=== PATIENT | female | born 1960 | race Caucasian/White ===

== ENCOUNTER 2017-04-17 14:09 | Outpatient (POV) | payer MEDICAID, SELFPAY | END 2017-04-17 14:39 | disposition home or self-care (01) | PROVIDERS: Visit Provider Podiatrist | DX: L89.621 Pressure ulcer of left heel, stage 1 (principal); E11.622 Type 2 diabetes mellitus with other skin ulcer | CPT/HCPCS: 99212 ==

== ENCOUNTER 2017-05-03 14:20 | Outpatient (POV) | payer MEDICAID, SELFPAY | END 2017-05-03 16:20 | disposition home or self-care (01) | PROVIDERS: Visit Provider Podiatrist | DX: E11.621 Type 2 diabetes mellitus with foot ulcer (principal); L97.429 Non-pressure chronic ulcer of left heel and midfoot with unspecified severity | CPT/HCPCS: 99212; 11042; 73630 ==

== ENCOUNTER → 2017-05-04 | Outpatient (CLI) | payer MEDICAID, SELFPAY | PROVIDERS: Visit Provider Podiatrist | DX: E11.621 Type 2 diabetes mellitus with foot ulcer (principal) | CPT/HCPCS: 36415; 80053; 85025; 85651; 86140; 87070; 87077; 87186 ==

== ENCOUNTER 2017-05-17 08:01 | Outpatient (RCR) | payer BC, SELFPAY | END 2017-05-17 23:59 | LOC: PT 08:01 | PROVIDERS: PCP Internal Medicine Adolescent Medicine; Visit Provider Podiatrist | DX: E11.621 Type 2 diabetes mellitus with foot ulcer (principal) | CPT/HCPCS: 97162 ==

== ENCOUNTER 2017-06-26 11:07 | Emergency (ER) | payer BC, SELFPAY ==
[2017-06-26 11:30] VITALS: BP 146/93; PULSE 92; RESP 18; TEMP 36.2; O2SAT 99; BMI 32.1
--- NOTE | 2017-06-26 11:52 | HMH.EDUTC ---
[facility] Disposition Clinical Impression: Bilateral impacted cerumen, History of arthritis Disposition: Home, Self-Care Condition on Discharge: Good Instructions: DI for Cerumen Impaction, Ibuprofen, DI for Arthritis Additional Instructions: * All cerumen was removed. You report ears already feel better. No further treatment necessary with them * Ibuprofen every 6 hours with meal as needed for pain/inflammation. * No additional anti-inflammatories like motrin, aleve, advil with the above amount of ibuprofen. You CAN still take Tylenol every 4 hours as needed if you need something more for pain. * If you feel like you are needing ibuprofen often for your arthritis, you need to discuss this with primary care because they might want to start you on a daily medication to help cut down on your ibuprofen usage. Follow up with primary care IMMEDIATELY for new or worsening symptoms AND to discuss your arthritis. 911 for difficulty breathing or swallowing Prescriptions: Ibuprofen [Ibuprofen 600mg Tab] 600 mg PO Q6H PRN #30 tab PRN Reason: Moderate To Severe Pain Time of Disposition: 12:52 Medical Decision Making Vital Signs: 06/26/17 11:30 06/26/17 12:52 Temperature 97.2 F L 97.8 F Temperature Source Temporal Artery Scan Pulse Rate 78 Pulse Rate [Right Radial] 92 H Respiratory Rate 18 20 Blood Pressure 133/60 Blood Pressure [Right Arm] 146/93 Blood Pressure Mean [Right Arm] 110 Blood Pressure Source [Right Arm] Automatic Cuff Blood Pressure Position [Right Arm] Sitting 02 Sat by Pulse Oximetry 99 Oxygen Delivery Method Room Air - Vikram Inquiry Pt receiving controlled substance: No [facility] HPI - General Stated complaint: all over pain Time Seen by Provider: 06/26/17 11:52 Mode of Arrival: Family Vehicle Source of Information: Patient Limitations: No Limitations Description of Symptoms (Recalled from Triage Doc. by RN): pt c/o sinus drainage and pressure, ear pain, arthritis pain. HEENT Symptoms (Recalled from RN notes): Yes (sinus pressure/drainage, ear pain) Resp Symptoms (Recalled from RN notes): No Skin Symptoms (Recalled from RN notes): No MS Symptoms (Recalled from RN notes): Yes (arthritis pain) Functional Status (Recalled from RN notes): na - History of Present Illness Provider Complaint: c/o aches, chills, rhinorrhea, sinus pressure, yordan ear pain starting approx one week ago. Thinks aches are due to worsening arthritis. No specific joint. Had prescription ibuprofen at home but ran out around the time symptoms worsened. Can't afford to purchase any over the counter. Wondering if she needs IV levaquin for her sinus pressure or ibuprofen for her aches. Denies hx of renal disease, stomach ulcer, stomach bleeds. States she has never been told not to take ibuprofen and it is one of the only things that helps her aches. - Related Data Home Medications Medication Instructions Recorded Confirmed fluorometholone 0.1 % eye 1 drp OPHTHALMIC Q6H 05/21/17 drops,suspension gabapentin 300 mg capsule 300 mg PO TID 05/21/17 gentamicin 0.1 % topical cream 1 applic TOPICAL TID 05/21/17 hydrochlorothiazide 25 mg tablet 25 mg PO QDAY 05/21/17 levothyroxine 200 mcg tablet PO 05/21/17 omeprazole 20 mg capsule,delayed 20 mg PO ONCE 05/21/17 release sertraline 100 mg tablet 100 mg PO QDAY 05/21/17 sitagliptin 100 mg tablet 100 mg PO QDAY 05/21/17 acetaminophen 500 mg tablet 500 mg PO Q6H 06/15/17 ibuprofen 200 mg capsule 200 mg PO ONCE 06/15/17 rosuvastatin 10 mg tablet 10 mg PO ONCE 06/15/17 Previous Rx's Medication Instructions Recorded Ibuprofen [Ibuprofen 600mg Tab] 600 mg PO Q6H PRN #30 tab 06/26/17 Allergies Allergy/AdvReac Type Severity Reaction Status Date / Time regadenoson Allergy Severe HIVES SOB Verified 06/26/17 11:42 diphtheria, pertussis, Allergy Mild I-RASH Verified 06/26/17 11:42 tetanus vacc Iodinated Contrast Media - Allergy Mild I-HIVES Verified 06/26/17 11:42
[2017-06-26 12:52] VITALS: BP 133/60; PULSE 78; RESP 20; TEMP 36.6; O2SAT 99
== END 2017-06-26 12:53 | disposition home or self-care (01) ==
PROVIDERS: Emergency Provider Nurse Practitioner Family; PCP Internal Medicine Adolescent Medicine
DX: H61.23 Impacted cerumen, bilateral (principal); E11.9 Type 2 diabetes mellitus without complications; E78.5 Hyperlipidemia, unspecified; I10 Essential (primary) hypertension; Z88.0 Allergy status to penicillin; Z88.1 Allergy status to other antibiotic agents; Z88.2 Allergy status to sulfonamides; Z88.6 Allergy status to analgesic agent; Z88.7 Allergy status to serum and vaccine
CPT/HCPCS: 69210; 99202

== ENCOUNTER 2017-06-28 03:39 | Emergency (ER) | payer BC, SELFPAY ==
[2017-06-28 03:46] VITALS: BP 158/94; PULSE 91; RESP 18; TEMP 36.4; O2SAT 97; BMI 31.7
[2017-06-28 04:58] VITALS: BP 127/68; PULSE 91; RESP 18; TEMP 36.7; O2SAT 98
--- NOTE | 2017-06-28 04:58 | HMH.EDLOEX ---
ED Disposition Clinical Impression: DVT (deep venous thrombosis) Qualifiers: DVT location: lower extremity Affected thrombotic vein of extremity: unspecified vein of extremity Chronicity: unspecified Laterality: right Qualified Code(s): I82.401 - Acute embolism and thrombosis of unspecified deep veins of right lower extremity Disposition: Home, Self-Care Condition on Discharge: Good Instructions: DI for Deep Vein Thrombosis Additional Instructions: call pcp for follow this am - Critical Care Critical Care Time: No Attestation: On 06/28/17, the high probability of a clinically significant, sudden or life threatening deterioration of the following system(s) required my full and direct attention, intervention and personal management. The time I documented below is in addition to time spent performing reported procedures but includes the following listed in this critical care notation. Medical Decision Making - Medical Records Medical records reviewed: Yes: I reviewed the patient's medical records. Vital Signs: 06/28/17 03:46 Temperature 97.6 F Temperature Source Oral Pulse Rate [Right Radial] 91 H Respiratory Rate 18 Blood Pressure [Right Arm] 158/94 Blood Pressure Mean [Right Arm] 115 Blood Pressure Source [Right Arm] Automatic Cuff Blood Pressure Position [Right Arm] Sitting 02 Sat by Pulse Oximetry 97 Oxygen Delivery Method Room Air - Lab Data Lab results reviewed: Yes: I reviewed the patient's lab results. - Vikram Inquiry Pt receiving controlled substance: No Lower Extremity Injury HPI - General Chief Complaint: Skin/Abscess/Foreign Body Stated Complaint: knot in calf of right leg Time Seen by Provider: 06/28/17 04:59 Mode of Arrival: Ambulatory Source of Information: Patient, Spouse, Medical Record Limitations: No Limitations Description of Symptoms (Recalled from ER Triage Doc. by RN): Pt reports knot on calf that came up yesterday and is very painful - History of Present Illness HPI Narrative: pain rt lower leg noted yesterday with assoc pain Onset (ago): day(s) Severity: moderate Context: other (no trauma) - Related Data Home Medications Medication Instructions Recorded Confirmed fluorometholone 0.1 % eye 1 drp OPHTHALMIC Q6H 05/21/17 06/28/17 drops,suspension gabapentin 300 mg capsule 100 mg PO TID 05/21/17 06/28/17 hydrochlorothiazide 25 mg tablet 25 mg PO QDAY 05/21/17 06/28/17 levothyroxine 200 mcg tablet 200 mcg PO DAILY 05/21/17 06/28/17 omeprazole 20 mg capsule,delayed 20 mg PO ONCE 05/21/17 06/28/17 release sertraline 100 mg tablet 100 mg PO QDAY 05/21/17 06/28/17 sitagliptin 100 mg tablet 40 mg PO QDAY 05/21/17 06/28/17 acetaminophen 500 mg tablet 500 mg PO Q6H 06/15/17 06/28/17 ibuprofen 200 mg capsule 200 mg PO ONCE 06/15/17 06/28/17 rosuvastatin 10 mg tablet 10 mg PO ONCE 06/15/17 06/28/17 Allergies Allergy/AdvReac Type Severity Reaction Status Date / Time regadenoson Allergy Severe HIVES SOB Verified 06/28/17 03:53 diphtheria, pertussis, Allergy Mild I-RASH Verified 06/28/17 03:53 tetanus vacc Iodinated Contrast Media - Allergy Mild I-HIVES Verified 06/28/17 03:53 Oral and amoxicillin [AMOXICILLIN] Allergy Unknown Verified 06/28/17 03:53 cephalexin [CEPHALEXIN] Allergy Unknown Verified 06/28/17 03:53 clindamycin [CLINDAMYCIN] Allergy Unknown Verified 06/28/17 03:53 codeine [CODEINE] Allergy Unknown Verified 06/28/17 03:53 doxycycline [DOXYCYCLINE] Allergy Unknown I-HIVES Verified 06/28/17 03:53 erythromycin base Allergy Unknown Verified 06/28/17 03:53 [ERYTHROMYCIN BASE] meperidine [MEPERIDINE] Allergy Unknown Verified 06/28/17 03:53 metformin [METFORMIN] Allergy Unknown Verified 06/28/17 03:53 methylprednisolone Allergy Unknown Verified 06/28/17 03:53 [From MEDROL] oseltamivir [From TAMIFLU] Allergy Unknown S-DIFF. Verified 06/28/17 03:53 BREATHING Penicillins [PENICILLINS] Allergy Unknown Verified 06/28/17 03:53 p
--- NOTE | 2017-06-28 05:05 | ED_ITS ---
ED Disposition Clinical Impression: DVT (deep venous thrombosis) Qualifiers: DVT location: lower extremity Affected thrombotic vein of extremity: unspecified vein of extremity Chronicity: unspecified Laterality: right Qualified Code(s): I82.401 - Acute embolism and thrombosis of unspecified deep veins of right lower extremity Disposition: Home, Self-Care Condition on Discharge: Good Instructions: DI for Deep Vein Thrombosis Additional Instructions: call pcp for follow this am - Critical Care Critical Care Time: No Attestation: On 06/28/17, the high probability of a clinically significant, sudden or life threatening deterioration of the following system(s) required my full and direct attention, intervention and personal management. The time I documented below is in addition to time spent performing reported procedures but includes the following listed in this critical care notation. Medical Decision Making - Medical Records Medical records reviewed: Yes: I reviewed the patient's medical records. Vital Signs: 06/28/17 03:46 Temperature 97.6 F Temperature Source Oral Pulse Rate [Right Radial] 91 H Respiratory Rate 18 Blood Pressure [Right Arm] 158/94 Blood Pressure Mean [Right Arm] 115 Blood Pressure Source [Right Arm] Automatic Cuff Blood Pressure Position [Right Arm] Sitting 02 Sat by Pulse Oximetry 97 Oxygen Delivery Method Room Air - Lab Data Lab results reviewed: Yes: I reviewed the patient's lab results. - Vikram Inquiry Pt receiving controlled substance: No Lower Extremity Injury HPI - General Chief Complaint: Skin/Abscess/Foreign Body Stated Complaint: knot in calf of right leg Time Seen by Provider: 06/28/17 04:59 Mode of Arrival: Ambulatory Source of Information: Patient, Spouse, Medical Record Limitations: No Limitations Description of Symptoms (Recalled from ER Triage Doc. by RN): Pt reports knot on calf that came up yesterday and is very painful - History of Present Illness HPI Narrative: pain rt lower leg noted yesterday with assoc pain Onset (ago): day(s) Severity: moderate Context: other (no trauma) - Related Data Home Medications Medication Instructions Recorded Confirmed fluorometholone 0.1 % eye 1 drp OPHTHALMIC Q6H 05/21/17 06/28/17 drops,suspension gabapentin 300 mg capsule 100 mg PO TID 05/21/17 06/28/17 hydrochlorothiazide 25 mg tablet 25 mg PO QDAY 05/21/17 06/28/17 levothyroxine 200 mcg tablet 200 mcg PO DAILY 05/21/17 06/28/17 omeprazole 20 mg capsule,delayed 20 mg PO ONCE 05/21/17 06/28/17 release sertraline 100 mg tablet 100 mg PO QDAY 05/21/17 06/28/17 sitagliptin 100 mg tablet 40 mg PO QDAY 05/21/17 06/28/17 acetaminophen 500 mg tablet 500 mg PO Q6H 06/15/17 06/28/17 ibuprofen 200 mg capsule 200 mg PO ONCE 06/15/17 06/28/17 rosuvastatin 10 mg tablet 10 mg PO ONCE 06/15/17 06/28/17 Allergies Allergy/AdvReac Type Severity Reaction Status Date / Time regadenoson Allergy Severe HIVES SOB Verified 06/28/17 03:53 diphtheria, pertussis, Allergy Mild I-RASH Verified 06/28/17 03:53 tetanus vacc Iodinated Contrast Media - Allergy Mild I-HIVES Verified 06/28/17 03:53 Oral and amoxicillin [AMOXICILLIN] Allergy Unknown Verified 06/28/17 03:53 cephalexin [CEPHALEXIN] Allergy Unknown Verified 06/28/17 03:53
[2017-06-28 05:36] LABS: Basophils % 0.4 % (0.1-2.0); Eosinophils # 0.4 K/mm3 (0.0-0.4); Eosinophils % 3.8 % (0.1-12.0); Hematocrit 34.2 % (37.0-47.0); Lymphocytes # 1.9 K/mm3 (0.7-4.5); Lymphocytes % 19.3 K/mm3 (10-50); Mean Corpuscular HGB Conc 35.1 g/dL (31.8-35.4); Mean Corpuscular Hemoglobin 31.2 pg (27.0-31.2); Mean Corpuscular Volume 88.7 fl (81-99); Mean Platelet Volume 8.1 fl (7.4-10.4); Monocytes # 0.5 K/mm3 (0.1-1.0); Monocytes % 4.7 % (1.7-9.3); Neutrophils # 7.1 K/mm3 (1.8-7.8); Neutrophils % 71.8 % (37.0-80.0); Platelet Count 278 K/mm3 (142-424); Red Blood Count 3.85 M/mm3 (4.20-5.40); Red Cell Distribution Width 13.1 % (11.5-17.5); White Blood Count 9.8 K/mm3 (4.8-10.8)
[2017-06-28 05:40] VITALS: BP 127/68; PULSE 91; RESP 18; TEMP 36.7; O2SAT 98
[2017-06-28 05:44] LABS: Anion Gap 11.3 mEq/L (5-15); Blood Urea Nitrogen 22 mg/dL (7-18); Carbon Dioxide 30 mmol/L (21.0-32.0); Chloride 95 mmol/L (98-107); Creatinine Clearance Estimated 80 mL/min (0-300); Creatinine,Serum 0.96 mg/dL (0.55-1.02); Estimated Glomerular Filt Rate 60 ml/min (>60); GFR (African American) 73 ML/MIN (>60); Potassium 4.3 mmoL/L (3.5-5.1); Sodium 132 mmol/L (136-145)
[2017-06-28 05:47] LABS: Glucose 417 mg/dL (74-106)
[2017-06-28 05:57] LABS: D-Dimer 115 (0-400)
== END 2017-06-28 05:40 | disposition home or self-care (01) ==
PROVIDERS: Emergency Provider Emergency Medicine; PCP Internal Medicine Adolescent Medicine
DX: I82.401 Acute embolism and thrombosis of unspecified deep veins of right lower extremity (principal); Z79.899 Other long term (current) drug therapy
CPT/HCPCS: 80048; 85025; 85378; 96372; 99282

== ENCOUNTER → 2017-06-28 14:42 | Outpatient (CLI) | payer BC, SELFPAY ==
--- NOTE | 2017-06-28 14:51 | NVE_ITS ---
Venous Exam Indications: 729.5 Pain in limb. IMPRESSIONS 1. There is no evidence of significant Reflux. 2. No evidence of deep or superficial vein thrombosis involving the left lower extremity 3. No evidence of deep or superficial vein thrombosis involving the right lower extremity History: Risk factors: Hypertension. Complete lower extremity venous duplex evaluation. Doppler flow study including spectral analysis, color and brooke scale imaging. Location: Vascular laboratory. Patient status: Outpatient. Tables: Venous flow and imaging: + +-------+ + Location Overall Flow properties + +-------+ + Right common femoral Patent Normal phasicity; spontaneous; normal augmentation; compressible + +-------+ + Right saphenofemoral junction Patent Compressible + +-------+ + Right profunda femoral Patent Compressible + +-------+ + Right femoral Patent Normal phasicity; spontaneous; normal augmentation; compressible; no reflux + +-------+ + Right greater saphenous Patent Normal phasicity; spontaneous; normal augmentation; compressible + +-------+ + Right popliteal Patent Normal phasicity; spontaneous; normal augmentation; compressible + +-------+ + Right posterior tibial Patent Compressible + +-------+ + Right peroneal Patent Compressible + +-------+ + Right gastrocnemius Patent Compressible + +-------+ + Right soleal Patent Compressible + +-------+ + Left common femoral Patent Normal phasicity; spontaneous; normal augmentation; compressible + +-------+ + Left saphenofemoral junction Patent Compressible + +-------+ + Left profunda femoral Patent Compressible + +-------+ + Left femoral Patent Normal phasicity; spontaneous; normal augmentation; compressible + +-------+ + Left greater saphenous Patent Normal phasicity; spontaneous; normal augmentation; compressible + +-------+ +
== END ==
PROVIDERS: PCP Internal Medicine Adolescent Medicine; Visit Provider Internal Medicine Cardiovascular Disease
DX: I73.9 Peripheral vascular disease, unspecified (principal); Z86.718 Personal history of other venous thrombosis and embolism; Z86.73 Personal history of transient ischemic attack (TIA), and cerebral infarction without residual deficits; Z82.49 Family history of ischemic heart disease and other diseases of the circulatory system; R94.31 Abnormal electrocardiogram [ECG] [EKG]; I25.10 Atherosclerotic heart disease of native coronary artery without angina pectoris; J44.9 Chronic obstructive pulmonary disease, unspecified
CPT/HCPCS: 93970

== ENCOUNTER → 2017-07-06 12:59 | Outpatient (CLI) | payer BC, SELFPAY ==
--- NOTE | 2017-07-06 13:01 | US_ITS ---
US Arterial Ankle Brachial Ind INDICATION: Hypertension, diabetes, left heel ulcer ORDERING PHYSICIAN: Vidal Oliver MD PATIENT AGE: 57 years TECHNIQUE: Segmental pressures obtained of both right and left leg. These are compared to brachial blood pressure to yield index at each level sampled including summary TARA. The data sheets from the procedure are available in PACS FINDINGS Rest study only performed today No prior studies available for comparison. Blood pressures reported are in millimeters mercury. RIGHT LEG TARA = 1.0. Right TBI 1.0 Brachial BP: 162 Thigh BP: 185 Calf BP: 191 Ankle PT: 208 Ankle DP : 212 Digit =169 LEFT LEG TARA = 1.2 Left TBI 1.0 Brachial BPD: 174 Thigh BP: 191 Calf BP: 213 Ankle PT:202 Ankle DP: 204 Digit = 174 Pulses and waveforms: Normal IMPRESSION: The ABIs as reported above are within normal limits. Waveforms and pulses are also unremarkable.
--- NOTE | 2017-07-06 13:02 | CA_ITS ---
PROCEDURE: 2-D M-mode and color Doppler study INDICATIONS FOR THE TEST: Chest painX COPDX Heart Murmur Tobacco Smoking Palpitations Fatigue Syncope Edema HypertensionXDiabetes MellitusX Rheumatic Fever SOB [place] Obesity HyperlipidemiaX Family History HDX Additional History CAD,CVA EF 03/24/16 >55% PATIENT INFORMATION HEIGHT: 61 WEIGHT:170 GENDER: Female B/P:120/80 2-D/M-MODE INTERPRETATION: 2-D MEASUREMENTS OBSERVED VALUES IN CMS Right Ventricular Dimension (RVDd) 1.7 Interventricular Septum (Thickness)(IVsd) .6 Left Ventricular Internal Dimensions(LVIDd) 5.4 Left Ventricular Posterior Wall (Thickness)(LVPWd) .7 Aortic Root 2.8 Aortic Cusp Separation 1.7 Left Atrial Dimensions (LAD) 2.7 2D 1. Left atrium is mildly enlarged, left ventricle is normal size, there is mild concentric left ventricular hypertrophy, there is borderline left ventricular systolic function, visually estimated ejection fraction approximately 45% with no obvious regional wall motion abnormality. 2. The right atrium and right ventricle are normal size and contractility. 3. The aortic valve is minimally thickened and fibrosed. 4. The mitral and tricuspid valve leaflets are minimally thickened. 5. The pulmonic valve is poorly visualized. 6. No significant pericardial effusion noted. DOPPLER INTERROGATION: Doppler interrogation of the aortic, mitral and tricuspid valve reveals presence of mild mitral and tricuspid regurgitation, tricuspid and enteric velocity insufficient for calculation of the right ventricular systolic pressure, diastolic parameters are inconclusive. CONCLUSION: 1. Mildly enlarged left atrium, normal left ventricular size, mild concentric left ventricular hypertrophy, there is borderline left ventricular systolic function, visually estimated ejection fraction 45% with no obvious regional wall motion abnormality. Diastolic parameters are inconclusive. 2. Mild mitral and tricuspid regurgitation 3. No significant pericardial effusion noted.
== END ==
PROVIDERS: PCP Family Medicine; Visit Provider Internal Medicine Cardiovascular Disease
DX: R53.83 Other fatigue (principal); R06.83 Snoring; G47.9 Sleep disorder, unspecified; R06.00 Dyspnea, unspecified; I73.9 Peripheral vascular disease, unspecified; J44.9 Chronic obstructive pulmonary disease, unspecified; I77.1 Stricture of artery; I11.9 Hypertensive heart disease without heart failure; E78.5 Hyperlipidemia, unspecified; I25.10 Atherosclerotic heart disease of native coronary artery without angina pectoris
CPT/HCPCS: 93306; 93922

== ENCOUNTER → 2017-08-13 20:12 | Outpatient (CLI) | payer BC, SELFPAY | PROVIDERS: PCP Family Medicine; Visit Provider Internal Medicine Cardiovascular Disease | DX: R53.83 Other fatigue (principal); R06.83 Snoring; G47.9 Sleep disorder, unspecified; R06.00 Dyspnea, unspecified; I25.10 Atherosclerotic heart disease of native coronary artery without angina pectoris | CPT/HCPCS: 95810 ==

== ENCOUNTER → 2017-08-15 11:20 | Outpatient (CLI) | payer BC, SELFPAY ==
--- NOTE | 2017-08-15 11:24 | XR_ITS ---
XR abdomen min 2V Ordering Physician: PATRICIA Mustafa Patient Age: 57 years: Female HISTORY: ITS.REASON: abdominal pain TECHNIQUE: Flat and upright abdomen COMPARISON :Previous 2 view chest March 2017 FINDINGS Flat and upright views of abdomen demonstrate a generous stool throughout the right transverse and left colon. Suggestion of mild constipation. No small bowel dilatation or obstruction. Stomach unremarkable. Clips right quadrant from cholecystectomy. No organomegaly. Mild levoscoliosis of the lumbar spine with subtle gradual dextrocurvature lower T-spine. Osseous structures intact. Phleboliths pelvic basin. These images also include lung bases which demonstrate slight progression of very dense reticular /nodular pattern midlung and towards left base. Slight progressive density may be accentuated by the lower KV technique this progressively dense infiltrate may reflect some type of pulmonary toxicity microlithiasis talc pneumoconiosis. Pulmonary follow-up and consult recommended if patient has not already been evaluated. Findings at the right midlung appears similar to previous CXR study IMPRESSION: 1. Abdomen: Moderate to generous stool throughout the colon- suggesting mild constipation No bowel dilatation or obstruction. No organomegaly. No free air 2. These studies include the lung bases, which again show the very possibly partially calcified reticulonodular bilaterally. Is suggestion of slight progressive density of this reticular nodular process at left midlung and towards left base since 2016 ...however the different x-ray technique may accentuate such markings.. Pulmonary consult recommended if this is not been previously initiated
== END ==
PROVIDERS: PCP Family Medicine; Visit Provider Physician Assistant
DX: R10.84 Generalized abdominal pain (principal)
CPT/HCPCS: 74019

== ENCOUNTER → 2017-08-20 11:22 | Outpatient (REF) | payer BC, SELFPAY | LOC: LAB 11:22 | PROVIDERS: Visit Provider Nurse Practitioner Family | DX: R30.9 Painful micturition, unspecified (principal) | CPT/HCPCS: 87086; 87088; 87186 ==

== ENCOUNTER → 2017-08-30 07:56 | Outpatient (CLI) | payer BC, SELFPAY ==
--- NOTE | 2017-08-30 07:57 | CT_ITS ---
CT chest wo con COMPARISON: PA and lateral chest 01/31/2017 HISTORY: Shortness of breath cough, abnormal chest x-ray TECHNIQUE: Multiaxial scans obtained from the thoracic inlet the hemidiaphragms and were performed without IV contrast. Sagittal and coronal reformats were evaluated as well. FINDINGS: The lung foster are fairly well-expanded. There are bilateral coarse and chronic appearing pneumonic infiltrates primarily in the perihilar regions showing increased attenuation and generalized thickening of the interlobular septa. Involvement is most prominent in the upper lobes and superior segment left lower lobe and minimally involving the right middle lobe. There is no pleural fluid. There is no abnormal superior mediastinal or hilar lymphadenopathy. Cardiac size is normal. There is a small sliding hiatal hernia. Noted. Mediastinal or hilar lymphadenopathy. 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 Other types of aspiration pneumonia are considerations as well. Suggest clinical correlation for possible use of mineral oral or related substances i.e. oily nose drops.
== END ==
PROVIDERS: PCP Family Medicine; Visit Provider Physician Assistant
DX: R93.8 Abnormal findings on diagnostic imaging of other specified body structures (principal)
CPT/HCPCS: 71250

== ENCOUNTER → 2017-09-05 14:08 | Outpatient (CLI) | payer BC, SELFPAY | PROVIDERS: Visit Provider Physician Assistant | DX: R30.9 Painful micturition, unspecified (principal); R53.83 Other fatigue | CPT/HCPCS: 87086; 87210 ==

== ENCOUNTER 2017-09-06 14:14 | Outpatient (CLI) | payer BC, SELFPAY ==
[2017-09-06 13:55] VITALS: BMI 32.1
[2017-09-06 14:47] LABS: Anion Gap 10.9 mEq/L (5-15); Blood Urea Nitrogen 13 mg/dL (7-18); Carbon Dioxide 32 mmol/L (21.0-32.0); Chloride 97 mmol/L (98-107); Creatinine Clearance Estimated 74 mL/min (0-300); Creatinine,Serum 1.04 mg/dL (0.55-1.02); Estimated Glomerular Filt Rate 55 ml/min (>60); GFR (African American) 67 ML/MIN (>60); Potassium 3.9 mmoL/L (3.5-5.1); Sodium 136 mmol/L (136-145)
[2017-09-06 14:49] LABS: Glucose 427 mg/dL (74-106)
--- NOTE | 2017-09-06 15:21 | HMH.PHACONS ---
- Pharmacy Consult Date: 09/06/17 Time: 15:21 Referring provider: ISSAC HARDIN Reason for Consult:: GENTAMICIN DOSING Allergies and ADEs:: Allergies Allergy/AdvReac Type Severity Reaction Status Date / Time regadenoson Allergy Severe HIVES SOB Verified 09/05/17 13:57 diphtheria, pertussis, Allergy Mild I-RASH Verified 09/05/17 13:57 tetanus vacc Iodinated Contrast Media - Allergy Mild I-HIVES Verified 09/05/17 13:57 Oral and amoxicillin [AMOXICILLIN] Allergy Unknown Verified 09/05/17 13:57 cephalexin [CEPHALEXIN] Allergy Unknown Verified 09/05/17 13:57 clindamycin [CLINDAMYCIN] Allergy Unknown Verified 09/05/17 13:57 codeine [CODEINE] Allergy Unknown Verified 09/05/17 13:57 doxycycline [DOXYCYCLINE] Allergy Unknown I-HIVES Verified 09/05/17 13:57 erythromycin base Allergy Unknown Verified 09/05/17 13:57 [ERYTHROMYCIN BASE] meperidine [MEPERIDINE] Allergy Unknown Verified 09/05/17 13:57 metformin [METFORMIN] Allergy Unknown Verified 09/05/17 13:57 methylprednisolone Allergy Unknown Verified 09/05/17 13:57 [From MEDROL] oseltamivir [From TAMIFLU] Allergy Unknown S-DIFF. Verified 09/05/17 13:57 BREATHING Penicillins [PENICILLINS] Allergy Unknown Verified 09/05/17 13:57 pioglitazone [From ACTOS] Allergy Unknown Verified 09/05/17 13:57 polyethylene glycol 3350 Allergy Unknown Verified 09/05/17 13:57 [From MIRALAX] Sulfa (Sulfonamide Allergy Unknown Verified 09/05/17 13:57 Antibiotics) [SULFA (SULFONAMIDE ANTIBIOTICS)] tetracycline [TETRACYCLINE] Allergy Unknown Verified 09/05/17 13:57 nitrofurantoin Allergy Hives Verified 09/05/17 14:56 [From Macrobid] Home Medications:: Home Medications Medication Instructions Recorded Confirmed Type hydrochlorothiazide 25 mg tablet 25 mg PO QDAY 05/21/17 06/28/17 History levothyroxine 200 mcg tablet 200 mcg PO DAILY 05/21/17 06/28/17 History sertraline 100 mg tablet 100 mg PO QDAY 05/21/17 06/28/17 History sitagliptin 100 mg tablet 40 mg PO QDAY 05/21/17 06/28/17 History acetaminophen 500 mg tablet 500 mg PO Q6H 06/15/17 06/28/17 History Height: 1.55 m Weight: 77.111 kg Laboratory Results:: Laboratory Results - last 24 hr 09/06/17 14:00: Sodium 136, Potassium 3.9, Chloride 97 L, Carbon Dioxide 32, Anion Gap 10.9, BUN 13, Creatinine 1.04 H, Estimated Creat Clear 74, Estimated GFR 55 L, Est GFR ( Amer) 67, Glucose 427 H* Medical History: Reports:: Diabetes Mellitus Type 2, Hyperlipidemia, Hypertension, Migraine Assessment and Plan - Assessment and plan all Dx Assessment and Plan for all problems:: BASED ON PATIENT FACTORS, RECOMMEND INITIATING GENTAMICIN @ 300MG (7MG/KG DBW) IV Q24H. WILL OBTAIN PEAK AND TROUGH LEVELS TOMORROW DURING INFUSION. PHARMACY WILL CONTINUE TO MONITOR AND WILL ADJUST DOSE APPROPRIATE.
[2017-09-06 15:38] VITALS: BP 136/85; PULSE 93; RESP 18; TEMP 36.7; O2SAT 98
[2017-09-06 16:08] VITALS: BP 145/92; PULSE 99; RESP 18; O2SAT 98
[2017-09-06 16:38] VITALS: BP 138/89; PULSE 97; RESP 18; O2SAT 98
[2017-09-06 17:08] VITALS: BP 126/88; PULSE 96; RESP 18; O2SAT 99
== END 2017-09-06 17:10 | disposition home or self-care (01) ==
LOC: INF 14:14
PROVIDERS: PCP Physician Assistant; Visit Provider Physician Assistant
DX: N39.0 Urinary tract infection, site not specified (principal)
CPT/HCPCS: 80048; 96365

== ENCOUNTER → 2017-09-08 12:54 | Outpatient (CLI) | payer BC, SELFPAY ==
[2017-09-08 13:18] VITALS: BP 138/91; PULSE 93; RESP 18; TEMP 36.7; O2SAT 97; BMI 32.1
[2017-09-08 14:29] VITALS: BP 132/83; PULSE 92; RESP 18; TEMP 36.3; O2SAT 97
== END ==
PROVIDERS: PCP Physician Assistant; Visit Provider Physician Assistant
DX: N39.0 Urinary tract infection, site not specified (principal)
CPT/HCPCS: 96365

== ENCOUNTER 2017-09-09 13:05 | Outpatient (CLI) | payer BC, SELFPAY ==
[2017-09-09 14:04] VITALS: BP 128/79; PULSE 94; RESP 18; TEMP 36.6; O2SAT 97
[2017-09-09 14:09] LABS: Gentamicin,Trough 0.4 ug/mL (0.0-2.0)
--- NOTE | 2017-09-09 17:20 | PC.NURSE ---
pt refused to be stuck to have labs drawn following infusion of gentamycin. pt was a difficult iv stick, and states that needles cause her to have a panic/anxiety attack.
== END 2017-09-09 15:40 | disposition home or self-care (01) ==
LOC: INF 13:06
PROVIDERS: PCP Physician Assistant; Visit Provider Physician Assistant
DX: N39.0 Urinary tract infection, site not specified (principal)
CPT/HCPCS: 80170; 96365

== ENCOUNTER 2017-09-10 11:50 | Outpatient (CLI) | payer BC, SELFPAY ==
[2017-09-10 12:27] VITALS: BMI 32.1
--- NOTE | 2017-09-10 12:28 | XR_ITS ---
XR chest portable PICC plac Ordering Physician: PATRICIA Mustafa Patient Age: 57 years: Female HISTORY: ITS.REASON: PICC line placement TECHNIQUE: Portable upright chest COMPARISON :Again 08/30/2017 CT chest FINDINGS PICC line enters from right arm. There is a right subclavian. The thin transverse is the brachiocephalic vein with tip entering the left subclavian vein. PICC line nurse was notified and will attempt repositioning again see the dense bilateral pulmonary dense infiltrate process. Throughout the left midlung & towards left base and at the right midlung. There is been pronounced progressed of findings when compared back to 2017 , with I believe progressive developing calcification in these areas of infiltrate bilaterally compared to 2017..Question processes such as silicosis or developing microlithiasis. Any history of environmental exposure.'s. With other possibilities may follow. . lipoid pneumonia questioned on previous CT but does not ideally pattern bilaterally . IMPRESSION: PICC line needs to be repositioned. Currently It passes through the brachiocephalic vein into the left subclavian the main. Bilateral dense chronic infiltrative process again noted ..most extensive throughout the left midlung more so than the right midlung warrants pulmonary consult
--- NOTE | 2017-09-10 13:13 | XR_ITS ---
XR chest portable #2 Ordering Physician: PATRICIA Mustafa Patient Age: 57 years: Female HISTORY: ITS.REASON: picc placement TECHNIQUE: AP portable upright chest COMPARISON :Chest film from earlier today Also CT 08/30/2017 and 01/31/2017 FINDINGS PICC line was been repositioned now in satisfactory position is in place entering right arm transversing subclavian with tip projected over the caval atrial junction fairly. Heart normal size with cyn and mediastinal structures unremarkable. . We again see the dense bilateral pulmonary process. I suspect there may be some progressive calcification in these areas of infiltrate bilaterally.. Question processes such as silicosis or developing microlithiasis. lipoid pneumonia questioned on previous CT but does not ideally pattern bilaterally There is been pronounced progressed of findings when compared back to 2017 . IMPRESSION: PICC line satisfactory position . Bilateral dense chronic infiltrative process again noted ..most extensive throughout the left midlung more so than the right midlung
[2017-09-10 13:14] LABS: Anion Gap 7.8 mEq/L (5-15); Blood Urea Nitrogen 14 mg/dL (7-18); Carbon Dioxide 33 mmol/L (21.0-32.0); Chloride 97 mmol/L (98-107); Creatinine Clearance Estimated 74 mL/min (0-300); Creatinine,Serum 1.04 mg/dL (0.55-1.02); Estimated Glomerular Filt Rate 55 ml/min (>60); GFR (African American) 67 ML/MIN (>60); Glucose 383 mg/dL (74-106); Potassium 3.8 mmoL/L (3.5-5.1); Sodium 134 mmol/L (136-145)
[2017-09-10 13:38] VITALS: BP 118/84; PULSE 91; RESP 18; TEMP 36.4; O2SAT 98
[2017-09-10 14:08] VITALS: BP 122/81; PULSE 89; RESP 18; O2SAT 99
[2017-09-10 14:38] VITALS: BP 120/81; PULSE 90; RESP 18; O2SAT 97
[2017-09-10 14:40] VITALS: BP 119/84; PULSE 91; RESP 18; O2SAT 98
[2017-09-10 15:10] LABS: Gentamicin,Trough 0.5 ug/mL (0.0-2.0)
[2017-09-10 15:40] VITALS: BP 119/79; PULSE 90; RESP 18; O2SAT 98
--- NOTE | 2017-09-11 10:28 | HMH.PHACONS ---
- Pharmacy Consult Date: 09/11/17 Time: 10:28 Referring provider: ISSAC HARDIN Reason for Consult:: GENTAMICIN LEVELS Allergies and ADEs:: Allergies Allergy/AdvReac Type Severity Reaction Status Date / Time regadenoson Allergy Severe HIVES SOB Verified 09/07/17 10:52 diphtheria, pertussis, Allergy Mild I-RASH Verified 09/07/17 10:52 tetanus vacc Iodinated Contrast Media - Allergy Mild I-HIVES Verified 09/07/17 10:52 Oral and amoxicillin [AMOXICILLIN] Allergy Unknown Verified 09/07/17 10:52 cephalexin [CEPHALEXIN] Allergy Unknown Verified 09/07/17 10:52 clindamycin [CLINDAMYCIN] Allergy Unknown Verified 09/07/17 10:52 codeine [CODEINE] Allergy Unknown Verified 09/07/17 10:52 doxycycline [DOXYCYCLINE] Allergy Unknown I-HIVES Verified 09/07/17 10:52 erythromycin base Allergy Unknown Verified 09/07/17 10:52 [ERYTHROMYCIN BASE] meperidine [MEPERIDINE] Allergy Unknown Verified 09/07/17 10:52 metformin [METFORMIN] Allergy Unknown Verified 09/07/17 10:52 methylprednisolone Allergy Unknown Verified 09/07/17 10:52 [From MEDROL] oseltamivir [From TAMIFLU] Allergy Unknown S-DIFF. Verified 09/07/17 10:52 BREATHING Penicillins [PENICILLINS] Allergy Unknown Verified 09/07/17 10:52 pioglitazone [From ACTOS] Allergy Unknown Verified 09/07/17 10:52 polyethylene glycol 3350 Allergy Unknown Verified 09/07/17 10:52 [From MIRALAX] Sulfa (Sulfonamide Allergy Unknown Verified 09/07/17 10:52 Antibiotics) [SULFA (SULFONAMIDE ANTIBIOTICS)] tetracycline [TETRACYCLINE] Allergy Unknown Verified 09/07/17 10:52 nitrofurantoin Allergy Hives Verified 09/07/17 10:52 [From Macrobid] Home Medications:: Home Medications Medication Instructions Recorded Confirmed Type hydrochlorothiazide 25 mg tablet 25 mg PO QDAY 05/21/17 09/10/17 History levothyroxine 200 mcg tablet 200 mcg PO DAILY 05/21/17 09/10/17 History sertraline 100 mg tablet 100 mg PO QDAY 05/21/17 09/10/17 History sitagliptin 100 mg tablet 40 mg PO QDAY 05/21/17 09/10/17 History acetaminophen 500 mg tablet 500 mg PO Q6H 06/15/17 09/10/17 History Furosemide [Furosemide 20mg Tab] 20 mg PO QDAY 09/06/17 09/10/17 History Gabapentin [Gabapentin 300mg Cap] 300 mg PO Q8H 09/06/17 09/10/17 History glipiZIDE [Glipizide ER] 10 mg PO DAILY 09/06/17 09/10/17 History metroNIDAZOLE [Metronidazole] 1 appful VAGINAL QHS 09/06/17 09/10/17 History Height: 1.55 m Weight: 77.111 kg Laboratory Results:: Laboratory Results - last 24 hr 09/10/17 12:53: Gentamicin Trough 0.5 09/10/17 12:53: Sodium 134 L, Potassium 3.8, Chloride 97 L, Carbon Dioxide 33 H, Anion Gap 7.8, BUN 14, Creatinine 1.04 H, Estimated Creat Clear 74, Estimated GFR 55 L, Est GFR ( Amer) 67, Glucose 383 H 09/10/17 15:37: Gentamicin Peak 15.0 H* Medical History: Reports:: Diabetes Mellitus Type 2, Hyperlipidemia, Hypertension, Migraine Assessment and Plan - Assessment and plan all Dx Assessment and Plan for all problems:: 09/10/17: GENTAMICIN PEAK LEVEL-15.0 MCG/ML GENTAMICIN TROUGH LEVEL-0.5 MCG/ML BASED ON LEVELS AND PATIENT FACTORS, RECOMMEND CONTINUING GENTAMICIN 300 MG IV Q24H.
--- NOTE | 2017-09-11 10:35 | P.CONPHA_ITS ---
- Pharmacy Consult Date: 09/11/17 Time: 10:28 Referring provider: ISSCA HARDIN Reason for Consult:: GENTAMICIN LEVELS Allergies and ADEs:: Allergies Allergy/AdvReac Type Severity Reaction Status Date / Time regadenoson Allergy Severe HIVES SOB Verified 09/07/17 10:52 diphtheria, pertussis, Allergy Mild I-RASH Verified 09/07/17 10:52 tetanus vacc Iodinated Contrast Media - Allergy Mild I-HIVES Verified 09/07/17 10:52 Oral and amoxicillin [AMOXICILLIN] Allergy Unknown Verified 09/07/17 10:52 cephalexin [CEPHALEXIN] Allergy Unknown Verified 09/07/17 10:52 clindamycin [CLINDAMYCIN] Allergy Unknown Verified 09/07/17 10:52 codeine [CODEINE] Allergy Unknown Verified 09/07/17 10:52 doxycycline [DOXYCYCLINE] Allergy Unknown I-HIVES Verified 09/07/17 10:52 erythromycin base Allergy Unknown Verified 09/07/17 10:52 [ERYTHROMYCIN BASE] meperidine [MEPERIDINE] Allergy Unknown Verified 09/07/17 10:52 metformin [METFORMIN] Allergy Unknown Verified 09/07/17 10:52 methylprednisolone Allergy Unknown Verified 09/07/17 10:52 [From MEDROL] oseltamivir [From TAMIFLU] Allergy Unknown S-DIFF. Verified 09/07/17 10:52 BREATHING Penicillins [PENICILLINS] Allergy Unknown Verified 09/07/17 10:52 pioglitazone [From ACTOS] Allergy Unknown Verified 09/07/17 10:52 polyethylene glycol 3350 Allergy Unknown Verified 09/07/17 10:52 [From MIRALAX] Sulfa (Sulfonamide Allergy Unknown Verified 09/07/17 10:52 Antibiotics) [SULFA (SULFONAMIDE ANTIBIOTICS)] tetracycline [TETRACYCLINE] Allergy Unknown Verified 09/07/17 10:52 nitrofurantoin Allergy Hives Verified 09/07/17 10:52 [From Macrobid] Home Medications:: Home Medications Medication Instructions Recorded Confirmed Type hydrochlorothiazide 25 mg tablet 25 mg PO QDAY 05/21/17 09/10/17 History levothyroxine 200 mcg tablet 200 mcg PO DAILY 05/21/17 09/10/17 History sertraline 100 mg tablet 100 mg PO QDAY 05/21/17 09/10/17 History sitagliptin 100 mg tablet 40 mg PO QDAY 05/21/17 09/10/17 History acetaminophen 500 mg tablet 500 mg PO Q6H 06/15/17 09/10/17 History Furosemide [Furosemide 20mg Tab] 20 mg PO QDAY 09/06/17 09/10/17 History Gabapentin [Gabapentin 300mg Cap] 300 mg PO Q8H 09/06/17 09/10/17 History glipiZIDE [Glipizide ER] 10 mg PO DAILY 09/06/17 09/10/17 History metroNIDAZOLE [Metronidazole] 1 appful VAGINAL QHS 09/06/17 09/10/17 History Height: 1.55 m Weight: 77.111 kg Laboratory Results:: Laboratory Results - last 24 hr 09/10/17 12:53: Gentamicin Trough 0.5 09/10/17 12:53: Sodium 134 L, Potassium 3.8, Chloride 97 L, Carbon Dioxide 33 H , Anion Gap 7.8, BUN 14, Creatinine 1.04 H, Estimated Creat Clear 74, Estimated GFR 55 L, Est GFR ( Amer) 67, Glucose 383 H 09/10/17 15:37: Gentamicin Peak 15.0 H* Medical History: Reports:: Diabetes Mellitus Type 2, Hyperlipidemia, Hypertension, Migraine Assessment and Plan - Assessment and plan all Dx Assessment and Plan for all problems:: 09/10/17: GENTAMICIN PEAK LEVEL-15.0 MCG/ML GENTAMICIN TROUGH LEVEL-0.5 MCG/ ML BASED ON LEVELS AND PATIENT FACTORS, RECOMMEND CONTINUING GENTAMICIN 300 MG IV Q24H.
== END 2017-09-10 15:45 | disposition home or self-care (01) ==
LOC: INF 11:50
PROVIDERS: PCP Physician Assistant; Visit Provider Physician Assistant
DX: N39.0 Urinary tract infection, site not specified (principal)
CPT/HCPCS: 36569; 71045; 80048; 80170; 96365; C1751

== ENCOUNTER 2017-09-11 14:10 | Outpatient (CLI) | payer BC, SELFPAY ==
[2017-09-11 14:35] VITALS: BP 117/77; PULSE 98; RESP 18; TEMP 36.6; O2SAT 97
[2017-09-11 15:05] VITALS: BP 115/74; PULSE 92; RESP 18; O2SAT 97
[2017-09-11 15:35] VITALS: BP 129/78; PULSE 94; RESP 18; O2SAT 97
[2017-09-11 16:00] VITALS: BP 135/74; PULSE 91; RESP 18; TEMP 36.4; O2SAT 97
== END 2017-09-11 16:15 | disposition home or self-care (01) ==
LOC: INF 14:10
PROVIDERS: PCP Physician Assistant; Visit Provider Physician Assistant
DX: N39.0 Urinary tract infection, site not specified (principal)
CPT/HCPCS: 96365

== ENCOUNTER 2017-09-12 14:15 | Outpatient (CLI) | payer BC, SELFPAY ==
[2017-09-12 14:48] VITALS: BP 172/89; PULSE 89; RESP 18; TEMP 36.3; O2SAT 97
[2017-09-12 15:18] VITALS: BP 165/81; PULSE 87; RESP 18; O2SAT 98
[2017-09-12 15:48] VITALS: BP 154/79; PULSE 84; RESP 18; O2SAT 97
[2017-09-12 16:15] VITALS: BP 152/81; PULSE 88; RESP 18; O2SAT 97
== END 2017-09-12 16:20 | disposition home or self-care (01) ==
LOC: INF 15:02
PROVIDERS: PCP Physician Assistant; Visit Provider Physician Assistant
DX: N39.0 Urinary tract infection, site not specified (principal)
CPT/HCPCS: 96365

== ENCOUNTER → 2017-09-13 17:09 | Outpatient (CLI) | payer BC, SELFPAY ==
[2017-09-13 17:28] VITALS: BMI 31.9
--- NOTE | 2017-09-13 17:40 | PC.NURSE ---
order provided per pharmacy - previously dosed
== END ==
PROVIDERS: PCP Physician Assistant; Visit Provider Physician Assistant
DX: N39.0 Urinary tract infection, site not specified (principal)
CPT/HCPCS: 96365

== ENCOUNTER 2017-09-14 11:17 | Outpatient (CLI) | payer BC, SELFPAY ==
[2017-09-14 11:00] VITALS: BP 148/83; PULSE 68; RESP 20; TEMP 36.9; O2SAT 96
[2017-09-14 11:30] VITALS: BP 145/80; PULSE 68; RESP 20; TEMP 36.9; O2SAT 96
[2017-09-14 12:15] VITALS: BP 142/78; PULSE 68; RESP 20; TEMP 36.9; O2SAT 96
== END 2017-09-14 12:15 | disposition home or self-care (01) ==
LOC: INF 11:17
PROVIDERS: PCP Physician Assistant; Visit Provider Physician Assistant
DX: N39.0 Urinary tract infection, site not specified (principal)
CPT/HCPCS: 96365

== ENCOUNTER → 2017-09-15 13:50 | Outpatient (CLI) | payer BC, SELFPAY ==
[2017-09-15 13:50] VITALS: BP 140/90; PULSE 90; RESP 18; TEMP 37
[2017-09-15 14:19] VITALS: BP 144/91; PULSE 92; RESP 18; TEMP 37.2; BMI 32.1
== END ==
PROVIDERS: PCP Physician Assistant; Visit Provider Physician Assistant
DX: N39.0 Urinary tract infection, site not specified (principal)
CPT/HCPCS: 96365; G0463

== ENCOUNTER → 2017-09-16 10:59 | Outpatient (CLI) | payer BC, SELFPAY ==
[2017-09-16 10:59] VITALS: BP 130/77; PULSE 89; RESP 18; TEMP 36.6
[2017-09-16 11:40] VITALS: BP 129/77; PULSE 89; RESP 18; TEMP 36.6; BMI 32.1
== END ==
PROVIDERS: PCP Physician Assistant; Visit Provider Physician Assistant
DX: N39.0 Urinary tract infection, site not specified (principal)
CPT/HCPCS: 96365; G0463

== ENCOUNTER 2017-09-17 10:52 | Outpatient (CLI) | payer BC, SELFPAY ==
[2017-09-17 11:22] VITALS: BP 148/95; PULSE 92; RESP 18; TEMP 36.6; O2SAT 96
[2017-09-17 11:50] VITALS: BP 132/76; PULSE 85; RESP 18; TEMP 36.5; O2SAT 97
[2017-09-17 12:40] VITALS: BP 129/78; PULSE 82; RESP 18; TEMP 36.6; O2SAT 96
== END 2017-09-17 12:45 | disposition home or self-care (01) ==
LOC: INF 10:52
PROVIDERS: PCP Physician Assistant; Visit Provider Physician Assistant
DX: N39.0 Urinary tract infection, site not specified (principal)
CPT/HCPCS: 96365

== ENCOUNTER 2017-09-19 08:39 | Outpatient (CLI) | payer BC, SELFPAY ==
[2017-09-19 12:00] VITALS: BP 122/70; PULSE 68; RESP 20; TEMP 36.9; O2SAT 96
[2017-09-19 12:30] LABS: Basophils # 0.1 K/mm3 (0-0.2); Basophils % 0.8 % (0.1-2.0); Eosinophils # 0.2 K/mm3 (0.0-0.4); Hematocrit 35.2 % (37.0-47.0); Hemoglobin 12.2 g/dL (12.2-16.2); Lymphocytes # 1.7 K/mm3 (0.7-4.5); Lymphocytes % 26.2 K/mm3 (10-50); Mean Corpuscular HGB Conc 34.5 g/dL (31.8-35.4); Mean Corpuscular Hemoglobin 31.3 pg (27.0-31.2); Mean Corpuscular Volume 90.5 fl (81-99); Monocytes # 0.6 K/mm3 (0.1-1.0); Monocytes % 9.2 % (1.7-9.3); Neutrophils # 3.9 K/mm3 (1.8-7.8); Neutrophils % 60.8 % (37.0-80.0); Platelet Count 269 K/mm3 (142-424); Red Blood Count 3.89 M/mm3 (4.20-5.40); Red Cell Distribution Width 12.6 % (11.5-17.5); White Blood Count 6.4 K/mm3 (4.8-10.8)
[2017-09-19 12:56] LABS: Hemoglobin A1C 10.8 % (0.0-7.0)
[2017-09-19 13:21] LABS: Alanine Aminotransferase 26 U/L (12-78); Albumin Level 3.7 gm/dL (3.4-5.0); Alkaline Phosphatase 94 U/L (46-116); Anion Gap 12.5 mEq/L (5-15); Aspartate Amino Transferase 21 U/L (15-37); Bilirubin,Total 0.4 mg/dL (0.2-1.0); Blood Urea Nitrogen 13 mg/dL (7-18); Calcium 8.9 mg/dL (8.5-10.1); Carbon Dioxide 31 mmol/L (21.0-32.0); Chloride 99 mmol/L (98-107); Chol/HDL Ratio 6.6 (1-3.5); Cholesterol 279 mg/dL (140-200); Creatinine,Serum 1.03 mg/dL (0.55-1.02); Estimated Glomerular Filt Rate 56 ml/min (>60); Free T4 (Free Thyroxine) 0.22 ng/dl (0.76-1.46); GFR (African American) 67 ML/MIN (>60); Globulin 3.7 gm/dl (1.3-3.2); HDL Cholesterol 42 mg/dL (29-89); LDL Cholesterol 193 mg/dL (0-130); Potassium 4.5 mmoL/L (3.5-5.1); Sodium 138 mmol/L (136-145); Thyroid Stimulating Hormone 71.02 uIU/ml (0.358-3.740); Total Protein,Serum 7.4 gm/dL (6.4-8.2); Triglycerides 220 mg/dL (30-200); VLDL Cholesterol 44 mg/dL (0-40)
[2017-09-19 13:30] LABS: Glucose 407 mg/dL (74-106)
[2017-09-20 06:24] LABS: Vitamin D 25 Hydroxy 20.5 ng/mL (30.0-100.0)
== END 2017-09-19 12:40 | disposition home or self-care (01) ==
PROVIDERS: PCP Physician Assistant; Visit Provider Physician Assistant
DX: R10.9 Unspecified abdominal pain (principal); N39.0 Urinary tract infection, site not specified; A49.9 Bacterial infection, unspecified
CPT/HCPCS: 80053; 80061; 82652; 83036; 84439; 84443; 85025; 87086

== ENCOUNTER → 2017-09-21 16:30 | Outpatient (CLI) | payer BC, SELFPAY | PROVIDERS: Visit Provider Nurse Practitioner Family | DX: R10.9 Unspecified abdominal pain (principal); N39.0 Urinary tract infection, site not specified; A49.9 Bacterial infection, unspecified | CPT/HCPCS: 87086 ==

== ENCOUNTER 2017-09-25 10:30 | Outpatient (CLI) | payer BC, SELFPAY ==
[2017-09-25 11:10] VITALS: BP 138/86; PULSE 96; RESP 18; TEMP 37.1; O2SAT 99
== END 2017-09-25 11:10 | disposition home or self-care (01) ==
LOC: INF 10:41
PROVIDERS: PCP Physician Assistant; Visit Provider Physician Assistant
DX: N39.0 Urinary tract infection, site not specified (principal); Z45.2 Encounter for adjustment and management of vascular access device
CPT/HCPCS: G0463

== ENCOUNTER 2017-09-26 09:39 | Outpatient (CLI) | payer BC, SELFPAY ==
[2017-09-26 09:59] VITALS: BP 153/91; PULSE 95; RESP 18; TEMP 36.2; O2SAT 98
[2017-09-26 10:00] VITALS: BP 153/91; PULSE 95; RESP 18; TEMP 36.2; O2SAT 98
== END 2017-09-26 10:02 | disposition home or self-care (01) ==
LOC: INF 09:41
PROVIDERS: PCP Physician Assistant; Visit Provider Physician Assistant
DX: N39.0 Urinary tract infection, site not specified (principal)
CPT/HCPCS: G0463

== ENCOUNTER → 2017-10-25 08:36 | Outpatient (POV) | payer BC, SELFPAY | PROVIDERS: PCP Physician Assistant; Visit Provider Dentist | DX: Z00.00 Encounter for general adult medical examination without abnormal findings (principal) ==

== ENCOUNTER → 2017-10-29 15:19 | Outpatient (CLI) | payer BC, SELFPAY ==
--- NOTE | 2017-10-29 15:21 | XR_ITS ---
XR chest 2V CLINICAL INDICATION: ITS.REASON: cough ORDERING PHYSICIAN: Trinidad Mason PATIENT AGE: 57 years Comparison: 09/10/2017 FINDINGS: The remaining central bilateral consolidation with hyperdensity similar to the previous exam of 09/10/2017 no new areas of consolidation evident. Right PICC line is been removed. No effusions. There are degenerative changes in the thoracic spine. IMPRESSION: Overall no change bilateral fine granular hyperdensities in the midlung. Etiology of this is uncertain. Please correlate with patient's clinical findings. Healed varicella pneumonia, talcosis, pulmonary stannosis is or pulmonary baritosis is considered
== END ==
PROVIDERS: PCP Emergency Medicine; Visit Provider Nurse Practitioner Family
DX: J18.9 Pneumonia, unspecified organism (principal)
CPT/HCPCS: 71046

== ENCOUNTER → 2017-11-16 10:10 | Outpatient (CLI) | payer BC, SELFPAY ==
--- NOTE | 2017-11-16 10:18 | XR_ITS ---
XR calcaneus LT min 2V CLINICAL INDICATION: ITS.REASON: CHRONIC LT HEEL ULCER ORDERING PHYSICIAN: Isaac Arango DPM PATIENT AGE: 57 years Comparison: None FINDINGS: No fracture or dislocation. No evidence of osteomyelitis. There is a small heel spur. No lytic or blastic change. IMPRESSION: No acute finding. Small heel spur. No evidence of bony erosive process
== END ==
PROVIDERS: PCP Physician Assistant; Visit Provider Podiatrist Public Medicine
DX: E11.621 Type 2 diabetes mellitus with foot ulcer (principal)
CPT/HCPCS: 73650

== ENCOUNTER → 2017-12-21 11:53 | Outpatient (CLI) | payer BC, SELFPAY ==
--- NOTE | 2017-12-21 11:56 | NVE_ITS ---
Venous Exam Indications: 729.81 Swelling of limb. IMPRESSIONS 1. There is no evidence of significant Reflux. 2. No evidence of deep or superficial vein thrombosis involving the left lower extremity Left lower extremity venous duplex evaluation. Doppler flow study including spectral analysis, color and brooke scale imaging. Location: Vascular laboratory. Patient status: Outpatient. CRITICAL FINDINGS - Reported to: nichole - Read back and verified. - 12/21/17 - 1215 - None Tables: Venous flow and imaging: + +-------+ + Location Overall Flow properties + +-------+ + Left common femoral Patent Normal phasicity; spontaneous; normal augmentation; compressible + +-------+ + Left saphenofemoral junction Patent Compressible + +-------+ + Left profunda femoral Patent Compressible + +-------+ + Left femoral Patent Normal phasicity; spontaneous; normal augmentation; compressible + +-------+ + Left greater saphenous Patent Normal phasicity; spontaneous; normal augmentation; compressible + +-------+ + Left popliteal Patent Normal phasicity; spontaneous; normal augmentation; compressible + +-------+ + Left posterior tibial Patent Compressible + +-------+ + Left peroneal Patent Compressible + +-------+ + Left gastrocnemius Patent Compressible + +-------+ + Left soleal Patent Compressible + +-------+ + (Report amended ) Electronically signed by: Navjot Ha [id number]
== END ==
PROVIDERS: PCP Family Medicine; Visit Provider Internal Medicine Cardiovascular Disease
DX: I82.409 Acute embolism and thrombosis of unspecified deep veins of unspecified lower extremity (principal); R52 Pain, unspecified; I25.10 Atherosclerotic heart disease of native coronary artery without angina pectoris
CPT/HCPCS: 93971

== ENCOUNTER 2017-12-24 14:48 | Observation (INO) ==
--- NOTE | 2017-12-24 22:26 | History & Physical Report ---
*Admission Date: 12/24/17 *Chief complaint: chest pain *History of present illness: this wf who has known cardiac disease and is followed by card presented to [facility] with chest pain and new lbbb and sl elevvated troponin and was transferred to the [facility] for eval - [facility] History I have reviewed the patient's past medical history: Yes Medical History: Reports:: Anxiety, Asthma, Cancer (THYROID), Diabetes Mellitus Type 2, Gastroesophageal Reflux Disease(GERD), Hyperlipidemia, Hypertension, Migraine, Ulcer Denies:: Diabetes Mellitus Type 1, MRSA, Seizures Other Medical History: Reports: Arthritis, Thyroid Disease, Other Laterality Cases: Bilateral: Tonsillectomy Other Surgeries: Yes: Cardiac Catheterization, Cholecystectomy, Coronary Stent, Hysterectomy-Total, Thyroidectomy Amputation: No Fractures: No - *Social History Educational Level: Completed High School Smoking Status: Never smoker Tobacco Type: cigarettes # Packs/Day (cigarettes): 0 #Yrs smoked (if former smoker): 0 Alcohol Intake: never Alcohol Intake Frequency:: other Substance Use Type: denies use Occupational Status: unemployed, disabled Housing: house Household Members: spouse, children - Psychiatric History Expresses thoughts of harming self/others: None Suicide Plan Description: No Plan Pschychiatric History:: Reports:: Anxiety *Family Hx:: Diabetes, Coronary Artery Disease Review of Systems - Review of Systems Review of systems:: pertinent systems reviewed and negative unless documented below - Constitutional Denies fever(s) - Eyes Denies change in vision - ENT Denies sore throat - *Cardiovascular Reports chest pain - *Respiratory Denies cough - *Gastrointestinal Denies abdominal pain - *Genitourinary Denies blood in urine - *Musculoskeletal Denies joint pain - Integumentary/Breasts Denies rash - *Neurologic Denies seizure-like activity - Psychiatric Reports anxiety Meds Home Medications Medication Instructions Recorded Confirmed Type hydrochlorothiazide 25 mg tablet 25 mg PO BID 05/21/17 12/24/17 History levothyroxine 200 mcg tablet 200 mcg PO DAILY 05/21/17 12/24/17 History sertraline 100 mg tablet 100 mg PO QDAY 05/21/17 12/24/17 History acetaminophen 500 mg tablet 500 mg PO Q6H 06/15/17 12/24/17 History Gabapentin [Gabapentin 300mg Cap] 300 mg PO Q8H 09/06/17 12/24/17 History sitagliptin 100 mg tablet 100 mg PO QDAY tab 09/19/17 12/24/17 History aspirin 81 mg tablet,delayed 81 mg PO DAILY tab 09/26/17 12/24/17 History release empagliflozin 25 mg tablet 25 mg PO HS 10/09/17 12/24/17 History ranitidine 150 mg capsule 150 mg PO BID 10/09/17 12/24/17 History Atorvastatin Calcium [Lipitor 40mg 40 mg PO DAILY 12/15/17 12/24/17 History Tablet] Estradiol 1 g VAGINAL .twice weekly 12/15/17 12/24/17 History Hydrocortisone 1 applic TOPICAL BID 12/15/17 12/24/17 History Ticagrelor [Brilinta 90mg Tablet] 90 mg PO BID 12/15/17 12/24/17 History Bisoprolol Fumarate 10 mg PO DAILY 12/24/17 12/24/17 History Triamcinolone Acetonide 1 applic TOPICAL BID 12/24/17 12/24/17 History Allergies Allergy/AdvReac Type Severity Reaction Status Date / Time amoxicillin Allergy Mild Rash Verified 12/20/17 11:12 clindamycin Allergy Mild Hives Verified 12/20/17 11:12 codeine Allergy Mild Rash Verified 12/20/17 11:12 diphtheria,pertussis Allergy Mild Rash Verified 12/20/17 11:12 (acell),tetanu [From Pentacel DTaP-IPV Compnt (PF)] Iodinated Contrast Media - Allergy Mild Hives Verified 12/20/17 11:12 Oral and regadenoson Allergy Mild Hives Verified 12/20/17 11:12 Exam Vital signs and Labs for Last 24 Hours: Temp Pulse Resp BP Pulse Ox 98.3 F 95 H 18 130/72 98 12/24/17 19:43 12/24/17 19:43 12/24/17 19:43 12/24/17 19:43 12/24/17 19:43 Laboratory Results - last 24 hr 12/24/17 17:20: Troponin I < 0.02 12/24/17 20:13: Troponin I < 0.02 I & O for Last 24 hours: Intake & Output 12/22/17 12/23/17 12/24/17 12/25/17 11:59 11:59 11:59 11:59 Intake Total 360 / 360 Balance 360 / 360 Weight 165 lb 3 oz - Constitutional no acute distress - *Routine HEENT Exam Head: Present: normocephalic Eye: Present: EOMI, PERRL ENT: Absent: mucous membranes dry - *Routine Neck Exam Present: supple - *Routine Respiratory Exam Present: CTA bilaterally - *Routine Cardiovascular Exam Present: RRR, murmur - *Routine Abdominal Exam Present: soft - *Routine Extremities Exam Absent: calf tenderness - *Routine Skin Exam Present: intact - *Routine Neurological Exam Present: alert, oriented X3, CN II-XII intact - Routine Psychiatric Exam Present: normal affect H&P: Result - Labs Labs: Cardiac Enzymes 12/24/17 12/24/17 Range/Units 17:20 20:13 Troponin I < 0.02 < 0.02 (0.00-0.06) ng/ml Assessment and Plan (1) Chest pain Current visit: Yes Status: Acute Category: Medical Code(s): R07.9 - Chest pain, unspecified (2) IDDM (insulin dependent diabetes mellitus) Current visit: Yes Status: Acute Category: Medical Code(s): E11.9 - Type 2 diabetes mellitus without complications; Z79.4 - ad terminal makeup operator (current) use of insulin (3) Hyperlipidemia Current visit: Yes Status: Acute Category: Medical Code(s): E78.5 - Hyperlipidemia, unspecified
[2017-12-25 05:45] LABS: Basophils % 0.4 % (0.1-2.0); Eosinophils # 0.2 K/mm3 (0.0-0.4); Eosinophils % 2.9 % (0.1-12.0); Hematocrit 33.9 % (37.0-47.0); Hemoglobin 11.5 g/dL (12.2-16.2); Lymphocytes # 1.8 K/mm3 (0.7-4.5); Lymphocytes % 27.1 K/mm3 (10-50); Mean Corpuscular Hemoglobin 30.4 pg (27.0-31.2); Mean Corpuscular Volume 89.4 fl (81-99); Mean Platelet Volume 7.6 fl (7.4-10.4); Monocytes # 0.4 K/mm3 (0.1-1.0); Monocytes % 5.6 % (1.7-9.3); Neutrophils # 4.2 K/mm3 (1.8-7.8); Platelet Count 246 K/mm3 (142-424); Red Blood Count 3.79 M/mm3 (4.20-5.40); Red Cell Distribution Width 13.1 % (11.5-17.5); White Blood Count 6.6 K/mm3 (4.8-10.8)
[2017-12-25 05:57] LABS: Anion Gap 9.5 mEq/L (5-15); Calcium 8.1 mg/dL (8.5-10.1); Chol/HDL Ratio 7.1 (1-3.5); Potassium 3.5 mmoL/L (3.5-5.1)
--- NOTE | 2017-12-25 07:21 | Pharmacy Consult Notes ---
[facility] Pharmacy VTE Monitoring - Patient Demographics Admission date: 12/24/17 Report Date: 12/25/17 Time: 07:21 Allergies/Adverse Reactions: Patient Allergies amoxicillin Allergy (Mild, Verified 12/20/17 11:12) Rash clindamycin Allergy (Mild, Verified 12/20/17 11:12) Hives codeine Allergy (Mild, Verified 12/20/17 11:12) Rash diphtheria,pertussis (acell),tetanu [From Pentacel DTaP-IPV Compnt (PF)] Allergy (Mild, Verified 12/20/17 11:12) Rash Iodinated Contrast Media - Oral and Allergy (Mild, Verified 12/20/17 11:12) Hives regadenoson Allergy (Mild, Verified 12/20/17 11:12) Hives Height: 1.55 m Weight: 74.899 kg - VTE Risk Labs: VTE Related Lab Results Hgb 11.5 g/dL (12.2-16.2) L 12/25/17 05:26 Hct 33.9 % (37.0-47.0) L 12/25/17 05:26 Plt Count 246 K/mm3 (142-424) 12/25/17 05:26 BUN 13 mg/dL (7-18) 12/25/17 05:26 Creatinine 0.97 mg/dL (0.55-1.02) 12/25/17 05:26 Estimated Creat Clear 78 mL/min (0-300) 12/25/17 05:26 Was VTE Risk Assessment Performed: Yes VTE Score: 3 VTE Risk Level: Low Risk - Prophylaxis VTE Prophylaxis Ordered?: Yes Types of VTE Prophylaxis: TEDS Knee High Location of Applied Device: Bilateral Lower Extremeties - VTE Diagnosis Confirmed Treatment or plan recommended: Continue Current Treatment
--- NOTE | 2017-12-25 08:36 | Consult Report ---
History of Present Illness Consult date: 12/25/17 Requesting physician: iMk Finn Consult reason: chest pain Chief complaint: chest tightness, fatigue Additional Medical History:: 1. DM, type 2 2. HTN/HHD 3. Hyperlipidemia 4. Hypothyroidism, on replacement 5. Cardiomyopathy with EF 40-45% A. Echo, 06/2017, 1. Mildly enlarged left atrium, normal left ventricular size, mild concentric left ventricular hypertrophy, there is borderline left ventricular systolic function, visually estimated ejection fraction 45% with no obvious regional wall motion abnormality. Diastolic parameters are inconclusive. 2. Mild mitral and tricuspid regurgitation 3. No significant pericardial effusion noted 6. CAD A. cardiac cath, 09/2017, ANGIOGRAPHIC RESULTS: 1. The left main artery has an ostial eccentric 20-30% stenosis 2. The left anterior descending artery has a proximal 80% concentric stenosis immediately adjacent to the first septal technical solutions consultant and first diagonal artery. The remaining LAD has mild disease. The first diagonal artery is a medium sized vessel and has a long diffuse mid vessel to distal 90% stenosis. 3. The circumflex artery is a dominant vessel and has proximal 10-20% stenoses followed by an additional concentric 80% stenosis immediately adjacent to a subtotally occluded first obtuse marginal artery. Distally there are 30% stenoses in the dominant circumflex artery 4. The right coronary artery is a small vestigial vessel and subtotally occluded in the very proximal segment 5. The LAU ventriculogram reveals mild left ventricular dilatation with mild anterior wall hypokinesis estimated ejection fraction 40% 6. The left ventricular end-diastolic pressure 10 mmHg IMPRESSION: 1. Severe coronary artery disease as described above 2. Successful stenting of the proximal dominant circumflex artery severe disease reduced to 0% with 1 drug-eluting stent 3. Successful stenting of the proximal left anterior descending artery severe disease reduced to 0% with 1 drug-eluting stent 4. Ischemic cardiomyopathy with reduced ejection fraction regional wall motion abnormality 5. Normal left ventricular end-diastolic pressure PLAN: 1. Brilinta and aspirin 2. Standard therapy for systolic heart failure 3. Standard therapy for ischemic heart disease 4. LDL less than 55 5. Cardiac rehabilitation 6. Avoidance of tobacco products History of present illness: 57 yo WF with CAD and recent CAD LILI in 09/2017 was at [facility] when she developed chest tightness and fatigue with leg weakness. Symptoms similar to angina symptoms in September. She went to ER for evaluation. EKG reportedly showed new LBBB with normal troponin but relief with ASA. Pt wanted to be transferred here for further evaluation. Troponins overnight normal. No further chest pain/discomfort per patient. Cardiology consulted for further evaluation and recommendations. Pt has been in the office recently with complaints of chest tightness with attempts at medical therapy but without success. [facility] History Medical History: Reports:: Anxiety, Asthma, Cancer (THYROID), Diabetes Mellitus Type 2, Gastroesophageal Reflux Disease(GERD), Hyperlipidemia, Hypertension, Migraine, Ulcer Denies:: Diabetes Mellitus Type 1, MRSA, Seizures Other Medical History: Reports: Arthritis, Thyroid Disease, Other Laterality Cases: Bilateral: Tonsillectomy Other Surgeries: Yes: Cardiac Catheterization, Cholecystectomy, Coronary Stent, Hysterectomy-Total, Thyroidectomy Amputation: No Fractures: No - *Social History Educational Level: Completed High School Smoking Status: Never smoker Tobacco Type: cigarettes # Packs/Day (cigarettes): 0 #Yrs smoked (if former smoker): 0 Alcohol Intake: never Alcohol Intake Frequency:: other Substance Use Type: denies use Occupational Status: unemployed, disabled Housing: house Household Members: spouse, children - Psychiatric History Expresses thoughts of harming self/others: None Suicide Plan Description: No Plan Pschychiatric History:: Reports:: Anxiety *Family Hx:: Diabetes, Coronary Artery Disease Meds Home Medications Medication Instructions Recorded Confirmed Type hydrochlorothiazide 25 mg tablet 25 mg PO BID 05/21/17 12/24/17 History levothyroxine 200 mcg tablet 200 mcg PO DAILY 05/21/17 12/24/17 History sertraline 100 mg tablet 100 mg PO QDAY 05/21/17 12/24/17 History acetaminophen 500 mg tablet 500 mg PO Q6H 06/15/17 12/24/17 History Gabapentin [Gabapentin 300mg Cap] 300 mg PO Q8H 09/06/17 12/24/17 History sitagliptin 100 mg tablet 100 mg PO QDAY tab 09/19/17 12/24/17 History aspirin 81 mg tablet,delayed 81 mg PO DAILY tab 09/26/17 12/24/17 History release empagliflozin 25 mg tablet 25 mg PO HS 10/09/17 12/24/17 History ranitidine 150 mg capsule 150 mg PO BID 10/09/17 12/24/17 History Atorvastatin Calcium [Lipitor 40mg 40 mg PO DAILY 12/15/17 12/24/17 History Tablet] Estradiol 1 g VAGINAL .twice weekly 12/15/17 12/24/17 History Hydrocortisone 1 applic TOPICAL BID 12/15/17 12/24/17 History Ticagrelor [Brilinta 90mg Tablet] 90 mg PO BID 12/15/17 12/24/17 History Bisoprolol Fumarate 10 mg PO DAILY 12/24/17 12/24/17 History Triamcinolone Acetonide 1 applic TOPICAL BID 12/24/17 12/24/17 History Allergies Allergy/AdvReac Type Severity Reaction Status Date / Time amoxicillin Allergy Mild Rash Verified 12/20/17 11:12 clindamycin Allergy Mild Hives Verified 12/20/17 11:12 codeine Allergy Mild Rash Verified 12/20/17 11:12 diphtheria,pertussis Allergy Mild Rash Verified 12/20/17 11:12 (acell),tetanu [From Pentacel DTaP-IPV Compnt (PF)] Iodinated Contrast Media - Allergy Mild Hives Verified 12/20/17 11:12 Oral and regadenoson Allergy Mild Hives Verified 12/20/17 11:12 Review of Systems - *Cardiovascular Reports chest pain, Reports chest pain with activity, Reports shortness of breath with activity - *Respiratory Reports shortness of breath with activity - *Gastrointestinal Denies abdominal pain - *Genitourinary Denies difficulty urinating - *Musculoskeletal Denies joint pain - *Neurologic Denies abnormal speech, Denies behavioral changes Exam Vital signs and Labs for Last 24 Hours: Temp Pulse Resp BP Pulse Ox 98.6 F 89 18 147/90 96 12/25/17 08:00 12/25/17 08:00 12/25/17 08:00 12/25/17 08:00 12/25/17 08:00 Laboratory Results - last 24 hr 12/24/17 17:20: Troponin I < 0.02 12/24/17 20:05: POC Glucose 443 H* 12/24/17 20:13: Troponin I < 0.02 12/24/17 21:53: POC Glucose 367 H* 12/24/17 23:45: Troponin I < 0.02 12/25/17 05:26: WBC 6.6, RBC 3.79 L, Hgb 11.5 L, Hct 33.9 L, MCV 89.4, MCH 30.4 , MCHC 34.0, RDW 13.1, Plt Count 246, MPV 7.6, Neut % (Auto) 64.0, Lymph % (Auto ) 27.1, Bowman % (Auto) 5.6, Eos % (Auto) 2.9, Baso % (Auto) 0.4, Neut # (Auto) 4.2, Lymph # (Auto) 1.8, [place] # (Auto) 0.4, Eos # (Auto) 0.2, Baso # (Auto) 0.0 12/25/17 05:26: Sodium 136, Potassium 3.5, Chloride 101, Carbon Dioxide 29, Anion Gap 9.5, BUN 13, Creatinine 0.97, Estimated Creat Clear 78, Estimated GFR 60, Est GFR ( Amer) 72, Glucose 356 H, Calcium 8.1 L, Triglycerides 281 H , Cholesterol 242 H, LDL Cholesterol 152 H, VLDL Cholesterol 56 H, HDL Cholesterol 34, Cholesterol/HDL Ratio 7.1 H 12/25/17 06:17: POC Glucose 358 H* I & O for Last 24 hours: Intake & Output 12/22/17 12/23/17 12/24/17 12/25/17 11:59 11:59 11:59 11:59 Intake Total 1080 / 1080 Balance 1080 / 1080 Weight 165 lb 2 oz - *Routine Neck Exam Absent: JVD, carotid bruit - *Routine Respiratory Exam Present: CTA bilaterally - *Routine Cardiovascular Exam Present: RRR. Absent: murmur, gallop - *Routine Abdominal Exam Absent: tenderness - *Routine Extremities Exam Absent: edema - *Routine Neurological Exam Present: alert, oriented X3, moving all extremities Assessment and Plan (1) Angina pectoris associated with type 2 diabetes mellitus Current visit: Yes Status: Acute Category: Medical Code(s): E11.59 - Type 2 diabetes mellitus with other circulatory complications; I20.9 - Angina pectoris, unspecified (2) Cardiomyopathy Current visit: No Status: Acute Qualifiers: Cardiomyopathy type: unspecified Qualified Code(s): I42.9 - Cardiomyopathy , unspecified Category: Medical Code(s): I42.9 - Cardiomyopathy, unspecified (3) CAD (coronary artery disease) Current visit: No Status: Chronic Qualifiers: Coronary Disease-Associated Artery/Lesion type: [place] artery [place] vs. transplanted heart: [place] heart Associated angina: without angina Qualified Code(s): I25.10 - Atherosclerotic heart disease of [place] coronary artery without angina pectoris Category: Medical Code(s): I25.10 - Atherosclerotic heart disease of [place] coronary artery without angina pectoris (4) HHD (hypertensive heart disease) Current visit: No Status: Chronic Qualifiers: Heart failure presence: without heart failure Qualified Code(s): I11.9 - Hypertensive heart disease without heart failure Category: Medical Code(s): I11.9 - Hypertensive heart disease without heart failure (5) HLD (hyperlipidemia) Current visit: No Status: Chronic Qualifiers: Hyperlipidemia type: unspecified Qualified Code(s): E78.5 - Hyperlipidemia , unspecified Category: Medical Code(s): E78.5 - Hyperlipidemia, unspecified - Assessment and plan all Dx Assessment and Plan for all problems:: 1. With change in EKG (new LBBB) and angina pectoris in Diabetic patient with known recent coronary stenting, will recommend repeat C for further evaluation. 2. Further recommendations to follow. 3. Will add lisinopril 5 mg daily in setting of cardiomyopathy and diabetes.
--- NOTE | 2017-12-25 21:28 | Cardiology Report ---
PROCEDURE: 2-D M-mode and color Doppler study INDICATIONS FOR THE TEST: Chest pain COPD+ Heart Murmur Tobacco Smoking Palpitations Fatigue Syncope Edema Hypertension+Diabetes Mellitus+ Rheumatic Fever SOB+[place] Obesity Hyperlipidemia+ Family History HD Additional History THYROID CANCER, STENT, NGOC, CVA, DVT PATIENT INFORMATION HEIGHT:61 WEIGHT:165 GENDER: Female B/P:130/72 2-D/M-MODE INTERPRETATION: 2-D MEASUREMENTS OBSERVED VALUES IN CMS Right Ventricular Dimension (RVDd) 1.2 Interventricular Septum (Thickness)(IVsd) 1.2 Left Ventricular Internal Dimensions(LVIDd) 4.3 Left Ventricular Posterior Wall (Thickness)(LVPWd) 0.9 Aortic Root 2.8 Aortic Cusp Separation 1.6 Left Atrial Dimensions (LAD) 3.8 2D 1. Left atrium is mildly enlarged, left ventricle is normal size, mild concentric left ventricular hypertrophy, severely reduced left ventricular systolic function, visually estimated ejection fraction approximately 30%, there is marked hypokinesis involving mid to distal septum, anteroapical and apical wall. There is abnormal septal motion. 2. The right atrium and right ventricle are normal size and contractility. 3. The aortic valve is thickened and calcified leaflet continue to display good mobility. 4. The mitral and tricuspid valve leaflets are minimally thickened. 5. The pulmonic valve is poorly visualized. 6. No significant pericardial effusion noted. DOPPLER INTERROGATION: Doppler interrogation of the aortic, mitral and tricuspid valvular presence of mild mitral and tricuspid regurgitation, tricuspid regurgitant jet velocity insufficient for calculation of the right ventricular systolic pressure, Doppler evidence of raised left ventricular end-diastolic pressure seen. CONCLUSION: 1. Mildly enlarged left atrium, normal left ventricular size, mild concentric left ventricular hypertrophy, severely reduced left ventricular systolic function visually estimated ejection fraction 30% with segmental wall motion abnormality described above, Doppler evidence of raised left ventricular end-diastolic pressure seen. 2. Mild mitral and tricuspid regurgitation 3. No significant pericardial effusion noted.
[2017-12-26 05:58] LABS: Basophils % 0.2 % (0.1-2.0); Hematocrit 36.9 % (37.0-47.0); Hemoglobin 12.4 g/dL (12.2-16.2); Lymphocytes # 1.3 K/mm3 (0.7-4.5); Lymphocytes % 10.5 K/mm3 (10-50); Mean Corpuscular HGB Conc 33.7 g/dL (31.8-35.4); Mean Platelet Volume 7.6 fl (7.4-10.4); Monocytes # 0.7 K/mm3 (0.1-1.0); Monocytes % 5.8 % (1.7-9.3); Neutrophils % 83.5 % (37.0-80.0); Platelet Count 308 K/mm3 (142-424); Red Blood Count 4.14 M/mm3 (4.20-5.40); Red Cell Distribution Width 13.4 % (11.5-17.5); White Blood Count 11.9 K/mm3 (4.8-10.8)
[2017-12-26 06:07] LABS: Anion Gap 12.5 mEq/L (5-15); Calcium 8.4 mg/dL (8.5-10.1); Potassium 3.5 mmoL/L (3.5-5.1)
--- NOTE | 2017-12-26 13:15 | Progress Note ---
Subjective Date: 12/26/17 Time: 13:12 Principal diagnosis: Angina Interval history: A 57-year-old white female with coronary artery disease status post coronary artery stenting yesterday. Patient denies any chest pain, pressure or tightness. Breathing has improved and she has no further back pain. Steven revealed ejection fraction of approximately 25-30% with multiple wall motion abnormalities. Most recently her echocardiogram from earlier this year and cardiac catheterization from 3 months ago showed ejection fraction in the 40-45 % range. At this point patient's cardiac myopathy has worsened and will require medication changes. I discussed with patient and her the recommendation for a life vest. All questions answered and they agreed to proceed with this. Exam Vital signs and Labs for Last 24 Hours: Temp Pulse Resp BP Pulse Ox 98.5 F 90 16 102/74 99 12/26/17 04:14 12/26/17 08:00 12/26/17 08:00 12/26/17 08:00 12/26/17 08:00 Laboratory Results - last 24 hr 12/25/17 16:53: POC Glucose 455 H* 12/25/17 22:16: POC Glucose 452 H* 12/26/17 05:09: WBC 11.9 H D, RBC 4.14 L, Hgb 12.4, Hct 36.9 L, MCV 89.0, MCH 30.0, MCHC 33.7, RDW 13.4, Plt Count 308 D, MPV 7.6, Neut % (Auto) 83.5 H, Lymph % (Auto) 10.5, Mc[place] % (Auto) 5.8, Eos % (Auto) 0.0 L, Baso % (Auto) 0.2, Neut # (Auto) 10.0 H, Lymph # (Auto) 1.3, [place] # (Auto) 0.7, Eos # (Auto) 0.0, Baso # (Auto) 0.0 12/26/17 05:09: Sodium 139, Potassium 3.5, Chloride 101, Carbon Dioxide 29, Anion Gap 12.5, BUN 16, Creatinine 1.08 H, Estimated Creat Clear 69, Estimated GFR 53 L, Est GFR ( Amer) 64, Glucose 164 H D, Calcium 8.4 L 12/26/17 11:05: POC Glucose 304 H* I & O for Last 24 hours: Intake & Output 12/24/17 12/25/17 12/26/17 12/27/17 11:59 11:59 11:59 11:59 Intake Total 1080 / 1080 240 / 240 Balance 1080 / 1080 240 / 240 Weight 165 lb 2 oz 163 lb 8 oz - *Routine Neck Exam Absent: JVD - *Routine Respiratory Exam Present: CTA bilaterally - *Routine Cardiovascular Exam Present: RRR, murmur. Absent: gallop, rubs - *Routine Extremities Exam Absent: edema Progress Note: A&P (1) Angina pectoris associated with type 2 diabetes mellitus Status: Acute Current Visit: Yes (2) Cardiomyopathy Status: Acute Current Visit: No (3) IDDM (insulin dependent diabetes mellitus) Status: Acute Current Visit: Yes (4) Hyperlipidemia Status: Acute Current Visit: Yes Assessment and Plan for All Diagnoses:: In view of the patient's worsening cardiomyopathy, medication changes will be made including starting lisinopril (started yesterday) and switching bisoprolol to carvedilol. We will start digoxin, Lasix and spironolactone. LifeVest prior to discharge with anticipated use for 3 months before deciding on need for AICD. Recommend overnight stay due to medication adjustments with plans for discharge home tomorrow if patient stable.
[2017-12-27 06:52] LABS: Anion Gap 12.7 mEq/L (5-15); Calcium 8.2 mg/dL (8.5-10.1); Potassium 3.7 mmoL/L (3.5-5.1)
--- NOTE | 2017-12-27 08:03 | Progress Note ---
Internal Medicine - PN: Subj *Date: 12/27/17 *Time: 08:04 Interval history: this is note for 12/25 placed today sec to log on error - pt doing better this awaiting card consult Exam Vital signs and Labs for Last 24 Hours: Temp Pulse Resp BP Pulse Ox 98.7 F 81 16 114/67 100 12/27/17 04:00 12/27/17 04:00 12/27/17 04:00 12/27/17 04:00 12/27/17 04:00 Laboratory Results - last 24 hr 12/26/17 06:01: POC Glucose 154 H 12/26/17 11:05: POC Glucose 304 H* 12/26/17 17:07: POC Glucose 263 H 12/26/17 21:25: POC Glucose 364 H* 12/27/17 06:10: POC Glucose 317 H* 12/27/17 06:18: Sodium 137, Potassium 3.7, Chloride 100, Carbon Dioxide 28, Anion Gap 12.7, BUN 21 H D, Creatinine 1.11 H, Estimated Creat Clear 68, Estimated GFR 51 L, Est GFR ( Amer) 62, Glucose 312 H, Calcium 8.2 L I & O for Last 24 hours: Intake & Output 12/24/17 12/25/17 12/26/17 12/27/17 11:59 11:59 11:59 11:59 Intake Total 1080 / 1080 240 / 240 1640 / 1640 Output Total 500 / 500 Balance 1080 / 1080 240 / 240 1140 / 1140 Weight 165 lb 2 oz 163 lb 8 oz 166 lb 5 oz - Constitutional no acute distress, obese - *Routine HEENT Exam Head: Present: normocephalic Eye: Present: EOMI, PERRL ENT: Present: mucous membranes dry - *Routine Neck Exam Present: supple - *Routine Respiratory Exam Present: CTA bilaterally - *Routine Cardiovascular Exam Present: RRR, murmur - *Routine Abdominal Exam Present: soft - *Routine Extremities Exam Absent: calf tenderness - *Routine Skin Exam Present: intact - *Routine Neurological Exam Present: alert, oriented X3, CN II-XII intact - Routine Psychiatric Exam Present: normal affect Assessment and Plan (1) Angina pectoris associated with type 2 diabetes mellitus Current visit: Yes Status: Acute Category: Medical Code(s): E11.59 - Type 2 diabetes mellitus with other circulatory complications; I20.9 - Angina pectoris, unspecified (2) Cardiomyopathy Current visit: No Status: Acute Qualifiers: Cardiomyopathy type: unspecified Qualified Code(s): I42.9 - Cardiomyopathy , unspecified Category: Medical Code(s): I42.9 - Cardiomyopathy, unspecified (3) IDDM (insulin dependent diabetes mellitus) Current visit: Yes Status: Acute Category: Medical Code(s): E11.9 - Type 2 diabetes mellitus without complications; Z79.4 - technician terminal and repeater (current) use of insulin (4) Hyperlipidemia Current visit: Yes Status: Acute Category: Medical Code(s): E78.5 - Hyperlipidemia, unspecified (5) Overweight Current visit: Yes Status: Acute Category: Medical Code(s): E66.3 - Overweight
--- NOTE | 2017-12-27 08:10 | Progress Note ---
Internal Medicine - PN: Subj *Date: 12/27/15 *Time: 08:06 Interval history: this is the note for 12/26 which was not logged sec to error with log in - doing better and had stent but has low ejection fraction - Exam Vital signs and Labs for Last 24 Hours: Temp Pulse Resp BP Pulse Ox 98.7 F 81 16 114/67 100 12/27/17 04:00 12/27/17 04:00 12/27/17 04:00 12/27/17 04:00 12/27/17 04:00 Laboratory Results - last 24 hr 12/26/17 06:01: POC Glucose 154 H 12/26/17 11:05: POC Glucose 304 H* 12/26/17 17:07: POC Glucose 263 H 12/26/17 21:25: POC Glucose 364 H* 12/27/17 06:10: POC Glucose 317 H* 12/27/17 06:18: Sodium 137, Potassium 3.7, Chloride 100, Carbon Dioxide 28, Anion Gap 12.7, BUN 21 H D, Creatinine 1.11 H, Estimated Creat Clear 68, Estimated GFR 51 L, Est GFR ( Amer) 62, Glucose 312 H, Calcium 8.2 L I & O for Last 24 hours: Intake & Output 12/24/17 12/25/17 12/26/17 12/27/17 11:59 11:59 11:59 11:59 Intake Total 1080 / 1080 240 / 240 1640 / 1640 Output Total 500 / 500 Balance 1080 / 1080 240 / 240 1140 / 1140 Weight 165 lb 2 oz 163 lb 8 oz 166 lb 5 oz - Constitutional no acute distress - *Routine HEENT Exam Head: Present: normocephalic Eye: Present: EOMI, PERRL ENT: Present: mucous membranes dry - *Routine Neck Exam Present: supple - *Routine Respiratory Exam Present: CTA bilaterally - *Routine Cardiovascular Exam Present: RRR - *Routine Abdominal Exam Present: soft - *Routine Extremities Exam Absent: calf tenderness - *Routine Skin Exam Present: intact - *Routine Neurological Exam Present: alert, oriented X3, CN II-XII intact - Routine Psychiatric Exam Present: normal affect Assessment and Plan (1) Angina pectoris associated with type 2 diabetes mellitus Current visit: Yes Status: Acute Category: Medical Code(s): E11.59 - Type 2 diabetes mellitus with other circulatory complications; I20.9 - Angina pectoris, unspecified (2) Cardiomyopathy Current visit: No Status: Acute Qualifiers: Cardiomyopathy type: unspecified Qualified Code(s): I42.9 - Cardiomyopathy , unspecified Category: Medical Code(s): I42.9 - Cardiomyopathy, unspecified (3) IDDM (insulin dependent diabetes mellitus) Current visit: Yes Status: Acute Category: Medical Code(s): E11.9 - Type 2 diabetes mellitus without complications; Z79.4 - assisted (current) use of insulin (4) Hyperlipidemia Current visit: Yes Status: Acute Category: Medical Code(s): E78.5 - Hyperlipidemia, unspecified (5) Overweight Current visit: Yes Status: Acute Category: Medical Code(s): E66.3 - Overweight (6) Coronary artery disease Current visit: Yes Status: Acute Qualifiers: Coronary Disease-Associated Artery/Lesion type: unspecified vessel or lesion type [place] vs. transplanted heart: [place] heart Category: Medical Code(s): I25.10 - Atherosclerotic heart disease of [place] coronary artery without angina pectoris
--- NOTE | 2017-12-27 08:47 | Progress Note ---
Subjective Date: 12/27/17 Time: 08:43 Principal diagnosis: Angina Interval history: 57 yo WF at bedside in NAD. No chest or back pain. Feeling better since coronary stenting. Waiting for LifeVest fitting later this morning. Exam Vital signs and Labs for Last 24 Hours: Temp Pulse Resp BP Pulse Ox 97.2 F L 82 16 142/93 97 12/27/17 08:00 12/27/17 08:38 12/27/17 08:00 12/27/17 08:00 12/27/17 08:00 Laboratory Results - last 24 hr 12/26/17 06:01: POC Glucose 154 H 12/26/17 11:05: POC Glucose 304 H* 12/26/17 17:07: POC Glucose 263 H 12/26/17 21:25: POC Glucose 364 H* 12/27/17 06:10: POC Glucose 317 H* 12/27/17 06:18: Sodium 137, Potassium 3.7, Chloride 100, Carbon Dioxide 28, Anion Gap 12.7, BUN 21 H D, Creatinine 1.11 H, Estimated Creat Clear 68, Estimated GFR 51 L, Est GFR ( Amer) 62, Glucose 312 H, Calcium 8.2 L I & O for Last 24 hours: Intake & Output 12/24/17 12/25/17 12/26/17 12/27/17 11:59 11:59 11:59 11:59 Intake Total 1080 / 1080 240 / 240 1640 / 1640 Output Total 500 / 500 Balance 1080 / 1080 240 / 240 1140 / 1140 Weight 165 lb 2 oz 163 lb 8 oz 166 lb 5 oz - *Routine Respiratory Exam Present: CTA bilaterally - *Routine Cardiovascular Exam Present: RRR Progress Note: A&P (1) Angina pectoris associated with type 2 diabetes mellitus Status: Acute Current Visit: Yes (2) Cardiomyopathy Status: Acute Current Visit: No (3) IDDM (insulin dependent diabetes mellitus) Status: Acute Current Visit: Yes (4) Hyperlipidemia Status: Acute Current Visit: Yes (5) Overweight Status: Acute Current Visit: Yes (6) Coronary artery disease Status: Acute Current Visit: Yes Assessment and Plan for All Diagnoses:: Severe LV systolic dysfunction with EF 30% and multiple segmental wall motion abnormalities (worse than 09/2017). LifeVest for 90 days while on coreg 3.125 mg BID, lisinopril 5 mg daily, digoxin 0.125 mg daily, lasix 20 mg daily and spironolactone 25 mg daily. CAD with multiple stents over the last 3 months. Continue ASA 81 mg daily and Brilinta 90 mg BID. Follow up with Dr. FRIED in one week.
--- NOTE | 2017-12-27 12:59 | Discharge Summary ---
General - General Admission date:: 12/24/17 Discharge date: 12/27/17 HPI HPI: this wf who has known cardiac disease and is followed by card presented to [facility] with chest pain and new lbbb and sl elevvated troponin and was transferred to [facility] for eval - Hospital Course Hospital Course: cardiology consult: Severe LV systolic dysfunction with EF 30% and multiple segmental wall motion abnormalities (worse than 09/2017). LifeVest for 90 days while on coreg 3.125 mg BID, lisinopril 5 mg daily, digoxin 0.125 mg daily, lasix 20 mg daily and spironolactone 25 mg daily. CAD with multiple stents over the last 3 months. Continue ASA 81 mg daily and Brilinta 90 mg BID. Follow up with Dr. FRIED in one week. ct chest:IMPRESSION: Overall no change in the diffuse parenchymal calcification of both lungs as described above.. This may represent nonmalignant metastatic pulmonary calcification. This does not imply metastatic cancer but is a form of pulmonary calcification with there is calcium deposition and normal lung parenchyma and can be seen in a wide variety of etiologies.. Differential diagnosis would include healed varicella pneumonia, pulmonary alveolar microlithiasis, and occupational lung disease Pt to follow up with pcp in [facility]. Objective Vital signs: Temp Pulse Resp BP Pulse Ox 97.2 F L 82 16 142/93 97 12/27/17 08:00 12/27/17 08:38 12/27/17 08:00 12/27/17 08:00 12/27/17 08:00 no acute distress - *Routine HEENT Exam Head: Present: normocephalic Eye: Present: PERRL ENT: Present: mucous membranes moist - *Routine Neck Exam Present: full ROM - *Routine Respiratory Exam Present: CTA bilaterally - *Routine Cardiovascular Exam Present: RRR - *Routine Abdominal Exam Present: soft, normoactive bowel sounds - *Routine Skin Exam Present: intact - *Routine Neurological Exam Present: alert, oriented X3, CN II-XII intact - Routine Psychiatric Exam Present: normal affect, normal thought process Results Labs on day of discharge: Labs from last 24 hours 12/27/17 12/27/17 12/27/17 11:36 06:18 06:10 Sodium 137 Potassium 3.7 Chloride 100 Carbon Dioxide 28 Anion Gap 12.7 BUN 21 H D Creatinine 1.11 H Estimated Creat Clear 68 Estimated GFR 51 L Est GFR ( Amer) 62 Glucose 312 H POC Glucose 360 H* 317 H* Calcium 8.2 L 12/26/17 12/26/17 12/26/17 21:25 17:07 06:01 Sodium Potassium Chloride Carbon Dioxide Anion Gap BUN Creatinine Estimated Creat Clear Estimated GFR Est GFR ( Amer) Glucose POC Glucose 364 H* 263 H 154 H Calcium - Additional Comments rounded with niles. all orders per niles DS: Diagnosis - Discharge Diagnosis (1) Angina pectoris associated with type 2 diabetes mellitus Status: Acute (2) Cardiomyopathy Status: Acute (3) IDDM (insulin dependent diabetes mellitus) Status: Acute (4) Hyperlipidemia Status: Acute (5) Overweight Status: Acute (6) Coronary artery disease Status: Acute Discharge Plan - Patient Discharge Instructions ACTIVITY: Continue current activity DIET: continue same diet Patient Instructions: High Triglycerides, Type 1 Diabetes, Angina, Cardiac Catheterization, Surgical Site Infection - Follow up Plan Follow up with: Hi Koenig MD [Staff Physician] - Disposition: Home, Self-Fci Medications: Home Medications Medication Instructions Recorded Confirmed Type hydrochlorothiazide 25 mg tablet 25 mg PO DAILY 05/21/17 12/25/17 History levothyroxine 200 mcg tablet 200 mcg PO DAILY 05/21/17 12/24/17 History acetaminophen 500 mg tablet 500 mg PO Q6H PRN 06/15/17 12/24/17 History sitagliptin 100 mg tablet 100 mg PO DAILY tab 09/19/17 12/25/17 History aspirin 81 mg tablet,delayed 81 mg PO DAILY tab 09/26/17 12/24/17 History release empagliflozin 25 mg tablet 25 mg PO HS 10/09/17 12/24/17 History ranitidine 150 mg capsule 150 mg PO DAILY 10/09/17 12/25/17 History Atorvastatin Calcium [Lipitor 40mg 40 mg PO DAILY 12/15/17 12/24/17 History Tablet] Estradiol 1 insert VAGINAL .TWICE WEEKLY 12/15/17 12/25/17 History Hydrocortisone 1 applic TOPICAL BID 12/15/17 12/24/17 History Ticagrelor [Brilinta 90mg Tablet] 90 mg PO BID 12/15/17 12/24/17 History Bisoprolol Fumarate 10 mg PO DAILY 12/24/17 12/24/17 History Triamcinolone Acetonide 1 applic TOPICAL BID 12/24/17 12/24/17 History Furosemide [Furosemide 20mg Tab] 20 mg PO DAILY 12/25/17 12/25/17 History Prescriptions/Medication Reconciliation: New Aspirin [Aspirin 81mg chewable tab] 81 mg PO DAILY 30 Days #30 tab.chew Atorvastatin Calcium [Lipitor 40mg Tablet] 40 mg PO HS 30 Days #30 tab Carvedilol [Coreg 3.125mg Tablet] 3.125 mg PO BID 30 Days #60 tab Furosemide [Lasix 20mg tablet] 20 mg PO DAILY 30 Days #30 tab Lisinopril [Zestril 5mg Tablet] 5 mg PO DAILY 30 Days #30 tab Spironolactone [Aldactone 25mg Tab] 25 mg PO DAILY 30 Days #30 tab Ticagrelor [Brilinta 90mg Tablet] 90 mg PO BID 30 Days #60 tab Continue levothyroxine 200 mcg tablet 200 mcg PO DAILY aspirin 81 mg tablet,delayed release 81 mg PO DAILY tab empagliflozin 25 mg tablet 25 mg PO HS sitagliptin 100 mg tablet 100 mg PO DAILY tab ranitidine 150 mg capsule 150 mg PO DAILY meclizine 25 mg tablet 25 mg PO TID PRN #30 tab PRN Reason: dizziness Ticagrelor [Brilinta 90mg Tablet] 90 mg PO BID Atorvastatin Calcium [Lipitor 40mg Tablet] 40 mg PO DAILY Furosemide [Furosemide 20mg Tab] 20 mg PO DAILY Estradiol 1 insert VAGINAL .TWICE WEEKLY Triamcinolone Acetonide 1 applic TOPICAL BID Discontinued acetaminophen 500 mg tablet 500 mg PO Q6H PRN PRN Reason: PAIN/FEVER hydrochlorothiazide 25 mg tablet 25 mg PO DAILY Hydrocortisone 1 applic TOPICAL BID Bisoprolol Fumarate 10 mg PO DAILY
--- NOTE | 2017-12-27 13:10 | Cardiology Report ---
PROCEDURE: Limited study to evaluate left ventricular systolic function INDICATIONS FOR THE TEST: Chest pain COPD Heart Murmur Tobacco Smoking Palpitations Fatigue Syncope Edema Hypertension Diabetes Mellitus Rheumatic Fever SOB [place] Obesity Hyperlipidemia Family History HD Additional History EF CHECK STENTS ON 12/25/17 PATIENT INFORMATION HEIGHT: 61 WEIGHT:163 GENDER: Female B/P: 2-D/M-MODE INTERPRETATION: 2-D MEASUREMENTS OBSERVED VALUES IN CMS Right Ventricular Dimension (RVDd) 2.0 Interventricular Septum (Thickness)(IVsd) 1.8 Left Ventricular Internal Dimensions(LVIDd) 3.7 Left Ventricular Posterior Wall (Thickness)(LVPWd) 1.0 Aortic Root Aortic Cusp Separation Left Atrial Dimensions (LAD) 2D 1. Left atrium is mildly enlarged, left ventricle is normal size, mild concentric left ventricular hypertrophy, visually estimated ejection fraction of 30%, there is marked hypokinesis involving the mid to distal septum, anterior, and anteroapical wall, there is abnormal septal motion. 2. The right atrium and right ventricle are relatively normal size and function. 3. The aortic valve is minimally thickened and fibrosed. 4. The mitral and tricuspid valvular grossly normal. 5. The pulmonic valve is poorly visualized. 6. No significant pericardial effusion noted. DOPPLER INTERROGATION: Doppler interrogation of the aortic, mitral and tricuspid valvular presence of mild mitral and tricuspid regurgitation, tricuspid regurgitation jet velocity is insufficient for calculation of the right ventricular systolic pressure, diastolic parameters are inconclusive. CONCLUSION: 1. Mildly enlarged left atrium, normal left ventricular size, mild concentric left ventricular hypertrophy, visually estimated ejection fraction approximately 30% with segmental wall motion abnormality described above, diastolic parameters are inconclusive. 2. Mild mitral and tricuspid regurgitation 3. No significant pericardial effusion noted.
== END 2017-12-27 14:26 | disposition home or self-care (01) ==
LOC: 2ND
PROVIDERS: ADMIT Emergency Medicine; ATTEND Emergency Medicine

== ENCOUNTER → 2018-01-08 15:09 | Outpatient (POV) | payer BC, SELFPAY | PROVIDERS: PCP Internal Medicine Adolescent Medicine; Visit Provider Internal Medicine | DX: Z00.00 Encounter for general adult medical examination without abnormal findings (principal) ==

== ENCOUNTER 2018-01-15 14:17 | Outpatient (RCR) | payer BC, SELFPAY | END 2018-03-01 15:27 | disposition home or self-care (01) | LOC: PT 14:17 | PROVIDERS: PCP Internal Medicine Adolescent Medicine; Visit Provider Internal Medicine Cardiovascular Disease | DX: I25.10 Atherosclerotic heart disease of native coronary artery without angina pectoris (principal); R06.00 Dyspnea, unspecified; Z95.5 Presence of coronary angioplasty implant and graft ==

== ENCOUNTER → 2018-01-16 14:19 | Outpatient (CLI) | payer BC, SELFPAY | PROVIDERS: PCP Internal Medicine Adolescent Medicine; Visit Provider Internal Medicine Cardiovascular Disease | DX: I25.10 Atherosclerotic heart disease of native coronary artery without angina pectoris (principal); I10 Essential (primary) hypertension; I50.9 Heart failure, unspecified | CPT/HCPCS: 36415 ==

== ENCOUNTER → 2018-03-01 12:46 | Outpatient (CLI) | payer BC, SELFPAY ==
[2018-03-01 14:07] VITALS: PULSE 94
--- NOTE | 2018-03-01 14:14 | CA_ITS ---
PROCEDURE: 2-D M-mode and color Doppler study INDICATIONS FOR THE TEST: Chest pain+ COPD+ Heart Murmur Tobacco Smoking Palpitations Fatigue Syncope Edema Hypertension+Diabetes Mellitus+ Rheumatic Fever+ SOB [place] Obesity Hyperlipidemia Family History HD Additional History CAD,CM PATIENT INFORMATION HEIGHT: 61 WEIGHT:160 GENDER: Female B/P:146/102 2-D/M-MODE INTERPRETATION: 2-D MEASUREMENTS OBSERVED VALUES IN CMS Right Ventricular Dimension (RVDd) 0.9 Interventricular Septum (Thickness)(IVsd) 0.7 Left Ventricular Internal Dimensions(LVIDd) 4.9 Left Ventricular Posterior Wall (Thickness)(LVPWd) 1.0 Aortic Root 2.8 Aortic Cusp Separation 1.5 Left Atrial Dimensions (LAD) 2.7 2D 1. Left atrium is mildly enlarged, left ventricle is normal size, mild concentric left ventricular hypertrophy, severely reduced left ventricular systolic function, visually estimated ejection fraction 30%, left ventricle is globally hypokinetic 2. The right atrium and right ventricle are normal size and contractility. 3. The aortic valve is minimally thickened and fibrosed. 4. The mitral and tricuspid valve leaflets are minimally thickened 5. The pulmonic valve is poorly visualized. 6. No significant pericardial effusion noted. DOPPLER INTERROGATION: Doppler interrogation of the aortic, mitral and tricuspid valvular presence of mild mitral and tricuspid regurgitation, tricuspid regurgitation jet velocity is inadequate for calculation of the right ventricular systolic pressure, diastolic parameters are inconclusive. CONCLUSION: 1. Mildly enlarged left atrium, normal left ventricular size, mild concentric left ventricular hypertrophy, severely reduced left ventricular systolic function, visually estimated ejection fraction 30% left ventricle is globally hypokinetic. 2. Mild mitral and tricuspid regurgitation 3. No significant pericardial effusion noted.
== END ==
PROVIDERS: PCP Family Medicine; Visit Provider Internal Medicine
DX: R06.09 Other forms of dyspnea (principal); R07.9 Chest pain, unspecified
CPT/HCPCS: 93306; 94060; 94618; 94640; 94727; 94729

== ENCOUNTER → 2018-03-26 14:04 | Outpatient (POV) | payer BC, SELFPAY | PROVIDERS: Visit Provider Internal Medicine | DX: Z00.00 Encounter for general adult medical examination without abnormal findings (principal) ==

== ENCOUNTER 2018-07-03 11:49 | Outpatient (CLI) | payer MEDICAID, SELFPAY ==
[2018-07-03 12:45] VITALS: BP 145/87; PULSE 90; RESP 18; O2SAT 98
== END 2018-07-03 13:05 | disposition home or self-care (01) ==
LOC: INF 11:50
PROVIDERS: PCP Internal Medicine Adolescent Medicine; Visit Provider Internal Medicine Adolescent Medicine
DX: N39.0 Urinary tract infection, site not specified (principal)
CPT/HCPCS: 96372

== ENCOUNTER 2018-07-04 13:58 | Outpatient (CLI) | payer MEDICAID, SELFPAY ==
[2018-07-04 14:06] VITALS: BP 134/76; PULSE 74; RESP 18; TEMP 36.6; O2SAT 98
== END 2018-07-04 14:25 | disposition home or self-care (01) ==
LOC: INF 13:58
PROVIDERS: Visit Provider Internal Medicine Adolescent Medicine
DX: N39.0 Urinary tract infection, site not specified (principal)
CPT/HCPCS: 96372

== ENCOUNTER 2018-07-05 10:00 | Outpatient (CLI) | payer MEDICAID, SELFPAY ==
[2018-07-05 10:10] VITALS: BP 159/101; PULSE 91; RESP 18; TEMP 36.8; O2SAT 97
== END 2018-07-05 10:30 | disposition home or self-care (01) ==
LOC: INF 10:00
PROVIDERS: Visit Provider Internal Medicine Adolescent Medicine
DX: N39.0 Urinary tract infection, site not specified (principal)
CPT/HCPCS: 96372

== ENCOUNTER → 2018-07-16 08:17 | Outpatient (CLI) | payer MEDICAID, SELFPAY ==
--- NOTE | 2018-07-16 08:17 | CA_ITS ---
PROCEDURE: Contrast study to evaluate left ventricular systolic function. INDICATIONS FOR THE TEST: Chest pain COPD Heart Murmur Tobacco Smoking Palpitations Fatigue Syncope Edema HypertensionXDiabetes MellitusX Rheumatic Fever SOB [place] Obesity Hyperlipidemia Family History HD Additional History RECHECK EF WITH DEFINITY,CM,CAD EF 30% 03/01/18 LIMITED ECHO PATIENT INFORMATION HEIGHT: 61 WEIGHT:170 GENDER: Female B/P:146/86 2-D/M-MODE INTERPRETATION: 2-D MEASUREMENTS OBSERVED VALUES IN CMS Right Ventricular Dimension (RVDd) Interventricular Septum (Thickness)(IVsd) Left Ventricular Internal Dimensions(LVIDd) Left Ventricular Posterior Wall (Thickness)(LVPWd) Aortic Root Aortic Cusp Separation Left Atrial Dimensions (LAD) 2D 1. Left atrium is mildly enlarged, left ventricle is mildly dilated, there is mild concentric left ventricular hypertrophy, severely reduced left ventricular systolic function, visually estimated ejection fraction approximately 25-30%, left ventricle is globally hypokinetic. There is no left ventricular thrombus seen. 2. The right atrium and right ventricle are normal size and contractility. 3. The aortic valve is minimally thickened and fibrosed. 4. The mitral and tricuspid valve leaflets are minimally thickened. 5. The pulmonic valve is poorly present. 6. No significant pericardial effusion noted. DOPPLER INTERROGATION: There is no Doppler performed CONCLUSION: 1. Mildly enlarged left atrium, mildly dilated left ventricle, mild concentric left ventricular hypertrophy, severely reduced left ventricular systolic function, visually estimated ejection fraction approximately 25-30% left ventricle is globally hypokinetic, there is no left ventricular thrombus seen. 2. No significant pericardial effusion noted.
--- NOTE | 2018-07-16 08:17 | CI_ITS ---
Cerebrovascular Exam Indications: CVA 436. IMPRESSIONS 1. The bilateral vertebral arteries are patent with normal antegrade flow. 2. Study suggests less than 20% stenosis involving the right internal carotid artery. 3. Study suggests 20-49% stenosis involving the left internal carotid artery. History: Stroke. Risk factors: Hypertension. Diabetes mellitus. Carotid duplex study. Complete study and Doppler flow study including spectral analysis, color and brooke scale imaging. Location: Vascular laboratory. Patient status: Outpatient. Tables: Arterial flow: + +--------+--------+ Location V sys V ed + +--------+--------+ Right CCA - proximal 98.2cm/s 14.1cm/s + +--------+--------+ Right CCA - distal 67.6cm/s 14.9cm/s + +--------+--------+ Right ECA 124cm/s 11cm/s + +--------+--------+ Right ICA - proximal 86.4cm/s 19.6cm/s + +--------+--------+ Right ICA - mid 51.1cm/s 20.4cm/s + +--------+--------+ Right ICA - distal 41.6cm/s 20.4cm/s + +--------+--------+ Right vertebral 40.9cm/s 14.9cm/s + +--------+--------+ Left CCA - proximal 70.7cm/s 17.3cm/s + +--------+--------+ Left CCA - distal 72.3cm/s 22.8cm/s + +--------+--------+ Left ECA 51.7cm/s 5.9cm/s + +--------+--------+ Left ICA - proximal 76.4cm/s 28.2cm/s + +--------+--------+ Left ICA - mid 69.2cm/s 27.2cm/s + +--------+--------+ Left ICA - distal 40cm/s 16.4cm/s + +--------+--------+ Left vertebral 27.6cm/s 10.6cm/s + +--------+--------+ Velocity ratios: + + + + + + Right, V sys Right, V ed Left, V sys Left, V ed + + + + + + Max ICA/dist CCA 1.28 1.37 1.06 1.24 + + + + + + (Report amended ) Electronically signed by: Navjot Ha [id number]
== END ==
PROVIDERS: PCP Internal Medicine Adolescent Medicine; Visit Provider Internal Medicine Cardiovascular Disease
DX: I63.9 Cerebral infarction, unspecified (principal); R20.0 Anesthesia of skin; R29.810 Facial weakness
CPT/HCPCS: 93308; 93880

== ENCOUNTER 2018-09-07 17:38 | Observation (INO) ==
--- NOTE | 2018-09-07 18:11 | Emergency Department Note ---
ED Disposition Clinical Impression: CAD (coronary artery disease), Thyroid cancer, Vomiting, Uncontrolled diabetes mellitus, Duodenitis Disposition: Still a Patient Condition on Discharge: Fair Instructions: DI for Diarrhea and Traveler's Diarrhea -- Adult, DI for Diarrhea and Traveler's Diarrhea -- Child, DI for Nausea -- Adult, DI for Nausea -- Child Referrals: David Simpson MD [Primary Care Provider] - - Critical Care Critical Care Time: No Attestation: On 09/07/18, the high probability of a clinically significant, sudden or life threatening deterioration of the following system(s) required my full and direct attention, intervention and personal management. The time I documented below is in addition to time spent performing reported procedures but includes the following listed in this critical care notation. Medical Decision Making - Vikram Inquiry Pt receiving controlled substance: No Vikram was queried for this patient: No Vital Signs: 09/07/18 17:52 Temperature 98.2 F Temperature Source Oral Pulse Rate [Left Radial] 103 H Respiratory Rate 20 Blood Pressure [Left Arm] 158/100 H Blood Pressure Mean [Left Arm] 119 Blood Pressure Source [Left Arm] Automatic Cuff Blood Pressure Position [Left Arm] Sitting 02 Sat by Pulse Oximetry 99 Oxygen Delivery Method Room Air - Lab Data Lab Results 09/07/18 18:05: Stool Occult Blood Positive A 09/07/18 18:18: WBC 9.6, RBC 4.08 L, Hgb 12.4, Hct 37.2, MCV 91.3, MCH 30.4, MCHC 33.3, RDW 13.0, Plt Count 297, MPV 7.4, Neut % (Auto) 79.9, Lymph % (Auto) 13.2, Hamilton % (Auto) 4.7, Eos % (Auto) 1.9, Baso % (Auto) 0.3, Neut # (Auto) 7.7, Lymph # (Auto) 1.3, Hamilton # (Auto) 0.5, Eos # (Auto) 0.2, Baso # (Auto) 0.0 09/07/18 18:18: Sodium 132 L, Potassium 4.1, Chloride 96 L, Carbon Dioxide 30, Anion Gap 10.1, BUN 14, Creatinine 1.07 H, Estimated Creat Clear 69, Estimated GFR 53 L, Est GFR ( Amer) 64, Glucose 532 H*, Calcium 8.9, Magnesium 1.8, Total Bilirubin 0.3, AST 14 L, ALT 27, Alkaline Phosphatase 101, Total Protein 7.9, Albumin 3.5, Globulin 4.4 H, Albumin/Globulin Ratio 0.8 L, Lipase 297 09/07/18 18:18: Acetone Level None detected Result diagrams: 09/07/18 18:18 09/07/18 18:18 Orders (Tests/Meds): ED MEDICATIONS Generic Name Dose Route Start Last Admin Trade Name Freq PRN Reason Stop Dose Admin Sodium Chloride 1,000 mls @ 999 mls/hr 09/07/18 19:00 09/07/18 19:28 Sod Chlor 0.9% 1000ml Bag IV 09/07/18 20:00 999 mls/hr .Q1H1M KENDRICK Administration Discontinued Medications Generic Name Dose Route Start Last Admin Trade Name Freq PRN Reason Stop Dose Admin Famotidine 20 mg 09/07/18 18:15 09/07/18 18:34 Pepcid 20mg/2ml Vial IV 09/07/18 18:16 20 mg ONCE ONE Administration Metoclopramide HCl 5 mg 09/07/18 18:15 09/07/18 18:34 Reglan 10mg/2ml Vial IVP 09/07/18 18:16 5 mg ONCE ONE Administration ORDERS Category Date Time Status CT abdomen wo con Stat Cat Scan 09/07/18 18:13 Taken - CT Data CT Scan: Abdomen, Pelvis Time Received: 20:[address] Reviewed: Yes: I have viewed the radiologist's interpretation Preliminary Findings: Abnormal Findings Narrative: Thickening of the distal esophagus and duodenum. Medical Decision Narrative: I discussed with the patient the need for admission to start on insulin. Patient is aware of the risks and benefits and she was agreeable for admission. Also her aware of the risks and benefits. I called Dr. Sierra and we discussed her options regarding insulin drip or starting a long-term insulin. Risks and benefits were discussed, she will be starting on 5 units of lispro and switch her to Lantus 20 units at bedtime and monitored for side effects. Abdominal Pain HPI - General Chief Complaint: Nausea/Vomiting/Diarrhea Stated Complaint: Vomiting with blood Time Seen by Provider: 09/07/18 18:00 Mode of Arrival: Ambulatory Limitations: No Limitations Description of Symptoms (Recalled from ER Triage Doc. by RN): Pt reports vomitting x5 episodes today, pt reports the last time she vomitting emesis was brown in color. Pt also c/o upper abd pain x3 days. Pt reports she was seen by her PCP on of this week r/t vomitting, pt reports she felt "okay" yesterday but began vomitting again today. - History of Present Illness HPI narrative: 58 years old white female with history of Thyroid cancer, coronary artery disease s/p stenting, diabetes mellitus, status post cholecystectomy. 3 days ago she developed vomiting x8 she was seen by her primary care physician who gave her Phenergan with improvement to vomiting 3 times a day on the following day. Today she went to a chair she had a meal followed by vomiting 3 times, the first one contained food but the other 2 had coffee-ground emesis. She did have a regular bowel movement prior to arrival and she denies melanotic stool or bleeding per rectum. The patient denies having shortness of breath, chest pain, dizziness, lightheadedness, or weakness. MD complaint: abdominal pain Consistency: intermittent Location: epigastric Severity: moderate Severity scale (1-10): 4 Quality: aching, dull Radiation: none Exacerbating factors: eating Associated symptoms: nausea, vomiting - Related Data Home Medications Medication Instructions Recorded Confirmed levothyroxine 200 mcg tablet 200 mcg PO DAILY 05/21/17 07/25/18 sitagliptin 100 mg tablet 100 mg PO DAILY tab 09/19/17 07/25/18 aspirin 81 mg tablet,delayed 81 mg PO DAILY tab 09/26/17 07/25/18 release ranitidine 150 mg capsule 150 mg PO DAILY 10/09/17 07/25/18 Atorvastatin Calcium [Lipitor 40mg 40 mg PO DAILY 12/15/17 07/25/18 Tablet] Estradiol 1 insert VAGINAL DAILY 12/15/17 07/25/18 Ticagrelor [Brilinta 90mg Tablet] 90 mg PO BID 12/15/17 07/25/18 acetaminophen ER 650 mg 650 mg PO Q8H PRN 01/21/18 07/25/18 tablet,extended release fluticasone furoate 100 1 inh INHALATION DAILY 01/21/18 07/25/18 mcg-vilanterol 25 mcg/dose inhalation powder gabapentin 300 mg capsule 300 mg PO TID 01/21/18 07/25/18 sertraline 100 mg tablet 100 mg PO DAILY 01/21/18 07/25/18 Carvedilol [Carvedilol 12.5mg Tab] 12.5 mg PO BID 07/03/18 07/25/18 Digoxin 0.125 mg PO DAILY 07/03/18 07/25/18 Furosemide [Lasix 20mg tablet] 20 mg PO DAILY 07/03/18 07/25/18 Losartan Potassium 100 mg PO DAILY 07/03/18 07/25/18 hydrochlorothiazide 25 mg tablet PO 90 Days #90 tab 07/09/18 07/25/18 Previous Rx's Medication Instructions Recorded meclizine 25 mg tablet 25 mg PO TID PRN #30 tab 12/24/17 Ibuprofen [Ibuprofen 600mg Tab] 600 mg PO Q6HP PRN #20 tab 03/25/18 Allergies Allergy/AdvReac Type Severity Reaction Status Date / Time cefaclor [From Ceclor] Allergy Severe Hives Verified 07/25/18 10:54 erythromycin base Allergy Severe Hives Verified 07/25/18 10:54 meperidine [From Demerol] Allergy Severe Hives Verified 07/25/18 10:54 tetracycline Allergy Severe Hives Verified 07/25/18 10:54 pioglitazone [From Actos] Allergy Intermediate Hives Verified 07/25/18 10:54 amoxicillin Allergy Mild Rash Verified 07/25/18 10:54 clindamycin Allergy Mild Hives Verified 07/25/18 10:54 codeine Allergy Mild Rash Verified 07/25/18 10:54 diphtheria,pertussis Allergy Mild Rash Verified 07/25/18 10:54 (acell),tetanu [From Pentacel DTaP-IPV Compnt (PF)] Iodinated Contrast Media - Allergy Mild Hives Verified 07/25/18 10:54 Oral and regadenoson Allergy Mild Hives Verified 07/25/18 10:54 [facility] History - Hepatitis A Screen Drug use history?: No High risk sexual behaviors?: No History of sexually transmitted infection?: No Currently employed?: No Childcare worker?: No Do you have indoor plumbing?: Yes Do you have electricity?: Yes Attestation statement:: This patient has been screened for Hepatitis A risk factors. I have reviewed the patient's past medical history: Yes Medical History: Reports:: Anxiety, Asthma, Cancer, Chronic Obstructive Pulmonary Disease (COPD), Coronary Artery Disease, Deep Vein Thrombosis, Diabetes Mellitus Type 2, Gastroesophageal Reflux Disease(GERD), Hyperlipidemia, Hypertension, Migraine, Palpitations, Transient Ischemic Attacks (TIA), Ulcer, Urinary Tract Infection Denies:: Diabetes Mellitus Type 1, MRSA, Seizures Other Medical History: Reports: Arthritis, Thyroid Disease, Other Comment: NGOC Laterality Cases: Bilateral: Tonsillectomy Other Surgeries: Yes: Cardiac Catheterization, Cholecystectomy, Coronary Stent, Hysterectomy-Total, Thyroidectomy, Other Amputation: No Fractures: No Comment: Gallbladder - Social History Smoking Status: Never smoker Tobacco Type: cigarettes # Packs/Day (cigarettes): 0 #Yrs smoked (if former smoker): 0 Alcohol Intake: never Alcohol Intake Frequency:: other Substance Use Type: denies use Occupational Status: unemployed, disabled Housing: house Household Members: spouse, children - Psychiatric History Expresses thoughts of harming self/others: None Suicide Plan Description: No Plan Pschychiatric History:: Reports:: Anxiety Family Hx:: No significant family history ROS Obtained: Yes All systems reviewed & no additional complaints Physical Exam - General General appearance: alert, in no apparent distress - Head Head exam: atraumatic, normocephalic, normal inspection - Eye Eye exam: Present: normal appearance, PERRL, EOMI. Absent: scleral icterus, nystagmus - ENT ENT exam: Present: normal exam, normal oropharynx, mucous membranes moist, TM's normal bilaterally, normal external ear exam - Neck Neck exam: Present: normal inspection, full ROM, trachea midline. Absent: tenderness, meningismus, lymphadenopathy - Chest Chest inspection: Present: normal inspection, symmetric chest wall rise. Absent: tenderness - Respiratory Respiratory exam: Present: normal lung sounds bilaterally. Absent: respiratory distress, wheezes - Cardiovascular Cardiovascular exam: Present: regular rate, normal rhythm, normal heart sounds. Absent: JVD - Abdominal Exam Abdominal exam: Present: soft, normal bowel sounds. Absent: distention, tenderness, guarding, rebound, rigidity, Rapp's sign, tenderness at McBurney's Point - Rectal Exam Rectal exam: Present: normal rectal tone, heme (-) stool, hemorrhoids - External exam: Present: normal external exam - Extremities Exam Extremities exam: Present: normal inspection, full ROM, normal capillary refill. Absent: calf tenderness - Back Exam Back exam: Present: normal inspection. Absent: tenderness, CVA tenderness (R), CVA tenderness (L) - Neurological Exam Neurological exam: Present: alert, oriented X3, CN II-XII intact, motor sensory deficit, reflexes normal - Psychiatric Psychiatric exam: Present: normal affect, normal mood - Skin Skin exam: Present: warm, dry, intact, normal color - Lymphatic Lymphatic Findings: no adenopathy
[2018-09-07 18:36] LABS: Basophils % 0.3 % (0.1-2.0); Eosinophils # 0.2 K/mm3 (0.0-0.4); Eosinophils % 1.9 % (0.1-12.0); Hematocrit 37.2 % (37.0-47.0); Hemoglobin 12.4 g/dL (12.2-16.2); Lymphocytes # 1.3 K/mm3 (0.7-4.5); Lymphocytes % 13.2 % (10-50); Mean Corpuscular HGB Conc 33.3 g/dL (31.8-35.4); Mean Corpuscular Hemoglobin 30.4 pg (27.0-31.2); Mean Corpuscular Volume 91.3 fl (81-99); Mean Platelet Volume 7.4 fl (7.4-10.4); Monocytes # 0.5 K/mm3 (0.1-1.0); Monocytes % 4.7 % (1.7-9.3); Neutrophils # 7.7 K/mm3 (1.8-7.8); Neutrophils % 79.9 % (37.0-80.0); Platelet Count 297 K/mm3 (142-424); Red Blood Count 4.08 M/mm3 (4.20-5.40); White Blood Count 9.6 K/mm3 (4.8-10.8)
[2018-09-07 18:57] LABS: Albumin Level 3.5 gm/dL (3.4-5.0); Albumin/Globulin Ratio 0.8 (1.1-1.8); Anion Gap 10.1 mEq/L (5-15); Bilirubin,Total 0.3 mg/dL (0.2-1.0); Calcium 8.9 mg/dL (8.5-10.1); Globulin 4.4 gm/dl (1.3-3.2); Potassium 4.1 mmoL/L (3.5-5.1); Total Protein,Serum 7.9 gm/dL (6.4-8.2)
--- NOTE | 2018-09-08 00:04 | H&P/Discharge Summary ---
General - General Admission date:: 09/07/18 Discharge date: 09/08/18 *Admission Date: 09/07/18 *Chief complaint: nausea and vomiting *History of present illness: Mrs. Cook is a 58 year-old white female well-known to our practice with history of Thyroid cancer, coronary artery disease s/p stenting, uncontrolled diabetes mellitus (previously resistant to insulin therapy due to "allergy"), uncontrolled hypothyroidism, status post cholecystectomy who presented to the ER last night due to complaint of changes in her vision and GI symptoms. She reports that 3 days ago she developed vomiting x8 she was seen by her primary care physician who gave her Phenergan with improvement to vomiting 3 times a day on the following day. On day of admission she reports having 3 episodes of emesis, one with questionable coffee grounds. Denies any melenic stools, bright red blood per rectum. Guaiac in the ER was positive however. Additionally she was found to have severe hyperglycemia and pseudohyponatremia. Decision was made to admit based on patient being agreeable to initiating insulin. Given 5 units of lispro at time to arrival to the floor. Admitted to medicine for further monitoring. The patient denies having shortness of breath, chest pain, dizziness, lightheadedness, or weakness. [facility] History I have reviewed the patient's past medical history: Yes Medical History: Reports:: Anxiety, Asthma, Cancer, Chronic Obstructive Pulmonary Disease (COPD), Coronary Artery Disease, Deep Vein Thrombosis, Diabetes Mellitus Type 2, Gastroesophageal Reflux Disease(GERD), Hyperlipidemia, Hypertension, Migraine, Palpitations, Transient Ischemic Attacks (TIA), Ulcer, Urinary Tract Infection Denies:: Diabetes Mellitus Type 1, MRSA, Seizures *Have you ever received a pneumonia vaccine?: No (states allergic) *Have you received a flu vaccine this season?: No (states allergic) Other Medical History: Reports: Arthritis, Thyroid Disease, Other Laterality Cases: Bilateral: Tonsillectomy Other Surgeries: Yes: Cardiac Catheterization, Cholecystectomy, Coronary Stent, Hysterectomy-Total, Thyroidectomy, Other Amputation: No Fractures: No - *Social History Smoking Status: Never smoker Tobacco Type: cigarettes # Packs/Day (cigarettes): 0 #Yrs smoked (if former smoker): 0 Alcohol Intake: never Alcohol Intake Frequency:: other Substance Use Type: denies use *Occupational Status:: unemployed, disabled Housing: house Household Members: spouse, children *Travel in the last 8 weeks: None - Psychiatric History Expresses thoughts of harming self/others: None Suicide Plan Description: No Plan Pschychiatric History:: Reports:: Anxiety Family Hx:: No significant family history Review of Systems - Review of Systems Review of systems:: pertinent systems reviewed and negative unless documented below Exam Vital signs and Labs for Last 24 Hours: Temp Pulse Resp BP Pulse Ox 98.2 F 89 16 140/79 99 09/07/18 21:00 09/07/18 21:00 09/07/18 21:00 09/07/18 21:00 09/07/18 17:52 Laboratory Results - last 24 hr 09/07/18 18:05: Stool Occult Blood Positive A 09/07/18 18:18: WBC 9.6, RBC 4.08 L, Hgb 12.4, Hct 37.2, MCV 91.3, MCH 30.4, MCHC 33.3, RDW 13.0, Plt Count 297, MPV 7.4, Neut % (Auto) 79.9, Lymph % (Auto) 13.2, [place] % (Auto) 4.7, Eos % (Auto) 1.9, Baso % (Auto) 0.3, Neut # (Auto) 7.7, Lymph # (Auto) 1.3, [place] # (Auto) 0.5, Eos # (Auto) 0.2, Baso # (Auto) 0.0 09/07/18 18:18: Sodium 132 L, Potassium 4.1, Chloride 96 L, Carbon Dioxide 30, Anion Gap 10.1, BUN 14, Creatinine 1.07 H, Estimated Creat Clear 69, Estimated GFR 53 L, Est GFR ( Amer) 64, Glucose 532 H*, Calcium 8.9, Magnesium 1.8, Total Bilirubin 0.3, AST 14 L, ALT 27, Alkaline Phosphatase 101, Total Protein 7.9, Albumin 3.5, Globulin 4.4 H, Albumin/Globulin Ratio 0.8 L, Lipase 297 09/07/18 18:18: Acetone Level None detected 09/07/18 21:38: POC Glucose 375 H* 09/07/18 23:34: POC Glucose 329 H* I & O for Last 24 hours: Intake & Output 09/05/18 09/06/18 09/07/18 09/08/18 23:59 23:59 23:59 23:59 Weight 73.936 kg - *Routine HEENT Exam Head: Present: normocephalic, atraumatic Eye: Present: EOMI, PERRL ENT: Present: mucous membranes moist Comments: edentulous. - *Routine Neck Exam Present: supple, full ROM. Absent: JVD - *Routine Respiratory Exam Present: CTA bilaterally. Absent: prolonged expiratory phase, rales - *Routine Cardiovascular Exam Present: RRR, Normal S1 - *Routine Abdominal Exam Present: soft, normoactive bowel sounds. Absent: tenderness - *Routine Rectal Exam Patient deferred: visual exam - *Routine Exam Patient deferred: external exam - *Routine Extremities Exam Absent: cyanosis, clubbing, edema - *Routine Skin Exam Present: intact. Absent: cyanosis, erythema - *Routine Neurological Exam Present: alert, oriented X3. Absent: altered mental status - Routine Psychiatric Exam Present: normal affect, cooperative Hospital Course Hospital Course: admitted to monitor response to Insulin therapy and watch for allergic reaction. None occured Improved GLucose with improved Sx, however still elevated at DC. Plan for continued Insulin therapy and further management in outpatient setting. Remained Hemodynamically stable, no further acute episodes. Additionally assessed Thyroid function, still quite elevated, though better. INcreased LEvothyroxine to 300mcg. GI Sx resolved. Stable for DC home. follow-up in the next 2-3 days. Results Labs on day of discharge: Labs from last 24 hours 09/07/18 09/07/18 09/07/18 23:34 21:38 18:18 WBC RBC Hgb Hct MCV MCH MCHC RDW Plt Count MPV Neut % (Auto) Lymph % (Auto) [place] % (Auto) Eos % (Auto) Baso % (Auto) Neut # (Auto) Lymph # (Auto) [place] # (Auto) Eos # (Auto) Baso # (Auto) Sodium Potassium Chloride Carbon Dioxide Anion Gap BUN Creatinine Estimated Creat Clear Estimated GFR Est GFR ( Amer) Glucose POC Glucose 329 H* 375 H* Calcium Magnesium Total Bilirubin AST ALT Alkaline Phosphatase Total Protein Albumin Globulin Albumin/Globulin Ratio Lipase Stool Occult Blood Acetone Level None detected 09/07/18 09/07/18 09/07/18 18:18 18:18 18:05 WBC 9.6 RBC 4.08 L Hgb 12.4 Hct 37.2 MCV 91.3 MCH 30.4 MCHC 33.3 RDW 13.0 Plt Count 297 MPV 7.4 Neut % (Auto) 79.9 Lymph % (Auto) 13.2 [place] % (Auto) 4.7 Eos % (Auto) 1.9 Baso % (Auto) 0.3 Neut # (Auto) 7.7 Lymph # (Auto) 1.3 [place] # (Auto) 0.5 Eos # (Auto) 0.2 Baso # (Auto) 0.0 Sodium 132 L Potassium 4.1 Chloride 96 L Carbon Dioxide 30 Anion Gap 10.1 BUN 14 Creatinine 1.07 H Estimated Creat Clear 69 Estimated GFR 53 L Est GFR ( Amer) 64 Glucose 532 H* POC Glucose Calcium 8.9 Magnesium 1.8 Total Bilirubin 0.3 AST 14 L ALT 27 Alkaline Phosphatase 101 Total Protein 7.9 Albumin 3.5 Globulin 4.4 H Albumin/Globulin Ratio 0.8 L Lipase 297 Stool Occult Blood Positive A Acetone Level DS: Diagnosis - Discharge Diagnosis (1) Coronary artery disease Status: Chronic (2) Thyroid cancer Status: Resolved (3) Uncontrolled diabetes mellitus Status: Chronic Problem details: initiated insulin, no allergy during admission Improved GI Sx. no emesis since DC. Continue Lantus at DC. 25 units QHS. follow-up in outpatient setting to monitor response. Nurse to educate on pen usage and administration. instructed to monitor FSGS BID and log unitl seen in clinic. (4) Vomiting Status: Resolved (5) Hyperlipidemia Status: Chronic Problem details: continued Statin (6) COPD (chronic obstructive pulmonary disease) Status: Chronic (7) Diabetic neuropathy associated with type 2 diabetes mellitus Status: Chronic (8) Class 1 obesity due to excess calories with body mass index (BMI) of 30.0 to 30.9 in adult Status: Acute Problem details: conplicates all aspects of care. (9) Hyponatremia Status: Resolved Problem details: due to elevated sodium, normalized with correction of hyperglycemia. (10) Hypothyroidism Status: Chronic Problem details: takes 200mcg, reportedly daily. TSH still above goal though improved over the past 5 months from 72to 42. INcrease to 300mcg daily. Will recheck TSH in outpatient setting in 6-8 weeks. Discharge Medications - Medications for Discharge Home Medication List at Discharge: New Levothyroxine Sodium [Levothyroxine 300mcg (0.3mg) Tab] 300 mcg PO DAILY 30 Days #30 tab Insulin Glargine,Hum.rec.anlog [Insulin Glargine 100 Units/mL 3mL flexpen] 25 unit SQ HS 30 Days #3 insuln.pen Continued aspirin 81 mg tablet,delayed release 81 mg PO DAILY tab fluticasone furoate 100 mcg-vilanterol 25 mcg/dose inhalation powder 1 inh INHALATION DAILY sertraline 100 mg tablet 100 mg PO DAILY acetaminophen ER 650 mg tablet,extended release 650 mg PO Q8H PRN PRN Reason: PAIN gabapentin 300 mg capsule 300 mg PO TID hydrochlorothiazide 25 mg tablet 25 mg PO DAILY 90 Days #90 tab sitagliptin 100 mg tablet 100 mg PO DAILY tab ranitidine 150 mg capsule 150 mg PO DAILY meclizine 25 mg tablet 25 mg PO TID PRN #30 tab PRN Reason: dizziness Ticagrelor [Brilinta 90mg Tablet] 90 mg PO BID Atorvastatin Calcium [Lipitor 40mg Tablet] 40 mg PO DAILY Ibuprofen [Ibuprofen 600mg Tablet] 600 mg PO Q6HP PRN #20 tab PRN Reason: Mild To Moderate Pain Digoxin 0.125 mg PO DAILY Carvedilol [Carvedilol 12.5mg Tab] 12.5 mg PO BID Furosemide [Lasix 20mg tablet] 20 mg PO DAILY Estradiol 1 insert VAGINAL DAILY Losartan Potassium 100 mg PO DAILY Discontinued levothyroxine 200 mcg tablet 200 mcg PO DAILY Disposition Disposition: Home, Self-Care
[2018-09-08 07:15] LABS: Eosinophils # 0.2 K/mm3 (0.0-0.4); Mean Platelet Volume 7.5 fl (7.4-10.4)
[2018-09-08 07:32] LABS: Anion Gap 7.2 mEq/L (5-15); Potassium 4.2 mmoL/L (3.5-5.1); Thyroid Stimulating Hormone 42.79 uIU/ml (0.358-3.740)
[2018-09-08 07:37] LABS: Basophils % 0.4 % (0.1-2.0); Eosinophils % 2.5 % (0.1-12.0); Hematocrit 31.2 % (37.0-47.0); Lymphocytes # 1.5 K/mm3 (0.7-4.5); Lymphocytes % 20.4 % (10-50); Mean Corpuscular HGB Conc 34.8 g/dL (31.8-35.4); Mean Corpuscular Hemoglobin 31.3 pg (27.0-31.2); Mean Corpuscular Volume 89.7 fl (81-99); Monocytes # 0.3 K/mm3 (0.1-1.0); Monocytes % 4.7 % (1.7-9.3); Neutrophils # 5.2 K/mm3 (1.8-7.8); Neutrophils % 72.1 % (37.0-80.0); Platelet Count 279 K/mm3 (142-424); Red Blood Count 3.48 M/mm3 (4.20-5.40); Red Cell Distribution Width 13.1 % (11.5-17.5); White Blood Count 7.2 K/mm3 (4.8-10.8)
[2018-09-08 07:38] LABS: Hemoglobin 10.9 g/dL (12.2-16.2)
[2018-09-08 07:43] LABS: Calcium 8.1 mg/dL (8.5-10.1)
== END 2018-09-08 12:54 | disposition home or self-care (01) ==
LOC: ER 17:38 → 2ND 17:38
PROVIDERS: ADMIT Internal Medicine Adolescent Medicine; ATTEND Internal Medicine Adolescent Medicine
DX: Z91.09 Other allergy status, other than to drugs and biological substances; E78.5 Hyperlipidemia, unspecified; E11.65 Type 2 diabetes mellitus with hyperglycemia; Z98.890 Other specified postprocedural states; Z90.49 Acquired absence of other specified parts of digestive tract; J44.9 Chronic obstructive pulmonary disease, unspecified; K29.80 Duodenitis without bleeding; Z79.899 Other long term (current) drug therapy; I10 Essential (primary) hypertension; I25.10 Atherosclerotic heart disease of native coronary artery without angina pectoris; E11.40 Type 2 diabetes mellitus with diabetic neuropathy, unspecified; Z95.5 Presence of coronary angioplasty implant and graft; E03.9 Hypothyroidism, unspecified; Z68.34 Body mass index [BMI] 34.0-34.9, adult; Z88.7 Allergy status to serum and vaccine; C73 Malignant neoplasm of thyroid gland; R11.2 Nausea with vomiting, unspecified; R19.7 Diarrhea, unspecified; Z86.73 Personal history of transient ischemic attack (TIA), and cerebral infarction without residual deficits; H53.9 Unspecified visual disturbance; E87.1 Hypo-osmolality and hyponatremia
CPT/HCPCS: 36415; 74150; 80048; 80053; 82009; 82272; 82962; 83690; 83735; 84443; 85025; 96365; 96375; 99284; G0328; G0378

== ENCOUNTER → 2018-11-05 17:30 | Outpatient (CLI) | payer MEDICAID, SELFPAY | PROVIDERS: Visit Provider Physician Assistant | DX: E11.9 Type 2 diabetes mellitus without complications (principal); Z79.84 Long term (current) use of oral hypoglycemic drugs; R30.9 Painful micturition, unspecified | CPT/HCPCS: 87086 ==

== ENCOUNTER → 2018-11-25 07:53 | Outpatient (CLI) | payer MEDICAID, SELFPAY ==
--- NOTE | 2018-11-25 07:54 | US_ITS ---
US abdomen complete HISTORY: Right-sided abdominal pain, 30 pound weight gain ITS.REASON: Abdominal pain ORDERING PHYSICIAN: PATRICIA Spence PATIENT AGE: 58 years COMPARISON: None FINDINGS: PANCREAS:Unremarkable. No obvious mass or abnormal fluid collection. No ductal dilatation LIVER:No focal liver lesions demonstrated. Homogeneous echogenicity. No intrahepatic biliary ductal dilatation evident. Appropriate direction of blood flow within a nondilated portal vein RIGHT KIDNEY:Unremarkable. Normal size and echogenicity. No hydronephrosis LEFT KIDNEY:Unremarkable. No hydronephrosis. Normal size and echogenicity. GALLBLADDER:Postcholecystectomy change. Common bile duct is normal at 4 mm. AORTA:No evidence of aneurysmal dilatation. SPLEEN:Unremarkable. Normal size and echogenicity ASCITES:None demonstrated. IMPRESSION: Post cholecystectomy otherwise negative.
--- NOTE | 2018-11-25 12:58 | NVE_ITS ---
Venous Exam Indications: 782.3 Edema. IMPRESSIONS 1. There is no evidence of significant Reflux. 2. No evidence of deep or superficial vein thrombosis involving the left lower extremity Left lower extremity venous duplex evaluation. Doppler flow study including spectral analysis, color and brooke scale imaging. Location: Vascular laboratory. Patient status: Outpatient. CRITICAL FINDINGS - Reported to: Ivy Fernando Read back and verified. - 11/25/18 - 1345 - None Tables: Venous flow and imaging: + +-------+ + Location Overall Flow properties + +-------+ + Left common femoral Patent Normal phasicity; spontaneous; normal augmentation; compressible + +-------+ + Left saphenofemoral junction Patent Compressible + +-------+ + Left profunda femoral Patent Compressible + +-------+ + Left femoral Patent Normal phasicity; spontaneous; normal augmentation; compressible + +-------+ + Left greater saphenous Patent Normal phasicity; spontaneous; normal augmentation; compressible + +-------+ + Left popliteal Patent Normal phasicity; spontaneous; normal augmentation; compressible + +-------+ + Left posterior tibial Patent Compressible + +-------+ + Left peroneal Patent Compressible + +-------+ + Left gastrocnemius Patent Compressible + +-------+ + Left soleal Patent Compressible + +-------+ + (Report amended ) Electronically signed by: Navjot Ha [id number]
== END ==
PROVIDERS: PCP Physician Assistant; Visit Provider Physician Assistant
DX: R10.9 Unspecified abdominal pain (principal); M79.605 Pain in left leg; M79.89 Other specified soft tissue disorders
CPT/HCPCS: 76700; 93971

== ENCOUNTER → 2018-11-27 10:29 | Outpatient (CLI) | payer MEDICAID, SELFPAY ==
--- NOTE | 2018-11-27 10:30 | US_ITS ---
US extremity RT limited CLINICAL INDICATION: Palpable soft tissue nodule in the right buttock area ITS.REASON: Abdominal pain ORDERING PHYSICIAN: PATRICIA Spence PATIENT AGE: 58 years Comparison: 09/07/2018 FINDINGS: There are 2 rounded nodules in the subcutaneous tissues corresponding to the palpable abnormalities measuring 8 mm each. There is dense shadowing posterior to these nodules. These are consistent with calcified nodules. They're likely due to injection granulomas as seen on a previous CT scan of 09/07/2018. There is an additional small cystic lesion in the subcutaneous tissues lateral to this area which measures 5 mm and does not have the posterior shadowing and is more consistent with a small cyst. IMPRESSION: 1. At least to the palpable nodules in the buttock area corresponds to calcified nodules and may be due to injection granulomas. An additional small palpable nodule is related to a small subcutaneous cyst
== END ==
PROVIDERS: PCP Physician Assistant; Visit Provider Physician Assistant
DX: R22.41 Localized swelling, mass and lump, right lower limb (principal)
CPT/HCPCS: 76882

== ENCOUNTER → 2018-12-26 13:05 | Outpatient (CLI) | payer MEDICAID, SELFPAY ==
--- NOTE | 2018-12-26 13:07 | CT_ITS ---
PROCEDURE: CT SINUS WO CON CLINICAL HISTORY: CHRONIC SINUSITIS COMPARISON: No exams were available for comparison TECHNIQUE: Axial images obtained with sagittal and coronal reformats. All CT scans at the facility use one or more dose reduction, viz: automated exposure control, ma/kV adjustment per patient size (including targeted exams where dose is matched to indication, i.e. head), or iterative reconstruction technique. FINDINGS: The frontal, ethmoid, and sphenoid sinuses have an unremarkable appearance. There is mild lobular mucosal thickening along the floor the left maxillary sinus at 6 mm consistent with a small retention cyst. No sinus air-fluid level evident. There is moderate rightward nasal septal deviation. The orbits have an unremarkable appearance. No mastoid effusion or middle ear opacification. IMPRESSION: Small retention cyst floor left maxillary sinus with moderate rightward nasal septal deviation. Dictated by: Navjot Ha MD 12/27/2018 06:19 Signed by: <Electronically signed by Navjot Ha MD in [place]> 12/27/2018 06:19
== END ==
PROVIDERS: PCP Internal Medicine Adolescent Medicine; Visit Provider Family Medicine
DX: J32.9 Chronic sinusitis, unspecified (principal)
CPT/HCPCS: 70486

== ENCOUNTER → 2018-12-27 08:47 | Outpatient (CLI) | payer MEDICAID, SELFPAY ==
--- NOTE | 2018-12-27 | CA_ITS ---
APPROVED REPORT EXAM: Comprehensive 2D, Doppler, and color-flow Echocardiogram Eap Counselor: Ama Gong RVT Ht: 5 ft 1 in Wt: 170lbs BSA: 1.76 BP: 142/72 mmHg Indications: Chest Pain, CAD, Cardiomyopathy, Hypertension/HDD Echo Enhancing Agent Indication: Endocardial border delineation Agent(s) / Amount(s) Used: Definity 1 cc Left Ventricle Left atrium is mildly enlarged, left ventricle is mildly dilated, there is mild concentric left ventricular hypertrophy, there is severely reduced left ventricular systolic function, visually estimated ejection fraction 30%, there is marked abnormal septal motion. Definitely contrast was utilized to delineate the endocardial borders. There is no left ventricular thrombus seen. Doppler evidence of raise left ventricular end-diastolic pressure. Diastolic parameters are inconclusive Right Ventricle Right atrium and right ventricular normal size and contractility. Aortic Valve Aortic valve is minimally thickened and fibrosed. Mitral Valve Mitral valve leaflets are minimally thickened, mild mitral regurgitation. Tricuspid Valve Tricuspid valve leaflets are minimally thickened, there is mild tricuspid regurgitation. Tricuspid regurgitation jet velocity is inadequate for calculation of the right ventricular systolic pressure. Pulmonic Valve Pulmonic valve is poorly visualized Great Vessels Aortic root is normal size Pericardium No significant pericardial effusion noted 2D Dimensions IVSd 1.00 cm F: 0.6-1.0 LVEF (Visual) 26.70 % PWd 1.20 cm F: 0.6 - 1.0 LVDd 4.10 cm F: 3.9 - 5.3 LVDs 3.60 cm F: 2.2 - 3.5 LVOT 1.40 cm (M/F) 1.5-2.5 M-Mode Dimensions LA Diam 2.80 cm (1.9-4.0) LVDd 3.90 cm (3.5-5.7) Ao Diam 2.50 cm (2.0-3.7) LVDs 3.30 cm (3.5-5.7) AV Cusp 1.70 cm (1.5-2.6) IVSd 0.70 cm (0.6-1.1) PWd 0.80 cm (0.6-1.1) EF (Teich) 33.10% FS 15.40% EDV (Teich) 65.90 mL ESV (Teich) 44.10 mL LV Diastology E/A Ratio 3.7 MED E' 6.92 (< 7 cm/sec) E'/MED E' Ratio 19.80 (>14) LAT E' 15.80 (<10 cm/sec) E/LAT E' Ratio 8.70 (>14) Aortic Valve AoV Peak Dao. 80.10 (50-130 cm/s) AO Peak GR. 3.00 mmHg Mitral Valve MV E Max Dao. 137.00 (40-130 cm/s) MV A Velocity 37.30 (40-130 cm/s) E/A Ratio 3.70 Pulmonary Valve WV End VMAX 27.10 cm/s PA Accel Time 123.00 (>120 msec) Conclusion 1. Mildly enlarged left atrium, mildly dilated left ventricle, severely reduced left ventricular systolic function, visually estimated ejection fraction 30%, left ventricle is globally hypokinetic, there is abnormal septal motion. Doppler evidence of raise left ventricular end-diastolic pressure. 2. Mild mitral and tricuspid regurgitation. 3. No significant pericardial effusion noted. Electronically signed by : Vidal Oliver, 12/27/2018 10:49:56
== END ==
PROVIDERS: PCP Internal Medicine Adolescent Medicine
DX: I25.10 Atherosclerotic heart disease of native coronary artery without angina pectoris (principal); R07.9 Chest pain, unspecified; I11.0 Hypertensive heart disease with heart failure; I43 Cardiomyopathy in diseases classified elsewhere; I25.5 Ischemic cardiomyopathy; Z95.5 Presence of coronary angioplasty implant and graft
CPT/HCPCS: 93306

== ENCOUNTER → 2019-07-11 12:57 | Outpatient (CLI) | payer OTHER, SELFPAY ==
--- NOTE | 2019-07-11 12:59 | CA_ITS ---
APPROVED REPORT Bilateral Lower Extremity Venous Study for Granulating Machine Operator: HIWOT Indications Lower Extremity Pain: Lower Extremity Edema: Right Left CAD Lower Extremity Swelling: edema, bilateral leg pain Vein Imaging CFV (R): compressive, spontaneous, phasic, augmentation SFJ (R): compressive, spontaneous, phasic, augmentation FEM (R): compressive, spontaneous, phasic, augmentation POP (R): compressive, spontaneous, phasic, augmentation PTV (R): Compressible GSV (R): Compressible Peroneals (R):Compressible CFV (L): compressive, spontaneous, phasic, augmentation SFJ (L): compressive, spontaneous, phasic, augmentation FEM (L): compressive, spontaneous, phasic, augmentation POP (L): compressive, spontaneous, phasic, augmentation PTV (L): Compressible GSV (L): Compressible Peroneals (L):Compressible Findings No evidence of DVT or superficial thrombophlebitis in the veins scanned of the right lower extremity. No evidence of DVT or superficial thrombophlebitis in the veins scanned of the left lower extremity. Technically difficult exam . Edema from mid thigh to ankles bilaterally Conclusion No evidence of DVT or superficial thrombophlebitis in the veins scanned of the right lower extremity. No evidence of DVT or superficial thrombophlebitis in the veins scanned of the left lower extremity. Edema from mid thigh to ankles bilaterally Electronically signed by : Navjot Ha MD 07/11/2019 16:03:38
== END ==
PROVIDERS: PCP Internal Medicine Adolescent Medicine; Visit Provider Internal Medicine Cardiovascular Disease
DX: E11.65 Type 2 diabetes mellitus with hyperglycemia (principal); M79.604 Pain in right leg; M79.605 Pain in left leg; R06.02 Shortness of breath; R60.9 Edema, unspecified
CPT/HCPCS: 93970

== ENCOUNTER 2019-07-16 18:32 | Inpatient (IN) ==
--- NOTE | 2019-07-16 19:02 | Emergency Department Note ---
ED Disposition Clinical Impression: Bilateral pleural effusion, Shortness of breath, NGOC (obstructive sleep apnea) Community acquired pneumonia Qualifiers: Laterality: unspecified laterality Qualified Code(s): J18.9 - Pneumonia, unspecified organism Chest pain Qualifiers: Chest pain type: chest pain on breathing Qualified Code(s): R07.1 - Chest pain on breathing Sepsis Qualifiers: Sepsis type: sepsis due to unspecified organism Sepsis acute organ dysfunction status: without acute organ dysfunction Qualified Code(s): A41.9 - Sepsis, unspecified organism Disposition: Admitted as Observation Condition on Discharge: Fair Time of Disposition: 21:30 - Critical Care Critical Care Time: No Attestation: On 07/16/19, the high probability of a clinically significant, sudden or life threatening deterioration of the following system(s) required my full and direct attention, intervention and personal management. The time I documented below is in addition to time spent performing reported procedures but includes the following listed in this critical care notation. Medical Decision Making - Vikram Inquiry Pt receiving controlled substance: No Vital Signs: 07/16/19 18:33 07/16/19 19:03 07/16/19 20:00 Temperature 98.0 F Temperature Source Oral Pulse Rate Pulse Rate [Radial] 102 H 85 74 Respiratory Rate 18 15 16 Blood Pressure Blood Pressure [Right Arm] 150/103 H 142/95 H 133/85 Blood Pressure Mean [Right Arm] 118 110 101 Blood Pressure Source Blood Pressure Source [Right Arm] Automatic Cuff Blood Pressure Position [Right Arm] Sitting 02 Sat by Pulse Oximetry 93 L 98 96 Oxygen Delivery Method Room Air 07/16/19 20:45 07/16/19 21:26 07/16/19 22:00 Temperature 98.6 F Temperature Source Oral Pulse Rate 89 Pulse Rate [Radial] 89 84 Respiratory Rate 17 Blood Pressure 136/85 Blood Pressure [Right Arm] 140/86 132/79 Blood Pressure Mean [Right Arm] 104 96 Blood Pressure Source Automatic Cuff Blood Pressure Source [Right Arm] Blood Pressure Position [Right Arm] 02 Sat by Pulse Oximetry 98 97 Oxygen Delivery Method Room Air - Lab Data Lab results reviewed: Yes: I reviewed the patient's lab results. Lab Results 07/16/19 20:19: WBC 6.4, RBC 4.44, Hgb 13.2, Hct 40.4, MCV 90.9, MCH 29.6, MCHC 32.6, RDW 13.7, Plt Count 250, MPV 8.3, Neut % (Auto) 69.9, Lymph % (Auto) 20.2, [place] % (Auto) 5.6, Eos % (Auto) 3.5, Baso % (Auto) 0.7, Neut # (Auto) 4.4, Lymph # (Auto) 1.3, [place] # (Auto) 0.4, Eos # (Auto) 0.2, Baso # (Auto) 0.0 07/16/19 20:19: Sodium 136, Potassium 4.4, Chloride 96 L, Carbon Dioxide 32 H, Anion Gap 12.4, BUN 16, Creatinine 0.80, Estimated Creat Clear 106, Estimated GFR 74, Est GFR ( Amer) 89, Glucose 370 H, Calcium 8.9, Total Bilirubin 0.3, AST 31, ALT 21, Alkaline Phosphatase 85, Troponin I < 0.01, Total Protein 7.0, Albumin 3.7, Globulin 3.3 H, Albumin/Globulin Ratio 1.1 Result diagrams: 07/17/19 05:54 07/17/19 05:54 Orders (Tests/Meds): ED MEDICATIONS Generic Name Dose Route Start Last Admin Trade Name Freq PRN Reason Stop Dose Admin Acetaminophen 650 mg 07/16/19 22:14 Acetaminophen 325mg Tab PO 08/15/19 22:13 Q4HP PRN As Needed for Fever or Pain Aspirin 81 mg 07/17/19 09:00 07/17/19 08:51 Aspirin 81mg Enteric Coated Tablet PO 08/16/19 08:59 81 mg DAILY KENDRICK Administration Carvedilol 25 mg 07/17/19 09:00 07/17/19 08:51 Coreg 25mg Tablet PO 08/16/19 08:59 25 mg BID KENDRICK Administration Enoxaparin Sodium 40 mg 07/17/19 09:00 07/17/19 08:51 Lovenox 40mg/0.4ml Syringe SQ 08/16/19 08:59 40 mg DAILY KENDRICK Administration Famotidine 20 mg 07/17/19 09:00 07/17/19 08:50 Pepcid 20mg Tablet PO 08/16/19 08:59 20 mg BID KENDRICK Administration Fluticasone Propionate 1 spr 07/17/19 09:00 07/17/19 08:53 Flonase 50mcg Nasal [place] 16gm NS 04/04/20 08:59 1 spr DAILY KENDRICK Administration Furosemide 80 mg 07/17/19 09:24 Lasix 40mg/4ml Vial IV 07/17/19 09:25 ONCE ONE Gabapentin 300 mg 07/17/19 09:00 07/17/19 08:52 Neurontin 300mg Capsule PO 08/16/19 08:59 300 mg TID KENDRICK Administration Levofloxacin/Dextrose 750 mg in 150 mls @ 100 mls/hr 07/17/19 21:30 Levofloxacin 750mg/150ml Premix IV 07/30/19 21:29 Q24H [facility] Protocol Ibuprofen 400 mg 07/16/19 22:14 Motrin 400mg Tablet PO 08/15/19 22:13 Q6HP PRN Mild Pain Insulin Glargine 25 unit 07/17/19 21:00 Lantus Solostar 100 Units/Ml 3ml Flexpen SQ 08/16/19 20:59 HS [facility] Irbesartan 150 mg 07/17/19 09:00 07/17/19 08:51 Avapro 150mg Tablet PO 08/16/19 08:59 150 mg DAILY KENDRICK Administration Levothyroxine Sodium 300 mcg 07/17/19 08:15 07/17/19 08:49 Synthroid 150mcg (0.15mg) Tablet PO 08/16/19 08:14 300 mcg DAILYDM KENDRICK Administration Loratadine 10 mg 07/17/19 09:00 07/17/19 08:52 Claritin 10mg Tablet PO 08/16/19 08:59 10 mg DAILY KENDRICK Administration Meclizine HCl 25 mg 07/16/19 22:14 Antivert 25mg Tablet PO 08/15/19 22:13 TIDP PRN dizziness Nitroglycerin 0.4 mg 07/16/19 22:14 07/16/19 23:08 Nitrostat 0.4mg Sl Tablet SL 08/15/19 19:08 0.4 mg Q5MINP PRN Administration Chest Pain Pt's Own Med 1 inh 07/17/19 09:00 Fluticasone/ INHALATION 08/16/19 08:59 Vilanterol [Breo DAILY [facility] Ellipta] 100-25 Mcg Inhaler Ondansetron HCl 4 mg 07/16/19 22:14 07/17/19 06:19 Zofran 4mg/2ml Vial IV 08/15/19 22:13 4 mg Q8HP PRN Administration Nausea Sertraline HCl 100 mg 07/17/19 09:00 07/17/19 08:52 Zoloft 100mg Tablet PO 08/16/19 08:59 100 mg DAILY KENDRICK Administration Sitagliptin Phosphate 100 mg 07/17/19 09:00 07/17/19 08:50 Januvia 50mg Tablet PO 08/16/19 08:59 100 mg DAILY KENDRICK Administration Sodium Chloride 10 ml 07/16/19 22:14 Saline Flush 10ml Syringe IV 08/15/19 22:13 NEEDED PRN Maintain IV Site Sodium Chloride 3 ml 07/17/19 04:32 Sodium Chloride 3% 15ml [facility] 08/16/19 04:31 ONCE PRN INDUCE [employer]LECTION Spironolactone 25 mg 07/17/19 09:00 07/17/19 08:52 Aldactone 25mg Tablet PO 08/16/19 08:59 25 mg DAILY KENDRICK Administration Ticagrelor 90 mg 07/17/19 09:00 07/17/19 08:52 Brilinta 90mg Tablet PO 08/16/19 08:59 90 mg BID KENDRICK Administration Discontinued Medications Generic Name Dose Route Start Last Admin Trade Name Freq PRN Reason Stop Dose Admin Acetaminophen 650 mg 07/17/19 08:00 Acetaminophen 325mg Tab PO 08/16/19 07:59 Q8HP PRN Mild Pain Albuterol/Ipratropium 3 ml 07/17/19 00:45 07/17/19 01:00 Duoneb 3ml [facility] 07/17/19 00:46 3 ml ONCE ONE Administration Belladonna Alkaloids 60 ml 07/16/19 19:09 07/16/19 19:15 Gi Cocktail 60ml Udc PO 07/16/19 19:10 60 ml ONCE ONE Administration Furosemide 40 mg 07/17/19 09:00 Lasix 20mg Tablet PO 08/16/19 08:59 DAILY KENDRICK Furosemide 40 mg 07/17/19 09:00 07/17/19 08:51 Lasix 40mg Tablet PO 08/16/19 08:59 40 mg DAILY KENDRICK Administration Levofloxacin/Dextrose 750 mg in 150 mls @ 100 mls/hr 07/16/19 21:30 07/16/19 21:38 Levofloxacin 750mg/150ml Premix IV 07/30/19 21:29 100 mls/hr Q24H KENDRICK Administration Protocol Sodium Chloride 1,000 mls @ 50 mls/hr 07/16/19 22:14 07/16/19 23:02 Sod Chlor 0.9% 1000ml Bag IV 08/15/19 22:13 50 mls/hr .Q20H KENDRICK Administration Nitroglycerin 0.4 mg 07/16/19 19:09 Nitrostat 0.4mg Sl Tablet SL 08/15/19 19:08 Q5MINP PRN Chest Pain - Radiology Data #1 Image(s): Chest Image Reviewed: Yes I reviewed the patient's radiology results, Yes I reviewed the patient's radiology image FINDINGS: There is mild cardiomegaly without failure. There are chronic hyperdense infiltrates in the mid lower lung zones on both sides. There is increased density in the lung bases especially on the right compared to the previous exam the consistent with superimposed acute bilateral pneumonia with right-sided effusion. There is increased density along the anterior mediastinum. Consider chest CT for more thorough evaluation. There is some lucency in the right lung base is well. Underlying cavitation is a consideration. No acute bony abnormalities. IMPRESSION: Chronic bilateral hyperdense infiltrates with superimposed increased density in both lower lobes right more extensive than left with central area of decreased density in the right lung base. Bilateral pneumonia with right effusion and possible cavitation on the right is considered. Consider chest CT for further evaluation. There is increased density in the anterior clear space inferiorly which could be due to underlying consolidation Dictated by: Navjot Ha MD 07/16/2019 19:49 Electronically signed by Navjot Ha MD in [place] 07/16/2019 19:49 - ECG Data Tracing #1 EKG shows normal sinus rhythm with a heart rate of 97 bpm, normal P waves, normal SD interval, left bundle branch block pattern. Nonspecific ST-T changes - Physician Consults Physician Consulted: Dr. Finn Time: 19:00 Reason -: Admission Comment/Response: Discussed with Dr. Finn regarding the patient and plan to get the patient admitted to the floor. - Reevaluation(s) Time: 21:27 Reevaluation #1: Patient has been stable throughout the course of stay in the ER. Plan to admit the patient for chest discomfort/bilateral pneumonia. General Adult HPI - General Chief complaint: Shortness of Breath/Dyspnea Stated complaint: Ethan IYER Time Seen by Provider: 07/16/19 19:02 Mode of Arrival: Ambulatory Source of Information: Patient Limitations: No Limitations Description of Symptoms (Recalled from ER Triage Doc. by RN): shortness of breathe and nausea since sunday - History of Present Illness HPI narrative: 59-year-old female presents to the emergency department with chief complaint of having chest pain and discomfort for the last 2 to 3 days. The pain and discomfort has been getting worse tonight. She describes the pain as being pressure on the center of the chest. It is about 6-8 out of 10. Complains of feeling some nausea but denies any vomiting. There is no radiation of the pain. Onset (ago): hour(s) (18) Radiation: non-radiation Severity: moderate - Related Data Home Medications Medication Instructions Recorded Confirmed acetaminophen 650 mg 650 mg PO Q8H PRN 01/21/18 07/16/19 tablet,extended release gabapentin 300 mg capsule 300 mg PO TID 01/21/18 07/16/19 nitroglycerin 0.4 mg sublingual 0.4 mg SUBLINGUAL Q5-15M PRN 11/05/18 07/16/19 tablet Fluticasone Propionate [Flonase 1 spray INTRANASAL DAILY 12/24/18 07/16/19 Allergy Relief NS] Insulin Glargine,Hum.rec.anlog 25 unit SQ HS 12/24/18 07/16/19 [Lantus Solostar 100 Units/mL 3mL flexpen] Levothyroxine Sodium 300 mcg PO DAILY 12/24/18 07/16/19 [Levothyroxine 300mcg (0.3mg) Tab] famotidine 20 mg tablet 20 mg PO BID tab 07/11/19 07/16/19 furosemide 20 mg tablet 40 mg PO DAILY tab 07/11/19 07/16/19 loratadine 10 mg tablet 10 mg PO DAILY tab 07/11/19 07/16/19 Spironolactone [Spironolactone 25 mg PO DAILY 07/16/19 07/16/19 25mg Tablet] Losartan Potassium 100 mg PO DAILY 07/17/19 07/17/19 methocarbamoL [Methocarbamol 500mg 500 mg PO BIDP PRN 07/17/19 07/17/19 Tablet] Previous Rx's Medication Instructions Recorded meclizine 25 mg tablet 25 mg PO TID PRN #30 tab 12/24/17 Ibuprofen [Ibuprofen 600mg 600 mg PO Q6HP PRN #20 tab 03/25/18 Tablet] aspirin 81 mg tablet,delayed 81 mg PO DAILY #90 tab 11/05/18 release digoxin 125 mcg (0.125 mg) tablet 125 mcg PO DAILY #90 tab 11/05/18 fluticasone furoate 100 1 inh INHALATION DAILY #3 each 11/05/18 mcg-vilanterol 25 mcg/dose inhalation powder sertraline 100 mg tablet 100 mg PO DAILY #90 tab 11/05/18 sitagliptin 100 mg tablet 100 mg PO DAILY #90 tab 11/05/18 ticagrelor 90 mg tablet 90 mg PO BID #180 tab 11/05/18 carvedilol 25 mg tablet 25 mg PO BID #60 tab 12/02/18 Allergies Allergy/AdvReac Type Severity Reaction Status Date / Time cefaclor [From Ceclor] Allergy Severe Hives Verified 07/16/19 22:50 erythromycin base Allergy Severe Hives Verified 07/16/19 22:50 meperidine [From Demerol] Allergy Severe Hives Verified 07/16/19 22:50 tetracycline Allergy Severe Hives Verified 07/16/19 22:50 Penicillins Allergy Intermediate Difficulty Verified 07/16/19 22:50 Breathing pioglitazone [From Actos] Allergy Intermediate Hives Verified 07/16/19 22:50 pneumococcal vaccine Allergy Intermediate Difficulty Verified 07/16/19 22:50 Breathing amoxicillin Allergy Mild Rash Verified 07/16/19 22:50 clindamycin Allergy Mild Hives Verified 07/16/19 22:50 codeine Allergy Mild Rash Verified 07/16/19 22:50 diphtheria,pertussis Allergy Mild Rash Verified 07/16/19 22:50 (acell),tetanu [From Pentacel DTaP-IPV Compnt (PF)] Iodinated Contrast Media Allergy Mild Hives Verified 07/16/19 22:50 [Iodinated Contrast Media - Oral and] regadenoson Allergy Mild Hives Verified 07/16/19 22:50 onion AdvReac Intermediate Heartburn Verified 07/16/19 22:50 Influenza Virus Vaccines AdvReac Mild Hallucinati Verified 07/16/19 22:50 ng oseltamivir [From Tamiflu] AdvReac Mild Hallucinati Verified 07/16/19 22:50 ng [facility] History - Hepatitis A Screen Drug use history?: No High risk sexual behaviors?: No History of sexually transmitted infection?: No Currently employed?: No Childcare worker?: No Do you have indoor plumbing?: Yes Do you have electricity?: Yes Attestation statement:: This patient has been screened for Hepatitis A risk factors. I have reviewed the patient's past medical history: Yes Medical History: Reports:: Anxiety, Asthma, Cancer, Chronic Obstructive Pulmonary Disease (COPD), Coronary Artery Disease, Deep Vein Thrombosis, Diab etes Mellitus Type 2, Gastroesophageal Reflux Disease(GERD), Hyperlipidemia, Hypertension, Migraine, Palpitations, Transient Ischemic Attacks (TIA), Ulcer, Urinary Tract Infection Denies:: Diabetes Mellitus Type 1, MRSA, Seizures Other Medical History: Reports: Arthritis, Thyroid Disease, Other Comment: NGOC Laterality Cases: Bilateral: Tonsillectomy Other Surgeries: Yes: Cardiac Catheterization, Cholecystectomy, Colonoscopy, Coronary Stent, Hysterectomy-Total, Thyroidectomy, Other Amputation: No Fractures: No Comment: Gallbladder - Social History Educational Level: Completed High School Smoking Status: Never smoker Tobacco Type: cigarettes # Packs/Day (cigarettes): 0 #Yrs smoked (if former smoker): 0 Alcohol Intake: never Alcohol Intake Frequency:: other Substance Use Type: denies use Occupational Status: other Housing: house Household Members: spouse, children - Psychiatric History Pschychiatric History:: Reports:: Anxiety Family Hx:: No significant family history ROS Obtained: Yes All systems reviewed & no additional complaints Physical Exam - General General appearance: alert, in no apparent distress - Head Head exam: atraumatic, normocephalic, normal inspection - Eye Eye exam: Present: normal appearance, PERRL, EOMI - ENT ENT exam: Present: normal exam, normal oropharynx, mucous membranes moist, normal external ear exam - Neck Neck exam: Present: normal inspection, full ROM, trachea midline - Chest Chest inspection: Present: normal inspection, symmetric chest wall rise. Absent: tenderness - Respiratory Respiratory exam: Present: normal lung sounds bilaterally. Absent: respiratory distress - Cardiovascular Cardiovascular exam: Present: regular rate, normal rhythm. Absent: JVD - Abdominal Exam Abdominal exam: Present: soft, normal bowel sounds. Absent: distention, tenderness, guarding - Extremities Exam Extremities exam: Present: normal inspection, full ROM, normal capillary refill. Absent: calf tenderness - Back Exam Back exam: Present: normal inspection, full ROM. Absent: tenderness - Neurological Exam Neurological exam: Present: alert, oriented X3, CN II-XII intact - Psychiatric Psychiatric exam: Present: normal affect, normal mood - Skin Skin exam: Present: warm, dry, intact, normal color
[2019-07-16 20:32] LABS: Basophils % 0.7 % (0.1-2.0); Eosinophils # 0.2 K/mm3 (0.0-0.4); Eosinophils % 3.5 % (0.1-12.0); Hematocrit 40.4 % (37.0-47.0); Hemoglobin 13.2 g/dL (12.2-16.2); Lymphocytes # 1.3 K/mm3 (0.7-4.5); Lymphocytes % 20.2 % (10-50); Mean Corpuscular HGB Conc 32.6 g/dL (31.8-35.4); Mean Corpuscular Volume 90.9 fl (81-99); Mean Platelet Volume 8.3 fl (7.4-10.4); Monocytes # 0.4 K/mm3 (0.1-1.0); Monocytes % 5.6 % (1.7-9.3); Neutrophils # 4.4 K/mm3 (1.8-7.8); Neutrophils % 69.9 % (37.0-80.0); Platelet Count 250 K/mm3 (142-424); Red Blood Count 4.44 M/mm3 (4.20-5.40); Red Cell Distribution Width 13.7 % (11.5-17.5); White Blood Count 6.4 K/mm3 (4.8-10.8)
[2019-07-16 20:51] LABS: Chloride 96 mmol/L (98-107); Sodium 136 mmol/L (136-145)
[2019-07-16 20:54] LABS: Alanine Aminotransferase 21 U/L (12-78); Albumin Level 3.7 g/dl (3.5-5.0); Albumin/Globulin Ratio 1.1 (1.1-1.8); Alkaline Phosphatase 85 U/L (38-126); Anion Gap 12.4 mEq/L (5-15); Aspartate Amino Transferase 31 U/L (14-36); Bilirubin,Total 0.3 mg/dl (0.2-1.3); Blood Urea Nitrogen 16 mg/dl (7-17); Calcium 8.9 mg/dl (8.4-10.2); Carbon Dioxide 32 mmol/L (22.0-30.0); Globulin 3.3 g/dL (1.3-3.2); Glucose 370 mg/dl (74-100)
[2019-07-17 06:35] LABS: Basophils % 0.5 % (0.1-2.0); Eosinophils # 0.2 K/mm3 (0.0-0.4); Eosinophils % 2.9 % (0.1-12.0); Hematocrit 41.9 % (37.0-47.0); Hemoglobin 13.7 g/dL (12.2-16.2); Lymphocytes # 1.2 K/mm3 (0.7-4.5); Lymphocytes % 19.5 % (10-50); Mean Corpuscular HGB Conc 32.8 g/dL (31.8-35.4); Mean Corpuscular Volume 91.5 fl (81-99); Mean Platelet Volume 8.7 fl (7.4-10.4); Monocytes # 0.4 K/mm3 (0.1-1.0); Monocytes % 6.7 % (1.7-9.3); Neutrophils # 4.5 K/mm3 (1.8-7.8); Neutrophils % 70.5 % (37.0-80.0); Platelet Count 215 K/mm3 (142-424); Red Blood Count 4.59 M/mm3 (4.20-5.40); Red Cell Distribution Width 13.8 % (11.5-17.5); White Blood Count 6.3 K/mm3 (4.8-10.8)
[2019-07-17 06:52] LABS: Anion Gap 10.9 mEq/L (5-15)
[2019-07-17 06:53] LABS: Calcium 8.7 mg/dl (8.4-10.2)
--- NOTE | 2019-07-17 07:43 | Pharmacy Consult Notes ---
[facility] Pharmacy VTE Monitoring - Patient Demographics Admission date: 07/16/19 Report Date: 07/17/19 Time: 07:42 Allergies/Adverse Reactions: Patient Allergies cefaclor [From Ceclor] Allergy (Severe, Verified 07/16/19 22:50) Hives erythromycin base Allergy (Severe, Verified 07/16/19 22:50) Hives meperidine [From Demerol] Allergy (Severe, Verified 07/16/19 22:50) Hives tetracycline Allergy (Severe, Verified 07/16/19 22:50) Hives Penicillins Allergy (Intermediate, Verified 07/16/19 22:50) Difficulty Breathing pioglitazone [From Actos] Allergy (Intermediate, Verified 07/16/19 22:50) Hives pneumococcal vaccine Allergy (Intermediate, Verified 07/16/19 22:50) Difficulty Breathing amoxicillin Allergy (Mild, Verified 07/16/19 22:50) Rash clindamycin Allergy (Mild, Verified 07/16/19 22:50) Hives codeine Allergy (Mild, Verified 07/16/19 22:50) Rash diphtheria,pertussis (acell),tetanu [From Pentacel DTaP-IPV Compnt (PF)] Allergy (Mild, Verified 07/16/19 22:50) Rash Iodinated Contrast Media [Iodinated Contrast Media - Oral and] Allergy (Mild, Verified 07/16/19 22:50) Hives regadenoson Allergy (Mild, Verified 07/16/19 22:50) Hives onion Adverse Reaction (Intermediate, Verified 07/16/19 22:50) Heartburn Influenza Virus Vaccines Adverse Reaction (Mild, Verified 07/16/19 22:50) Hallucinating oseltamivir [From Tamiflu] Adverse Reaction (Mild, Verified 07/16/19 22:50) Hallucinating Height: 1.55 m Weight: 93.043 kg Patient Problems: Current Active Problems Chest pain (Acute) Community acquired pneumonia (Acute) Bilateral pleural effusion (Acute) Shortness of breath (Acute) Sepsis (Acute) NGOC (obstructive sleep apnea) (Chronic) - VTE Risk Labs: VTE Related Lab Results Hgb 13.7 g/dL (12.2-16.2) 07/17/19 05:54 Hct 41.9 % (37.0-47.0) 07/17/19 05:54 Plt Count 215 K/mm3 (142-424) 07/17/19 05:54 BUN 14 mg/dl (7-17) 07/17/19 05:54 Creatinine 0.70 mg/dl (0.52-1.04) 07/17/19 05:54 Estimated Creat Clear 130 mL/min (50-200) 07/17/19 05:54 Was VTE Risk Assessment Performed: Yes VTE Score: 6 VTE Risk Level: Moderate Risk - Prophylaxis VTE Prophylaxis Ordered?: Yes Types of VTE Prophylaxis: TEDS Knee High Location of Applied Device: Bilateral Lower Extremeties
--- NOTE | 2019-07-17 09:26 | History & Physical Report ---
*Admission Date: 07/16/19 *Chief complaint: SOA, cough *History of present illness: Ms. Cook is a 59-year-old female with multiple chronic uncontrolled comorbidities who is well-known patient to our clinic. She presented to the ER yesterday due to worsening shortness of breath and falling from swelling in her legs. She has very long history of being noncompliant with medical therapy, has seen multiple subspecialists and been discharged from several offices due to her noncompliance, and generally only presents when she has an acute issue. Presentation to the ER she reported 2 to 3-day history of increasing chest pressure, dyspnea with exertion, and swelling in her legs. Imaging in the ER concerning for right middle lobe pneumonia and chronic lower lobe atelectasis with calcification. She was admitted due to concern for pneumonia, initiated on oxygen, and monitored overnight on telemetry. Initial labs were relatively unremarkable with normal kidney function and electrolytes, hyperglycemia, and mild hyponatremia. On assessment this morning she stated she felt a little bit better with oxygen but complained of falls and weakness in her legs over the past couple days. Noted to have significant edema. Labs obtained this morning included BMP which was significantly elevated greater than 2000. Home medications include insulin, levothyroxine, diuretics, antihypertensives, and other hypoglycemic medications. Pharmacy looked into her fill history and notes that she has not filled her levothyroxine, digoxin, Brilinta, losartan in approximately 6 months, insulin last filled over 2 months ago. Carvedilol last filled in May but not since. Has filled her Lasix and most recently Spironolactone within the past month. Echo ordered this morning and cardiology consulted. [facility] History I have reviewed the patient's past medical history: Yes Medical History: Reports:: Anxiety, Asthma, Cancer (Thyroid cancer.), Chronic Obstructive Pulmonary Disease (COPD), Coronary Artery Disease, Deep Vein Thrombosis, Diabetes Mellitus Type 2, Gastroesophageal Reflux Disease(GERD), Hyperlipidemia, Hypertension, Migraine, Palpitations, Transient Ischemic Attacks (TIA), Ulcer, Urinary Tract Infection Denies:: Diabetes Mellitus Type 1, MRSA, Seizures *Have you ever received a pneumonia vaccine?: No *Have you received a flu vaccine this season?: No Other Medical History: Reports: Arthritis, Cataracts, Thyroid Disease, Other Laterality Cases: Bilateral: Tonsillectomy Other Surgeries: Yes: Cardiac Catheterization, Cholecystectomy, Colonoscopy, Coronary Stent, Hysterectomy-Total, Hysterectomy-Partial, Thyroidectomy, Other Amputation: No Fractures: No - *Social History Educational Level: Completed High School Smoking Status: Never smoker Tobacco Type: cigarettes # Packs/Day (cigarettes): 0 #Yrs smoked (if former smoker): 0 Alcohol Intake: never Alcohol Intake Frequency:: other Substance Use Type: denies use *Occupational Status:: disabled Housing: house Household Members: spouse, children *Travel in the last 8 weeks: None - Psychiatric History Pschychiatric History:: Reports:: Anxiety Family Hx:: Bleeding Disorder, Heart Attack, Hypertension, Alcoholism Review of Systems - Review of Systems Review of systems:: pertinent systems reviewed and negative unless documented below (14 point review of systems performed, pertinent positives and negatives as per HPI) Meds Home Medications Medication Instructions Recorded Confirmed Type gabapentin 300 mg capsule 300 mg PO TID 01/21/18 07/16/19 History Ibuprofen [Ibuprofen 600mg 600 mg PO Q6HP PRN #20 tab 03/25/18 07/16/19 Rx Tablet] aspirin 81 mg tablet,delayed 81 mg PO DAILY #90 tab 11/05/18 07/16/19 Rx release digoxin 125 mcg (0.125 mg) tablet 125 mcg PO DAILY #90 tab 11/05/18 07/16/19 Rx nitroglycerin 0.4 mg sublingual 0.4 mg SUBLINGUAL Q5-15M PRN 11/05/18 07/16/19 History tablet sertraline 100 mg tablet 100 mg PO DAILY #90 tab 11/05/18 07/16/19 Rx sitagliptin 100 mg tablet 100 mg PO DAILY #90 tab 11/05/18 07/16/19 Rx ticagrelor 90 mg tablet 90 mg PO BID #180 tab 11/05/18 07/16/19 Rx carvedilol 25 mg tablet 25 mg PO BID #60 tab 12/02/18 07/16/19 Rx Insulin Glargine,Hum.rec.anlog 20 unit SQ HS 12/24/18 07/17/19 History [Lantus Solostar 100 Units/mL 3mL flexpen] Levothyroxine Sodium 200 mcg PO DAILY 12/24/18 07/17/19 History [Levothyroxine 300mcg (0.3mg) Tab] famotidine 20 mg tablet 20 mg PO BID tab 07/11/19 07/16/19 History furosemide 20 mg tablet 40 mg PO DAILY tab 07/11/19 07/16/19 History loratadine 10 mg tablet 10 mg PO DAILY tab 07/11/19 07/16/19 History Spironolactone [Spironolactone 25 mg PO DAILY 07/16/19 07/16/19 History 25mg Tablet] Acetaminophen 500 mg PO Q6HP PRN 07/17/19 07/17/19 History Fluticasone/Vilanterol [Breo 1 inh IH DAILY 07/17/19 07/17/19 History Ellipta 100-25 Mcg INH] Linaclotide [Linzess] 145 mcg PO DAILY 07/17/19 07/17/19 History Losartan Potassium 100 mg PO DAILY 07/17/19 07/17/19 History Melatonin 5 mg PO HS 07/17/19 07/17/19 History Semaglutide [Ozempic] 1 mg SQ WEEKLY 07/17/19 07/17/19 History glipiZIDE [Glucotrol] 5 mg PO DAILY 07/17/19 07/17/19 History metOLazone [metOLazone 2.5mg 2.5 mg PO DAILY 07/17/19 07/17/19 History Tablet] methocarbamoL [Methocarbamol 500mg 500 mg PO BIDP PRN 07/17/19 07/17/19 History Tablet] Allergies Allergy/AdvReac Type Severity Reaction Status Date / Time cefaclor [From Ceclor] Allergy Severe Hives Verified 07/16/19 22:50 erythromycin base Allergy Severe Hives Verified 07/16/19 22:50 meperidine [From Demerol] Allergy Severe Hives Verified 07/16/19 22:50 tetracycline Allergy Severe Hives Verified 07/16/19 22:50 Penicillins Allergy Intermediate Difficulty Verified 07/16/19 22:50 Breathing pioglitazone [From Actos] Allergy Intermediate Hives Verified 07/16/19 22:50 pneumococcal vaccine Allergy Intermediate Difficulty Verified 07/16/19 22:50 Breathing amoxicillin Allergy Mild Rash Verified 07/16/19 22:50 clindamycin Allergy Mild Hives Verified 07/16/19 22:50 codeine Allergy Mild Rash Verified 07/16/19 22:50 diphtheria,pertussis Allergy Mild Rash Verified 07/16/19 22:50 (acell),tetanu [From Pentacel DTaP-IPV Compnt (PF)] Iodinated Contrast Media Allergy Mild Hives Verified 07/16/19 22:50 [Iodinated Contrast Media - Oral and] regadenoson Allergy Mild Hives Verified 07/16/19 22:50 onion AdvReac Intermediate Heartburn Verified 07/16/19 22:50 Influenza Virus Vaccines AdvReac Mild Hallucinati Verified 07/16/19 22:50 ng oseltamivir [From Tamiflu] AdvReac Mild Hallucinati Verified 07/16/19 22:50 ng Exam Vital signs and Labs for Last 24 Hours: Temp Pulse Resp BP Pulse Ox 98.4 F 90 17 145/104 H 99 07/17/19 07:51 07/17/19 08:00 07/17/19 07:51 07/17/19 07:51 07/17/19 07:51 Laboratory Results - last 24 hr 07/16/19 20:19: WBC 6.4, RBC 4.44, Hgb 13.2, Hct 40.4, MCV 90.9, MCH 29.6, MCHC 32.6, RDW 13.7, Plt Count 250, MPV 8.3, Neut % (Auto) 69.9, Lymph % (Auto) 20.2, [place] % (Auto) 5.6, Eos % (Auto) 3.5, Baso % (Auto) 0.7, Neut # (Auto) 4.4, Lymph # (Auto) 1.3, [place] # (Auto) 0.4, Eos # (Auto) 0.2, Baso # (Auto) 0.0 07/16/19 20:19: Sodium 136, Potassium 4.4, Chloride 96 L, Carbon Dioxide 32 H, Anion Gap 12.4, BUN 16, Creatinine 0.80, Estimated Creat Clear 106, Estimated GFR 74, Est GFR ( Amer) 89, Glucose 370 H, Calcium 8.9, Total Bilirubin 0.3, AST 31, ALT 21, Alkaline Phosphatase 85, Troponin I < 0.01, Total Protein 7.0, Albumin 3.7, Globulin 3.3 H, Albumin/Globulin Ratio 1.1 07/16/19 21:37: Lactate 1.4 07/16/19 22:03: Troponin I < 0.01 07/16/19 23:20: POC Glucose 367 H* 07/17/19 01:25: Troponin I < 0.01 07/17/19 05:22: POC Glucose 284 H 07/17/19 05:54: WBC 6.3, RBC 4.59, Hgb 13.7, Hct 41.9, MCV 91.5, MCH 30.0, MCHC 32.8, RDW 13.8, Plt Count 215, MPV 8.7, Neut % (Auto) 70.5, Lymph % (Auto) 19.5, [place] % (Auto) 6.7, Eos % (Auto) 2.9, Baso % (Auto) 0.5, Neut # (Auto) 4.5, Lymph # (Auto) 1.2, [place] # (Auto) 0.4, Eos # (Auto) 0.2, Baso # (Auto) 0.0 07/17/19 05:54: Sodium 133 L, Potassium 3.9, Chloride 97 L, Carbon Dioxide 29, Anion Gap 10.9, BUN 14, Creatinine 0.70, Estimated Creat Clear 130, Estimated GFR 86, Est GFR ( Amer) 104, Glucose 279 H D, Calcium 8.7 I & O for Last 24 hours: Intake & Output 07/14/19 07/15/19 07/16/19 07/17/19 23:59 23:59 23:59 23:59 Intake Total 200 / 440 534 / 534 Balance 200 / 440 534 / 534 Weight 93.043 kg - Constitutional moderate distress, obese, chronically ill appearing - *Routine HEENT Exam Head: Present: normocephalic Eye: Present: EOMI, PERRL ENT: Present: mucous membranes moist - *Routine Neck Exam Present: supple, JVD. Absent: lymphadenopathy - *Routine Respiratory Exam Present: diminished air movement Comments: Absent air movement bilateral bases, mild crackle right posterior lung field, no rhonchi or wheeze - *Routine Cardiovascular Exam Present: RRR - *Routine Abdominal Exam Present: soft, normoactive bowel sounds. Absent: tenderness - *Routine Extremities Exam Present: edema (3+ to mid thigh). Absent: cyanosis, clubbing - *Routine Skin Exam Present: pallor, warm. Absent: rash - *Routine Neurological Exam Present: alert, oriented X3 Slow to respond, this is her baseline. Assessment and Plan (1) Left bundle branch block Current visit: Yes Status: Chronic Category: Medical Code(s): I44.7 - Left bundle-branch block, unspecified (2) Hypothyroidism Current visit: Yes Status: Chronic Category: Medical Code(s): E03.9 - Hypothyroidism, unspecified (3) Acute on chronic systolic heart failure, NYHA class 3 Current visit: Yes Status: Acute Category: Medical Code(s): I50.23 - Acute on chronic systolic (congestive) heart failure (4) Bilateral pleural effusion Current visit: Yes Status: Chronic Category: Medical Code(s): J90 - Pleural effusion, not elsewhere classified (5) Community acquired pneumonia Current visit: Yes Status: Acute Qualifiers: Laterality: unspecified laterality Qualified Code(s): J18.9 - Pneumonia, unspecified organism Category: Medical Code(s): J18.9 - Pneumonia, unspecified organism (6) Edema of both lower extremities Current visit: No Status: Acute Category: Medical Code(s): R60.0 - Localized edema (7) IDDM (insulin dependent diabetes mellitus) Current visit: No Status: Chronic Category: Medical Code(s): E11.9 - Type 2 diabetes mellitus without complications; 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 Cook is a seriously ill 59-year-old female with multiple uncontrolled comorbidities, history of medical noncompliance, and admission for acute on chronic systolic heart failure with volume overload and suspected right middle lobe pneumonia. Additionally she has uncontrolled hypothyroidism. Initiated on supplemental oxygen with goal of greater 92% while awake, greater than 88% while asleep. Antibiotics initiated empirically for concern for right middle lobe pneumonia. Transition oral antibiotics when appropriate. Physical therapy consulted for debility CHF exacerbation: Space cardiology consulted, appreciate recommendations, initiate diuresis, Huerta placed today to monitor strict I's and O's. Limited response to initial Lasix dose, will go and treat with Bumex x1 and monitor for output. Goal -2 L in 24 hours. -Continue antihypertensive meds as ordered including goal-directed therapy. Diabetes Uncontrolled, IV basal and sliding scale insulin while admitted. Monitor for improvement in symptoms. Medication noncompliance: We will continue to stress the importance of patient's need to adhere to medications. Have strong concern about her ability to care for herself and manage her own health needs. Records obtained from outside pharmacy show that she has not been filling her medications consistently for her thyroid dysfunction, diabetes, heart failure. Patient at significant risk of w orsening clinical status or if she does not adhere to treatment for her chronic conditions Patient's condition is serious, prognosis poor. Therapeutic Lovenox for DVT prophylaxis Final echo report pending Diabetic diet
--- NOTE | 2019-07-17 11:44 | Consult Report ---
History of Present Illness Consult date: 07/17/19 Requesting physician: Anuel Sierra Consult reason: congestive heart failure Chief complaint: SOA Additional Medical History:: 1. DM, type 2 2. HTN/HHD 3. Hyperlipidemia 4. Hypothyroidism, on replacement A. History of thyroid cancer 5. Cardiomyopathy with EF 40-45% A. Echo, 06/2017, LVEF 45% with no regional wall motion abnormality. Borderline LVH with mild LAE. Mild MR and TR. B. Echo, 12/2018, 1. Mildly enlarged left atrium, mildly dilated left ventricle, severely reduced left ventricular systolic function, visually estimated ejection fraction 30%, left ventricle is globally hypokinetic, there is abnormal septal motion. Doppler evidence of raise left ventricular end-diastolic pressure. 2. Mild mitral and tricuspid regurgitation. 3. No significant pericardial effusion noted C. Recommendation for biventricular AICD made but patient has failed to keep appointment for implantation. 6. CAD A. cardiac cath, 09/2017, LILI to proximal LAD and LILI to proximal dominant Circ. LVEF 40% with mild anterior wall hypokinesis. LVEDP 10 mm Hg. B. cardiac cath, 12/2017, 1. The left main artery normal 2. The left anterior descending artery has ostial smooth 10-20% stenoses followed by stents in the proximal segment but are widely patent with excellent distal and proximal transitioning 3. The circumflex artery circumflex artery is a dominant vessel with a long ostial 20-30% stenosis. The first obtuse marginal artery is subtotally occluded with initial JESSICA I flow. JESSICA-3 flow was present after the stent. Distal to the first obtuse marginal artery a 70% long stenosis is present. 4. The right coronary artery is a small vestigial vessel subtotally occluded proximally 5. The LAU ventriculogram reveals normal 65% 6. The left ventricular end-diastolic pressure 10 mmHg 7. Anxiety/depression 8. History of DVT but LE venous doppler negative, 06/2019 9. History of GERD 10. Possible family history of amyloidosis A. Patient's serum MARIAH level is normal, 12/2017 11. Carotid artery disease is present, MEJIA < 20%, LICA 20-49%, 07/2018 History of present illness: 59-year-old white female with multiple medical problems as noted above presented to the emergency department for 2 to 3-day history of increasing chest pain or shortness of breath. Elevated BNP along with evidence of CHF noted on chest x- ray. Patient was given IV Lasix with some improvement but admitted for further evaluation and treatment. She relates weight gain of approximately 50 pounds in the last 6 months. She was seen in the cardiology office last week with additional diuretic started (Aldactone) with plans to see her back this week for follow-up. It has been recommended in the last 6 months that the patient have a biventricular ICD due to worsening cardiomyopathy despite aggressive medical therapy. Patient has agreed to this in the past but scheduling has been an issue and has resulted in the patient not having the procedure performed at this time. EKG today shows sinus rhythm with left bundle branch block. Preliminary echocardiogram today shows ejection fraction approximately 20%. [facility] History Medical History: Reports:: Anxiety, Asthma, Cancer (Thyroid cancer.), Chronic Obstructive Pulmonary Disease (COPD), Coronary Artery Disease, Deep Vein Thrombosis, Diabetes Mellitus Type 2, Gastroesophageal Reflux Disease(GERD), Hyperlipidemia, Hypertension, Migraine, Palpitations, Transient Ischemic Attacks (TIA), Ulcer, Urinary Tract Infection Denies:: Diabetes Mellitus Type 1, MRSA, Seizures *Have you ever received a pneumonia vaccine?: No *Have you received a flu vaccine this season?: No Other Medical History: Reports: Arthritis, Cataracts, Thyroid Disease, Other Laterality Cases: Bilateral: Tonsillectomy Other Surgeries: Yes: Cardiac Catheterization, Cholecystectomy, Colonoscopy, Coronary Stent, Hysterectomy-Total, Hysterectomy-Partial, Thyroidectomy, Other Amputation: No Fractures: No - *Social History Educational Level: Completed High School Smoking Status: Never smoker Tobacco Type: cigarettes # Packs/Day (cigarettes): 0 #Yrs smoked (if former smoker): 0 Alcohol Intake: never Alcohol Intake Frequency:: other Substance Use Type: denies use *Occupational Status:: disabled Housing: house Household Members: spouse, children *Travel in the last 8 weeks: None - Psychiatric History Pschychiatric History:: Reports:: Anxiety Family Hx:: Bleeding Disorder, Heart Attack, Hypertension, Alcoholism Meds Home Medications Medication Instructions Recorded Confirmed Type gabapentin 300 mg capsule 300 mg PO TID 01/21/18 07/16/19 History Ibuprofen [Ibuprofen 600mg 600 mg PO Q6HP PRN #20 tab 03/25/18 07/16/19 Rx Tablet] aspirin 81 mg tablet,delayed 81 mg PO DAILY #90 tab 11/05/18 07/16/19 Rx release digoxin 125 mcg (0.125 mg) tablet 125 mcg PO DAILY #90 tab 11/05/18 07/16/19 Rx nitroglycerin 0.4 mg sublingual 0.4 mg SUBLINGUAL Q5-15M PRN 11/05/18 07/16/19 History tablet sertraline 100 mg tablet 100 mg PO DAILY #90 tab 11/05/18 07/16/19 Rx sitagliptin 100 mg tablet 100 mg PO DAILY #90 tab 11/05/18 07/16/19 Rx ticagrelor 90 mg tablet 90 mg PO BID #180 tab 11/05/18 07/16/19 Rx carvedilol 25 mg tablet 25 mg PO BID #60 tab 12/02/18 07/16/19 Rx Insulin Glargine,Hum.rec.anlog 20 unit SQ HS 12/24/18 07/17/19 History [Lantus Solostar 100 Units/mL 3mL flexpen] Levothyroxine Sodium 200 mcg PO DAILY 12/24/18 07/17/19 History [Levothyroxine 300mcg (0.3mg) Tab] famotidine 20 mg tablet 20 mg PO BID tab 07/11/19 07/16/19 History furosemide 20 mg tablet 40 mg PO DAILY tab 07/11/19 07/16/19 History loratadine 10 mg tablet 10 mg PO DAILY tab 07/11/19 07/16/19 History Spironolactone [Spironolactone 25 mg PO DAILY 07/16/19 07/16/19 History 25mg Tablet] Acetaminophen 500 mg PO Q6HP PRN 07/17/19 07/17/19 History Fluticasone/Vilanterol [Breo 1 inh IH DAILY 07/17/19 07/17/19 History Ellipta 100-25 Mcg INH] Linaclotide [Linzess] 145 mcg PO DAILY 07/17/19 07/17/19 History Losartan Potassium 100 mg PO DAILY 07/17/19 07/17/19 History Melatonin 5 mg PO HS 07/17/19 07/17/19 History Semaglutide [Ozempic] 1 mg SQ WEEKLY 07/17/19 07/17/19 History glipiZIDE [Glucotrol] 5 mg PO DAILY 07/17/19 07/17/19 History metOLazone [metOLazone 2.5mg 2.5 mg PO DAILY 07/17/19 07/17/19 History Tablet] methocarbamoL [Methocarbamol 500mg 500 mg PO BIDP PRN 07/17/19 07/17/19 History Tablet] Allergies Allergy/AdvReac Type Severity Reaction Status Date / Time cefaclor [From Ceclor] Allergy Severe Hives Verified 07/16/19 22:50 erythromycin base Allergy Severe Hives Verified 07/16/19 22:50 meperidine [From Demerol] Allergy Severe Hives Verified 07/16/19 22:50 tetracycline Allergy Severe Hives Verified 07/16/19 22:50 Penicillins Allergy Intermediate Difficulty Verified 07/16/19 22:50 Breathing pioglitazone [From Actos] Allergy Intermediate Hives Verified 07/16/19 22:50 pneumococcal vaccine Allergy Intermediate Difficulty Verified 07/16/19 22:50 Breathing amoxicillin Allergy Mild Rash Verified 07/16/19 22:50 clindamycin Allergy Mild Hives Verified 07/16/19 22:50 codeine Allergy Mild Rash Verified 07/16/19 22:50 diphtheria,pertussis Allergy Mild Rash Verified 07/16/19 22:50 (acell),tetanu [From Pentacel DTaP-IPV Compnt (PF)] Iodinated Contrast Media Allergy Mild Hives Verified 07/16/19 22:50 [Iodinated Contrast Media - Oral and] regadenoson Allergy Mild Hives Verified 07/16/19 22:50 onion AdvReac Intermediate Heartburn Verified 07/16/19 22:50 Influenza Virus Vaccines AdvReac Mild Hallucinati Verified 07/16/19 22:50 ng oseltamivir [From Tamiflu] AdvReac Mild Hallucinati Verified 07/16/19 22:50 ng Review of Systems - Review of Systems Review of systems:: pertinent systems reviewed and negative unless documented below - Constitutional Reports weight gain - *Cardiovascular Reports chest pain, Reports shortness of breath, Reports shortness of breath with activity - *Respiratory Reports shortness of breath - *Gastrointestinal Denies abdominal pain, Denies nausea, Denies vomiting - *Genitourinary Denies blood in urine - *Musculoskeletal Denies joint pain, Denies back pain - *Neurologic Denies abnormal speech, Denies fainting, Denies dizziness Exam Vital signs and Labs for Last 24 Hours: Temp Pulse Resp BP Pulse Ox 98.4 F 90 17 145/104 H 99 07/17/19 07:51 07/17/19 08:00 07/17/19 07:51 07/17/19 07:51 07/17/19 07:51 Laboratory Results - last 24 hr 07/16/19 20:19: WBC 6.4, RBC 4.44, Hgb 13.2, Hct 40.4, MCV 90.9, MCH 29.6, MCHC 32.6, RDW 13.7, Plt Count 250, MPV 8.3, Neut % (Auto) 69.9, Lymph % (Auto) 20.2, [place] % (Auto) 5.6, Eos % (Auto) 3.5, Baso % (Auto) 0.7, Neut # (Auto) 4.4, Lymph # (Auto) 1.3, [place] # (Auto) 0.4, Eos # (Auto) 0.2, Baso # (Auto) 0.0 07/16/19 20:19: Sodium 136, Potassium 4.4, Chloride 96 L, Carbon Dioxide 32 H, Anion Gap 12.4, BUN 16, Creatinine 0.80, Estimated Creat Clear 106, Estimated GFR 74, Est GFR ( Amer) 89, Glucose 370 H, Calcium 8.9, Total Bilirubin 0.3, AST 31, ALT 21, Alkaline Phosphatase 85, Troponin I < 0.01, Total Protein 7.0, Albumin 3.7, Globulin 3.3 H, Albumin/Globulin Ratio 1.1 07/16/19 21:37: Lactate 1.4 07/16/19 22:03: Troponin I < 0.01 07/16/19 23:20: POC Glucose 367 H* 07/17/19 01:25: Troponin I < 0.01 07/17/19 05:22: POC Glucose 284 H 07/17/19 05:54: WBC 6.3, RBC 4.59, Hgb 13.7, Hct 41.9, MCV 91.5, MCH 30.0, MCHC 32.8, RDW 13.8, Plt Count 215, MPV 8.7, Neut % (Auto) 70.5, Lymph % (Auto) 19.5, [place] % (Auto) 6.7, Eos % (Auto) 2.9, Baso % (Auto) 0.5, Neut # (Auto) 4.5, Lymph # (Auto) 1.2, [place] # (Auto) 0.4, Eos # (Auto) 0.2, Baso # (Auto) 0.0 07/17/19 05:54: Sodium 133 L, Potassium 3.9, Chloride 97 L, Carbon Dioxide 29, Anion Gap 10.9, BUN 14, Creatinine 0.70, Estimated Creat Clear 130, Estimated GFR 86, Est GFR ( Amer) 104, Glucose 279 H D, Calcium 8.7 07/17/19 05:54: NT-Pro-B Natriuret Pep 2150 H 07/17/19 11:29: POC Glucose 287 H I & O for Last 24 hours: Intake & Output 07/14/19 07/15/19 07/16/19 07/17/19 11:59 11:59 11:59 11:59 Intake Total 734 / 734 Balance 734 / 734 Weight 205 lb 2 oz - *Routine HEENT Exam Head: Present: normocephalic Eye: Present: EOMI, PERRL ENT: Present: mucous membranes moist - *Routine Neck Exam Present: supple. Absent: JVD, carotid bruit - *Routine Respiratory Exam Present: decreased breath sounds, rales. Absent: accessory muscle use, rhonchi, wheezes - *Routine Cardiovascular Exam Present: RRR. Absent: murmur, gallop, rubs - *Routine Abdominal Exam Present: soft. Absent: tenderness, distended, guarding - *Routine Extremities Exam Present: edema. Absent: calf tenderness - *Routine Neurological Exam Present: alert, oriented X3, moving all extremities Assessment and Plan (1) Acute on chronic systolic heart failure, NYHA class 3 Current visit: Yes Status: Acute Category: Medical Code(s): I50.23 - Acute on chronic systolic (congestive) heart failure (2) IDDM (insulin dependent diabetes mellitus) Current visit: No Status: Chronic Category: Medical Code(s): E11.9 - Type 2 diabetes mellitus without complications; Z79.4 - correction (current) use of insulin (3) CAD (coronary artery disease) Current visit: No Status: Chronic Qualifiers: Coronary Disease-Associated Artery/Lesion type: [place] artery [place] vs. transplanted heart: [place] heart Associated angina: without angina Qualified Code(s): I25.10 - Atherosclerotic heart disease of [place] coronary artery without angina pectoris Category: Medical Code(s): I25.10 - Atherosclerotic heart disease of [place] coronary artery without angina pectoris (4) Cardiomyopathy Current visit: No Status: Chronic Qualifiers: Cardiomyopathy type: ischemic Qualified Code(s): I25.5 - Ischemic cardiomyopathy Category: Medical Code(s): I42.9 - Cardiomyopathy, unspecified - Assessment and plan all Dx Assessment and Plan for all problems:: 1. Acute on chronic systolic CHF, continue goal-directed medical therapy including losartan, carvedilol along with diuretic therapy (lasix IV and spironolactone PO). Digoxin and metolazone stopped. 2. Cardiomyopathy, worsening despite goal-directed medical therapy for greater than 3 months, with LBBB on EKG. Advise implantation of biventricular AICD this hospitalization to help with treatment of her congestive heart failure. 3. History of coronary artery disease with prior stenting in December 2017. On ASA and Brilinta. Currently troponins normal x3 with no evidence of acute coronary syndrome. Will stop brilinta in anticipation of AICD implantation this admission (likely next week to allow some diuresis first). 4. DM, per Dr. Sierra
[2019-07-17 13:14] LABS: Free Thyroxine Index 0.7 ug/dL (5.93-13.13)
[2019-07-18 06:08] LABS: Basophils % 0.4 % (0.1-2.0); Eosinophils # 0.3 K/mm3 (0.0-0.4); Hematocrit 39.4 % (37.0-47.0); Hemoglobin 12.4 g/dL (12.2-16.2); Lymphocytes # 0.9 K/mm3 (0.7-4.5); Lymphocytes % 13.7 % (10-50); Mean Corpuscular HGB Conc 31.6 g/dL (31.8-35.4); Mean Corpuscular Volume 93.6 fl (81-99); Monocytes # 0.4 K/mm3 (0.1-1.0); Monocytes % 5.6 % (1.7-9.3); Neutrophils % 76.3 % (37.0-80.0); Platelet Count 248 K/mm3 (142-424); Red Blood Count 4.21 M/mm3 (4.20-5.40); Red Cell Distribution Width 13.9 % (11.5-17.5); White Blood Count 6.5 K/mm3 (4.8-10.8)
[2019-07-18 06:20] LABS: Albumin Level 3.7 g/dl (3.5-5.0); Albumin/Globulin Ratio 1.2 (1.1-1.8); Anion Gap 12.2 mEq/L (5-15); Bilirubin,Total 0.5 mg/dl (0.2-1.3); Calcium 8.7 mg/dl (8.4-10.2); Globulin 3.2 g/dL (1.3-3.2); Total Protein,Serum 6.9 g/dl (6.3-8.2)
--- NOTE | 2019-07-18 07:14 | Progress Note ---
Internal Medicine - PN: Subj *Date: 07/18/19 *Time: 08:30 Interval history: Ms. Cook did well overnight. Has had improved oxygen saturation and stable hemodynamics. Blood sugar better controlled. Attempted diuresis yesterday with 2 doses of Lasix and 1 of Bumex. Had suboptimal response however did not have negative approximately 500 cc for the past 24 hours. Denies chest pain, nausea, vomiting. Sitting in bedside chair on exam this morning. Stable on 2 L nasal cannula. Extensive discussion this morning about patient's medication compliance, lack of filling medications, and uncontrolled conditions. Discussed my concern with her ability to manage her significant conditions and her lab results suggesting that she has not been taking meds as prescribed. She continue to defend taking medications as she "has several bottles of them at home". This is concerning however as she has not filled meds in over 6 months for her thyroid condition and has been very inconsistent with her insulin regimen. Did admit to not taking insulin daily and missing several days a week. A1c 13 TSH greater than 40 Exam Vital signs and Labs for Last 24 Hours: Temp Pulse Resp BP Pulse Ox 97.3 F L 76 18 128/73 99 07/18/19 04:00 07/18/19 04:00 07/18/19 04:00 07/18/19 04:00 07/18/19 04:00 Laboratory Results - last 24 hr 07/17/19 05:54: NT-Pro-B Natriuret Pep 2150 H 07/17/19 11:29: POC Glucose 287 H 07/17/19 12:12: Hemoglobin A1c 13.6 H 07/17/19 12:12: TSH 46.00 H, Free T4 Index 0.7 L, Thyroxine (T4) 2.1 L, T3 Uptake 34 07/17/19 16:52: POC Glucose 197 H 07/17/19 20:31: POC Glucose 197 H 07/18/19 05:20: WBC 6.5, RBC 4.21, Hgb 12.4, Hct 39.4, MCV 93.6, MCH 29.6, MCHC 31.6 L, RDW 13.9, Plt Count 248, MPV 8.0, Neut % (Auto) 76.3, Lymph % (Auto) 13.7, [place] % (Auto) 5.6, Eos % (Auto) 4.0, Baso % (Auto) 0.4, Neut # (Auto) 5.0, Lymph # (Auto) 0.9, [place] # (Auto) 0.4, Eos # (Auto) 0.3, Baso # (Auto) 0.0 07/18/19 05:20: Sodium 135 L, Potassium 4.2, Chloride 96 L, Carbon Dioxide 31 H, Anion Gap 12.2, BUN 16, Creatinine 0.80, Estimated Creat Clear 114, Estimated GFR 74, Est GFR ( Amer) 89, Glucose 165 H D, Calcium 8.7, Magnesium 1.8, Total Bilirubin 0.5, AST 24, ALT 18, Alkaline Phosphatase 77, Total Protein 6.9, Albumin 3.7, Globulin 3.2, Albumin/Globulin Ratio 1.2 07/18/19 05:51: POC Glucose 186 H I & O for Last 24 hours: Intake & Output 07/15/19 07/16/19 07/17/19 07/18/19 23:59 23:59 23:59 23:59 Intake Total 200 / 440 1129 / 1129 Output Total 950 / 950 600 / 600 Balance 200 / 440 179 / 179 -600 / -600 Weight 93.043 kg 93.043 kg Microbiology Reports for the Last 24 Hours: Microbiology 07/16/19 21:38 Blood Blood Culture - Preliminary Narrative: - Constitutional No acute distress on 2 L nasal cannula, obese, chronically ill appearing; in bedside chair on exam - *Routine HEENT Exam Head: Present: normocephalic Eye: Present: EOMI, PERRL ENT: Present: mucous membranes moist - *Routine Neck Exam Present: supple, JVD. Absent: lymphadenopathy - *Routine Respiratory Exam Present: diminished air movement Comments: Absent air movement bilateral bases, improvement in lung exam, absent crackles in right posterior lung field. No rhonchi or wheeze - *Routine Cardiovascular Exam Present: RRR - *Routine Abdominal Exam Present: soft, normoactive bowel sounds. Absent: tenderness - *Routine Extremities Exam Present: edema (3+ to mid thigh). No cyanosis, clubbing; PEDRO PABLO hose in place on legs - *Routine Skin Exam Present: pallor, warm. Absent: rash - *Routine Neurological Exam Present: alert, oriented X3; Slow to respond, this is her baseline. Assessment and Plan (1) Left bundle branch block Current visit: Yes Status: Chronic Category: Medical Code(s): I44.7 - Left bundle-branch block, unspecified (2) Hypothyroidism Current visit: Yes Status: Chronic Category: Medical Code(s): E03.9 - Hypothyroidism, unspecified (3) Acute on chronic systolic heart failure, NYHA class 3 Current visit: Yes Status: Acute Category: Medical Code(s): I50.23 - Acute on chronic systolic (congestive) heart failure (4) Bilateral pleural effusion Current visit: Yes Status: Chronic Category: Medical Code(s): J90 - Pleural effusion, not elsewhere classified (5) Community acquired pneumonia Current visit: Yes Status: Acute Qualifiers: Laterality: unspecified laterality Qualified Code(s): J18.9 - Pneumonia, unspecified organism Category: Medical Code(s): J18.9 - Pneumonia, unspecified organism (6) Edema of both lower extremities Current visit: No Status: Acute Category: Medical Code(s): R60.0 - Localized edema (7) IDDM (insulin dependent diabetes mellitus) Current visit: No Status: Chronic Category: Medical Code(s): E11.9 - Type 2 diabetes mellitus without complications; Z79.4 - 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 - Assessment and plan all Dx Assessment and Plan for all problems:: 59-year-old female with uncontrolled comorbidities consisting of hypothyroidism, diabetes, CHF, who presents with acute on chronic CHF exacerbation and severe hypothyroidism. Finding of pneumonia on presentation in the ER. Initiated on antibiotics and admitted for further management. She continues to remain in serious condition. Making adjustments to blood pressure medications today, will de-escalate her carvedilol in the setting of Bumex drip to pull excess fluid. Blood pressure has responded impressively, continue with goal of less than 130/80. Goal of Bumex drip is -2 L in 24 hours. -Continue with basal insulin at 25 units nightly with sliding scale for meals. -IV levothyroxine administered today. Repeat doses tomorrow and Sunday. Transition back to oral levothyroxine on Sunday. -Cardiology consulted, appreciate recommendations. Recommendations as follows: 1. Continue IV bumex and spironolactone for CHF. 2. Cardiomyopathy with concern for medication non-compliance. Continue coreg and ARB therapy. Echo results pending but would recommend waiting until CHF has improved before considering AICD implantation. Re-evaluate next week. 3. Hypothyroidism with history of thyroidectomy, on replacement therapy per patient but TSH 46. 4. IDDM with Hgb A1c of 13.6, defer to PCP 5. CAD, clinically stable, continue ASA therapy. Diabetic diet Prophylactic Lovenox and PEDRO PABLO beard Physical therapy consulted, appreciate assistance with patient Huerta catheter in place for strict I's and O's during Bumex drip, plan to reevaluate daily Full Code
--- NOTE | 2019-07-18 08:12 | Progress Note ---
Subjective Date: 07/18/19 Time: 08:09 Principal diagnosis: CHF Interval history: 59-year-old white female in chair in no acute distress. States her breathing is slightly better than yesterday. Discussion regarding medical therapy and medication compliance was undertaken. Patient adamantly states she is taking her medications but "my body rejects it after a while." She relates she is supposed to have a barium swallow in [facility] later this month for further evaluation of possible recurrence of her thyroid nodule/cancer. Exam Vital signs and Labs for Last 24 Hours: Temp Pulse Resp BP Pulse Ox 97.3 F L 76 18 128/73 99 07/18/19 04:00 07/18/19 04:00 07/18/19 04:00 07/18/19 04:00 07/18/19 04:00 Laboratory Results - last 24 hr 07/17/19 05:54: NT-Pro-B Natriuret Pep 2150 H 07/17/19 11:29: POC Glucose 287 H 07/17/19 12:12: Hemoglobin A1c 13.6 H 07/17/19 12:12: TSH 46.00 H, Free T4 Index 0.7 L, Thyroxine (T4) 2.1 L, T3 Uptake 34 07/17/19 16:52: POC Glucose 197 H 07/17/19 20:31: POC Glucose 197 H 07/18/19 05:20: WBC 6.5, RBC 4.21, Hgb 12.4, Hct 39.4, MCV 93.6, MCH 29.6, MCHC 31.6 L, RDW 13.9, Plt Count 248, MPV 8.0, Neut % (Auto) 76.3, Lymph % (Auto) 13.7, [place] % (Auto) 5.6, Eos % (Auto) 4.0, Baso % (Auto) 0.4, Neut # (Auto) 5.0, Lymph # (Auto) 0.9, [place] # (Auto) 0.4, Eos # (Auto) 0.3, Baso # (Auto) 0.0 07/18/19 05:20: Sodium 135 L, Potassium 4.2, Chloride 96 L, Carbon Dioxide 31 H, Anion Gap 12.2, BUN 16, Creatinine 0.80, Estimated Creat Clear 114, Estimated GFR 74, Est GFR ( Amer) 89, Glucose 165 H D, Calcium 8.7, Magnesium 1.8, Total Bilirubin 0.5, AST 24, ALT 18, Alkaline Phosphatase 77, Total Protein 6.9, Albumin 3.7, Globulin 3.2, Albumin/Globulin Ratio 1.2 07/18/19 05:51: POC Glucose 186 H I & O for Last 24 hours: Intake & Output 07/15/19 07/16/19 07/17/19 07/18/19 11:59 11:59 11:59 11:59 Intake Total 734 / 734 595 / 595 Output Total 1550 / 1550 Balance 734 / 734 -955 / -955 Weight 205 lb 2 oz 205 lb 1.995 oz Microbiology Reports for the Last 24 Hours: Microbiology 07/16/19 21:38 Blood Blood Culture - Preliminary - *Routine HEENT Exam Head: Present: normocephalic Eye: Present: EOMI, PERRL ENT: Present: mucous membranes moist - *Routine Respiratory Exam Present: decreased breath sounds, rales. Absent: accessory muscle use, rhonchi, wheezes - *Routine Cardiovascular Exam Present: RRR. Absent: murmur, gallop, rubs - *Routine Extremities Exam Present: edema. Absent: calf tenderness - *Routine Neurological Exam Present: alert, oriented X3, moving all extremities Progress Note: A&P (1) Left bundle branch block Status: Chronic Current Visit: Yes (2) Hypothyroidism Status: Chronic Current Visit: Yes (3) Acute on chronic systolic heart failure, NYHA class 3 Status: Acute Current Visit: Yes (4) Bilateral pleural effusion Status: Chronic Current Visit: Yes (5) Community acquired pneumonia Status: Acute Current Visit: Yes (6) Edema of both lower extremities Status: Acute Current Visit: No (7) IDDM (insulin dependent diabetes mellitus) Status: Chronic Current Visit: No (8) Hyperlipidemia Problem details: continued Statin Status: Chronic Current Visit: No (9) Class 2 obesity Status: Chronic Current Visit: Yes Assessment and Plan for All Diagnoses:: 1. Continue IV bumex and spironolactone for CHF. 2. Cardiomyopathy with concern for medication non-compliance. Continue coreg and ARB therapy. Echo results pending but would recommend waiting until CHF has improved before considering AICD implantation. Re-evaluate next week. 3. Hypothyroidism with history of thyroidectomy, on replacement therapy per patient but TSH 46. 4. IDDM with Hgb A1c of 13.6, defer to PCP 5. CAD, clinically stable, continue ASA therapy.
--- NOTE | 2019-07-18 08:44 | Electrocardiograph Report ---
APPROVED REPORT Exam: Resting ECG HR:89 bpm ECG Measurements Heart Rate 89 AXES MD 182 P 57 QRSd 134 QRS 45 QT 422 T211 QTc 513 <Conclusion> Normal sinus rhythm Left bundle branch block Abnormal ECG Electronically signed by : David Simpson, 07/18/2019 08:43:43
--- NOTE | 2019-07-18 08:45 | Electrocardiograph Report ---
APPROVED REPORT Exam: Resting ECG HR:97 bpm ECG Measurements Heart Rate [address] 146 P 42 QRSd 126 QRS 18 QT 390 T193 QTc 495 <Conclusion> Normal sinus rhythm Left bundle branch block Abnormal ECG Electronically signed by : David Simpson, 07/18/2019 08:44:27
[2019-07-18 14:50] LABS: Anion Gap 10.9 mEq/L (5-15)
[2019-07-18 14:51] LABS: Calcium 8.8 mg/dl (8.4-10.2)
[2019-07-18 22:47] LABS: Anion Gap 11.9 mEq/L (5-15)
[2019-07-18 22:48] LABS: Calcium 8.9 mg/dl (8.4-10.2)
[2019-07-19 07:09] LABS: Calcium 9.2 mg/dl (8.4-10.2)
[2019-07-19 07:18] LABS: Basophils % 0.4 % (0.1-2.0); Eosinophils # 0.2 K/mm3 (0.0-0.4); Hemoglobin 12.4 g/dL (12.2-16.2); Lymphocytes # 0.9 K/mm3 (0.7-4.5); Lymphocytes % 15.9 % (10-50); Mean Corpuscular HGB Conc 33.5 g/dL (31.8-35.4); Mean Corpuscular Volume 89.1 fl (81-99); Mean Platelet Volume 9.4 fl (7.4-10.4); Monocytes # 0.5 K/mm3 (0.1-1.0); Monocytes % 9.3 % (1.7-9.3); Neutrophils % 70.4 % (37.0-80.0); Platelet Count 237 K/mm3 (142-424); Red Blood Count 4.15 M/mm3 (4.20-5.40); Red Cell Distribution Width 13.8 % (11.5-17.5); White Blood Count 5.7 K/mm3 (4.8-10.8)
[2019-07-19 07:40] LABS: Thyroid Stimulating Hormone 42.1 uIU/mL (0.465-4.68)
--- NOTE | 2019-07-19 09:38 | Progress Note ---
Internal Medicine - PN: Subj *Date: 07/19/19 *Time: 10:02 Interval history: Patient had an uncomplicated night. Continues to have Huerta in place with Bumex drip running however had poor monitoring of output and we are unclear as to her exact fluid status today. Suspect she has been negative given change in weight. Discussed strict I's and O's with nursing today. Will increase Bumex drip as well as review of labs shows creatinine and BUN stable. Denies worsening shortness of breath, fever, nausea, vomiting, chest pain. Blood pressure well controlled. Blood sugar improved. Exam Vital signs and Labs for Last 24 Hours: Temp Pulse Resp BP Pulse Ox 98.3 F 77 18 118/73 95 07/19/19 08:28 07/19/19 08:28 07/19/19 08:28 07/19/19 08:28 07/19/19 08:28 Laboratory Results - last 24 hr 07/18/19 10:12: Sodium 133 L, Potassium 4.9, Chloride 97 L, Carbon Dioxide 29, Anion Gap 11.9, BUN 18 H, Creatinine 0.80, Estimated Creat Clear 114, Estimated GFR 74, Est GFR ( Amer) 89, Glucose 168 H, Calcium 8.9 07/18/19 10:59: POC Glucose 202 H 07/18/19 14:26: Sodium 134 L, Potassium 3.9 D, Chloride 95 L, Carbon Dioxide 32 H, Anion Gap 10.9, BUN 16, Creatinine 0.80, Estimated Creat Clear 114, Estimated GFR 74, Est GFR ( Amer) 89, Glucose 141 H, Calcium 8.8 07/18/19 16:10: POC Glucose 144 H 07/18/19 20:19: POC Glucose 177 H 07/19/19 05:40: POC Glucose 101 07/19/19 05:45: Sodium 134 L, Potassium 5.0 D, Chloride 95 L, Carbon Dioxide 30, Anion Gap 14.0, BUN 19 H, Creatinine 0.90, Estimated Creat Clear 101, Estimated GFR 65, Est GFR ( Amer) 78, Glucose 98 D, Calcium 9.2, Magnesium 1.9, TSH 42.10 H 07/19/19 05:45: WBC 5.7, RBC 4.15 L, Hgb 12.4, Hct 37.0, MCV 89.1, MCH 29.9, MCHC 33.5, RDW 13.8, Plt Count 237, MPV 9.4, Neut % (Auto) 70.4, Lymph % (Auto) 15.9, [place] % (Auto) 9.3, Eos % (Auto) 4.0, Baso % (Auto) 0.4, Neut # (Auto) 4.0, Lymph # (Auto) 0.9, [place] # (Auto) 0.5, Eos # (Auto) 0.2, Baso # (Auto) 0.0 I & O for Last 24 hours: Intake & Output 07/16/19 07/17/19 07/18/19 07/19/19 23:59 23:59 23:59 23:59 Intake Total 200 / 440 1279 / 1279 1222 / 1222 770 / 770 Output Total 950 / 950 600 / 1200 600 / 600 Balance 200 / 440 329 / 329 622 / 22 170 / 170 Weight 93.043 kg 93 kg 92.397 kg Microbiology Reports for the Last 24 Hours: Microbiology 07/16/19 21:38 Blood Blood Culture - Preliminary Staphylococcus epidermidis 07/16/19 21:38 Blood Blood Culture - Preliminary NO GROWTH AFTER 48 HOURS 07/18/19 05:52 Sputum - Expectorated Sputum Gram Stain - Final Narrative: - Constitutional No acute distress on 2 L nasal cannula, obese, chronically ill appearing; in bedside chair on exam - *Routine HEENT Exam Head: Present: normocephalic Eye: Present: EOMI, PERRL ENT: Present: mucous membranes moist - *Routine Neck Exam Present: supple, JVD. Absent: lymphadenopathy - *Routine Respiratory Exam Present: diminished air movement Comments: Absent air movement bilateral bases, improvement in lung exam, absent crackles in right posterior lung field. No rhonchi or wheeze - *Routine Cardiovascular Exam Present: RRR - *Routine Abdominal Exam Present: soft, normoactive bowel sounds. Absent: tenderness - *Routine Extremities Exam Present: edema (3+ to mid thigh). No cyanosis, clubbing; PEDRO PABLO hose in place on legs - *Routine Skin Exam Present: pallor, warm. Absent: rash - *Routine Neurological Exam Present: alert, oriented X3; Slow to respond, this is her baseline. Assessment and Plan (1) Left bundle branch block Current visit: Yes Status: Chronic Category: Medical Code(s): I44.7 - Left bundle-branch block, unspecified (2) Hypothyroidism Current visit: Yes Status: Chronic Category: Medical Code(s): E03.9 - Hypothyroidism, unspecified (3) Acute on chronic systolic heart failure, NYHA class 3 Current visit: Yes Status: Acute Category: Medical Code(s): I50.23 - Acute on chronic systolic (congestive) heart failure (4) Bilateral pleural effusion Current visit: Yes Status: Chronic Category: Medical Code(s): J90 - Pleu ral effusion, not elsewhere classified (5) Community acquired pneumonia Current visit: Yes Status: Acute Qualifiers: Laterality: unspecified laterality Qualified Code(s): J18.9 - Pneumonia, unspecified organism Category: Medical Code(s): J18.9 - Pneumonia, unspecified organism (6) Edema of both lower extremities Current visit: No Status: Acute Category: Medical Code(s): R60.0 - Localized edema (7) IDDM (insulin dependent diabetes mellitus) Current visit: No Status: Chronic Category: Medical Code(s): E11.9 - Type 2 diabetes mellitus without complications; Z79.4 - [facility] (current) use of insulin (8) Hyperlipidemia Problem details: continued Statin Current visit: No Status: Chronic Category: Medical Code(s): E78.5 - Hyperlipidemia, unspecified (9) Class 2 obesity Current visit: Yes Status: Chronic Category: Medical Code(s): E66.9 - Obesity, unspecified - Assessment and plan all Dx Assessment and Plan for all problems:: Ms. Cook continues to have volume overload. Will increase Bumex drip today. Decreased basal insulin for tonight due to blood sugar being in the mid 90s on morning labs. We will continue to monitor electrolytes. Plan for -2 L goal today for fluid output. Continue IV levothyroxine through the weekend and resume p.o. on Sunday. Continue antibiotics for pneumonia. Patient stable today compared to yesterday. Condition continues to remain serious with prognosis poor. As well therapy seeing patient, appreciate their assistance Prophylactic Lovenox Diabetic diet PEDRO PABLO hose Oxygen as needed for goal greater than 92 awake, greater than 88% asleep Full code Of note, patient's blood culture was positive for staph epidermidis. At this time I suspect this is a contaminant given that it is a single bottle and the type of pathogen. Not clinically declining as well and she is not on antibiotics specific for that type of bacteria. We will continue to monitor, okay to take out of contact precaution
[2019-07-20 05:47] LABS: Basophils % 0.3 % (0.1-2.0); Eosinophils # 0.2 K/mm3 (0.0-0.4); Eosinophils % 3.8 % (0.1-12.0); Hematocrit 34.7 % (37.0-47.0); Hemoglobin 11.5 g/dL (12.2-16.2); Lymphocytes # 1.2 K/mm3 (0.7-4.5); Lymphocytes % 22.1 % (10-50); Mean Platelet Volume 7.6 fl (7.4-10.4); Monocytes # 0.6 K/mm3 (0.1-1.0); Monocytes % 11.3 % (1.7-9.3); Neutrophils # 3.4 K/mm3 (1.8-7.8); Neutrophils % 62.4 % (37.0-80.0); Platelet Count 260 K/mm3 (142-424); Red Blood Count 3.85 M/mm3 (4.20-5.40); Red Cell Distribution Width 13.9 % (11.5-17.5); White Blood Count 5.4 K/mm3 (4.8-10.8)
[2019-07-20 05:54] LABS: Anion Gap 6.2 mEq/L (5-15); Calcium 9.1 mg/dl (8.4-10.2)
--- NOTE | 2019-07-20 07:38 | Progress Note ---
Internal Medicine - PN: Subj *Date: 07/20/19 *Time: 07:37 Interval history: Overall patient seems to be feeling better. She has no complaints of dyspnea. She was up in the chair yesterday. She has diuresed over 1800 mL's with Bumex drip. Exam Vital signs and Labs for Last 24 Hours: Temp Pulse Resp BP Pulse Ox 97.6 F 76 20 137/73 100 07/20/19 04:00 07/20/19 04:00 07/20/19 04:00 07/20/19 04:00 07/20/19 04:00 Laboratory Results - last 24 hr 07/19/19 05:45: Sodium 134 L, Potassium 5.0 D, Chloride 95 L, Carbon Dioxide 30, Anion Gap 14.0, BUN 19 H, Creatinine 0.90, Estimated Creat Clear 101, Estimated GFR 65, Est GFR ( Amer) 78, Glucose 98 D, Calcium 9.2, Magnesium 1.9, TSH 42.10 H 07/19/19 05:45: WBC 5.7, RBC 4.15 L, Hgb 12.4, Hct 37.0, MCV 89.1, MCH 29.9, MCHC 33.5, RDW 13.8, Plt Count 237, MPV 9.4, Neut % (Auto) 70.4, Lymph % (Auto) 15.9, [place] % (Auto) 9.3, Eos % (Auto) 4.0, Baso % (Auto) 0.4, Neut # (Auto) 4.0, Lymph # (Auto) 0.9, [place] # (Auto) 0.5, Eos # (Auto) 0.2, Baso # (Auto) 0.0 07/19/19 11:52: POC Glucose 128 H 07/19/19 16:26: POC Glucose 138 H 07/19/19 21:11: POC Glucose 153 H 07/20/19 05:30: WBC 5.4, RBC 3.85 L, Hgb 11.5 L, Hct 34.7 L, MCV 90.0, MCH 29.7, MCHC 33.0, RDW 13.9, Plt Count 260, MPV 7.6, Neut % (Auto) 62.4, Lymph % (Auto) 22.1, [place] % (Auto) 11.3 H, Eos % (Auto) 3.8, Baso % (Auto) 0.3, Neut # (Auto) 3.4, Lymph # (Auto) 1.2, [place] # (Auto) 0.6, Eos # (Auto) 0.2, Baso # (Auto) 0.0 07/20/19 05:30: Sodium 133 L, Potassium 4.2, Chloride 96 L, Carbon Dioxide 35 H, Anion Gap 6.2, BUN 20 H, Creatinine 0.90, Estimated Creat Clear 103, Estimated GFR 65, Est GFR ( Amer) 78, Glucose 62 L D, Calcium 9.1, Magnesium 1.9 07/20/19 06:17: POC Glucose 66 L I & O for Last 24 hours: Intake & Output 07/17/19 07/18/19 07/19/19 07/20/19 11:59 11:59 11:59 12:59 Intake Total 734 / 734 1225 / 1225 1662 / 1662 855 / 855 Output Total 1550 / 1550 600 / 600 3050 / 3050 Balance 734 / 734 -325 / -325 1062 / 1062 -2195 / -2195 Weight 205 lb 2 oz 205 lb 1.995 oz 203 lb 11.2 oz 207 lb 11 oz Microbiology Reports for the Last 24 Hours: Microbiology 07/18/19 05:52 Sputum - Expectorated Sputum Gram Stain - Final 07/18/19 05:52 Sputum - Expectorated Sputum Sputum Culture - Final Normal Respiratory Elaina 07/16/19 21:38 Blood Blood Culture - Preliminary Staphylococcus epidermidis Narrative: Patient is alert. Oriented. No JVD. Oropharynx clear. ENT exam otherwise clear. Lungs have fairly good air entry. Heart rate regular. Abdomen soft. Edema is improving per yesterday's exam. Able to move arms and legs well. Assessment and Plan (1) Left bundle branch block Current visit: Yes Status: Chronic Category: Medical Code(s): I44.7 - Left bundle-branch block, unspecified (2) Hypothyroidism Current visit: Yes Status: Chronic Category: Medical Code(s): E03.9 - Hypothyroidism, unspecified (3) Acute on chronic systolic heart failure, NYHA class 3 Current visit: Yes Status: Acute Category: Medical Code(s): I50.23 - Acute on chronic systolic (congestive) heart failure (4) Bilateral pleural effusion Current visit: Yes Status: Chronic Category: Medical Code(s): J90 - Pleural effusion, not elsewhere classified (5) Community acquired pneumonia Current visit: Yes Status: Acute Qualifiers: Laterality: unspecified laterality Qualified Code(s): J18.9 - Pneumonia, unspecified organism Category: Medical Code(s): J18.9 - Pneumonia, unspecified organism (6) Edema of both lower extremities Current visit: No Status: Acute Category: Medical Code(s): R60.0 - Localized edema (7) IDDM (insulin dependent diabetes mellitus) Current visit: No Status: Chronic Category: Medical Code(s): E11.9 - Type 2 diabetes mellitus without complications; Z79.4 - group home (current) use of insulin (8) Hyperlipidemia Problem details: continued Statin Current visit: No Status: Chronic Category: Medical Code(s): E78.5 - Hyperlipidemia, unspecified (9) Class 2 obesity Current visit: Yes Status: Chronic Category: Medical Code(s): E66.9 - Obesity, unspecified - Assessment and plan all Dx Assessment and Plan for all problems:: Complex medical conditions complicated by her significant medicine noncompliance. Continue current therapy although I will stop Bumex infusion and changed to 1 mg every 12 to allow her some better mobility today. DC Huerta catheter. Up in the chair. Check labs tomorrow, reevaluate with cardiology re: next plans.
--- NOTE | 2019-07-20 09:32 | Progress Note ---
Internal Medicine - PN: Subj *Date: 07/20/19 *Time: 09:31 Exam Vital signs and Labs for Last 24 Hours: Temp Pulse Resp BP Pulse Ox 97.5 F L 80 18 114/68 100 07/20/19 07:56 07/20/19 08:08 07/20/19 08:08 07/20/19 07:56 07/20/19 08:08 Laboratory Results - last 24 hr 07/19/19 11:52: POC Glucose 128 H 07/19/19 16:26: POC Glucose 138 H 07/19/19 21:11: POC Glucose 153 H 07/20/19 05:30: WBC 5.4, RBC 3.85 L, Hgb 11.5 L, Hct 34.7 L, MCV 90.0, MCH 29.7, MCHC 33.0, RDW 13.9, Plt Count 260, MPV 7.6, Neut % (Auto) 62.4, Lymph % (Auto) 22.1, [place] % (Auto) 11.3 H, Eos % (Auto) 3.8, Baso % (Auto) 0.3, Neut # (Auto) 3.4, Lymph # (Auto) 1.2, [place] # (Auto) 0.6, Eos # (Auto) 0.2, Baso # (Auto) 0.0 07/20/19 05:30: Sodium 133 L, Potassium 4.2, Chloride 96 L, Carbon Dioxide 35 H, Anion Gap 6.2, BUN 20 H, Creatinine 0.90, Estimated Creat Clear 103, Estimated GFR 65, Est GFR ( Amer) 78, Glucose 62 L D, Calcium 9.1, Magnesium 1.9 07/20/19 06:17: POC Glucose 66 L I & O for Last 24 hours: Intake & Output 07/17/19 07/18/19 07/19/19 07/21/19 23:59 23:59 23:59 00:59 Intake Total 1279 / 1279 1372 / 1372 1505 / 1505 600 / 600 Output Total 950 / 950 600 / 1200 2800 / 2800 850 / 850 Balance 329 / 329 772 / 172 -1295 / -1295 -250 / -250 Weight 93 kg 92.397 kg 94.205 kg Microbiology Reports for the Last 24 Hours: Microbiology 07/18/19 05:52 Sputum - Expectorated Sputum Gram Stain - Final 07/18/19 05:52 Sputum - Expectorated Sputum Sputum Culture - Final Normal Respiratory Elaina 07/16/19 21:38 Blood Blood Culture - Preliminary Staphylococcus epidermidis Assessment and Plan (1) Left bundle branch block Current visit: Yes Status: Chronic Category: Medical Code(s): I44.7 - Left bundle-branch block, unspecified (2) Hypothyroidism Current visit: Yes Status: Chronic Category: Medical Code(s): E03.9 - Hypothyroidism, unspecified (3) Acute on chronic systolic heart failure, NYHA class 3 Current visit: Yes Status: Acute Category: Medical Code(s): I50.23 - Acute on chronic systolic (congestive) heart failure (4) Bilateral pleural effusion Current visit: Yes Status: Chronic Category: Medical Code(s): J90 - Pleural effusion, not elsewhere classified (5) Community acquired pneumonia Current visit: Yes Status: Acute Qualifiers: Laterality: unspecified laterality Qualified Code(s): J18.9 - Pneumonia, unspecified organism Category: Medical Code(s): J18.9 - Pneumonia, unspecified organism (6) Edema of both lower extremities Current visit: No Status: Acute Category: Medical Code(s): R60.0 - Localized edema (7) IDDM (insulin dependent diabetes mellitus) Current visit: No Status: Chronic Category: Medical Code(s): E11.9 - Type 2 diabetes mellitus without complications; Z79.4 - correction (current) use of insulin (8) Hyperlipidemia Problem details: continued Statin Current visit: No Status: Chronic Category: Medical Code(s): E78.5 - Hyperlipidemia, unspecified (9) Class 2 obesity Current visit: Yes Status: Chronic Category: Medical Code(s): E66.9 - Obesity, unspecified The patient's infection will respond to the chosen ABx?: Yes Is the patient receiving the right drug, dose, and route?: Yes Could a more targeted ABx be ordered?: No
[2019-07-21 05:36] LABS: Basophils % 0.3 % (0.1-2.0); Eosinophils # 0.1 K/mm3 (0.0-0.4); Hematocrit 36.1 % (37.0-47.0); Hemoglobin 11.4 g/dL (12.2-16.2); Lymphocytes # 0.9 K/mm3 (0.7-4.5); Lymphocytes % 13.5 % (10-50); Mean Corpuscular HGB Conc 31.6 g/dL (31.8-35.4); Mean Corpuscular Volume 92.8 fl (81-99); Mean Platelet Volume 7.9 fl (7.4-10.4); Monocytes # 0.6 K/mm3 (0.1-1.0); Monocytes % 8.8 % (1.7-9.3); Neutrophils # 4.7 K/mm3 (1.8-7.8); Neutrophils % 75.4 % (37.0-80.0); Platelet Count 216 K/mm3 (142-424); Red Blood Count 3.89 M/mm3 (4.20-5.40); Red Cell Distribution Width 14.1 % (11.5-17.5); White Blood Count 6.3 K/mm3 (4.8-10.8)
[2019-07-21 05:46] LABS: Anion Gap 8.2 mEq/L (5-15); Calcium 8.8 mg/dl (8.4-10.2)
--- NOTE | 2019-07-21 07:48 | Progress Note ---
Subjective Date: 07/21/19 Time: 07:43 Principal diagnosis: CHF Interval history: 59 yo WF in bed eating breakfast in NAD. States she is breathing better with less edema. Now on bumex 1 mg BID. Telemetry NSR without arrhythmias. Exam Vital signs and Labs for Last 24 Hours: Temp Pulse Resp BP Pulse Ox 98.3 F 90 18 105/65 L 93 L 07/21/19 04:00 07/21/19 04:00 07/21/19 04:00 07/21/19 04:00 07/21/19 04:00 Laboratory Results - last 24 hr 07/20/19 11:27: POC Glucose 143 H 07/20/19 16:52: POC Glucose 173 H 07/20/19 19:58: POC Glucose 164 H 07/21/19 05:20: WBC 6.3, RBC 3.89 L, Hgb 11.4 L, Hct 36.1 L, MCV 92.8, MCH 29.3, MCHC 31.6 L, RDW 14.1, Plt Count 216, MPV 7.9, Neut % (Auto) 75.4, Lymph % (Auto) 13.5, [place] % (Auto) 8.8, Eos % (Auto) 2.0, Baso % (Auto) 0.3, Neut # (Auto) 4.7, Lymph # (Auto) 0.9, [place] # (Auto) 0.6, Eos # (Auto) 0.1, Baso # (Auto) 0.0 07/21/19 05:20: Sodium 131 L, Potassium 4.2, Chloride 94 L, Carbon Dioxide 33 H, Anion Gap 8.2, BUN 23 H, Creatinine 1.10 H D, Estimated Creat Clear 81, Estimated GFR 51 L, Est GFR ( Amer) 62 D, Glucose 149 H D, Calcium 8.8 07/21/19 06:01: POC Glucose 184 H I & O for Last 24 hours: Intake & Output 07/18/19 07/19/19 07/20/19 07/21/19 10:59 10:59 11:59 11:59 Intake Total 847 / 847 Output Total 550 / 550 Balance 297 / 297 Weight 201 lb 1 oz Microbiology Reports for the Last 24 Hours: Microbiology 07/18/19 05:52 Sputum - Expectorated Sputum Gram Stain - Final 07/18/19 05:52 Sputum - Expectorated Sputum Sputum Culture - Final Normal Respiratory Elaina - *Routine HEENT Exam Head: Present: normocephalic Eye: Present: EOMI, PERRL ENT: Present: mucous membranes moist - *Routine Respiratory Exam Present: decreased breath sounds. Absent: accessory muscle use, rales, rhonchi, wheezes Comments: mild basilar rales but improved compared to last week - *Routine Cardiovascular Exam Present: RRR. Absent: murmur, gallop, rubs - *Routine Abdominal Exam Present: soft. Absent: tenderness, distended, guarding - *Routine Extremities Exam Present: edema. Absent: calf tenderness - *Routine Neurological Exam Present: alert, oriented X3, moving all extremities Progress Note: A&P (1) Acute on chronic systolic heart failure, NYHA class 3 Status: Acute Current Visit: Yes (2) Left bundle branch block Status: Chronic Current Visit: Yes (3) Hypothyroidism Status: Chronic Current Visit: Yes (4) Bilateral pleural effusion Status: Chronic Current Visit: Yes (5) Community acquired pneumonia Status: Acute Current Visit: Yes (6) Edema of both lower extremities Status: Acute Current Visit: No (7) IDDM (insulin dependent diabetes mellitus) Status: Chronic Current Visit: No (8) Hyperlipidemia Problem details: continued Statin Status: Chronic Current Visit: No (9) Class 2 obesity Status: Chronic Current Visit: Yes Assessment and Plan for All Diagnoses:: 1. Acute on chronic systolic CHF due to medication non-compliance in setting of cardiomyopathy. Edema and CHF clinically improved. Continue Coreg and ARB along with bumex and spironolactone. 2. CAD, clinically stable. Continue ASA and statin. 3. Ischemic CM with LBBB, will not plan to place Bi-V AICD during this hospitalization due to poorly controlled DM, CAP and high risk of infection. Will re-assess in the outpatient setting. 4. DM, per PCP. 5. CAP, on antibiotics per PCP
--- NOTE | 2019-07-21 08:12 | Discharge Summary ---
General - General Admission date:: 07/16/19 Discharge date: 07/21/19 HPI HPI: Ms. Cook is a 59-year-old female with multiple chronic uncontrolled comorbidities who is well-known patient to our clinic. She presented to the ER yesterday due to worsening shortness of breath and falling from swelling in her legs. She has very long history of being noncompliant with medical therapy, has seen multiple subspecialists and been discharged from several offices due to her noncompliance, and generally only presents when she has an acute issue. Presentation to the ER she reported 2 to 3-day history of increasing chest pressure, dyspnea with exertion, and swelling in her legs. Imaging in the ER concerning for right middle lobe pneumonia and chronic lower lobe atelectasis with calcification. She was admitted due to concern for pneumonia, initiated on oxygen, and monitored overnight on telemetry. Initial labs were relatively unremarkable with normal kidney function and electrolytes, hyperglycemia, and mild hyponatremia. On assessment this morning she stated she felt a little bit better with oxygen but complained of falls and weakness in her legs over the past couple days. Noted to have significant edema. Labs obtained this morning included BMP which was significantly elevated greater than 2000. Home medications include insulin, levothyroxine, diuretics, antihypertensives, and other hypoglycemic medications. Pharmacy looked into her fill history and notes that she has not filled her levothyroxine, digoxin, Brilinta, losartan in approximately 6 months, insulin last filled over 2 months ago. Carvedilol last filled in May but not since. Has filled her Lasix and most recently Spironolactone within the past month. Echo ordered this morning and cardiology consulted. Hospital Course Hospital Course: Patient was admitted to hospital. Please see admission H&P notes. Ruled out for myocardial infarction. Found to have significantly poor control of hypothyroidism and diabetes secondary to medication noncompliance on pharmacy review of her medications. Patient was diuresed with Bumex drip followed by intravenous Bumex, and she is diuresed about 6 pounds and feels much better. Glucose was controlled simply by restarting her home dose of insulin and adhering to a 2000-calorie diet. This morning patient feels good, eating well, no problems with chest pain or dyspnea, has been up in a chair and has done well. Plan we did discharge home. We are changing medications to Bumex p.o. and sending medications to local pharmacy that will provide blister packs to hopefully aid in compliance. We will also get home health therapy for home health PT/OT/medication compliance issues. Please note that I examined patient [id number] today, please note that she is unable to leave her home without a great deal of difficulty with dyspnea and chronic pain issues. Objective Vital signs: Temp Pulse Resp BP Pulse Ox 98.3 F 90 18 105/65 L 93 L 07/21/19 04:00 07/21/19 04:00 07/21/19 04:00 07/21/19 04:00 07/21/19 04:00 Narrative: Patient is in the hospital bed upright, eating well. Lung air movement is good. Heart rate regular. Abdomen soft nontender. Neurologic exam intact, oropharynx clear, no JVD. ENT exam clear. Results Labs on day of discharge: Labs from last 24 hours 07/21/19 07/21/19 07/21/19 06:01 05:20 05:20 WBC 6.3 RBC 3.89 L Hgb 11.4 L Hct 36.1 L MCV 92.8 MCH 29.3 MCHC 31.6 L RDW 14.1 Plt Count 216 MPV 7.9 Neut % (Auto) 75.4 Lymph % (Auto) 13.5 [place] % (Auto) 8.8 Eos % (Auto) 2.0 Baso % (Auto) 0.3 Neut # (Auto) 4.7 Lymph # (Auto) 0.9 [place] # (Auto) 0.6 Eos # (Auto) 0.1 Baso # (Auto) 0.0 Sodium 131 L Potassium 4.2 Chloride 94 L Carbon Dioxide 33 H Anion Gap 8.2 BUN 23 H Creatinine 1.10 H D Estimated Creat Clear 81 Estimated GFR 51 L Est GFR ( Amer) 62 D Glucose 149 H D POC Glucose 184 H Calcium 8.8 07/20/19 07/20/19 07/20/19 19:58 16:52 11:27 WBC RBC Hgb Hct MCV MCH MCHC RDW Plt Count MPV Neut % (Auto) Lymph % (Auto) [place] % (Auto) Eos % (Auto) Baso % (Auto) Neut # (Auto) Lymph # (Auto) [place] # (Auto) Eos # (Auto) Baso # (Auto) Sodium Potassium Chloride Carbon Dioxide Anion Gap BUN Creatinine Estimated Creat Clear Estimated GFR Est GFR ( Amer) Glucose POC Glucose 164 H 173 H 143 H Calcium Preliminary micro results at discharge 07/16/19 21:38 Blood Culture - Preliminary Blood Staphylococcus epidermidis 07/16/19 21:38 Blood Culture - Preliminary Blood NO GROWTH AFTER 48 HOURS DS: Diagnosis - Discharge Diagnosis (1) Acute on chronic systolic heart failure, NYHA class 3 Status: Resolved (2) Left bundle branch block Status: Chronic (3) Hypothyroidism Status: Chronic (4) Bilateral pleural effusion Status: Chronic (5) Community acquired pneumonia Status: Acute (6) Edema of both lower extremities Status: Acute (7) IDDM (insulin dependent diabetes mellitus) Status: Chronic (8) Hyperlipidemia Status: Chronic Problem details: continued Statin (9) Class 2 obesity Status: Chronic Discharge Plan - Patient Discharge Instructions ACTIVITY: Continue current activity DIET: continue same diet Patient Instructions: DI for Pneumonia -- Adult, DI for Chest Pain, DI for Sepsis -- Adult, DI for Pleural Effusion - Follow up Plan Follow up with: Anuel Sierra MD [Staff Physician] - 07/24/19 Disposition: Home, Self-Jail Medications: Home Medications Medication Instructions Recorded Confirmed Type gabapentin 300 mg capsule 300 mg PO TID 01/21/18 07/16/19 History Ibuprofen [Ibuprofen 600mg 600 mg PO Q6HP PRN #20 tab 03/25/18 07/16/19 Rx Tablet] aspirin 81 mg tablet,delayed 81 mg PO DAILY #90 tab 11/05/18 07/16/19 Rx release digoxin 125 mcg (0.125 mg) tablet 125 mcg PO DAILY #90 tab 11/05/18 07/16/19 Rx nitroglycerin 0.4 mg sublingual 0.4 mg SUBLINGUAL Q5-15M PRN 11/05/18 07/16/19 History tablet sertraline 100 mg tablet 100 mg PO DAILY #90 tab 11/05/18 07/16/19 Rx sitagliptin 100 mg tablet 100 mg PO DAILY #90 tab 11/05/18 07/16/19 Rx ticagrelor 90 mg tablet 90 mg PO BID #180 tab 11/05/18 07/16/19 Rx carvedilol 25 mg tablet 25 mg PO BID #60 tab 12/02/18 07/16/19 Rx Insulin Glargine,Hum.rec.anlog 20 unit SQ HS 12/24/18 07/17/19 History [Lantus Solostar 100 Units/mL 3mL flexpen] Levothyroxine Sodium 200 mcg PO DAILY 12/24/18 07/17/19 History [Levothyroxine 300mcg (0.3mg) Tab] famotidine 20 mg tablet 20 mg PO BID tab 07/11/19 07/16/19 History furosemide 20 mg tablet 40 mg PO DAILY tab 07/11/19 07/16/19 History loratadine 10 mg tablet 10 mg PO DAILY tab 07/11/19 07/16/19 History Spironolactone [Spironolactone 25 mg PO DAILY 07/16/19 07/16/19 History 25mg Tablet] Acetaminophen 500 mg PO Q6HP PRN 07/17/19 07/17/19 History Fluticasone/Vilanterol [Breo 1 inh IH DAILY 07/17/19 07/17/19 History Ellipta 100-25 Mcg INH] Linaclotide [Linzess] 145 mcg PO DAILY 07/17/19 07/17/19 History Losartan Potassium 100 mg PO DAILY 07/17/19 07/17/19 History Melatonin 5 mg PO HS 07/17/19 07/17/19 History Semaglutide [Ozempic] 1 mg SQ WEEKLY 07/17/19 07/17/19 History glipiZIDE [Glucotrol] 5 mg PO DAILY 07/17/19 07/17/19 History metOLazone [metOLazone 2.5mg 2.5 mg PO DAILY 07/17/19 07/17/19 History Tablet] methocarbamoL [Methocarbamol 500mg 500 mg PO BIDP PRN 07/17/19 07/17/19 History Tablet] Bumetanide [Bumex 1mg tablet] 0 mg PO DAILY #30 tab 07/21/19 Rx Prescriptions/Medication Reconciliation: New Bumetanide [Bumex 1mg tablet] 0 mg PO DAILY #30 tab Continued gabapentin 300 mg capsule 300 mg PO TID aspirin 81 mg tablet,delayed release 81 mg PO DAILY #90 tab digoxin 125 mcg (0.125 mg) tablet 125 mcg PO DAILY #90 tab sertraline 100 mg tablet 100 mg PO DAILY #90 tab sitagliptin 100 mg tablet 100 mg PO DAILY #90 tab ticagrelor 90 mg tablet 90 mg PO BID #180 tab carvedilol 25 mg tablet 25 mg PO BID #60 tab famotidine 20 mg tablet 20 mg PO BID tab nitroglycerin 0.4 mg sublingual tablet 0.4 mg SUBLINGUAL Q5-15M PRN PRN Reason: Chest Pain loratadine 10 mg tablet 10 mg PO DAILY tab Ibuprofen [Ibuprofen 600mg Tablet] 600 mg PO Q6HP PRN #20 tab PRN Reason: Mild To Moderate Pain Levothyroxine Sodium [Levothyroxine 300mcg (0.3mg) Tab] 200 mcg PO DAILY Losartan Potassium 100 mg PO DAILY Insulin Glargine,Hum.rec.anlog [Lantus Solostar 100 Units/mL 3mL flexpen] 20 unit SQ HS Spironolactone [Spironolactone 25mg Tablet] 25 mg PO DAILY methocarbamoL [Methocarbamol 500mg Tablet] 500 mg PO BIDP PRN PRN Reason: MUSCLE SPASMS Acetaminophen 500 mg PO Q6HP PRN PRN Reason: PAIN/FEVER/HEADACHE Semaglutide [Ozempic] 1 mg SQ WEEKLY Linaclotide [Linzess] 145 mcg PO DAILY metOLazone [metOLazone 2.5mg Tablet] 2.5 mg PO DAILY Melatonin 5 mg PO HS glipiZIDE [Glucotrol] 5 mg PO DAILY Fluticasone/Vilanterol [Breo Ellipta 100-25 Mcg INH] 1 inh IH DAILY Discontinued furosemide 20 mg tablet 40 mg PO DAILY tab - Problem Reconciliation Problems Reviewed?: Yes
== END 2019-07-21 10:31 | disposition home health service (06) | DRG 291 ==
LOC: ER 18:32 → 2ND 18:32 → OBSVTOIN 21:13 → 2ND 21:14
PROVIDERS: ADMIT Emergency Medicine; ATTEND Internal Medicine Adolescent Medicine
CPT/HCPCS: 36415; 71020; 71046; 71250; 72050; 73030; 80048; 80053; 82962; 83036; 83605; 83735; 83880; 84436; 84443; 84479; 84484; 85025; 87040; 87070; 87077; 87186; 87205; 93005; 93306; 94640; 94761; 96365; 96372; 97116; 97161; 97530; 99203; 99284; 99285; J1956; J2405

== ENCOUNTER 2019-07-23 01:44 | Inpatient (IN) ==
[2019-07-23 02:21] LABS: Basophils % 0.3 % (0.1-2.0); Eosinophils # 0.1 K/mm3 (0.0-0.4); Eosinophils % 0.9 % (0.1-12.0); Hematocrit 42.8 % (37.0-47.0); Hemoglobin 13.6 g/dL (12.2-16.2); Lymphocytes # 0.8 K/mm3 (0.7-4.5); Lymphocytes % 8.3 % (10-50); Mean Corpuscular HGB Conc 31.9 g/dL (31.8-35.4); Mean Corpuscular Volume 93.3 fl (81-99); Monocytes # 0.9 K/mm3 (0.1-1.0); Monocytes % 8.8 % (1.7-9.3); Neutrophils # 8.1 K/mm3 (1.8-7.8); Neutrophils % 81.7 % (37.0-80.0); Platelet Count 284 K/mm3 (142-424); Red Blood Count 4.58 M/mm3 (4.20-5.40); Red Cell Distribution Width 13.9 % (11.5-17.5); White Blood Count 9.9 K/mm3 (4.8-10.8)
[2019-07-23 02:25] LABS: Anion Gap 13.2 mEq/L (5-15); Bilirubin,Total 0.8 mg/dl (0.2-1.3)
[2019-07-23 02:26] LABS: Albumin Level 3.7 g/dl (3.5-5.0); Albumin/Globulin Ratio 1.1 (1.1-1.8); Globulin 3.4 g/dL (1.3-3.2); Total Protein,Serum 7.1 g/dl (6.3-8.2)
[2019-07-23 03:23] LABS: Appearance,Urine CLEAR (Clear); Bilirubin,Urine Negative (Negative); Blood, Urine 1+ (Negative); Color,Urine YELLOW (Yellow); Glucose,Urine (UA) 3+ (Negative); Ketones,Urine TRACE (Negative); Leukocyte Esterase,Urine Negative (Negative); Microscopic, Urine URINE MICROSCOPIC (MICROSCOPIC); Protein,Urine 2+ (Negative); Specific Gravity, Urine 1.025 (1.005-1.030); Urobilinogen,Urine 0.2 EU/dl (0.2)
[2019-07-23 03:33] LABS: Bacteria,Urine Trace /lpf; Mucus,Urine 1+ /lpf; WBC,Urine Occasional #/hpf (0-3)
--- NOTE | 2019-07-23 04:07 | Emergency Department Note ---
ED Disposition Clinical Impression: Elevated troponin, Left bundle branch block Class 1 obesity due to excess calories with body mass index (BMI) of 30.0 to 30.9 in adult Qualifiers: Serious obesity comorbidity presence: with serious comorbidity Qualified Code(s): E66.09 - Other obesity due to excess calories; Z68.30 - Body mass index (BMI) 30.0-30.9, adult CHF, acute on chronic Qualifiers: Heart failure type: systolic Qualified Code(s): I50.23 - Acute on chronic systolic (congestive) heart failure Hypothyroidism Qualifiers: Hypothyroidism type: acquired Qualified Code(s): E03.9 - Hypothyroidism, unspecified Disposition: Admitted as Observation Condition on Discharge: Fair - Critical Care Critical Care Time: No Attestation: On 07/23/19, the high probability of a clinically significant, sudden or life threatening deterioration of the following system(s) required my full and direct attention, intervention and personal management. The time I documented below is in addition to time spent performing reported procedures but includes the following listed in this critical care notation. Medical Decision Making - Medical Records Medical records reviewed: Yes: I reviewed the patient's medical records. - Vikram Inquiry Pt receiving controlled substance: No Vital Signs: 07/23/19 01:57 Temperature 97.9 F Temperature Source Oral Pulse Rate [Right Brachial] 90 Respiratory Rate 16 Blood Pressure [Right Arm] 156/98 H Blood Pressure Mean [Right Arm] 117 Blood Pressure Source [Right Arm] Automatic Cuff Blood Pressure Position [Right Arm] Sitting 02 Sat by Pulse Oximetry 96 Oxygen Delivery Method Room Air - Lab Data Lab results reviewed: Yes: I reviewed the patient's lab results. Lab Results 07/23/19 02:10: WBC 9.9 D, RBC 4.58, Hgb 13.6, Hct 42.8, MCV 93.3, MCH 29.8, MCHC 31.9, RDW 13.9, Plt Count 284 D, MPV 8.0, Neut % (Auto) 81.7 H, Lymph % (Auto) 8.3 L, [place] % (Auto) 8.8, Eos % (Auto) 0.9, Baso % (Auto) 0.3, Neut # (Auto) 8.1 H, Lymph # (Auto) 0.8, [place] # (Auto) 0.9, Eos # (Auto) 0.1, Baso # (Auto) 0.0 07/23/19 02:10: Sodium 135 L, Potassium 4.2, Chloride 95 L, Carbon Dioxide 31 H, Anion Gap 13.2, BUN 24 H, Creatinine 1.00, Estimated Creat Clear 84, Estimated GFR 57 L, Est GFR ( Amer) 69, Glucose 302 H, Calcium 9.0, Total Bilirubin 0.8, AST 52 H, ALT 35, Alkaline Phosphatase 144 H, Troponin I 0.22 H, Total Prot ein 7.1, Albumin 3.7, Globulin 3.4 H, Albumin/Globulin Ratio 1.1, Amylase 88, Lipase 478 H 07/23/19 02:10: NT-Pro-B Natriuret Pep 6660 H 07/23/19 02:10: Digoxin < 0.40 07/23/19 02:15: Influenza Type A Ag Negative, Influenza Type B Ag Negative 07/23/19 03:14: Urine Color Yellow, Urine Appearance Clear, Urine pH 7.0, Ur Specific [place] 1.025, Urine Protein 2+, Urine Glucose (UA) 3+, Urine Ketones T race, Urine Blood 1+, Urine Nitrate Negative, Urine Bilirubin Negative, Urine Urobilinogen 0.2, Ur Leukocyte Esterase Negative, Urine RBC 5-10, Urine WBC Occasional, Ur Squamous Epith Cells 3-5, Urine Bacteria Trace, Urine Mucus 1+ Result diagrams: 07/23/19 02:10 07/23/19 02:10 Orders (Tests/Meds): ED MEDICATIONS Discontinued Medications Generic Name Dose Route Start Last Admin Trade Name Freq PRN Reason Stop Dose Admin Furosemide 40 mg 07/23/19 04:43 Lasix 40mg/4ml Vial IV 07/23/19 04:44 ONCE ONE ORDERS Category Date Time Status CT abdomen pelvis wo con Stat Cat Scan 07/23/19 02:10 Ordered XR chest portable Stat Exams 07/23/19 02:22 Ordered Troponin I Q3H Lab 07/23/19 05:15 Ordered Troponin I Q3H Lab 07/23/19 08:15 Ordered - Radiology Data #1 Image(s): Chest Image Reviewed: Yes I reviewed the patient's radiology image Preliminary Findings: Abnormal (chronic changes ) - CT Data CT Scan: Abdomen, Pelvis Time Received: 04:[address] Reviewed: Yes: I have viewed the radiologist's interpretation Preliminary Findings: Abnormal (see report ) - ECG Data Tracing #1 Normal Sinus Rhythm: Yes Ischemic changes: non-specific ST-T wave changes Conduction abnormalities present: LBBB ECG compared to prior tracings: there are no significant changes - Physician Consults Physician Consulted: shaneka Reason -: Admission Nausea/Vomiting/Diarrhea HPI - General Chief complaint: Nausea/Vomiting/Diarrhea Stated complaint: vomiting Time Seen by Provider: 07/23/19 02:05 Mode of Arrival: Wheelchair Source of Information: Patient, Relative, Medical Record Limitations: No Limitations Description of Symptoms (Recalled from ER Triage Doc. by RN): Patient reports she was just discharged [facility] the [facility] on sun[facility] after being hospitalized for a week with "MRSA in her bowels, pneumonia and her heart acting up". Patient reports tonight around midnight she started vomiting and couldnt stop. - History of Present Illness HPI Narrative: pt with recent admit and was d/c sunday - did ok till - no chest pain - had vomiting this am with nonspecific abd pain - no fever - prev labs and xrays and card eval reviewed - MD complaint: vomiting Onset (ago): hour(s) Associated Abdominal Pain: Yes Location of pain: epigastric Severity: moderate Consistency: intermittent Associated symptoms: denies other symptoms - Related Data Home Medications Medication Instructions Recorded Confirmed gabapentin 300 mg capsule 300 mg PO TID 01/21/18 07/23/19 nitroglycerin 0.4 mg sublingual 0.4 mg SUBLINGUAL Q5-15M PRN 11/05/18 07/23/19 tablet Insulin Glargine,Hum.rec.anlog 20 unit SQ HS 12/24/18 07/23/19 [Lantus Solostar 100 Units/mL 3mL flexpen] Levothyroxine Sodium 200 mcg PO DAILY 12/24/18 07/23/19 [Levothyroxine 300mcg (0.3mg) Tab] famotidine 20 mg tablet 20 mg PO BID tab 07/11/19 07/23/19 loratadine 10 mg tablet 10 mg PO DAILY tab 07/11/19 07/23/19 Spironolactone [Spironolactone 25 mg PO DAILY 07/16/19 07/23/19 25mg Tablet] Acetaminophen 500 mg PO Q6HP PRN 07/17/19 07/23/19 Fluticasone/Vilanterol [Breo 1 inh IH DAILY 07/17/19 07/23/19 Ellipta 100-25 Mcg INH] Linaclotide [Linzess] 145 mcg PO DAILY 07/17/19 07/23/19 Losartan Potassium 100 mg PO DAILY 07/17/19 07/23/19 Melatonin 5 mg PO HS 07/17/19 07/23/19 Semaglutide [Ozempic] 1 mg SQ WEEKLY 07/17/19 07/23/19 metOLazone [metOLazone 2.5mg 2.5 mg PO DAILY 07/17/19 07/23/19 Tablet] methocarbamoL [Methocarbamol 500mg 500 mg PO BIDP PRN 07/17/19 07/23/19 Tablet] Bumetanide [Bumex 1mg tablet] 1 mg PO DAILY 07/23/19 07/23/19 Previous Rx's Medication Instructions Recorded Ibuprofen [Ibuprofen 600mg 600 mg PO Q6HP PRN #20 tab 03/25/18 Tablet] aspirin 81 mg tablet,delayed 81 mg PO DAILY #90 tab 11/05/18 release digoxin 125 mcg (0.125 mg) tablet 125 mcg PO DAILY #90 tab 11/05/18 sertraline 100 mg tablet 100 mg PO DAILY #90 tab 11/05/18 sitagliptin 100 mg tablet 100 mg PO DAILY #90 tab 11/05/18 ticagrelor 90 mg tablet 90 mg PO BID #180 tab 11/05/18 carvedilol 25 mg tablet 25 mg PO BID #60 tab 12/02/18 Allergies Allergy/AdvReac Type Severity Reaction Status Date / Time cefaclor [From Ceclor] Allergy Severe Hives Verified 07/16/19 22:50 erythromycin base Allergy Severe Hives Verified 07/16/19 22:50 meperidine [From Demerol] Allergy Severe Hives Verified 07/16/19 22:50 tetracycline Allergy Severe Hives Verified 07/16/19 22:50 Penicillins Allergy Intermediate Difficulty Verified 07/16/19 22:50 Breathing pioglitazone [From Actos] Allergy Intermediate Hives Verified 07/16/19 22:50 pneumococcal vaccine Allergy Intermediate Difficulty Verified 07/16/19 22:50 Breathing amoxicillin Allergy Mild Rash Verified 07/16/19 22:50 clindamycin Allergy Mild Hives Verified 07/16/19 22:50 codeine Allergy Mild Rash Verified 07/16/19 22:50 diphtheria,pertussis Allergy Mild Rash Verified 07/16/19 22:50 (acell),tetanu [From Pentacel DTaP-IPV Compnt (PF)] Iodinated Contrast Media Allergy Mild Hives Verified 07/16/19 22:50 [Iodinated Contrast Media - Oral and] regadenoson Allergy Mild Hives Verified 07/16/19 22:50 onion AdvReac Intermediate Heartburn Verified 07/16/19 22:50 Influenza Virus Vaccines AdvReac Mild Hallucinati Verified 07/16/19 22:50 ng oseltamivir [From Tamiflu] AdvReac Mild Hallucinati Verified 07/16/19 22:50 ng [facility] History - Hepatitis A Screen Drug use history?: No High risk sexual behaviors?: No History of sexually transmitted infection?: No Currently employed?: No Childcare worker?: No Do you have indoor plumbing?: Yes Do you have electricity?: Yes Attestation statement:: This patient has been screened for Hepatitis A risk factors. I have reviewed the patient's past medical history: Yes Medical History: Reports:: Anxiety, Asthma, Cancer (Thyroid cancer.), Chronic Obstructive Pulmonary Disease (COPD), Coronary Artery Disease, Deep Vein Thrombosis, Diabetes Mellitus Type 2, Gastroesophageal Reflux Disease(GERD), Hyperlipidemia, Hypertension, Migraine, Palpitations, Transient Ischemic Attacks (TIA), Ulcer, Urinary Tract Infection Denies:: Diabetes Mellitus Type 1, MRSA, Seizures Other Medical History: Reports: Arthritis, Cataracts, Thyroid Disease, Other Comment: NGOC Laterality Cases: Bilateral: Tonsillectomy Other Surgeries: Yes: Cardiac Catheterization, Cholecystectomy, Colonoscopy, Coronary Stent, Hysterectomy-Total, Hysterectomy-Partial, Thyroidectomy, Other Amputation: No Fractures: No Comment: Gallbladder - Social History Smoking Status: Never smoker Tobacco Type: cigarettes # Packs/Day (cigarettes): 0 #Yrs smoked (if former smoker): 0 Alcohol Intake: never Alcohol Intake Frequency:: other Substance Use Type: denies use Occupational Status: disabled Housing: house Household Members: spouse, children - Psychiatric History Pschychiatric History:: Reports:: Anxiety Family Hx:: Bleeding Disorder, Heart Attack, Hypertension, Alcoholism ROS Obtained: Yes All systems reviewed & no additional complaints - Constitutional Constitutional: Denies fever(s) - Eyes Eyes: Denies change in vision - ENT Ears, Nose, Mouth, and Throat: Denies sore throat - Cardiovascular Cardiovascular: Denies chest pain, Reports dyspnea - Respiratory Respiratory: No cough - Gastrointestinal Gastrointestingal: Reports: as per HPI, abdominal pain, nausea, vomiting. Denies: diarrhea - Genitourinary Female Genitourinary: Denies hematuria - Musculoskeletal Musculoskeletal: Denies joint pain - Integumentary/Breasts Skin/Breast: Denies rash - Neurologic Neurologic: Denies focal weakness, Denies seizure-like activity Physical Exam - General General appearance: alert, in distress - Head Head exam: normocephalic - Eye Eye exam: Present: PERRL, EOMI. Absent: scleral icterus - ENT ENT exam: Present: mucous membranes dry - Neck Neck exam: Present: trachea midline - Respiratory Respiratory exam: Present: other (dec bs bilat ). Absent: respiratory distress - Cardiovascular Cardiovascular exam: Present: regular rate, systolic murmur, +S4 - Abdominal Exam Abdominal exam: Present: soft, tenderness. Absent: guarding, rebound Abdominal tenderness: Present: epigastrium, mild - Extremities Exam Extremities exam: Present: pedal edema. Absent: calf tenderness - Neurological Exam Neurological exam: Present: alert, CN II-XII intact - Psychiatric Psychiatric exam: Absent: agitated - Skin Skin exam: Absent: rash
--- NOTE | 2019-07-23 08:39 | History & Physical Report ---
*Admission Date: 07/23/19 *Chief complaint: Shortness of air/cough/nausea *History of present illness: 59-year-old white female with multiple medical problems, significant long-term medical compliance issues and multiple comorbid conditions as detailed in her problem list who was discharged from [facility] 2 days ago after being admitted for diuresis and restarting thyroid and diabetic medications. She went home and initially did well for the first 24 hours but yesterday began to have nausea and vomiting. Reports lack of p.o. intake and reports increasing shortness of air. Reports ongoing compliance with her medications. Came back to the emergency department late yesterday evening. Found to have elevated troponin levels over baseline, elevated BNP levels in the 6000 range, and was admitted to hospital. Chest x-ray showed increased pulmonary vasculature but no change and actually some improvement in the infiltrate previously noted. No She is admitted for cardiology consultation and diuresis. [facility] History I have reviewed the patient's past medical history: Yes Medical History: Reports:: Anxiety, Asthma, Cancer (Thyroid cancer.), Congestive Heart Failure, Chronic Obstructive Pulmonary Disease (COPD), Coronary Artery Disease, Deep Vein Thrombosis, Diabetes Mellitus Type 2, Gastroesophageal Reflux Disease(GERD), Hyperlipidemia, Hypertension, Migraine, Myocardial Infarction, Palpitations, Transient Ischemic Attacks (TIA), Ulcer, Urinary Tract Infection Denies:: Diabetes Mellitus Type 1, MRSA, Seizures *Have you ever received a pneumonia vaccine?: No *Have you received a flu vaccine this season?: No Other Medical History: Reports: Arthritis, Cataracts, Hypothyroidism, Thyroid Disease, Other Comment:: Long history of medical non-compliance Laterality Cases: Bilateral: Tonsillectomy Other Surgeries: Yes: Cardiac Catheterization, Cholecystectomy, Colonoscopy, Coronary Stent, Hysterectomy-Total, Hysterectomy-Partial, Thyroidectomy, Other Amputation: No Fractures: No - *Social History Educational Level: Completed High School Smoking Status: Never smoker Tobacco Type: cigarettes # Packs/Day (cigarettes): 0 #Yrs smoked (if former smoker): 0 Alcohol Intake: never Alcohol Intake Frequency:: other Substance Use Type: denies use *Occupational Status:: unemployed Housing: house Household Members: spouse, children *Travel in the last 8 weeks: None - Psychiatric History Pschychiatric History:: Reports:: Anxiety Family Hx:: Bleeding Disorder, Heart Attack, Hypertension, Alcoholism Review of Systems - Review of Systems Review of systems:: pertinent systems reviewed and negative unless documented below Other than shortness of air and nausea patient denies extremity pain, neurologic changes and otherwise a 10 point review of systems is negative. - *Neurologic Denies localized weakness, Denies seizure-like activity Meds Home Medications Medication Instructions Recorded Confirmed Type gabapentin 300 mg capsule 300 mg PO TID 01/21/18 07/23/19 History Ibuprofen [Ibuprofen 600mg 600 mg PO Q6HP PRN #20 tab 03/25/18 07/23/19 Rx Tablet] aspirin 81 mg tablet,delayed 81 mg PO DAILY #90 tab 11/05/18 07/23/19 Rx release digoxin 125 mcg (0.125 mg) tablet 125 mcg PO DAILY #90 tab 11/05/18 07/23/19 Rx nitroglycerin 0.4 mg sublingual 0.4 mg SUBLINGUAL Q5-15M PRN 11/05/18 07/23/19 History tablet sertraline 100 mg tablet 100 mg PO DAILY #90 tab 11/05/18 07/23/19 Rx sitagliptin 100 mg tablet 100 mg PO DAILY #90 tab 11/05/18 07/23/19 Rx ticagrelor 90 mg tablet 90 mg PO BID #180 tab 11/05/18 07/23/19 Rx carvedilol 25 mg tablet 25 mg PO BID #60 tab 12/02/18 07/23/19 Rx Insulin Glargine,Hum.rec.anlog 20 unit SQ HS 12/24/18 07/23/19 History [Lantus Solostar 100 Units/mL 3mL flexpen] Levothyroxine Sodium 200 mcg PO DAILY 12/24/18 07/23/19 History [Levothyroxine 300mcg (0.3mg) Tab] famotidine 20 mg tablet 20 mg PO BID tab 07/11/19 07/23/19 History loratadine 10 mg tablet 10 mg PO DAILY tab 07/11/19 07/23/19 History Spironolactone [Spironolactone 25 mg PO DAILY 07/16/19 07/23/19 History 25mg Tablet] Acetaminophen 500 mg PO Q6HP PRN 07/17/19 07/23/19 History Fluticasone/Vilanterol [Breo 1 inh IH DAILY 07/17/19 07/23/19 History Ellipta 100-25 Mcg INH] Linaclotide [Linzess] 145 mcg PO DAILY 07/17/19 07/23/19 History Losartan Potassium 100 mg PO DAILY 07/17/19 07/23/19 History Melatonin 5 mg PO HS 07/17/19 07/23/19 History Semaglutide [Ozempic] 1 mg SQ WEEKLY 07/17/19 07/23/19 History metOLazone [metOLazone 2.5mg 2.5 mg PO DAILY 07/17/19 07/23/19 History Tablet] methocarbamoL [Methocarbamol 500mg 500 mg PO BIDP PRN 07/17/19 07/23/19 History Tablet] Bumetanide [Bumex 1mg tablet] 1 mg PO DAILY 07/23/19 07/23/19 History Allergies Allergy/AdvReac Type Severity Reaction Status Date / Time cefaclor [From Ceclor] Allergy Severe Hives Verified 07/16/19 22:50 erythromycin base Allergy Severe Hives Verified 07/16/19 22:50 meperidine [From Demerol] Allergy Severe Hives Verified 07/16/19 22:50 tetracycline Allergy Severe Hives Verified 07/16/19 22:50 Penicillins Allergy Intermediate Difficulty Verified 07/16/19 22:50 Breathing pioglitazone [From Actos] Allergy Intermediate Hives Verified 07/16/19 22:50 pneumococcal vaccine Allergy Intermediate Difficulty Verified 07/16/19 22:50 Breathing amoxicillin Allergy Mild Rash Verified 07/16/19 22:50 clindamycin Allergy Mild Hives Verified 07/16/19 22:50 codeine Allergy Mild Rash Verified 07/16/19 22:50 diphtheria,pertussis Allergy Mild Rash Verified 07/16/19 22:50 (acell),tetanu [From Pentacel DTaP-IPV Compnt (PF)] Iodinated Contrast Media Allergy Mild Hives Verified 07/16/19 22:50 [Iodinated Contrast Media - Oral and] regadenoson Allergy Mild Hives Verified 07/16/19 22:50 onion AdvReac Intermediate Heartburn Verified 07/16/19 22:50 Influenza Virus Vaccines AdvReac Mild Hallucinati Verified 07/16/19 22:50 ng oseltamivir [From Tamiflu] AdvReac Mild Hallucinati Verified 07/16/19 22:50 ng Exam Vital signs and Labs for Last 24 Hours: Temp Pulse Resp BP Pulse Ox 99.1 F 97 H 18 126/91 H 96 07/23/19 08:00 07/23/19 08:00 07/23/19 08:00 07/23/19 08:00 07/23/19 08:00 Laboratory Results - last 24 hr 07/23/19 02:10: WBC 9.9 D, RBC 4.58, Hgb 13.6, Hct 42.8, MCV 93.3, MCH 29.8, MCHC 31.9, RDW 13.9, Plt Count 284 D, MPV 8.0, Neut % (Auto) 81.7 H, Lymph % (Auto) 8.3 L, [place] % (Auto) 8.8, Eos % (Auto) 0.9, Baso % (Auto) 0.3, Neut # (Auto) 8.1 H, Lymph # (Auto) 0.8, [place] # (Auto) 0.9, Eos # (Auto) 0.1, Baso # (Auto) 0.0 07/23/19 02:10: Sodium 135 L, Potassium 4.2, Chloride 95 L, Carbon Dioxide 31 H, Anion Gap 13.2, BUN 24 H, Creatinine 1.00, Estimated Creat Clear 84, Estimated GFR 57 L, Est GFR ( Amer) 69, Glucose 302 H, Calcium 9.0, Total Bilirubin 0.8, AST 52 H, ALT 35, Alkaline Phosphatase 144 H, Troponin I 0.22 H, Total Protein 7.1, Albumin 3.7, Globulin 3.4 H, Albumin/Globulin Ratio 1.1, Amylase 88, Lipase 478 H 07/23/19 02:10: NT-Pro-B Natriuret Pep 6660 H 07/23/19 02:10: Digoxin < 0.40 07/23/19 02:15: Influenza Type A Ag Negative, Influenza Type B Ag Negative 07/23/19 03:14: Urine Color Yellow, Urine Appearance Clear, Urine pH 7.0, Ur Specific [place] 1.025, Urine Protein 2+, Urine Glucose (UA) 3+, Urine Ketones Trace, Urine Blood 1+, Urine Nitrate Negative, Urine Bilirubin Negative, Urine Urobilinogen 0.2, Ur Leukocyte Esterase Negative, Urine RBC 5-10, Urine WBC Occasional, Ur Squamous Epith Cells 3-5, Urine Bacteria Trace, Urine Mucus 1+ 07/23/19 05:08: Troponin I 0.20 H 07/23/19 06:02: POC Glucose 299 H I & O for Last 24 hours: Intake & Output 07/20/19 07/21/19 07/22/19 07/23/19 11:59 11:59 11:59 11:59 Intake Total 0 / 0 Output Total 1475 / 1475 Balance -1475 / -1475 Weight 205 lb 6 oz Narrative: Patient is alert. Pleasant. Talkative. Cranial nerves intact. Not visibly dyspneic. Lungs have rhonchi and crackles in both lower lung foster. Good air movement however. Heart rate regular with previously noted flow murmur. Abdomen soft nontender. 1+ ankle edema to mid gonzalez. No pitting. Good distal perfusion. No rash noted. Abdomen soft and nontender. No JVD but her short neck stature makes this a difficult exam. Oropharynx otherwise clear. No scleral icterus. Assessment and Plan (1) CHF, acute on chronic Current visit: Yes Status: Acute Qualifiers: Heart failure type: systolic Qualified Code(s): I50.23 - Acute on chronic systolic (congestive) heart failure Category: Medical Code(s): I50.9 - Heart failure, unspecified Patient improved after IV Lasix. 1 more dose today. Follow labs tomorrow.'s cardiology consult as planned (2) Class 1 obesity due to excess calories with body mass index (BMI) of 30.0 to 30.9 in adult Problem details: conplicates all aspects of care. Current visit: Yes Status: Acute Qualifiers: Serious obesity comorbidity presence: with serious comorbidity Qualified Code(s): E66.09 - Other obesity due to excess calories; Z68.30 - Body mass index (BMI) 30.0-30.9, adult Category: Medical Code(s): E66.09 - Other obesity due to excess calories; Z68.30 - Body mass index (BMI) 30.0-30.9, adult (3) Elevated troponin Current visit: Yes Status: Acute Category: Medical Code(s): R79.89 - Other specified abnormal findings of blood chemistry Probably due to effect of CHF. Cardiology consultation. (4) Hypothyroidism Current visit: Yes Status: Chronic Qualifiers: Hypothyroidism type: acquired Qualified Code(s): E03.9 - Hypothyroidism, unspecified Category: Medical Code(s): E03.9 - Hypothyroidism, unspecified
--- NOTE | 2019-07-23 08:50 | Pharmacy Consult Notes ---
[facility] Pharmacy VTE Monitoring - Patient Demographics Admission date: 07/23/19 Report Date: 07/23/19 Time: 08:50 Allergies/Adverse Reactions: Patient Allergies cefaclor [From Ceclor] Allergy (Severe, Verified 07/16/19 22:50) Hives erythromycin base Allergy (Severe, Verified 07/16/19 22:50) Hives meperidine [From Demerol] Allergy (Severe, Verified 07/16/19 22:50) Hives tetracycline Allergy (Severe, Verified 07/16/19 22:50) Hives Penicillins Allergy (Intermediate, Verified 07/16/19 22:50) Difficulty Breathing pioglitazone [From Actos] Allergy (Intermediate, Verified 07/16/19 22:50) Hives pneumococcal vaccine Allergy (Intermediate, Verified 07/16/19 22:50) Difficulty Breathing amoxicillin Allergy (Mild, Verified 07/16/19 22:50) Rash clindamycin Allergy (Mild, Verified 07/16/19 22:50) Hives codeine Allergy (Mild, Verified 07/16/19 22:50) Rash diphtheria,pertussis (acell),tetanu [From Pentacel DTaP-IPV Compnt (PF)] Allergy (Mild, Verified 07/16/19 22:50) Rash Iodinated Contrast Media [Iodinated Contrast Media - Oral and] Allergy (Mild, Verified 07/16/19 22:50) Hives regadenoson Allergy (Mild, Verified 07/16/19 22:50) Hives onion Adverse Reaction (Intermediate, Verified 07/16/19 22:50) Heartburn Influenza Virus Vaccines Adverse Reaction (Mild, Verified 07/16/19 22:50) Hallucinating oseltamivir [From Tamiflu] Adverse Reaction (Mild, Verified 07/16/19 22:50) Hallucinating Height: 1.55 m Weight: 93.157 kg Patient Problems: Current Active Problems Class 1 obesity due to excess calories with body mass index (BMI) of 30.0 to 30.9 in adult (Acute) Left bundle branch block (Chronic) Hypothyroidism (Chronic) Elevated troponin (Acute) CHF, acute on chronic (Acute) - VTE Risk Labs: VTE Related Lab Results Hgb 13.6 g/dL (12.2-16.2) 07/23/19 02:10 Hct 42.8 % (37.0-47.0) 07/23/19 02:10 Plt Count 284 K/mm3 (142-424) D 07/23/19 02:10 BUN 24 mg/dl (7-17) H 07/23/19 02:10 Creatinine 1.00 mg/dl (0.52-1.04) 07/23/19 02:10 Estimated Creat Clear 84 mL/min (50-200) 07/23/19 02:10 Was VTE Risk Assessment Performed: Yes VTE Score: 9 VTE Risk Level: Moderate Risk Clinical Trial Participant: No - Prophylaxis VTE Prophylaxis Ordered?: Yes Types of VTE Prophylaxis: TEDS Knee High
--- NOTE | 2019-07-23 09:26 | Consult Report ---
History of Present Illness Consult date: 07/23/19 Requesting physician: David Simpson Consult reason: congestive heart failure Chief complaint: nausea and vomiting Additional Medical History:: 1. DM, type 2 2. HTN 3. Hyperlipidemia 4. Hypothyroidism, on replacement A. History of thyroid cancer 5. Cardiomyopathy with EF 40-45% A. Echo, 06/2017, LVEF 45% with no regional wall motion abnormality. Borderline LVH with mild LAE. Mild MR and TR. B. Echo, 12/2018, 1. Mildly enlarged left atrium, mildly dilated left ventricle, severely reduced left ventricular systolic function, visually estimated ejection fraction 30%, left ventricle is globally hypokinetic, there is abnormal septal motion. Doppler evidence of raise left ventricular end-diastolic pressure. 2. Mild mitral and tricuspid regurgitation. 3. No significant pericardial effusion noted C. Recommendation for biventricular AICD made but patient has failed to keep appointment for implantation. D. Echo, 07/17/2019, EF 25-35% with global hypokinesis. 6. CAD A. cardiac cath, 09/2017, LILI to proximal LAD and LILI to proximal dominant Circ. LVEF 40% with mild anterior wall hypokinesis. LVEDP 10 mm Hg. B. cardiac cath, 12/2017, 1. The left main artery normal 2. The left anterior descending artery has ostial smooth 10-20% stenoses followed by stents in the proximal segment but are widely patent with excellent distal and proximal transitioning 3. The circumflex artery circumflex artery is a dominant vessel with a long ostial 20-30% stenosis. The first obtuse marginal artery is subtotally occluded with initial JESSICA I flow. JESSICA-3 flow was present after the stent. Distal to the first obtuse marginal artery a 70% long stenosis is present. 4. The right coronary artery is a small vestigial vessel subtotally occluded proximally 5. The LAU ventriculogram reveals normal 65% 6. The left ventricular end-diastolic pressure 10 mmHg 7. Anxiety/depression 8. History of DVT but LE venous doppler negative, 06/2019 9. History of GERD 10. Possible family history of amyloidosis A. Patient's serum MARIAH level is normal, 12/2017 11. Carotid artery disease is present, MEJIA < 20%, LICA 20-49%, 07/2018. History of present illness: This is a 59-year-old white female who was readmitted to the hospital after being discharged on Sunday for nausea and vomiting. The patient was admitted to the hospital last week for congestive heart failure. She was diuresed and discharged on Sunday. She states that she went home and did well the first 24 hours that she was home but yesterday she began having significant nausea and vomiting. She also reports having abdominal pain with the nausea and vomiting. She states that she had not really had much p.o. intake since being discharged from the hospital and she had increasingly worse shortness of breath followed by the persistent nausea and vomiting. The patient denies any chest pain or pressure. She does report that she has been compliant with her medication since being home from the hospital. The patient has multiple comorbid conditions and a longstanding history of medical noncompliance. The patient was readmitted to the hospital and her BNP has elevated over 6000 which is up from the 2000 range that she was in prior to discharge. She also has an elevated troponin at 0.22 and last admission her troponin was negative. The patient states that she has just not felt well. She is extremely tired and fatigued. She has no energy to do anything. She states that she is still short of breath mostly with exertion. This does improve with rest. It is associated with significant bilateral lower extremity edema as well as abdominal edema. She states that this has continued to worsen since being home. She states that she is unable to lie flat and her symptoms do tend to worsen at night. She denies any fevers, chills. She states that she has had some diarrhea but not much. [facility] History I have reviewed the patient's past medical history: Yes Medical History: Reports:: Anxiety, Asthma, Cancer (Thyroid cancer.), Congestive Heart Failure, Chronic Obstructive Pulmonary Disease (COPD), Coronary Artery Disease, Deep Vein Thrombosis, Diabetes Mellitus Type 2, Gastroesophageal Reflux Disease(GERD), Hyperlipidemia, Hypertension, Migraine, Myocardial Infarction, Palpitations, Transient Ischemic Attacks (TIA), Ulcer, Urinary Tract Infection Denies:: Diabetes Mellitus Type 1, MRSA, Seizures *Have you ever received a pneumonia vaccine?: No *Have you received a flu vaccine this season?: No Other Medical History: Reports: Arthritis, Cataracts, Hypothyroidism, Thyroid Disease, Other Laterality Cases: Bilateral: Tonsillectomy Other Surgeries: Yes: Cardiac Catheterization, Cholecystectomy, Colonoscopy, Coronary Stent, Hysterectomy-Total, Hysterectomy-Partial, Thyroidectomy, Other Amputation: No Fractures: No - *Social History Educational Level: Completed High School Smoking Status: Never smoker Tobacco Type: cigarettes # Packs/Day (cigarettes): 0 #Yrs smoked (if former smoker): 0 Alcohol Intake: never Alcohol Intake Frequency:: other Substance Use Type: denies use *Occupational Status:: unemployed Housing: house Household Members: spouse, children *Travel in the last 8 weeks: None - Psychiatric History Pschychiatric History:: Reports:: Anxiety Family Hx:: Bleeding Disorder, Heart Attack, Hypertension, Alcoholism Meds Home Medications Medication Instructions Recorded Confirmed Type gabapentin 300 mg capsule 300 mg PO TID 01/21/18 07/23/19 History Ibuprofen [Ibuprofen 600mg 600 mg PO Q6HP PRN #20 tab 03/25/18 07/23/19 Rx Tablet] aspirin 81 mg tablet,delayed 81 mg PO DAILY #90 tab 11/05/18 07/23/19 Rx release digoxin 125 mcg (0.125 mg) tablet 125 mcg PO DAILY #90 tab 11/05/18 07/23/19 Rx nitroglycerin 0.4 mg sublingual 0.4 mg SUBLINGUAL Q5-15M PRN 11/05/18 07/23/19 History tablet sertraline 100 mg tablet 100 mg PO DAILY #90 tab 11/05/18 07/23/19 Rx sitagliptin 100 mg tablet 100 mg PO DAILY #90 tab 11/05/18 07/23/19 Rx ticagrelor 90 mg tablet 90 mg PO BID #180 tab 11/05/18 07/23/19 Rx carvedilol 25 mg tablet 25 mg PO BID #60 tab 12/02/18 07/23/19 Rx Insulin Glargine,Hum.rec.anlog 20 unit SQ HS 12/24/18 07/23/19 History [Lantus Solostar 100 Units/mL 3mL flexpen] famotidine 20 mg tablet 20 mg PO BID tab 07/11/19 07/23/19 History loratadine 10 mg tablet 10 mg PO DAILY tab 07/11/19 07/23/19 History Spironolactone [Spironolactone 25 mg PO DAILY 07/16/19 07/23/19 History 25mg Tablet] Acetaminophen 500 mg PO Q6HP PRN 07/17/19 07/23/19 History Fluticasone/Vilanterol [Breo 1 inh IH DAILY 07/17/19 07/23/19 History Ellipta 100-25 Mcg INH] Linaclotide [Linzess] 145 mcg PO DAILY 07/17/19 07/23/19 History Losartan Potassium 100 mg PO DAILY 07/17/19 07/23/19 History Melatonin 5 mg PO HS 07/17/19 07/23/19 History Semaglutide [Ozempic] 1 mg SQ WEEKLY 07/17/19 07/23/19 History metOLazone [metOLazone 2.5mg 2.5 mg PO DAILY 07/17/19 07/23/19 History Tablet] methocarbamoL [Methocarbamol 500mg 500 mg PO BIDP PRN 07/17/19 07/23/19 History Tablet] Bumetanide [Bumex 1mg tablet] 1 mg PO DAILY 07/23/19 07/23/19 History Levothyroxine Sodium 200 mcg PO DAILY 07/23/19 07/23/19 History [Levothyroxine 200mcg (0.2mg) Tab] glipiZIDE [Glucotrol] 5 mg PO DAILY 07/23/19 07/23/19 History Allergies Allergy/AdvReac Type Severity Reaction Status Date / Time cefaclor [From Ceclor] Allergy Severe Hives Verified 07/16/19 22:50 erythromycin base Allergy Severe Hives Verified 07/16/19 22:50 meperidine [From Demerol] Allergy Severe Hives Verified 07/16/19 22:50 tetracycline Allergy Severe Hives Verified 07/16/19 22:50 Penicillins Allergy Intermediate Difficulty Verified 07/16/19 22:50 Breathing pioglitazone [From Actos] Allergy Intermediate Hives Verified 07/16/19 22:50 pneumococcal vaccine Allergy Intermediate Difficulty Verified 07/16/19 22:50 Breathing amoxicillin Allergy Mild Rash Verified 07/16/19 22:50 clindamycin Allergy Mild Hives Verified 07/16/19 22:50 codeine Allergy Mild Rash Verified 07/16/19 22:50 diphtheria,pertussis Allergy Mild Rash Verified 07/16/19 22:50 (acell),tetanu [From Pentacel DTaP-IPV Compnt (PF)] Iodinated Contrast Media Allergy Mild Hives Verified 07/16/19 22:50 [Iodinated Contrast Media - Oral and] regadenoson Allergy Mild Hives Verified 07/16/19 22:50 onion AdvReac Intermediate Heartburn Verified 07/16/19 22:50 Influenza Virus Vaccines AdvReac Mild Hallucinati Verified 07/16/19 22:50 ng oseltamivir [From Tamiflu] AdvReac Mild Hallucinati Verified 07/16/19 22:50 ng Review of Systems - Review of Systems Review of systems:: pertinent systems reviewed and negative unless documented below - Constitutional Reports fatigue, Reports lack of energy - *Cardiovascular Reports shortness of breath, Reports shortness of breath with activity, Reports generalized swelling, Reports leg swelling, Reports shortness of breath when lying down, Reports foot swelling - *Respiratory Reports cough, Reports shortness of breath, Reports shortness of breath with activity - *Gastrointestinal Reports abdominal pain, Reports loose stools, Reports nausea, Reports vomiting - *Neurologic Denies localized weakness, Denies seizure-like activity Exam Vital signs and Labs for Last 24 Hours: Temp Pulse Resp BP Pulse Ox 99.1 F 97 H 18 126/91 H 96 07/23/19 08:00 07/23/19 08:00 07/23/19 08:00 07/23/19 08:00 07/23/19 08:00 Laboratory Results - last 24 hr 07/23/19 02:10: WBC 9.9 D, RBC 4.58, Hgb 13.6, Hct 42.8, MCV 93.3, MCH 29.8, MCHC 31.9, RDW 13.9, Plt Count 284 D, MPV 8.0, Neut % (Auto) 81.7 H, Lymph % (Auto) 8.3 L, [place] % (Auto) 8.8, Eos % (Auto) 0.9, Baso % (Auto) 0.3, Neut # (Auto) 8.1 H, Lymph # (Auto) 0.8, [place] # (Auto) 0.9, Eos # (Auto) 0.1, Baso # (Auto) 0.0 07/23/19 02:10: Sodium 135 L, Potassium 4.2, Chloride 95 L, Carbon Dioxide 31 H, Anion Gap 13.2, BUN 24 H, Creatinine 1.00, Estimated Creat Clear 84, Estimated GFR 57 L, Est GFR ( Amer) 69, Glucose 302 H, Calcium 9.0, Total Bilirubin 0.8, AST 52 H, ALT 35, Alkaline Phosphatase 144 H, Troponin I 0.22 H, Total Protein 7.1, Albumin 3.7, Globulin 3.4 H, Albumin/Globulin Ratio 1.1, Amylase 88, Lipase 478 H 07/23/19 02:10: NT-Pro-B Natriuret Pep 6660 H 07/23/19 02:10: Digoxin < 0.40 07/23/19 02:15: Influenza Type A Ag Negative, Influenza Type B Ag Negative 07/23/19 03:14: Urine Color Yellow, Urine Appearance Clear, Urine pH 7.0, Ur Specific [place] 1.025, Urine Protein 2+, Urine Glucose (UA) 3+, Urine Ketones Trace, Urine Blood 1+, Urine Nitrate Negative, Urine Bilirubin Negative, Urine Urobilinogen 0.2, Ur Leukocyte Esterase Negative, Urine RBC 5-10, Urine WBC Occasional, Ur Squamous Epith Cells 3-5, Urine Bacteria Trace, Urine Mucus 1+ 07/23/19 05:08: Troponin I 0.20 H 07/23/19 06:02: POC Glucose 299 H 07/23/19 08:20: Troponin I 0.19 H I & O for Last 24 hours: Intake & Output 07/20/19 07/21/19 07/22/19 07/23/19 23:59 23:59 23:59 23:59 Intake Total 0 / 0 Output Total 1475 / 1475 Balance -1475 / -1475 Weight 205 lb 6 oz Narrative: CXR shows: Extensive chronic changes. Superimposed infiltrate in the right lower lobe with effusion noted may be slightly improved. No change left lower lobe pneumonia CT abdomen shows: 1. Bilateral pleural effusions with diffuse anasarca and mild amount of ascites. 2. Mild stranding of the peritoneal fat which may be related to the anasarca slightly greater in the right upper quadrant. Underlying inflammatory changes such is appendicitis not excluded. Please correlate clinically. 3. Small amount air in the urinary bladder which could be iatrogenic or due to infection. 4. Diffuse bilateral pulmonary calcification with atelectatic change - Constitutional no acute distress, obese - *Routine HEENT Exam Head: Present: normocephalic, atraumatic Eye: Present: EOMI, PERRL ENT: Present: mucous membranes moist - *Routine Neck Exam Present: supple, full ROM, JVD, normal carotid upstroke. Absent: carotid bruit, lymphadenopathy - *Routine Respiratory Exam Present: decreased breath sounds, rales - *Routine Cardiovascular Exam Present: RRR, Normal S1, Normal S2. Absent: murmur - *Routine Abdominal Exam Present: soft, normoactive bowel sounds, distended. Absent: tenderness, rebound - *Routine Extremities Exam Present: edema (2-3+ BLE edema), full ROM, pulses intact. Absent: cyanosis, clubbing - *Routine Skin Exam Present: warm. Absent: erythema, rash - *Routine Neurological Exam Present: alert, oriented X3, CN II-XII intact. Absent: sensory deficit, motor deficit - Routine Psychiatric Exam Present: normal affect, normal thought process Assessment and Plan (1) Non-STEMI (non-ST elevated myocardial infarction) Current visit: Yes Status: Acute Category: Medical Code(s): I21.4 - Non-ST elevation (NSTEMI) myocardial infarction (2) Acute on chronic systolic CHF (congestive heart failure) Current visit: Yes Status: Acute Category: Medical Code(s): I50.23 - Acute on chronic systolic (congestive) heart failure (3) Elevated troponin Current visit: Yes Status: Acute Category: Medical Code(s): R79.89 - Other specified abnormal findings of blood chemistry (4) Hypothyroidism Current visit: Yes Status: Chronic Qualifiers: Hypothyroidism type: acquired Qualified Code(s): E03.9 - Hypothyroidism, unspecified Category: Medical Code(s): E03.9 - Hypothyroidism, unspecified (5) Coronary artery disease Current visit: No Status: Chronic Category: Medical Code(s): I25.10 - Atherosclerotic heart disease of [place] coronary artery without angina pectoris (6) Diabetes mellitus Current visit: No Status: Chronic Qualifiers: Diabetes mellitus type: type 2 Diabetes mellitus fpc insulin use: without computer terminal operator use Diabetes mellitus complication status: with hyperglycemia Qualified Code(s): E11.65 - Type 2 diabetes mellitus with hyperglycemia Category: Medical Code(s): E11.9 - Type 2 diabetes mellitus without complications (7) HHD (hypertensive heart disease) Current visit: No Status: Chronic Qualifiers: Heart failure presence: without heart failure Qualified Code(s): I11.9 - Hypertensive heart disease without heart failure Category: Medical Code(s): I11.9 - Hypertensive heart disease without heart failure (8) HLD (hyperlipidemia) Current visit: No Status: Chronic Qualifiers: Hyperlipidemia type: unspecified Qualified Code(s): E78.5 - Hyperlipidemia, unspecified Category: Medical Code(s): E78.5 - Hyperlipidemia, unspecified (9) History of CVA (cerebrovascular accident) Current visit: No Status: Chronic Category: Medical Code(s): Z86.73 - Personal history of transient ischemic attack (TIA), and cerebral infarction without residual deficits (10) Ischemic cardiomyopathy Current visit: No Status: Chronic Category: Medical Code(s): I25.5 - Ischemic cardiomyopathy (11) NGOC (obstructive sleep apnea) Current visit: No Status: Chronic Category: Medical Code(s): G47.33 - Obstructive sleep apnea (adult) (pediatric) (12) PAD (peripheral artery disease) Current visit: No Status: Chronic Category: Medical Code(s): I73.9 - Peripheral vascular disease, unspecified (13) Pneumonia Problem details: Gentamicin IV for UTI. Pulmonology consult pending. Current visit: No Status: Chronic Qualifiers: Pneumonia type: due to unspecified organism Laterality: unspecified laterality Lung location: unspecified part of lung Qualified Code(s): J18.9 - Pneumonia, unspecified organism Category: Medical Code(s): J18.9 - Pneumonia, unspecified organism (14) Vomiting Current visit: No Status: Resolved Category: Medical Code(s): R11.10 - Vomiting, unspecified (15) Class 1 obesity due to excess calories with body mass index (BMI) of 30.0 to 30.9 in adult Problem details: conplicates all aspects of care. Current visit: Yes Status: Acute Qualifiers: Serious obesity comorbidity presence: with serious comorbidity Qualified Code(s): E66.09 - Other obesity due to excess calories; Z68.30 - Body mass index (BMI) 30.0-30.9, adult Category: Medical Code(s): E66.09 - Other obesity due to excess calories; Z68.30 - Body mass index (BMI) 30.0-30.9, adult - Assessment and plan all Dx Assessment and Plan for all problems:: Plan: 1. The patient was readmitted to the hospital due to nausea and vomiting. The patient was found to have an elevated troponin and an acute exacerbation of her systolic congestive heart failure. Her BNP is now over 6000. The patient does need aggressive diuresis for her heart failure and cardiomyopathy. We will stop her oral Bumex and metolazone. We will put her on Bumex 2 mg IV twice daily for diuresis. We will continue her Spironolactone. 2. We will get a BMP in the morning to evaluate her renal function and her potassium. 3. The patient does have an elevated troponin consistent with a non-ST elevation myocardial infarction. Last week on admission her troponin was normal. This may be a type II [place] from her decompensated systolic congestive heart failure. However, the patient does have known ischemic cardiomyopathy and coronary artery disease with multiple stenting and she has not had a left heart cath since 2018. There is concern that she could have had worsening of her coronary artery disease which is causing these acute exacerbations of her systolic congestive heart failure. Once the patient has been diuresed we will plan to proceed with left cardiac catheterization to evaluate her coronary artery disease either or Sunday depending on how much diuresis the patient has overnight. 4. The patient has been educated on the risks and benefits of proceeding with left cardiac catheterization. The patient verbalized understanding is agreeable in proceeding with the procedure once she has been diuresed. 5. Coronary artery disease is present and will plan for left cardiac catheterization later this weeks when she is diuresed. 6. Her blood pressure is acceptable at this time. Should improve with continued diuresis. 7. Her LDL goal is less than 55. We will get a lipid panel. 8. The patient does have nausea and vomiting which could be her anginal symptoms. Her lipase is also elevated. This is being managed per her primary care provider. 9. The patient still has evidence of pneumonia. Will defer this to her primary care provider as well. 10. The patient needs aggressive control of her diabetes as to not worsen her coronary artery disease. 11. The patient does have known cardiomyopathy. Her ejection fraction is 25 to 35%. The patient will need a biventricular defibrillator placed on an outpatient basis. However given the fact that she has a non-STEMI at this time she will likely need to have left cardiac catheterization first before proceeding with the device. 12. Further recommendations will be made pending the patient's response to treatment. Thank you for the opportunity to help participate in the care of this patient.
--- NOTE | 2019-07-24 07:35 | Electrocardiograph Report ---
APPROVED REPORT Exam: Resting ECG HR:98 bpm ECG Measurements Heart Rate 98 AXES TX 162 P 20 QRSd 136 QRS 8 QT 412 T-27 QTc 525 <Conclusion> Sinus rhythm with fusion complexes Left bundle branch block Abnormal ECG Electronically signed by : David Simpson, 07/24/2019 07:35:09
[2019-07-24 07:59] LABS: Basophils % 0.2 % (0.1-2.0); Eosinophils # 0.1 K/mm3 (0.0-0.4); Hematocrit 38.1 % (37.0-47.0); Hemoglobin 12.4 g/dL (12.2-16.2); Lymphocytes # 0.8 K/mm3 (0.7-4.5); Lymphocytes % 8.6 % (10-50); Mean Corpuscular HGB Conc 32.6 g/dL (31.8-35.4); Mean Corpuscular Volume 92.4 fl (81-99); Mean Platelet Volume 8.3 fl (7.4-10.4); Monocytes # 0.9 K/mm3 (0.1-1.0); Monocytes % 9.7 % (1.7-9.3); Neutrophils # 7.7 K/mm3 (1.8-7.8); Neutrophils % 80.5 % (37.0-80.0); Platelet Count 246 K/mm3 (142-424); Red Blood Count 4.12 M/mm3 (4.20-5.40); Red Cell Distribution Width 13.9 % (11.5-17.5); White Blood Count 9.5 K/mm3 (4.8-10.8)
[2019-07-24 08:05] LABS: Anion Gap 8.6 mEq/L (5-15); Bilirubin,Total 0.8 mg/dl (0.2-1.3)
[2019-07-24 08:06] LABS: Albumin Level 3.2 g/dl (3.5-5.0); Calcium 8.7 mg/dl (8.4-10.2); Chol/HDL Ratio 4.1 (1-3.5); Globulin 3.1 g/dL (1.3-3.2); Total Protein,Serum 6.3 g/dl (6.3-8.2)
--- NOTE | 2019-07-24 08:57 | Progress Note ---
Subjective Date: 07/24/19 Time: 08:50 Principal diagnosis: CHF, pericarditis vs NSTEMI Interval history: 59 yo WF in bed in no acute distress. Still with some SOA upon lieing supine. Some chest discomfort noted. She now admits medication non -compliance. Exam Vital signs and Labs for Last 24 Hours: Temp Pulse Resp BP Pulse Ox 98.2 F 84 18 109/71 L 97 07/24/19 08:00 07/24/19 08:12 07/24/19 08:00 07/24/19 08:00 07/24/19 08:00 Laboratory Results - last 24 hr 07/23/19 08:20: Troponin I 0.19 H 07/23/19 11:29: POC Glucose 265 H 07/23/19 16:43: POC Glucose 242 H 07/23/19 19:42: POC Glucose 241 H 07/24/19 06:07: POC Glucose 176 H 07/24/19 07:48: WBC 9.5, RBC 4.12 L, Hgb 12.4, Hct 38.1, MCV 92.4, MCH 30.1, MCHC 32.6, RDW 13.9, Plt Count 246, MPV 8.3, Neut % (Auto) 80.5 H, Lymph % (Auto) 8.6 L, [place] % (Auto) 9.7 H, Eos % (Auto) 1.0, Baso % (Auto) 0.2, Neut # (Auto) 7.7, Lymph # (Auto) 0.8, [place] # (Auto) 0.9, Eos # (Auto) 0.1, Baso # (Auto) 0.0 07/24/19 07:48: Sodium 134 L, Potassium 3.6, Chloride 93 L, Carbon Dioxide 36 H, Anion Gap 8.6, BUN 24 H, Creatinine 1.00, Estimated Creat Clear 87, Estimated GFR 57 L, Est GFR ( Amer) 69, Glucose 172 H, Calcium 8.7, Total Bilirubin 0.8, AST 25 D, ALT 27, Alkaline Phosphatase 110, Total Protein 6.3, Albumin 3.2 L D, Globulin 3.1, Albumin/Globulin Ratio 1.0 L, Triglycerides 88, Cholesterol 107 L, LDL Cholesterol Direct 53.36 L, VLDL Cholesterol 18, HDL Cholesterol 26 L , Cholesterol/HDL Ratio 4.1 H I & O for Last 24 hours: Intake & Output 07/21/19 07/22/19 07/23/19 07/24/19 11:59 11:59 11:59 11:59 Intake Total 0 / 0 600 / 600 Output Total 1475 / 1475 3100 / 3100 Balance -1475 / -1475 -2500 / -2500 Weight 205 lb 6 oz 196 lb 9 oz Microbiology Reports for the Last 24 Hours: Microbiology 07/23/19 03:14 Urine,Catheterized Urine Culture - Preliminary NO GROWTH AFTER 24 HOURS - *Routine HEENT Exam Head: Present: normocephalic Eye: Present: EOMI, PERRL ENT: Present: mucous membranes moist - *Routine Respiratory Exam Present: CTA bilaterally, diminished air movement. Absent: accessory muscle use, rales, rhonchi, wheezes - *Routine Cardiovascular Exam Present: RRR, rubs. Absent: murmur, gallop - *Routine Extremities Exam Present: edema. Absent: calf tenderness - *Routine Neurological Exam Present: alert, oriented X3, moving all extremities Progress Note: A&P (1) Non-STEMI (non-ST elevated myocardial infarction) Status: Acute Current Visit: Yes (2) Acute on chronic systolic CHF (congestive heart failure) Status: Acute Current Visit: Yes (3) Elevated troponin Status: Acute Current Visit: Yes (4) Hypothyroidism Status: Chronic Current Visit: Yes (5) Coronary artery disease Status: Chronic Current Visit: No (6) Diabetes mellitus Status: Chronic Current Visit: No (7) HHD (hypertensive heart disease) Status: Chronic Current Visit: No (8) HLD (hyperlipidemia) Status: Chronic Current Visit: No (9) History of CVA (cerebrovascular accident) Status: Chronic Current Visit: No (10) Ischemic cardiomyopathy Status: Chronic Current Visit: No (11) NGOC (obstructive sleep apnea) Status: Chronic Current Visit: No (12) PAD (peripheral artery disease) Status: Chronic Current Visit: No (13) Pneumonia Problem details: Gentamicin IV for UTI. Pulmonology consult pending. Status: Chronic Current Visit: No (14) Class 1 obesity due to excess calories with body mass index (BMI) of 30.0 to 30.9 in adult Problem details: conplicates all aspects of care. Status: Acute Current Visit: Yes (15) Pericardial friction rub present Status: Acute Current Visit: Yes Assessment and Plan for All Diagnoses:: 1. CHF, Good diuresis overnight. Continue IV diuretics. 2. Pericardial friction rub on exam. Will obtain limited echo to assess. No evidence of pulsus paradoxus noted. This is likely the source of her elevated troponins but will still need to consider cardiac cath. 3. Cardiomyopathy, Bi-V AICD recommended in the last 6 months but pt has not followed through with implantation. In light of her confirmation of medication non-compliance, will need to be on goal directed medical therapy for at least 45 days before considering implantation. 4. DM, meds per PCP.
--- NOTE | 2019-07-24 09:03 | Progress Note ---
Internal Medicine - PN: Subj *Date: 07/24/19 *Time: 08:40 Interval history: Overnight Ms. Cook did well with aggressive diuresis in the past 24 hours. Complains of some mild chest discomfort however denies nausea, vomiting, diarrhea. Tolerating p.o. intake. Denies shortness of breath. Candid conversation this morning about medication compliance. Patient stated she had been taking her Bumex as initiated at last visit since getting home, however when confronted with the fact that she had never filled it from the pharmacy, as she had not returned phone calls from the pharmacy for them to package the meds and deliver them, she admitted to not taking her medications as prescribed. Had further discussion about her compliance in general with other medications and she stated that she tells us sometimes what she thinks we want to hear as opposed to the truth. I informed her that I would rather her tell me she is not taking her meds and be honest so we know what to do to better help her then for her to say she is taking things and potentially put us in a situation where we may cause harm due to her noncompliance. Afebrile, blood pressure controlled, blood sugar still slightly elevated Exam Vital signs and Labs for Last 24 Hours: Temp Pulse Resp BP Pulse Ox 98.2 F 84 18 109/71 L 97 07/24/19 08:00 07/24/19 08:12 07/24/19 08:00 07/24/19 08:00 07/24/19 08:00 Laboratory Results - last 24 hr 07/23/19 11:29: POC Glucose 265 H 07/23/19 16:43: POC Glucose 242 H 07/23/19 19:42: POC Glucose 241 H 07/24/19 06:07: POC Glucose 176 H 07/24/19 07:48: WBC 9.5, RBC 4.12 L, Hgb 12.4, Hct 38.1, MCV 92.4, MCH 30.1, MCHC 32.6, RDW 13.9, Plt Count 246, MPV 8.3, Neut % (Auto) 80.5 H, Lymph % (Auto) 8.6 L, [place] % (Auto) 9.7 H, Eos % (Auto) 1.0, Baso % (Auto) 0.2, Neut # (Auto) 7.7, Lymph # (Auto) 0.8, [place] # (Auto) 0.9, Eos # (Auto) 0.1, Baso # (Auto) 0.0 07/24/19 07:48: Sodium 134 L, Potassium 3.6, Chloride 93 L, Carbon Dioxide 36 H, Anion Gap 8.6, BUN 24 H, Creatinine 1.00, Estimated Creat Clear 87, Estimated GFR 57 L, Est GFR ( Amer) 69, Glucose 172 H, Calcium 8.7, Total Bilirubin 0.8, AST 25 D, ALT 27, Alkaline Phosphatase 110, Total Protein 6.3, Albumin 3.2 L D, Globulin 3.1, Albumin/Globulin Ratio 1.0 L, Triglycerides 88, Cholesterol 107 L, LDL Cholesterol Direct 53.36 L, VLDL Cholesterol 18, HDL Cholesterol 26 L , Cholesterol/HDL Ratio 4.1 H I & O for Last 24 hours: Intake & Output 07/21/19 07/22/19 07/23/19 07/24/19 23:59 23:59 23:59 23:59 Intake Total 240 / 240 360 / 360 Output Total 3675 / 3675 900 / 900 Balance -3435 / -3435 -540 / -540 Weight 93 kg 89.159 kg Microbiology Reports for the Last 24 Hours: Microbiology 07/23/19 03:14 Urine,Catheterized Urine Culture - Preliminary NO GROWTH AFTER 24 HOURS Narrative: Patient is alert, Pleasant, Talkative, at her baseline mentation Not visibly dyspneic, tolerating nasal cannula oxygen Lungs have minimal rhonchi and crackles in both lower lung foster. Good air movement however. Heart rate regular with previously noted flow murmur vs friction rub. Abdomen soft, minimal tenderness in the left upper quadrant. 2+ ankle edema to mid gonzalez, pitting. Good distal perfusion. No rash noted. No JVD but her short neck stature makes this a difficult exam. Oropharynx otherwise clear. No scleral icterus. Assessment and Plan (1) Non-STEMI (non-ST elevated myocardial infarction) Current visit: Yes Status: Acute Category: Medical Code(s): I21.4 - Non-ST elevation (NSTEMI) myocardial infarction (2) Acute on chronic systolic CHF (congestive heart failure) Current visit: Yes Status: Acute Category: Medical Code(s): I50.23 - Acute on chronic systolic (congestive) heart failure (3) Elevated troponin Current visit: Yes Status: Acute Category: Medical Code(s): R79.89 - Other specified abnormal findings of blood chemistry (4) Hypothyroidism Current visit: Yes Status: Chronic Qualifiers: Hypothyroidism type: acquired Qualified Code(s): E03.9 - Hypothyroidism, unspecified Category: Medical Code(s): E03.9 - Hypothyroidism, unspecified (5) Coronary artery disease Current visit: No Status: Chronic Category: Medical Code(s): I25.10 - Atherosclerotic heart disease of [place] coronary artery without angina pectoris (6) Diabetes mellitus Current visit: No Status: Chronic Qualifiers: Diabetes mellitus type: type 2 Diabetes mellitus group home insulin use: without group home use Diabetes mellitus complication status: with hyperglycemia Qualified Code(s): E11.65 - Type 2 diabetes mellitus with hyperglycemia Category: Medical Code(s): E11.9 - Type 2 diabetes mellitus without complications (7) HHD (hypertensive heart disease) Current visit: No Status: Chronic Qualifiers: Heart failure presence: without heart failure Qualified Code(s): I11.9 - Hypertensive heart disease without heart failure Category: Medical Code(s): I11.9 - Hypertensive heart disease without heart failure (8) HLD (hyperlipidemia) Current visit: No Status: Chronic Qualifiers: Hyperlipidemia type: unspecified Qualified Code(s): E78.5 - Hyperlipidemia, unspecified Category: Medical Code(s): E78.5 - Hyperlipidemia, unspecified (9) History of CVA (cerebrovascular accident) Current visit: No Status: Chronic Category: Medical Code(s): Z86.73 - Personal history of transient ischemic attack (TIA), and cerebral infarction without residual deficits (10) Ischemic cardiomyopathy Current visit: No Status: Chronic Category: Medical Code(s): I25.5 - Ischemic cardiomyopathy (11) NGOC (obstructive sleep apnea) Current visit: No Status: Chronic Category: Medical Code(s): G47.33 - Obstructive sleep apnea (adult) (pediatric) (12) PAD (peripheral artery disease) Current visit: No Status: Chronic Category: Medical Code(s): I73.9 - Peripheral vascular disease, unspecified (13) Pneumonia Problem details: Gentamicin IV for UTI. Pulmonology consult pending. Current visit: No Status: Chronic Qualifiers: Pneumonia type: due to unspecified organism Laterality: unspecified laterality Lung location: unspecified part of lung Qualified Code(s): J18.9 - Pneumonia, unspecified organism Category: Medical Code(s): J18.9 - Pneumonia, unspecified organism (14) Vomiting Current visit: No Status: Resolved Category: Medical Code(s): R11.10 - Vomiting, unspecified (15) Class 2 obesity Current visit: No Status: Chronic Category: Medical Code(s): E66.9 - Obesity, unspecified - Assessment and plan all Dx Assessment and Plan for all problems:: 59-year-old female who was readmitted due to medication noncompliance. Conversation this morning elicited that she has not been taking diuretics as initiated at last visit. Responding well to IV diuresis. Continue at this time with goal of -1 to 2 L a day -Cardiology consulted, appreciate their recommendations. Given concern for findings of friction rub today, will obtain an echocardiogram to assess for effusion. Cardiology would recommend going through with a left heart cath to further quantify heart function and cardiomyopathy as patient would greatly benefit from Bi-V AICD recommended in the last 6 months but pt has not followed through with implantation. -Given her admitted medication noncompliance, have strong reservation for her ability to adhere to goal-directed therapy and antiplatelet medication after implantation Continue basal and sliding scale insulin for diabetes Continue oxygen as needed for goal saturation greater than 92% while awake, greater than 88% while asleep Worry about patient's compliance after discharge. May benefit from home health to assist with medication compliance. Case management consulted to assist with this. full code Cardiac diet PT/OT consult
[2019-07-25 07:27] LABS: Albumin Level 3.2 g/dl (3.5-5.0); Anion Gap 11.2 mEq/L (5-15); Bilirubin,Total 0.8 mg/dl (0.2-1.3); Calcium 8.8 mg/dl (8.4-10.2); Globulin 3.3 g/dL (1.3-3.2); Total Protein,Serum 6.5 g/dl (6.3-8.2)
[2019-07-25 07:30] LABS: Basophils % 0.2 % (0.1-2.0); Eosinophils # 0.2 K/mm3 (0.0-0.4); Eosinophils % 1.9 % (0.1-12.0); Hematocrit 35.9 % (37.0-47.0); Hemoglobin 11.9 g/dL (12.2-16.2); Lymphocytes # 0.7 K/mm3 (0.7-4.5); Lymphocytes % 8.4 % (10-50); Mean Corpuscular HGB Conc 33.2 g/dL (31.8-35.4); Mean Corpuscular Volume 90.5 fl (81-99); Mean Platelet Volume 7.8 fl (7.4-10.4); Monocytes # 0.5 K/mm3 (0.1-1.0); Monocytes % 6.3 % (1.7-9.3); Neutrophils # 6.6 K/mm3 (1.8-7.8); Neutrophils % 83.1 % (37.0-80.0); Platelet Count 244 K/mm3 (142-424); Red Blood Count 3.97 M/mm3 (4.20-5.40)
[2019-07-25 08:20] VITALS: BP 108/74
--- NOTE | 2019-07-25 08:49 | Progress Note ---
Subjective Date: 07/25/19 Time: 08:46 Principal diagnosis: CHF, pericarditis vs NSTEMI Interval history: 59-year-old white female sitting in chair eating breakfast in no acute distress. States her breathing has improved. Her legs have continued to decrease in size and edema during her stay. Weight documented down from 205 to 187 this morning with negative fluid balance of greater than 6 L of urine output noted Exam Vital signs and Labs for Last 24 Hours: Temp Pulse Resp BP Pulse Ox 98.2 F 76 18 108/74 L 95 07/25/19 08:00 07/25/19 08:39 07/25/19 08:00 07/25/19 08:00 07/25/19 08:00 Laboratory Results - last 24 hr 07/24/19 11:52: POC Glucose 161 H 07/24/19 17:09: POC Glucose 159 H 07/24/19 20:23: POC Glucose 224 H 07/25/19 05:58: POC Glucose 194 H 07/25/19 06:55: WBC 8.0, RBC 3.97 L, Hgb 11.9 L, Hct 35.9 L, MCV 90.5, MCH 30.0, MCHC 33.2, RDW 14.0, Plt Count 244, MPV 7.8, Neut % (Auto) 83.1 H, Lymph % (Auto) 8.4 L, [place] % (Auto) 6.3, Eos % (Auto) 1.9, Baso % (Auto) 0.2, Neut # (Auto) 6.6, Lymph # (Auto) 0.7, [place] # (Auto) 0.5, Eos # (Auto) 0.2, Baso # (Auto) 0.0 07/25/19 06:55: Sodium 135 L, Potassium 3.2 L, Chloride 91 L, Carbon Dioxide 36 H, Anion Gap 11.2, BUN 21 H, Creatinine 0.90, Estimated Creat Clear 92, Estimated GFR 65, Est GFR ( Amer) 78, Glucose 205 H, Calcium 8.8, Magnesium 1.5 L, Total Bilirubin 0.8, AST 21, ALT 22, Alkaline Phosphatase 107, Total Protein 6.5, Albumin 3.2 L, Globulin 3.3 H, Albumin/Globulin Ratio 1.0 L, Lipase 333 H I & O for Last 24 hours: Intake & Output 07/22/19 07/23/19 07/24/19 07/25/19 11:59 11:59 11:59 11:59 Intake Total 0 / 0 600 / 600 1080 / 1080 Output Total 1475 / 1475 3100 / 3100 3200 / 3200 Balance -1475 / -1475 -2500 / -2500 -2120 / -2120 Weight 205 lb 6 oz 196 lb 9 oz 187 lb 2 oz Microbiology Reports for the Last 24 Hours: Microbiology 07/23/19 03:14 Urine,Catheterized Urine Culture - Final NO GROWTH AFTER 48 HOURS - *Routine HEENT Exam Head: Present: normocephalic Eye: Present: EOMI, PERRL ENT: Present: mucous membranes moist - *Routine Respiratory Exam Present: CTA bilaterally. Absent: accessory muscle use, rales, rhonchi, wheezes - *Routine Cardiovascular Exam Present: RRR. Absent: murmur, gallop, rubs - *Routine Abdominal Exam Present: soft. Absent: tenderness, distended, guarding - *Routine Extremities Exam Present: edema. Absent: calf tenderness - *Routine Neurological Exam Present: alert, oriented X3, moving all extremities Progress Note: A&P (1) Non-STEMI (non-ST elevated myocardial infarction) Status: Acute Current Visit: Yes (2) Acute on chronic systolic CHF (congestive heart failure) Status: Acute Current Visit: Yes (3) Elevated troponin Status: Acute Current Visit: Yes (4) Hypothyroidism Status: Chronic Current Visit: Yes (5) Coronary artery disease Status: Chronic Current Visit: No (6) Diabetes mellitus Status: Chronic Current Visit: No (7) HHD (hypertensive heart disease) Status: Chronic Current Visit: No (8) HLD (hyperlipidemia) Status: Chronic Current Visit: No (9) History of CVA (cerebrovascular accident) Status: Chronic Current Visit: No (10) Ischemic cardiomyopathy Status: Chronic Current Visit: No (11) NGOC (obstructive sleep apnea) Status: Chronic Current Visit: No (12) PAD (peripheral artery disease) Status: Chronic Current Visit: No (13) Pneumonia Problem details: Gentamicin IV for UTI. Pulmonology consult pending. Status: Inactive Current Visit: No (14) Vomiting Status: Resolved Current Visit: No (15) Class 2 obesity Status: Chronic Current Visit: No Assessment and Plan for All Diagnoses:: 1. Patient has continued to improve on medical therapy during this hospitalization. Strongly encouraged patient to remain compliant with her medications. At this time would not recommend proceeding with ICD implantation. I explained to her that she needs to be compliant with her medications for at least 45 days before we consider implanting the device. She also needs to have continued control of her diabetes to lower the risk for infection post implantation. Patient is scheduled to be discharged home later today. We would like follow-up with her within 1 to 2 weeks.
--- NOTE | 2019-07-25 10:57 | Discharge Summary ---
General - General Admission date:: 07/23/19 Discharge date: 07/25/19 HPI HPI: 59-year-old white female with multiple medical problems, significant long-term medical compliance issues and multiple comorbid conditions as detailed in her problem list who was discharged from [facility] 2 days ago after being admitted for diuresis and restarting thyroid and diabetic medications. She went home and initially did well for the first 24 hours but yesterday began to have nausea and vomiting. Reports lack of p.o. intake and reports increasing shortness of air. Reports ongoing compliance with her medications. Came back to the emergency department late yesterday evening. Found to have elevated troponin levels over baseline, elevated BNP levels in the 6000 range, and was admitted to hospital. Chest x-ray showed increased pulmonary vasculature but no change and actually some improvement in the infiltrate previously noted. No She is admitted for cardiology consultation and diuresis. Hospital Course Hospital Course: Ms. Cook was reinitiated on her medications as prescribed at last visit. Diuresis was again performed with IV loop diuretics. Showed good response to diuresis with some mild improvement in her edema, and improvement clinically. Had extensive discussion about patient in regard to medical compliance and ways that we can assist with this. Recommended filling her medications through clinic pharmacy so her medications can be prepackaged for easy adherence. Additionally physical therapy was consulted and recommended custodial placement however patient not amenable to this. Discussed having home health come in for medication management and physical therapy. She was amenable to that option. Patient had no events of chest pain, nausea, vomiting, syncope, diarrhea during admission and had no complaints of these today on day of discharge. Showed good clinical response to resumption of medications as prescribed. Plan for close follow-up in the outpatient setting. Discussed the importance of adhering to her medications. Cardiology assisted with her care, changes per med rec at discharge. Medically stable for discharge home Of note, discussed placement of pacemaker during admission. Patient needs to exhibit at least 1-1/2 to 2 months of medication compliance prior to consideration for placement of this device. Stressed the importance of compliance and how placement of a device early and noncompliance to medication regimen thereafter could be life-threatening. She nodded in understanding. Objective Vital signs: Temp Pulse Resp BP Pulse Ox 98.2 F 76 18 108/74 L 95 07/25/19 08:00 07/25/19 08:39 07/25/19 08:00 07/25/19 08:00 07/25/19 08:00 Narrative: Patient is alert, Pleasant, Talkative, at her baseline mentation; in bedside chair on interview Not visibly dyspneic, tolerating nasal cannula oxygen Lungs have minimal rhonchi and crackles in both lower lung foster. Good air movement however. Heart rate regular with previously noted flow murmur Abdomen soft, minimal tenderness in the left upper quadrant. 1+ ankle edema to mid gonzalez, pitting. Good distal perfusion. No rash noted. No JVD but her short neck stature makes this a difficult exam. Oropharynx otherwise clear. No scleral icterus. Results Labs on day of discharge: Labs from last 24 hours 07/25/19 07/25/19 07/25/19 06:55 06:55 05:58 WBC 8.0 RBC 3.97 L Hgb 11.9 L Hct 35.9 L MCV 90.5 MCH 30.0 MCHC 33.2 RDW 14.0 Plt Count 244 MPV 7.8 Neut % (Auto) 83.1 H Lymph % (Auto) 8.4 L [place] % (Auto) 6.3 Eos % (Auto) 1.9 Baso % (Auto) 0.2 Neut # (Auto) 6.6 Lymph # (Auto) 0.7 [place] # (Auto) 0.5 Eos # (Auto) 0.2 Baso # (Auto) 0.0 Sodium 135 L Potassium 3.2 L Chloride 91 L Carbon Dioxide 36 H Anion Gap 11.2 BUN 21 H Creatinine 0.90 Estimated Creat Clear 92 Estimated GFR 65 Est GFR ( Amer) 78 Glucose 205 H POC Glucose 194 H Calcium 8.8 Magnesium 1.5 L Total Bilirubin 0.8 AST 21 ALT 22 Alkaline Phosphatase 107 Total Protein 6.5 Albumin 3.2 L Globulin 3.3 H Albumin/Globulin Ratio 1.0 L Lipase 333 H 07/24/19 07/24/19 07/24/19 20:23 17:09 11:52 WBC RBC Hgb Hct MCV MCH MCHC RDW Plt Count MPV Neut % (Auto) Lymph % (Auto) [place] % (Auto) Eos % (Auto) Baso % (Auto) Neut # (Auto) Lymph # (Auto) [place] # (Auto) Eos # (Auto) Baso # (Auto) Sodium Potassium Chloride Carbon Dioxide Anion Gap BUN Creatinine Estimated Creat Clear Estimated GFR Est GFR ( Amer) Glucose POC Glucose 224 H 159 H 161 H Calcium Magnesium Total Bilirubin AST ALT Alkaline Phosphatase Total Protein Albumin Globulin Albumin/Globulin Ratio Lipase DS: Diagnosis - Discharge Diagnosis (1) Non-STEMI (non-ST elevated myocardial infarction) Status: Resolved (2) Acute on chronic systolic CHF (congestive heart failure) Status: Acute (3) Elevated troponin Status: Acute (4) Hypothyroidism Status: Chronic (5) Coronary artery disease Status: Chronic (6) Diabetes mellitus Status: Chronic (7) HHD (hypertensive heart disease) Status: Chronic (8) HLD (hyperlipidemia) Status: Chronic (9) History of CVA (cerebrovascular accident) Status: Chronic (10) Ischemic cardiomyopathy Status: Chronic (11) NGOC (obstructive sleep apnea) Status: Chronic (12) PAD (peripheral artery disease) Status: Chronic (13) Pneumonia Status: Inactive Problem details: Gentamicin IV for UTI. Pulmonology consult pending. (14) Vomiting Status: Resolved (15) Class 2 obesity Status: Chronic Discharge Plan - Patient Discharge Instructions ACTIVITY: Ambulate as tolerated DIET: diabetic diet Patient Instructions: Hypothyroidism, DI for Shortness of Breath, DI for Hypothyroidism - Follow up Plan Follow up with: Anuel Sierra MD [Staff Physician] - Hi Koenig MD [Staff Physician] - Disposition: Home Health Service Home Medications: Home Medications Medication Instructions Recorded Confirmed Type RX: Insulin Glargine,Hum.rec.anlog 20 unit SQ HS 12/24/18 07/23/19 History [Lantus Solostar 100 Units/mL 3mL flexpen] loratadine 10 mg tablet 10 mg PO DAILY tab 07/11/19 07/23/19 History RX: Fluticasone/Vilanterol [Breo 1 inh IH DAILY 07/17/19 07/23/19 History Ellipta 100-25 Mcg INH] RX: Linaclotide [Linzess] 145 mcg PO DAILY 07/17/19 07/23/19 History RX: Aspirin [Low Dose Aspirin EC] 81 mg PO DAILY #90 tab 07/25/19 Rx RX: Bumetanide [Bumex 1mg tablet] 1 mg PO DAILY 30 Days #30 tab 07/25/19 Rx RX: Digoxin 125 mcg PO DAILY #90 tab 07/25/19 Rx RX: Famotidine [Acid Government Clerk] 20 mg PO BID 30 Days #60 tab 07/25/19 Rx RX: Gabapentin [Gabapentin 300mg 300 mg PO TID 30 Days #90 cap 07/25/19 Rx Cap] RX: Levothyroxine Sodium 200 mcg PO DAILYDM 30 Days #60 tab 07/25/19 Rx [Synthroid 100mcg (0.1mg) tablet] RX: Losartan Potassium 50 mg PO DAILY 30 Days #15 tab 07/25/19 Rx RX: Potassium Chloride [Klor-con 40 meq PO DAILY 30 Days #60 tab 07/25/19 Rx 20 mEq tablet] RX: Sertraline HCl [Zoloft] 100 mg PO DAILY #90 tab 07/25/19 Rx RX: Sitagliptin Phosphate [Januvia 100 mg PO DAILY #90 tab 07/25/19 Rx 100mg tablet] RX: Spironolactone [Spironolactone 25 mg PO DAILY 30 Days #30 tab 07/25/19 Rx 25mg Tablet] RX: Ticagrelor [Brilinta 90mg 90 mg PO BID #180 tab 07/25/19 Rx Tablet] RX: carvediloL [Carvedilol 25mg 25 mg PO BID #60 tab 07/25/19 Rx Tab] RX: glipiZIDE [Glucotrol] 5 mg PO DAILY 30 Days #30 tab 07/25/19 Rx Prescriptions/Medication Reconciliation: New RX: Potassium Chloride [Klor-con 20 mEq tablet] 40 meq PO DAILY 30 Days #60 tab RX: Levothyroxine Sodium [Synthroid 100mcg (0.1mg) tablet] 200 mcg PO DAILYDM 30 Days #60 tab Continued loratadine 10 mg tablet 10 mg PO DAILY tab RX: Gabapentin [Gabapentin 300mg Cap] 300 mg PO TID 30 Days #90 cap RX: Famotidine [Acid Government Clerk] 20 mg PO BID 30 Days #60 tab RX: Ticagrelor [Brilinta 90mg Tablet] 90 mg PO BID #180 tab RX: Bumetanide [Bumex 1mg tablet] 1 mg PO DAILY 30 Days #30 tab RX: carvediloL [Carvedilol 25mg Tab] 25 mg PO BID #60 tab RX: Digoxin 125 mcg PO DAILY #90 tab RX: Sertraline HCl [Zoloft] 100 mg PO DAILY #90 tab RX: Insulin Glargine,Hum.rec.anlog [Lantus Solostar 100 Units/mL 3mL flexpen] 20 unit SQ HS RX: Linaclotide [Linzess] 145 mcg PO DAILY RX: Fluticasone/Vilanterol [Breo Ellipta 100-25 Mcg INH] 1 inh IH DAILY RX: glipiZIDE [Glucotrol] 5 mg PO DAILY 30 Days #30 tab RX: Sitagliptin Phosphate [Januvia 100mg tablet] 100 mg PO DAILY #90 tab RX: Aspirin [Low Dose Aspirin EC] 81 mg PO DAILY #90 tab RX: Spironolactone [Spironolactone 25mg Tablet] 25 mg PO DAILY 30 Days #30 tab Changed RX: Losartan Potassium 50 mg PO DAILY 30 Days #15 tab Discontinued nitroglycerin 0.4 mg sublingual tablet 0.4 mg SUBLINGUAL Q5-15M PRN PRN Reason: Chest Pain RX: Ibuprofen [Ibuprofen 600mg Tablet] 600 mg PO Q6HP PRN #20 tab PRN Reason: Mild To Moderate Pain RX: methocarbamoL [Methocarbamol 500mg Tablet] 500 mg PO BIDP PRN PRN Reason: MUSCLE SPASMS RX: Acetaminophen 500 mg PO Q6HP PRN PRN Reason: PAIN/FEVER/HEADACHE RX: Semaglutide [Ozempic] 1 mg SQ WEEKLY RX: metOLazone [metOLazone 2.5mg Tablet] 2.5 mg PO DAILY RX: Melatonin 5 mg PO HS Levothyroxine Sodium [Levothyroxine 200mcg (0.2mg) Tab] 200 mcg PO DAILY - Problem Reconciliation Problems Reviewed?: Yes
== END 2019-07-25 12:04 | disposition home health service (06) | DRG 280 ==
LOC: ER 01:44 → 2ND 01:44 → OBSVTOIN 05:55
PROVIDERS: ADMIT Internal Medicine Adolescent Medicine; ATTEND Internal Medicine Adolescent Medicine
CPT/HCPCS: 36415; 71010; 71045; 74176; 80053; 80061; 80162; 81001; 82150; 82962; 83690; 83735; 83880; 84484; 85025; 87086; 87275; 87276; 93005; 93308; 96374; 96375; 97116; 97162; 97166; 97535; 99285; J2405

== ENCOUNTER 2019-08-25 19:30 | Emergency (ER) | payer OTHER, SELFPAY ==
[2019-08-25 19:42] VITALS: BP 135/88; PULSE 95; RESP 20; TEMP 36.7; O2SAT 96; BMI 26.5
--- NOTE | 2019-08-25 19:50 | HMH.EDUTC ---
[facility] [place] Disposition Clinical Impression: Nausea & vomiting Qualifiers: Vomiting type: unspecified Vomiting Intractability: unspecified Qualified Code(s): R11.2 - Nausea with vomiting, unspecified Disposition: Home, Self-Care Condition on Discharge: Good Instructions: DI for Nausea -- Adult, Nausea and Vomiting-Adult Additional Instructions: Small frequent meals may help to prevent nausea after eating ? Drink extra fluids with and between meals. If you have difficulty drinking, try very small amounts of water or suck on ice chips. ? Avoid fruit juices, as these do not replace minerals and can actually increase diarrhea. ? Children and adults can use sports drinks to replenish electrolytes. Younger children and infants should use products formulated for children, like oral rehydration solutions. ? Eat food in small amounts and let your stomach recover. ? Get lots of rest. You may feel tired or weak. ? No greasy or fried foods for the next 24-48 hours BRAT diet Bananas Rice Apples and [place] ? Make sure to drink plenty of liquids ? Return if needed ? Straight to ER if any life threatening symptoms Follow up with family doctor as scheduled later this week Go home and rest make sure to eat small frequent meals and foods easy to digest like crackers etc ? Follow up with family doctor in the next 48-72 hours if no improvement or any worsening of symptoms Referrals: David Simpson MD [Primary Care Provider] - As needed Time of Disposition: 20:14 Medical Decision Making - Vikram Inquiry Pt receiving controlled substance: No Vikram was queried for this patient: No Vital Signs: 08/25/19 19:42 Temperature 98.0 F Temperature Source Oral Pulse Rate [Left Brachial] 95 H Respiratory Rate 20 Blood Pressure [Left Arm] 135/88 Blood Pressure Mean [Left Arm] 103 Blood Pressure Source [Left Arm] Automatic Cuff Blood Pressure Position [Left Arm] Sitting 02 Sat by Pulse Oximetry 96 Oxygen Delivery Method Room Air Orders (Tests/Meds): ED MEDICATIONS Discontinued Medications Generic Name Dose Route Start Last Admin Trade Name Freq PRN Reason Stop Dose Admin Ondansetron HCl 4 mg 08/25/19 19:56 08/25/19 20:08 Zofran 4mg/2ml Vial IM 08/25/19 19:57 4 mg ONCE ONE Administration - Reevaluation(s) Time: 20:20 Reevaluation #1: No vomiting since arrival to [facility] and patient states that nausea much better after zofran injection, recommended lab draw and running some labs and patient declined States that she just got out of the hospital and just wanted a shot to help with her nausea and vomiting and she feels better now States that she has a doctor appointment in a couple of days and she would see her PCP then. Still denies shortness of breath states that nausea now gone and feeling better [facility] [place] HPI - General Stated complaint: vomiting,cough,SOB Time Seen by Provider: 08/25/19 19:50 Mode of Arrival: Ambulatory Source of Information: Patient Limitations: No Limitations Description of Symptoms (Recalled from Triage Doc. by RN): PATIENT C/O NAUSEA AND VOMITING THAT STARTED TODAY; STATES SHE WAS RELEASED FROM [facility] ON 08/12 WHERE SHE WAS TREATED FOR CHF AND TESTED FOR COVID HEENT Symptoms (Recalled from RN notes): No Resp Symptoms (Recalled from RN notes): No Skin Symptoms (Recalled from RN notes): No MS Symptoms (Recalled from RN notes): No Functional Status (Recalled from RN notes): WNL - History of Present Illness Provider Complaint: Patient state that she woke up this morning with upset stomach and has had a couple eppisodes of vomiting today States that she took a zofran this morning and it helped some with vomiting and then this evening she vomited again so her wanted her to come in not thinking the medication helped States that she [place] and had some CHF and they tested her for COVID19 but her test was negative. States that she is feeling much better from that and not having any coughing
[2019-08-25 20:27] VITALS: BP 135/88; PULSE 95; RESP 20; TEMP 36.7; O2SAT 96
== END 2019-08-25 20:35 | disposition home or self-care (01) ==
PROVIDERS: Emergency Provider Nurse Practitioner; PCP Internal Medicine Adolescent Medicine
DX: R11.2 Nausea with vomiting, unspecified (principal); R05 Cough; R06.02 Shortness of breath; Z86.79 Personal history of other diseases of the circulatory system; Z79.4 Long term (current) use of insulin; Z79.899 Other long term (current) drug therapy; J44.9 Chronic obstructive pulmonary disease, unspecified; E11.9 Type 2 diabetes mellitus without complications; E78.5 Hyperlipidemia, unspecified; I10 Essential (primary) hypertension; I25.10 Atherosclerotic heart disease of native coronary artery without angina pectoris; I73.9 Peripheral vascular disease, unspecified; Z88.1 Allergy status to other antibiotic agents; Z88.5 Allergy status to narcotic agent; Z88.7 Allergy status to serum and vaccine; Z88.8 Allergy status to other drugs, medicaments and biological substances
CPT/HCPCS: 96372; 99201; J2405

== ENCOUNTER 2019-09-06 12:15 | Emergency (ER) | payer OTHER, SELFPAY ==
[2019-09-06 12:26] VITALS: BP 153/106; PULSE 107; RESP 22; TEMP 36.7; O2SAT 97; BMI 28.6
--- NOTE | 2019-09-06 12:31 | XR_ITS ---
PROCEDURE: XR CHEST PORTABLE CLINICAL HISTORY: sob COMPARISON: XR CHEST 2V from 05/30/2019 CT CHEST WO CON from 07/16/2019 XR CHEST 2V from 07/16/2019 XR CHEST PORTABLE from 07/23/2019 FINDINGS: Bilateral hyperdense infiltrates once again noted. Right-sided pleural thickening consistent with effusion. There is some superimposed increased density in the right lower lobe which could be related to progression of underlying infiltrate or new area of infiltrate. Normal heart size. There is right-sided calcific tendinitis of the shoulder. IMPRESSION: Bilateral hyperdense pneumonia with right effusion with possible new area of infiltrate in the right lower lobe Dictated by: Navjot Ha MD 09/06/2019 14:26 Electronically signed by Navjot Ha MD in [place] 09/06/2019 14:26
--- NOTE | 2019-09-06 12:37 | HMH.EDGENADL ---
ED Disposition Clinical Impression: Congestive heart failure Qualifiers: Heart failure type: unspecified Heart failure chronicity: unspecified Qualified Code(s): I50.9 - Heart failure, unspecified Nausea and vomiting Qualifiers: Vomiting type: unspecified Vomiting Intractability: unspecified Qualified Code(s): R11.2 - Nausea with vomiting, unspecified Disposition: Home, Self-Care Condition on Discharge: Good Instructions: DI for Nausea -- Adult, DI for Heart Failure Additional Instructions: Stop taking Bumex and start taking torsemide as prescribed. First dose tomorrow. Zofran as needed for nausea and vomiting. See Dr. Koenig in his office at 8:30 AM on Sunday09/08/2019. Follow-up with your primary care provider next week, call Sunday to make an appointment. Prescriptions: Torsemide 100 mg PO DAILY #30 tab Transmission Status: Pending to [facility] Ondansetron [Zofran 4mg ODT] 4 mg PO TIDP PRN #10 tab.rapdis PRN Reason: Nausea And Vomiting Transmission Status: Pending to [facility] Referrals: David Simpson MD [Primary Care Provider] - - Critical Care Critical Care Time: No Attestation: On 09/06/19, the high probability of a clinically significant, sudden or life threatening deterioration of the following system(s) required my full and direct attention, intervention and personal management. The time I documented below is in addition to time spent performing reported procedures but includes the following listed in this critical care notation. Medical Decision Making - Medical Records Medical records reviewed: Yes: I reviewed the patient's medical records. - Vikram Inquiry Pt receiving controlled substance: No Vital Signs: 09/06/19 12:26 09/06/19 13:23 09/06/19 14:30 Temperature 98.1 F Temperature Source Oral Pulse Rate [Left Radial] 107 H 94 H 101 H Respiratory Rate 22 Blood Pressure [Right Arm] 153/106 H 145/90 H 164/107 H Blood Pressure Mean [Right Arm] 121 108 126 Blood Pressure Source [Right Arm] Automatic Cuff Blood Pressure Position [Right Arm] Sitting Sitting 02 Sat by Pulse Oximetry 97 100 Oxygen Delivery Method Room Air - Lab Data Lab results reviewed: Yes: I reviewed the patient's lab results. Lab Results 09/06/19 12:41: WBC 8.2, RBC 4.80, Hgb 13.4, Hct 42.0, MCV 87.5, MCH 27.9, MCHC 31.9, RDW 14.0, Plt Count 511 H, MPV 7.7, Neut % (Auto) 73.2, Lymph % (Auto) 15.3, [place] % (Auto) 8.2, Eos % (Auto) 1.4, Baso % (Auto) 1.9, Neut # (Auto) 6.0, Lymph # (Auto) 1.3, [place] # (Auto) 0.7, Eos # (Auto) 0.1, Baso # (Auto) 0.2 09/06/19 12:41: Sodium 135 L, Potassium 3.4 L, Chloride 94 L, Carbon Dioxide 35 H, Anion Gap 9.4, BUN 9, Creatinine 0.70, Estimated Creat Clear 106, Estimated GFR 86, Est GFR ( Amer) 104, Glucose 197 H, Calcium 9.0, Total Bilirubin 0.6, AST 18, ALT 13, Alkaline Phosphatase 131 H, Troponin I 0.03, Total Protein 7.9, Albumin 3.6, Globulin 4.3 H, Albumin/Globulin Ratio 0.8 L, TSH 26.50 H 09/06/19 12:41: Influenza Type A Ag Negative, Influenza Type B Ag Negative 09/06/19 12:41: Digoxin < 0.40 09/06/19 12:41: Group A Strep Rapid Negative 09/06/19 12:41: NT-Pro-B Natriuret Pep 40989 H Result diagrams: 09/06/19 12:41 09/06/19 12:41 Orders (Tests/Meds): ED MEDICATIONS Discontinued Medications Generic Name Dose Route Start Last Admin Trade Name Freq PRN Reason Stop Dose Admin Bumetanide 2 mg 09/06/19 14:14 Bumex 1mg/4ml Vial IV 09/06/19 14:15 ONCE ONE Chlorothiazide Sodium 1,000 mg 50 mls @ 100 mls/hr 09/06/19 14:13 09/06/19 14:32 / Sodium Chloride IV 09/06/19 14:14 100 mls/hr ONCE ONE Administration Ondansetron HCl 4 mg 09/06/19 12:57 09/06/19 13:03 Zofran 4mg/2ml Vial IV 09/06/19 12:58 4 mg ONCE ONE Administration ORDERS Category Date Time Status Troponin I Q3H Lab 09/06/19 15:45 Ordered Troponin I Q3H Lab 09/06/19 18:45 Ordered Strep Screen Confirmation Stat Micro 0
[2019-09-06 12:53] LABS: Chloride 94 mmol/L (98-107); Potassium 3.4 mmoL/L (3.5-5.1); Sodium 135 mmol/L (136-145)
[2019-09-06 12:54] LABS: Basophils # 0.2 K/mm3 (0-0.2); Basophils % 1.9 % (0.1-2.0); Eosinophils # 0.1 K/mm3 (0.0-0.4); Eosinophils % 1.4 % (0.1-12.0); Hemoglobin 13.4 g/dL (12.2-16.2); Lymphocytes # 1.3 K/mm3 (0.7-4.5); Lymphocytes % 15.3 % (10-50); Mean Corpuscular HGB Conc 31.9 g/dL (31.8-35.4); Mean Corpuscular Hemoglobin 27.9 pg (27.0-31.2); Mean Corpuscular Volume 87.5 fl (81-99); Mean Platelet Volume 7.7 fl (7.4-10.4); Monocytes # 0.7 K/mm3 (0.1-1.0); Monocytes % 8.2 % (1.7-9.3); Neutrophils % 73.2 % (37.0-80.0); Platelet Count 511 K/mm3 (142-424); White Blood Count 8.2 K/mm3 (4.8-10.8)
[2019-09-06 12:56] LABS: Alanine Aminotransferase 13 U/L (12-78); Albumin Level 3.6 g/dl (3.5-5.0); Albumin/Globulin Ratio 0.8 (1.1-1.8); Alkaline Phosphatase 131 U/L (38-126); Anion Gap 9.4 mEq/L (5-15); Aspartate Amino Transferase 18 U/L (14-36); Bilirubin,Total 0.6 mg/dl (0.2-1.3); Blood Urea Nitrogen 9 mg/dl (7-17); Carbon Dioxide 35 mmol/L (22.0-30.0); Creatinine Clearance Estimated 106 mL/min (50-200); Estimated Glomerular Filt Rate 86 ml/min (>60); GFR (African American) 104 ML/MIN (>60); Globulin 4.3 g/dL (1.3-3.2); Glucose 197 mg/dl (74-100); Total Protein,Serum 7.9 g/dl (6.3-8.2)
--- NOTE | 2019-09-06 12:58 | ECG_ITS ---
APPROVED REPORT Exam: Resting ECG HR:101 bpm ECG Measurements Heart Rate 101 AXES DE 156 P 40 QRSd 130 QRS 46 QT 402 T 199 QTc 521 <Conclusion> Sinus tachycardia LBBB Abnormal ECG Electronically signed by : Yogi Wilkins, 09/07/2019 17:15:38
[2019-09-06 13:00] LABS: Strep Scrn Group A (Rapid) Negative (Negative)
[2019-09-06 13:09] LABS: Troponin I 0.03 ng/ml (0.00-0.034)
[2019-09-06 13:23] VITALS: BP 145/90; PULSE 94; O2SAT 100
[2019-09-06 13:27] LABS: NT Pro Brain Natriuretic Pep. 13100 pg/mL (0-125)
[2019-09-06 13:55] LABS: Digoxin < 0.40 ng/ml (0.2-2.00)
--- NOTE | 2019-09-06 14:04 | PC.NURSE ---
Dr. Koenig paged
--- NOTE | 2019-09-06 14:07 | PC.NURSE ---
Dr Diallo speaking with Dr Koenig at this time.
[2019-09-06 14:30] VITALS: BP 164/107; PULSE 101
[2019-09-06 15:39] VITALS: BP 163/105; PULSE 100; RESP 18; TEMP 36.6; O2SAT 94
== END 2019-09-06 15:40 | disposition home or self-care (01) ==
PROVIDERS: Emergency Provider Emergency Medicine; PCP Internal Medicine Adolescent Medicine
DX: I50.22 Chronic systolic (congestive) heart failure (principal); K59.00 Constipation, unspecified; Z79.899 Other long term (current) drug therapy; Z88.0 Allergy status to penicillin; Z88.5 Allergy status to narcotic agent; Z88.7 Allergy status to serum and vaccine
CPT/HCPCS: 71045; 80053; 80162; 83880; 84443; 84484; 85025; 87275; 87276; 87430; 93005; 96365; 96375; 99284; J1205; J2405

== ENCOUNTER 2019-09-25 18:04 | Emergency (ER) | payer OTHER, SELFPAY ==
[2019-09-25 18:29] VITALS: BP 112/82; PULSE 84; RESP 18; TEMP 36.6; O2SAT 94; BMI 32.1
--- NOTE | 2019-09-25 18:37 | HMH.EDUTC ---
[facility] [place] Clinical Impression: Sinusitis Qualifiers: Sinusitis location: unspecified location Chronicity: acute Recurrence: non-recurrent Qualified Code(s): J01.90 - Acute sinusitis, unspecified Low back pain Qualifiers: Chronicity: chronic Back pain laterality: bilateral Sciatica presence: without sciatica Qualified Code(s): M54.5 - Low back pain Pneumonia Qualifiers: Pneumonia type: due to unspecified organism Laterality: unspecified laterality Lung location: unspecified part of lung Qualified Code(s): J18.9 - Pneumonia, unspecified organism Disposition: Home, Self-Care Condition on Discharge: Good Instructions: Pneumonia-Adult Additional Instructions: Follow up with your residential life director as scheduled on September 29. Take the medications as directed. Follow up with your regular doctor. GO TO THE ER FOR ANY WORSENING SYMPTOMS OR CONCERNS Prescriptions: Albuterol Sulfate [Albuterol 0.083% 2.5mg/3mL neb] 1 unit IH Q6HP PRN #90 neb PRN Reason: Shortness Of Breath Transmission Status: Pending to [facility] Glycerin [Glycerin 3gm adult suppository] 0 each RC DAILYP PRN #12 supp.rect PRN Reason: Constipation Transmission Status: Pending to [facility] levoFLOXacin [Levaquin 500mg tab] 500 mg PO DAILY #7 tab Transmission Status: Pending to [facility] Referrals: David Simpson MD [Primary Care Provider] - Medical Decision Making - Medical Records Medical records reviewed: No: I reviewed the patient's medical records. - Vikram Inquiry Pt receiving controlled substance: No Vital Signs: 09/25/19 18:29 09/25/19 19:34 Temperature 97.9 F 97.9 F Temperature Source Oral Pulse Rate 84 Pulse Rate [Right Radial] 84 Respiratory Rate 18 18 Blood Pressure 112/82 Blood Pressure [Right Arm] 112/82 Blood Pressure Mean [Right Arm] 92 Blood Pressure Source [Right Arm] Automatic Cuff Blood Pressure Position [Right Arm] Sitting 02 Sat by Pulse Oximetry 94 L Oxygen Delivery Method Room Air Orders (Tests/Meds): ORDERS Category Date Time Status XR chest 2V Stat Exams 09/25/19 18:47 Taken XR lumbar spine 2-3V Stat Exams 09/25/19 18:47 Taken - Radiology Data #1 Image(s): Chest Image Reviewed: Yes I reviewed the patient's radiology image Preliminary Findings: Abnormal Medical Decision Narrative: I tried to transfer her to the er but she refused to go. [facility] [place] - General Stated complaint: back pain,sinus Time Seen by Provider: 09/25/19 18:37 Mode of Arrival: Wheelchair Source of Information: Patient Limitations: No Limitations Description of Symptoms (Recalled from Triage Doc. by RN): PT C/O LOWER BACK PAIN FOLLOWING A FALL THAT HAPPENED 2 WEEKS AGO. PT ALSO C/O SINUS CONGESTION THAT BEGAN TODAY, ALONG WITH SWELLING IN BILATERAL LEGS. HEENT Symptoms (Recalled from RN notes): Yes (SINUS CONGESTION) Resp Symptoms (Recalled from RN notes): No Skin Symptoms (Recalled from RN notes): Yes (SWELLING IN LEGS) MS Symptoms (Recalled from RN notes): Yes (BACK PAIN) Functional Status (Recalled from RN notes): N/A - History of Present Illness Provider Complaint: She c/o sinus drainage that has worsened over the past few days. She states now the drainage is making her cough worse. She fell 2 weeks ago (tried to sit on the cough and missed the cough and came down on her low back in the floor). Since then she has been having low back pain. She denies any leg numbness or worsening weakness. She also c/o constipation and request a prescription for glycerine suppositories. - Related Data Home Medications Medication Instructions Recorded Confirmed Insulin Glargine,Hum.rec.anlog 20 unit SQ HS 12/24/18 09/09/19 [Lantus Solostar 100 Units/mL 3mL flexpen] loratadine 10 mg tablet 10 mg PO DAILY tab 07/11/19 09/09/19 Fluticasone/Vilanterol [Breo 1 inh IH DAILY 07/17/19 09/09/19 Ellipta 100-25 Mcg INH] Linaclotide [Linzess] 145 mcg PO DAILY 07/17/19 0
--- NOTE | 2019-09-25 18:47 | XR_ITS ---
PROCEDURE: XR LUMBAR SPINE 2-3V CLINICAL INDICATION: low back pain, no trauma COMPARISON: No exams were available for comparison FINDINGS: There is normal curvature and alignment. All lumbar vertebrae appear intact and disc spaces are well maintained throughout. The pedicles are intact. The SI joints appear normal. There is a large amount stool in the visualized portion of the upper ascending colon. IMPRESSION: No acute findings. Dictated by: Dr. Candido Nina MD 09/25/2019 19:[address] Candido Nina MD in [place] 09/25/2019 19:47
--- NOTE | 2019-09-25 18:47 | XR_ITS ---
PROCEDURE: XR CHEST 2V CLINICAL HISTORY: cough COMPARISON: CT CHEST WO CON from 07/16/2019 XR CHEST 2V from 07/16/2019 XR CHEST PORTABLE from 07/23/2019 XR CHEST PORTABLE from 09/06/2019 FINDINGS: This is a poor inspiratory effort. Coarse bilateral perihilar and lower lobe pneumonic infiltrates are again seen the there has been some increased aeration and partial clearing at the left perihilar region and left base. Bilateral pleural effusions are again noted basically stable or possibly showing some slight interval improvement. There is relative sparing of the lung apices bilaterally. There is no pneumothorax. IMPRESSION: Prominent coarse bilateral pneumonic infiltrates with bilateral reactive pleural effusions finding showing slight interval improvement from the most recent study 09/06/2019 Dictated by: Dr. Candido Nina MD 09/25/2019 19:[address] Candido Nina MD in [place] 09/25/2019 19:45
--- NOTE | 2019-09-25 18:49 | PC.NURSE ---
NOTIFIED RAD OF XRAY
--- NOTE | 2019-09-25 18:54 | PC.NURSE ---
PT TO RAD
--- NOTE | 2019-09-25 19:22 | PC.NURSE ---
[facility]ST ESC[facility] OFFERED FOR PT TO BE TRANSFERRED TO ED FOR FURTHER EVALUATION AFTER VIEWING HER CXR, BUT PT REFUSED AND STATED THAT SHE WOULD PREFER TO GO HOME AND BE TREATED OUTPATIENT ON ATB.
[2019-09-25 19:34] VITALS: BP 112/82; PULSE 84; RESP 18; TEMP 36.6; O2SAT 94
== END 2019-09-25 19:48 | disposition home or self-care (01) ==
PROVIDERS: Emergency Provider Nurse Practitioner Family; PCP Internal Medicine Adolescent Medicine
DX: J18.9 Pneumonia, unspecified organism (principal); J01.90 Acute sinusitis, unspecified; I25.10 Atherosclerotic heart disease of native coronary artery without angina pectoris; E11.9 Type 2 diabetes mellitus without complications; Z79.4 Long term (current) use of insulin; K21.9 Gastro-esophageal reflux disease without esophagitis; J44.9 Chronic obstructive pulmonary disease, unspecified; I10 Essential (primary) hypertension; E78.5 Hyperlipidemia, unspecified; Z88.0 Allergy status to penicillin; Z88.5 Allergy status to narcotic agent
CPT/HCPCS: 71046; 72100; 96372; 99202

== ENCOUNTER 2019-09-27 18:56 | Inpatient (IN) | payer OTHER, SELFPAY ==
[2019-09-27 19:11] VITALS: BP 154/99; PULSE 111; RESP 24; TEMP 37; O2SAT 94; BMI 31.1
--- NOTE | 2019-09-27 19:22 | ECG_ITS ---
APPROVED REPORT Exam: Resting ECG HR:109 bpm ECG Measurements Heart Rate 109 AXES OK 160 P 55 QRSd 120 QRS 79 QT 372 T 234 QTc 500 <Conclusion> Sinus tachycardia Low voltage QRS Anteroseptal infarct, old finding ST & T wave abnormality, consider inferior ischemia Abnormal ECG Electronically signed by : David Simpson, 09/29/2019 06:48:07
--- NOTE | 2019-09-27 19:22 | XR_ITS ---
PROCEDURE: XR CHEST PORTABLE Patient Age:59Y CLINICAL HISTORY: soa Weakness elevated BNP diabetic CHF history COMPARISON: CT CHEST WO CON from 07/16/2019 XR CHEST PORTABLE from 07/23/2019 XR CHEST PORTABLE from 09/06/2019 XR CHEST 2V from 09/25/2019 FINDINGS: AP portable upright chest The patient has a background of bilateral chronic calcific parenchymal disease/infiltrates. These are most dense and pronounced, again seen at left mid lung and left base. Similar less dense chronic infiltrate at right mid lung right base Bilateral pleural effusions again noted left greater than right. Pleural fluid on left tracks along the lateral left chest but it appears similar to 09/25/2019 but has increased when compared back to August and July 2019 chest studies Poor inspiration of crowds markings. Diaphragm is only down right 3rd-4th rib. There is some prominence of upper lobe vascularity suggesting of CHF vascular congestion however similar appearance of the noted previously. But the heart size is difficult to determine due to the extensive lung disease at the left lung but heart appears mildly enlarged but left cardiac apex obscured. IMPRESSION: Poor inspiration crowds markings bilaterally. . Chronic dense calcific airspace disease/infiltrates, again dominant bilaterally . However there is suggestion of minimal additional infiltrate towards lung bases particularly on right lung base, which further obscure the diaphragm . Suggestion additional cephalization may reflect CHF . Bilateral pleural effusions-also again noted (. Definite progression left pleural effusion when compared back to ) Dictated by: Matthieu Zhang MD 09/28/2019 09:59 Electronically signed by Matthieu Zhang MD in [place] 09/28/2019 09:59
--- NOTE | 2019-09-27 19:39 | HMH.EDSOB ---
ED Disposition Condition on Discharge: Good - Critical Care Critical Care Time: No <Keith Dang - Last Filed: 09/27/19 19:53> <Mik Finn - Last Filed: 09/27/19 23:33> Clinical Impression: Severe sepsis with acute organ dysfunction Congestive heart failure Qualifiers: Heart failure type: unspecified Heart failure chronicity: acute on chronic Qualified Code(s): I50.9 - Heart failure, unspecified UTI (urinary tract infection) Qualifiers: Urinary tract infection type: site unspecified Hematuria presence: without hematuria Qualified Code(s): N39.0 - Urinary tract infection, site not specified Disposition: Admitted As Inpatient Referrals: David Simpson MD [Primary Care Provider] - Attestation: On 09/27/19, the high probability of a clinically significant, sudden or life threatening deterioration of the following system(s) required my full and direct attention, intervention and personal management. The time I documented below is in addition to time spent performing reported procedures but includes the following listed in this critical care notation. Medical Decision Making - Medical Records Medical records reviewed: Yes: I reviewed the patient's medical records. - Vikram Inquiry Pt receiving controlled substance: No - Lab Data Result diagrams: 09/27/19 19:25 09/27/19 19:25 <Keith Dang - Last Filed: 09/27/19 19:53> - Lab Data Result diagrams: 09/27/19 19:25 09/27/19 19:25 <Mik Finn - Last Filed: 09/27/19 23:33> Vital Signs: 09/27/19 19:11 09/27/19 21:13 09/27/19 21:45 Temperature 98.6 F 98.9 F Temperature Source Oral Oral Pulse Rate [Right] 111 H 108 H 111 H Respiratory Rate 24 22 22 Blood Pressure [Right Arm] 154/99 H 136/89 136/92 H Blood Pressure Mean [Right Arm] 117 104 106 Blood Pressure Source [Right Arm] Automatic Cuff Automatic Cuff Blood Pressure Position [Right Arm] Sitting Sitting 02 Sat by Pulse Oximetry 94 L 98 99 Oxygen Delivery Method Room Air Room Air Nasal Cannula Oxygen Flow Rate (LPM) 2 09/27/19 23:28 Temperature Temperature Source Pulse Rate [Right] 108 H Respiratory Rate 22 Blood Pressure [Right Arm] 129/92 H Blood Pressure Mean [Right Arm] 104 Blood Pressure Source [Right Arm] Blood Pressure Position [Right Arm] 02 Sat by Pulse Oximetry 97 Oxygen Delivery Method Nasal Cannula Oxygen Flow Rate (LPM) 2 - Lab Data Lab Results 09/27/19 19:25: WBC 9.8, RBC 4.36, Hgb 11.8 L, Hct 37.1, MCV 85.1, MCH 27.0, MCHC 31.7 L, RDW 14.5, Plt Count 530 H, MPV 7.4, Neut % (Auto) 83.8 H, Lymph % (Auto) 7.5 L, [place] % (Auto) 6.5, Eos % (Auto) 1.6, Baso % (Auto) 0.6, Neut # (Auto) 8.2 H, Lymph # (Auto) 0.7, [place] # (Auto) 0.6, Eos # (Auto) 0.2, Baso # (Auto) 0.1 09/27/19 19:25: Sodium 134 L, Potassium 3.8, Chloride 94 L, Carbon Dioxide 35 H, Anion Gap 8.8, BUN 22 H, Creatinine 0.80, Estimated Creat Clear 92, Estimated GFR 74, Est GFR ( Amer) 89, Glucose 278 H, Calcium 8.9, Total Bilirubin 0.2, AST 22, ALT 14, Alkaline Phosphatase 136 H, Troponin I 0.01, Total Protein 8.4 H, Albumin 3.8, Globulin 4.6 H, Albumin/Globulin Ratio 0.8 L 09/27/19 19:25: NT-Pro-B Natriuret Pep 7830 H 09/27/19 19:25: Lactate 2.6 H 09/27/19 19:45: Specimen Source R/r, O2 % R/a, ABG pH 7.46 H, ABG pCO2 41.2, ABG pO2 68.2 L, ABG HCO3 28.8 H, ABG Total CO2 30.0 H, ABG O2 Saturation 94, ABG Base Excess 5.0 H, Navjot Test Y 09/27/19 19:50: Urine Color Yellow, Urine Appearance Cloudy, Urine pH 6.0, Ur Specific [place] >= 1.030, Urine Protein 2+, Urine Glucose (UA) Negative, Urine Ketones Negative, Urine Blood Trace-i, Urine Nitrate Negative, Urine Bilirubin Negative, Urine Urobilinogen 1.0, Ur Leukocyte Esterase 1+ A, Urine RBC Occasional, Urine WBC Tntc 09/27/19 21:25: Chlamy pneumoniae PCR Not detected, Adenovirus (PCR) Not detected, B. pertussis DNA (PCR) Not detected, Coronavirus OC43 (PCR) Not detected, Coronavirus HKU1 (PCR) Not detected, Coronavirus 229E (PCR) Not detected, COV
[2019-09-27 19:46] LABS: Basophils # 0.1 K/mm3 (0-0.2); Basophils % 0.6 % (0.1-2.0); Eosinophils # 0.2 K/mm3 (0.0-0.4); Eosinophils % 1.6 % (0.1-12.0); Hematocrit 37.1 % (37.0-47.0); Hemoglobin 11.8 g/dL (12.2-16.2); Lymphocytes # 0.7 K/mm3 (0.7-4.5); Lymphocytes % 7.5 % (10-50); Mean Corpuscular HGB Conc 31.7 g/dL (31.8-35.4); Mean Corpuscular Volume 85.1 fl (81-99); Mean Platelet Volume 7.4 fl (7.4-10.4); Monocytes # 0.6 K/mm3 (0.1-1.0); Monocytes % 6.5 % (1.7-9.3); Neutrophils # 8.2 K/mm3 (1.8-7.8); Neutrophils % 83.8 % (37.0-80.0); Platelet Count 530 K/mm3 (142-424); Red Blood Count 4.36 M/mm3 (4.20-5.40); Red Cell Distribution Width 14.5 % (11.5-17.5); White Blood Count 9.8 K/mm3 (4.8-10.8)
[2019-09-27 19:46] LABS: ABG HCO3 28.8 mmhg (22.0-26.0); ABG Oxygen Saturation 94 % (90-100); ABG PCO2 41.2 mmhg (35.0-45.0); ABG PH 7.46 mmol/L (7.35-7.45); ABG PO2 68.2 mmhg (80-100)
[2019-09-27 19:47] LABS: Allen's Test Y; Oxygen R/A %; Source R/R
[2019-09-27 19:47] LABS: Alanine Aminotransferase 14 U/L (12-78); Albumin Level 3.8 g/dl (3.5-5.0); Albumin/Globulin Ratio 0.8 (1.1-1.8); Alkaline Phosphatase 136 U/L (38-126); Anion Gap 8.8 mEq/L (5-15); Aspartate Amino Transferase 22 U/L (14-36); Bilirubin,Total 0.2 mg/dl (0.2-1.3); Blood Urea Nitrogen 22 mg/dl (7-17); Calcium 8.9 mg/dl (8.4-10.2); Carbon Dioxide 35 mmol/L (22.0-30.0); Chloride 94 mmol/L (98-107); Creatinine Clearance Estimated 92 mL/min (50-200); Estimated Glomerular Filt Rate 74 ml/min (>60); GFR (African American) 89 ML/MIN (>60); Globulin 4.6 g/dL (1.3-3.2); Glucose 278 mg/dl (74-100); Potassium 3.8 mmoL/L (3.5-5.1); Sodium 134 mmol/L (136-145); Total Protein,Serum 8.4 g/dl (6.3-8.2)
[2019-09-27 20:00] LABS: Microscopic, Urine URINE MICROSCOPIC (MICROSCOPIC)
[2019-09-27 20:01] LABS: Appearance,Urine CLOUDY (Clear); Bilirubin,Urine Negative (Negative); Blood, Urine TRACE-I (Negative); Color,Urine YELLOW (Yellow); Glucose,Urine (UA) Negative (Negative); Ketones,Urine Negative (Negative); Leukocyte Esterase,Urine 1+ (Negative); Nitrate,Urine Negative (Negative); Protein,Urine 2+ (Negative); Specific Gravity, Urine >= 1.030 (1.005-1.030)
[2019-09-27 20:04] LABS: RBC,Urine Occasional #/hpf (0-3); WBC,Urine TNTC #/hpf (0-3)
[2019-09-27 20:04] LABS: Troponin I 0.01 ng/ml (0.00-0.034)
[2019-09-27 20:38] LABS: NT Pro Brain Natriuretic Pep. 7830 pg/mL (0-125)
[2019-09-27 20:40] LABS: Lactic Acid 2.6 mmol/L (0.7-2.1)
--- NOTE | 2019-09-27 21:01 | PC.NURSE ---
I spoke with Hien from Pharmacy and Yamileth was ok to give with pt's allergies
[2019-09-27 21:13] VITALS: BP 136/89; PULSE 108; RESP 22; TEMP 37.2; O2SAT 98
[2019-09-27 21:36] LABS: Adenovirus,PCR Not Detected (NotDetected); Bordetella Pertussis Not Detected (NotDetected); Chlamydophila Pneumoniae, PCR Not Detected (NotDetected); Coronavirus 19, PCR Not Detected (NotDetected); Coronavirus 229E Not Detected (NotDetected); Coronavirus NL63 Not Detected (NotDetected); Coronavirus OC43 Not Detected (NotDetected); Coronovirus HKU1,PCR Not Detected (NotDetected); Human Metapneumovirus Not Detected (NotDetected); Influenza A, PCR Not Detected (NotDetected); Influenza AH1, 2009 Not Detected (NotDetected); Influenza AH1, PCR Not Detected (NotDetected); Influenza AH3,PCR Not Detected (NotDetected); Influenza B, PCR Not Detected (NotDetected); Mycoplasma Pneumoniae, PCR Not Detected (NotDected); Parainfluenza 1, PCR Not Detected (NotDetected); Parainfluenza 2, PCR Not Detected (NotDetected); Parainfluenza 3, PCR Not Detected (NotDetected); Parainfluenza 4, PCR Not Detected (NotDetected); Respiratory Syncytial Virus Not Detected (NotDetected); Rhinovirus/Enterovirus Not Detected (NotDetected)
[2019-09-27 21:45] VITALS: BP 136/92; PULSE 111; RESP 22; O2SAT 99
[2019-09-27 23:13] LABS: Reflex Lactic Add Lactic Reflex
[2019-09-27 23:28] VITALS: BP 129/92; PULSE 108; RESP 22; O2SAT 97
--- NOTE | 2019-09-27 23:28 | PC.NURSE ---
Dr Finn speaking with Dr Cevallso for admission
[2019-09-27 23:38] LABS: Troponin I 0.02 ng/ml (0.00-0.034)
[2019-09-27 23:41] LABS: Lactic Acid Follow Up (RFLX 1) 2.2 mmol/L (0.7-2.1)
[2019-09-28 00:03] VITALS: BP 132/94; PULSE 110; RESP 24; TEMP 37.2; O2SAT 97
[2019-09-28 00:13] VITALS: BP 131/93; PULSE 107; RESP 19; TEMP 36.4; O2SAT 94; BMI 32.3
--- NOTE | 2019-09-28 00:13 | PC.NURSE ---
pt arrived to floor via wheelchair from ED
--- NOTE | 2019-09-28 00:50 | PC.NURSE ---
Spoke with Ali in ER about pt meeting criteria for sepsis. Stated that pt met criteria earlier in ER.
[2019-09-28 01:13] LABS: Reflex Lactic (2 hrs) Add Lactic Reflex
[2019-09-28 01:50] LABS: Lactic Acid Follow up (RFLX 2) 2.1 mmol/L (0.7-2.1)
--- NOTE | 2019-09-28 03:11 | PC.NURSE ---
Pt makes needs known, became nauseated at 0200, Zofran given with no further nausea noted. Pt sat in chair for a good while following admission, attempted to get into bed, but decided she was better off getting back in the chair. Left lower extremity with 3+ edema and weeping, right lower extremity with 2+ edema and no weeping noted. Bowel movement during admission process, mucus with bits of red noted in stool, rebolledo cath patent and draining to bedside by gravity, urine noted as clear/yellow. Ellyn Gutiérrez soaker hides noted pt had 1350 out while in ED. Call light w/i reach, pt presently awake in chair, monitoring continues.
[2019-09-28 03:49] VITALS: BP 132/88; PULSE 103; RESP 18; TEMP 37.2; O2SAT 98
[2019-09-28 04:54] VITALS: BMI 32.3
[2019-09-28 05:42] LABS: POC Glucose,Bedside 202 (70-110)
[2019-09-28 07:12] LABS: Basophils # 0.1 K/mm3 (0-0.2); Basophils % 1.3 % (0.1-2.0); Eosinophils # 0.2 K/mm3 (0.0-0.4); Eosinophils % 2.1 % (0.1-12.0); Lymphocytes % 10.2 % (10-50); Mean Corpuscular Hemoglobin 26.2 pg (27.0-31.2); Mean Corpuscular Volume 84.5 fl (81-99); Mean Platelet Volume 7.6 fl (7.4-10.4); Monocytes # 0.9 K/mm3 (0.1-1.0); Monocytes % 8.7 % (1.7-9.3); Neutrophils # 7.7 K/mm3 (1.8-7.8); Neutrophils % 77.7 % (37.0-80.0); Platelet Count 587 K/mm3 (142-424); Red Cell Distribution Width 14.4 % (11.5-17.5); White Blood Count 9.9 K/mm3 (4.8-10.8)
[2019-09-28 07:13] LABS: Hemoglobin 10.2 g/dL (12.2-16.2)
[2019-09-28 07:16] LABS: Anion Gap 8.8 mEq/L (5-15); Blood Urea Nitrogen 19 mg/dl (7-17); Calcium 8.6 mg/dl (8.4-10.2); Carbon Dioxide 34 mmol/L (22.0-30.0); Chloride 95 mmol/L (98-107); Creatinine Clearance Estimated 109 mL/min (50-200); Estimated Glomerular Filt Rate 86 ml/min (>60); GFR (African American) 104 ML/MIN (>60); Potassium 3.8 mmoL/L (3.5-5.1); Sodium 134 mmol/L (136-145)
[2019-09-28 07:22] LABS: Glucose 198 mg/dl (74-100)
[2019-09-28 08:00] VITALS: BP 121/74; PULSE 100; RESP 18; TEMP 36.8; O2SAT 98
--- NOTE | 2019-09-28 08:21 | XR_ITS ---
PROCEDURE: XR CHEST 2V Patient Age:59Y CLINICAL HISTORY: f/u portable from ER. Eval pulmonary edema COMPARISON: XR CHEST 2V from 12/24/2018 CT CHEST WO CON from 07/16/2019 XR CHEST PORTABLE from 09/06/2019 XR CHEST 2V from 09/25/2019 XR CHEST PORTABLE from 09/27/2019 FINDINGS: PA and lateral upright chest chest film similar to the yesterday with perhaps incremental improvement on right more so than left. Again we see poor inspiratory effort with only very slightly better expansion today. Bilateral very dense coarse central and perihilar and lower lobe infiltrates persist. Prior CT from July 2019 shows these apparently longstanding areas of partially calcific infiltrate/lung disease with bilateral pleural effusions. Right chest: However there does appear to be subtle improved expansion with subtle clearing towards right base. Chronic infiltrate persist right midlung and right base.. Blunting right CP angle reflects right pleural effusion. At most prominent patchy infiltrate is seen at left mid lung left base. This along with a small pleural effusion continues to obscure the left hemidiaphragm for the most part. The medial aspect left hemidiaphragm is perhaps slightly more evident.. The left pleural effusion tracks along the lateral aspect the left lower chest as well as obscures left CP angle. A similar to yesterday's study.. I suspect pleural fluid accumulating medially accounts for the additional density today obscuring the descending aorta medial left lung base. The lateral chest film was compared to September 2019.. No prominent change. Question perhaps slight additional infiltrate towards lower lobes today. Again very similar appearance with the dominant chronic lung disease/partially calcific infiltrates bilaterally observed. The pleural effusions of seem similarfairly stable to perhaps slightly decrease since recent 09/25/2019exam exam, but would note the pleural effusions have significantly progressed since 2018 and July 2019 chest studies. Chest wall and T-spine appear stable IMPRESSION: . Slight improved expansion with subtle overall improvement vs yesterday portable CXR . Suggestion slight clearing lung bases today vs yesterday. Improvement/slight clearing right lung base most convincing. Lungs better expanded with less cephalization evident-may reflect improved CHF . Bilateral pleural effusions persist. Perhaps scant decreased pleural effusion compared to other recent September 2019 CXR studies,. , The bilateral chronic calcific parenchymal pulmonary disease/infiltrate densities persist and dominate. These chronic features most prominent at the left mid & lower lung; with similar but less extensive chronic infiltrate right chest. Dictated by: Matthieu Zhang MD 09/28/2019 10:04 Electronically signed by Matthieu Zhang MD in [place] 09/28/2019 10:04
--- NOTE | 2019-09-28 08:24 | HMH.HP ---
*Admission Date: 09/28/19 *Chief complaint: Fever, shortness of air *History of present illness: 59-year-old white female with long history of diabetes, hypothyroidism, congestive heart failure with severe stage IV systolic heart failure with ejection fraction 20%, and significant medication noncompliance resented to the emergency department with fever, cough and fatigue and dyspnea. She was found to have pulmonary edema on chest x-ray with BNP levels greater than 7000, but was also found to have a fever and met Sirs criteria and had evidence of urinary tract infection. She had been placed on Levaquin by the [facility] a couple of days ago, but was admitted to hospital with Invanz therapy for her UTI/Sirs as well as IV Lasix for her CHF exacerbation. She maintains that she is been taking her medicine at home, but her recent history is that of severe medication noncompliance over multiple years. [facility] History I have reviewed the patient's past medical history: Yes Medical History: Reports:: Anxiety, Asthma, Cancer (thyroid), Congestive Heart Failure, Chronic Obstructive Pulmonary Disease (COPD), Coronary Artery Disease, Deep Vein Thrombosis, Diabetes Mellitus Type 2, Gastroesophageal Reflux Disease(GERD), Hyperlipidemia, Hypertension, Migraine, Myocardial Infarction, Palpitations, Transient Ischemic Attacks (TIA), Ulcer, Urinary Tract Infection Denies:: Diabetes Mellitus Type 1, Home Oxygen, MRSA, Seizures *Have you ever received a pneumonia vaccine?: No *Have you received a flu vaccine this season?: No Other Medical History: Reports: Arthritis, Cataracts, Hypothyroidism, Thyroid Disease, Other Laterality Cases: Bilateral: Tonsillectomy Other Surgeries: Yes: Cardiac Catheterization, Cholecystectomy, Colonoscopy, Coronary Stent, Hysterectomy-Total, Hysterectomy-Partial, Thyroidectomy, Other Amputation: No Fractures: No - *Social History Smoking Status: Never smoker Tobacco Type: cigarettes # Packs/Day (cigarettes): 0 #Yrs smoked (if former smoker): 0 Alcohol Intake: never Alcohol Intake Frequency:: other Substance Use Type: denies use *Occupational Status:: disabled Housing: other Household Members: other *Travel in the last 8 weeks: None - Psychiatric History Pschychiatric History:: Reports:: Anxiety Family Hx:: Anemia, Asthma, Cancer, Coronary Artery Disease, Diabetes, Heart Attack, Hyperlipidemia, Hypertension, Kidney Disease, Stroke, Thyroid Disorder, Alcoholism Review of Systems - Review of Systems Review of systems:: pertinent systems reviewed and negative unless documented below Meds Home Medications Medication Instructions Recorded Confirmed Type Aspirin [Low Dose Aspirin EC] 81 mg PO DAILY #90 tab 07/25/19 09/28/19 Rx Famotidine [Acid Brick Carrier] 20 mg PO BID 30 Days #60 tab 07/25/19 09/28/19 Rx Gabapentin [Gabapentin 300mg Cap] 300 mg PO TID 30 Days #90 cap 07/25/19 09/28/19 Rx Sertraline HCl [Zoloft] 100 mg PO DAILY #90 tab 07/25/19 09/28/19 Rx Sitagliptin Phosphate [Januvia 100 mg PO DAILY #90 tab 07/25/19 09/28/19 Rx 100mg tablet] levothyroxine 100 mcg tablet 150 mcg PO DAILYDM tab 09/09/19 09/28/19 History potassium chloride 20 mEq 10 meq PO DAILY tab 09/09/19 09/28/19 History tablet,extended release(part/cryst) Albuterol Sulfate [Albuterol 1 unit IH Q6HP PRN #90 neb 09/25/19 09/28/19 Rx 0.083% 2.5mg/3mL neb] Glycerin [Glycerin 3gm adult 0 each RC DAILYP PRN #12 supp.rect 09/25/19 09/28/19 Rx suppository] levoFLOXacin [Levaquin 500mg 500 mg PO DAILY 09/27/19 09/28/19 History tab] Allergies Allergy/AdvReac Type Severity Reaction Status Date / Time cefaclor [From Ceclor] Allergy Severe Hives Verified 09/09/19 11:37 erythromycin base Allergy Severe Hives Verified 09/09/19 11:37 meperidine [From Demerol] Allergy Severe Hives Verified 09/09/19 11:37 tetracycline Allergy Severe Hives Verified 09/09/19 11:37 Penicillins Allergy Intermediate Difficulty Verified 09/09/19 11:37 Breathing pioglitazo
--- NOTE | 2019-09-28 10:33 | HMH.PHAVTE ---
[facility] Pharmacy VTE Monitoring - Patient Demographics Admission date: 09/28/19 Report Date: 09/28/19 Time: 10:34 Allergies/Adverse Reactions: Patient Allergies cefaclor [From Ceclor] Allergy (Severe, Verified 09/09/19 11:37) Hives erythromycin base Allergy (Severe, Verified 09/09/19 11:37) Hives meperidine [From Demerol] Allergy (Severe, Verified 09/09/19 11:37) Hives tetracycline Allergy (Severe, Verified 09/09/19 11:37) Hives Penicillins Allergy (Intermediate, Verified 09/09/19 11:37) Difficulty Breathing pioglitazone [From Actos] Allergy (Intermediate, Verified 09/09/19 11:37) Hives pneumococcal vaccine Allergy (Intermediate, Verified 09/09/19 11:37) Difficulty Breathing amoxicillin Allergy (Mild, Verified 09/09/19 11:37) Rash clindamycin Allergy (Mild, Verified 09/09/19 11:37) Hives codeine Allergy (Mild, Verified 09/09/19 11:37) Rash diphtheria,pertussis (acell),tetanu [From Pentacel DTaP-IPV Compnt (PF)] Allergy (Mild, Verified 09/09/19 11:37) Rash Iodinated Contrast Media [Iodinated Contrast Media - Oral and] Allergy (Mild, Verified 09/09/19 11:37) Hives regadenoson Allergy (Mild, Verified 09/09/19 11:37) Hives onion Adverse Reaction (Intermediate, Verified 09/09/19 11:37) Heartburn Influenza Virus Vaccines Adverse Reaction (Mild, Verified 09/09/19 11:37) Hallucinating oseltamivir [From Tamiflu] Adverse Reaction (Mild, Verified 09/09/19 11:37) Hallucinating Height: 1.55 m Weight: 77.593 kg Patient Problems: Current Active Problems (Last Updated 07/24/19 @ 15:38 by Anuel Sierra MD) Congestive heart failure (Acute) Severe sepsis with acute organ dysfunction (Acute) Insulin-requiring or dependent type II diabetes mellitus (Acute) Obesity (BMI 30.0-34.9) (Acute) Noncompliance with medication regimen (Acute) UTI (urinary tract infection) (Acute) - VTE Risk Labs: VTE Related Lab Results Hgb 10.2 g/dL (12.2-16.2) L D 09/28/19 06:40 Hct 33.0 % (37.0-47.0) L 09/28/19 06:40 Plt Count 587 K/mm3 (142-424) H 09/28/19 06:40 BUN 19 mg/dl (7-17) H 09/28/19 06:40 Creatinine 0.70 mg/dl (0.52-1.04) 09/28/19 06:40 Estimated Creat Clear 109 mL/min (50-200) 09/28/19 06:40 VTE Risk Level: Moderate Risk - Prophylaxis VTE Prophylaxis Ordered?: Yes Types of VTE Prophylaxis: TEDS Knee High Location of Applied Device: Bilateral Lower Extremeties
[2019-09-28 11:00] LABS: POC Glucose,Bedside 172 (70-110)
[2019-09-28 11:47] VITALS: BMI 31.6
[2019-09-28 15:47] VITALS: BP 117/77; PULSE 92; RESP 17; TEMP 36.6; O2SAT 99
[2019-09-28 16:18] LABS: POC Glucose,Bedside 149 (70-110)
--- NOTE | 2019-09-28 17:42 | PC.NURSE ---
PT IS ALERT AND ORIENTED X4. EXHIBITS CHILD LIKE BEHAVIORS. PT REQUESTED FC REMAIN IN AFTER ADMINISTRATION OF LASIX. COOPER CATHETER REMOVED AT 1445 WITHOUT PROBLEMS. PT HAS URINATED WITHOUT ISSUE AND PURWICK IS IN PLACE. PT DENIES PAIN. VSS. SAFETY MEASURES IN PLACE, WILL CONTINUE TO MONITOR
[2019-09-28 19:57] VITALS: BP 111/72; PULSE 90; RESP 18; TEMP 36.3; O2SAT 95
[2019-09-28 20:21] LABS: POC Glucose,Bedside 143 (70-110)
--- NOTE | 2019-09-29 02:52 | PC.NURSE ---
Pt sleeping in chair with [place] open, rhythmic respirations, no objective s/s of pain or discomfort, monitoring continues.
[2019-09-29 03:27] VITALS: BP 106/81; PULSE 89; RESP 17; TEMP 36.7; O2SAT 98
--- NOTE | 2019-09-29 03:37 | PC.NURSE ---
Pt had a much better night tonight versus last night during my care. She c/o nausea = Zofran, along with milk and crackers. Pt sleeping after 2300, legs up, pt in chair. Vital signs stable, bilateral lower lung foster remain diminished, with expiratory wheeze detected in left, posterior upper lobe, occasional audible wheeze heard at bedside. Pt does not want to move much, even with encouragement , she did not wish to get back in bed, remained in chair all shift. Remained safe, call light w/i reach, monitoring continues.
[2019-09-29 05:14] VITALS: BMI 32.1
[2019-09-29 05:22] LABS: POC Glucose,Bedside 127 (70-110)
[2019-09-29 06:06] LABS: Basophils % 0.5 % (0.1-2.0); Eosinophils # 0.1 K/mm3 (0.0-0.4); Mean Corpuscular Volume 85.2 fl (81-99); Monocytes # 0.6 K/mm3 (0.1-1.0); Red Cell Distribution Width 14.3 % (11.5-17.5)
[2019-09-29 06:13] LABS: Chloride 96 mmol/L (98-107); Potassium 4.4 mmoL/L (3.5-5.1); Sodium 134 mmol/L (136-145)
[2019-09-29 06:16] LABS: Alanine Aminotransferase 13 U/L (12-78); Albumin Level 3.5 g/dl (3.5-5.0); Albumin/Globulin Ratio 0.8 (1.1-1.8); Alkaline Phosphatase 163 U/L (38-126); Anion Gap 8.4 mEq/L (5-15); Aspartate Amino Transferase 23 U/L (14-36); Bilirubin,Total 0.5 mg/dl (0.2-1.3); Blood Urea Nitrogen 19 mg/dl (7-17); Calcium 8.4 mg/dl (8.4-10.2); Carbon Dioxide 34 mmol/L (22.0-30.0); Creatinine Clearance Estimated 94 mL/min (50-200); Eosinophils % 1.8 % (0.1-12.0); Estimated Glomerular Filt Rate 74 ml/min (>60); GFR (African American) 89 ML/MIN (>60); Globulin 4.3 g/dL (1.3-3.2); Glucose 139 mg/dl (74-100); Hematocrit 36.4 % (37.0-47.0); Lymphocytes % 13.5 % (10-50); Mean Corpuscular HGB Conc 31.4 g/dL (31.8-35.4); Mean Corpuscular Hemoglobin 26.7 pg (27.0-31.2); Mean Platelet Volume 7.2 fl (7.4-10.4); Neutrophils # 5.4 K/mm3 (1.8-7.8); Platelet Count 550 K/mm3 (142-424); Red Blood Count 4.27 M/mm3 (4.20-5.40); Total Protein,Serum 7.8 g/dl (6.3-8.2); White Blood Count 7.1 K/mm3 (4.8-10.8)
[2019-09-29 06:45] LABS: Hemoglobin 11.4 g/dL (12.2-16.2)
--- NOTE | 2019-09-29 07:57 | HMH.DCSUM ---
General - General Admission date:: 09/28/19 Discharge date: 09/29/19 HPI HPI: 59-year-old white female with long history of diabetes, hypothyroidism, congestive heart failure with severe stage IV systolic heart failure with ejection fraction 20%, and significant medication noncompliance resented to the emergency department with fever, cough and fatigue and dyspnea. She was found to have pulmonary edema on chest x-ray with BNP levels greater than 7000, but was also found to have a fever and met Sirs criteria and had evidence of urinary tract infection. She had been placed on Levaquin by the [facility] a couple of days ago, but was admitted to hospital with Invanz therapy for her UTI/Sirs as well as IV Lasix for her CHF exacerbation. She maintains that she is been taking her medicine at home, but her recent history is that of severe medication noncompliance over multiple years. Hospital Course Hospital Course: Patient was admitted to the hospital, found to have significant pulmonary edema with markedly elevated BNP levels. She maintains that she has been taking her Lasix but I have my doubts given her history of noncompliance. Regardless, she responded very nicely to intravenous Lasix therapy and diuresed briskly. She felt much better over the next couple of days. Had evidence of urinary tract infection, treated with levofloxacin and this morning she feels back to her baseline. She reports that she has follow-up with her sex offender treatment professional sometime this week in [facility]. I will make her a follow-up in my office on Sunday. I will ask her to bring all of her medications to the office. She will be discharged on her regular Lasix dose as well as levofloxacin daily for the next week. Objective Vital signs: Temp Pulse Resp BP Pulse Ox 98.0 F 89 17 106/81 L 98 09/29/19 03:27 09/29/19 03:27 09/29/19 03:27 09/29/19 03:27 09/29/19 03:27 Narrative: Patient is sitting up in bed. Has no complaints. Feels good. Oropharynx clear, alert, oriented x3. No focal neurologic changes. Lungs have much better air entry. Heart rate regular with previously noted gallop. Abdomen soft, no rash, no edema. Results Labs on day of discharge: Labs from last 24 hours 09/29/19 09/29/19 09/29/19 05:52 05:52 05:14 WBC 7.1 D RBC 4.27 Hgb 11.4 L D Hct 36.4 L MCV 85.2 MCH 26.7 L MCHC 31.4 L RDW 14.3 Plt Count 550 H MPV 7.2 L Neut % (Auto) 76.0 Lymph % (Auto) 13.5 [place] % (Auto) 8.0 Eos % (Auto) 1.8 Baso % (Auto) 0.5 Neut # (Auto) 5.4 Lymph # (Auto) 1.0 [place] # (Auto) 0.6 Eos # (Auto) 0.1 Baso # (Auto) 0.0 Sodium 134 L Potassium 4.4 Chloride 96 L Carbon Dioxide 34 H Anion Gap 8.4 BUN 19 H Creatinine 0.80 Estimated Creat Clear 94 Estimated GFR 74 Est GFR ( Amer) 89 Glucose 139 H D POC Glucose 127 H Calcium 8.4 Total Bilirubin 0.5 AST 23 ALT 13 Alkaline Phosphatase 163 H Total Protein 7.8 Albumin 3.5 Globulin 4.3 H Albumin/Globulin Ratio 0.8 L Urine Color Urine Appearance Urine pH Ur Specific [place] Urine Protein Urine Glucose (UA) Urine Ketones Urine Blood Urine Nitrate Urine Bilirubin Urine Urobilinogen Ur Leukocyte Esterase Urine RBC Urine WBC 09/28/19 09/28/19 09/28/19 19:59 16:04 10:49 WBC RBC Hgb Hct MCV MCH MCHC RDW Plt Count MPV Neut % (Auto) Lymph % (Auto) [place] % (Auto) Eos % (Auto) Baso % (Auto) Neut # (Auto) Lymph # (Auto) [place] # (Auto) Eos # (Auto) Baso # (Auto) Sodium Potassium Chloride Carbon Dioxide Anion Gap BUN Creatinine Estimated Creat Clear Estimated GFR Est GFR ( Amer) Glucose POC Glucose 143 H 149 H 172 H Calcium Total Bilirubin AST ALT Alkaline Phosp
[2019-09-29 08:00] VITALS: BP 139/82; PULSE 89; RESP 18; TEMP 36.6; O2SAT 96
--- NOTE | 2019-09-29 09:50 | HMH.PHAINT ---
DISCHARGE COUNSELING COMPLETED.
== END 2019-09-29 09:53 | disposition home or self-care (01) | DRG 689 ==
LOC: ER 23:33 → 2ND 09-28 00:23
PROVIDERS: Emergency Medicine; Admitting Provider Internal Medicine Adolescent Medicine; Emergency Provider Family Medicine; PCP Internal Medicine Adolescent Medicine; Visit Provider Internal Medicine Adolescent Medicine
DX: N39.0 Urinary tract infection, site not specified (principal); R65.20 Severe sepsis without septic shock; I50.23 Acute on chronic systolic (congestive) heart failure; I11.0 Hypertensive heart disease with heart failure; E11.9 Type 2 diabetes mellitus without complications; Z91.14 Patient's other noncompliance with medication regimen; Z79.4 Long term (current) use of insulin; Z95.5 Presence of coronary angioplasty implant and graft; Z88.8 Allergy status to other drugs, medicaments and biological substances; J44.9 Chronic obstructive pulmonary disease, unspecified; E89.0 Postprocedural hypothyroidism; Z85.850 Personal history of malignant neoplasm of thyroid
CPT/HCPCS: 36415; 71045; 71046; 72100; 80048; 80053; 81001; 82803; 82962; 83605; 83880; 84484; 85025; 87040; 87086; 87088; 87186; 87581; 87633; 87798; 93005; 96365; 96372; 96375; 99202; 99285; J1335; J2405

== ENCOUNTER 2019-10-17 20:15 | Observation (INO) | payer OTHER, SELFPAY ==
[2019-10-17] VITALS (7 sets, daily range): BP systolic 130–145; BP diastolic 77–100; PULSE 90–100; RESP 18–24; TEMP 36.5–36.7; O2SAT 92–100; BMI 27.6; BMI 37.3
--- NOTE | 2019-10-17 20:25 | XR_ITS ---
PROCEDURE: XR CHEST PORTABLE CLINICAL HISTORY: SOA Chronic pneumonia COMPARISON: CT CHEST WO CON from 07/16/2019 XR CHEST 2V from 09/25/2019 XR CHEST PORTABLE from 09/27/2019 XR CHEST 2V from 09/28/2019 FINDINGS: The cardiomediastinal silhouette and pulmonary vascularity are within normal limits. Persistent hyperdense consolidation involving both lower lobes with bilateral pleural effusions. The right effusion may be slightly larger compared to the previous exam. No acute bony abnormalities. IMPRESSION: Persistent chronic bilateral hyper dense pneumonia with bilateral effusions slightly larger on the right Dictated by: Navjot Ha MD 10/17/2019 22:35 Electronically signed by Navjot Ha MD in [place] 10/17/2019 22:35
[2019-10-17 20:27] LABS: ABG HCO3 30.5 mmhg (22.0-26.0); ABG Oxygen Saturation 94 % (90-100); ABG PCO2 41.6 mmhg (35.0-45.0); ABG PH 7.48 mmol/L (7.35-7.45); ABG TCO2 31.8 mmhg (23-27)
[2019-10-17 20:28] LABS: Allen's Test Acceptable; Oxygen ROOM AIR %; Source Right Radial
[2019-10-17 20:37] LABS: Basophils % 0.4 % (0.1-2.0); Eosinophils # 0.2 K/mm3 (0.0-0.4); Eosinophils % 4.1 % (0.1-12.0); Mean Corpuscular HGB Conc 31.5 g/dL (31.8-35.4); Mean Corpuscular Volume 85.6 fl (81-99); Mean Platelet Volume 7.9 fl (7.4-10.4); Monocytes # 0.4 K/mm3 (0.1-1.0); Monocytes % 7.5 % (1.7-9.3); Neutrophils # 3.7 K/mm3 (1.8-7.8); Neutrophils % 68.9 % (37.0-80.0); Platelet Count 300 K/mm3 (142-424); Red Blood Count 4.44 M/mm3 (4.20-5.40); Red Cell Distribution Width 14.7 % (11.5-17.5); White Blood Count 5.4 K/mm3 (4.8-10.8)
[2019-10-17 20:44] LABS: Chloride 93 mmol/L (98-107); Sodium 139 mmol/L (136-145)
[2019-10-17 20:46] LABS: Blood Urea Nitrogen 20 mg/dl (7-17); Creatinine Clearance Estimated 93 mL/min (50-200); Estimated Glomerular Filt Rate 86 ml/min (>60); GFR (African American) 104 ML/MIN (>60); Potassium 2.8 mmoL/L (3.5-5.1)
[2019-10-17 20:47] LABS: Alanine Aminotransferase 17 U/L (12-78); Albumin Level 3.4 g/dl (3.5-5.0); Albumin/Globulin Ratio 0.9 (1.1-1.8); Alkaline Phosphatase 175 U/L (38-126); Aspartate Amino Transferase 25 U/L (14-36); Bilirubin,Total 0.6 mg/dl (0.2-1.3); Total Protein,Serum 7.4 g/dl (6.3-8.2)
--- NOTE | 2019-10-17 20:47 | PC.NURSE ---
Critical K+ called from lab, Dr Finn notified
[2019-10-17 20:48] LABS: Calcium 8.5 mg/dl (8.4-10.2); Glucose 206 mg/dl (74-100)
[2019-10-17 20:50] LABS: Lactic Acid 2.3 mmol/L (0.7-2.1)
[2019-10-17 20:53] LABS: C-Reactive Protein 33.3 mg/L (0-4)
[2019-10-17 20:54] LABS: Anion Gap 11.8 mEq/L (5-15); Carbon Dioxide 37 mmol/L (22.0-30.0)
[2019-10-17 21:00] LABS: Erythrocyte Sedimentation Rate 40 mm/hr (0-30)
[2019-10-17 21:00] LABS: Adenovirus F 40/41, stool Not Detected (NotDetected); Astrovirus Not Detected (NotDetected); Campylobacter Not Detected (NotDetected); Clostridium Difficile A/B, PCR Not Detected (NotDetected); Cryptosporidium Not Detected (NotDetected); Cyclospora Cayetanesis Not Detected (NotDetected); Entamoeba histolytica Not Detected (NotDetected); Enteroaggregative E coli Not Detected (NotDetected); Enteropathogenic E coli Not Detected (NotDetected); Enterotoxigenic E coli Not Detected (NotDetected); Giardia lamblia Not Detected (NotDetected); Norovirus Not Detected (NotDetected); Plesimonas Shigalloides, PCR Not Detected (NotDetected); Rotavirus A Not Detected (NotDetected); Salmonella, PCR Not Detected (NotDetected); Sapovirus Not Detected (NotDetected); Shiga-like toxin E coli Not Detected (NotDetected); Shigella Enterovasive E coli Not Detected (NotDetected); Vibrio Cholerae Not Detected (NotDetected); Vibrio, PCR Not Detected (NotDetected); Yersinia Entercolitica, PCR Not Detected (NotDetected)
[2019-10-17 21:01] LABS: Troponin I 0.02 ng/ml (0.00-0.034)
--- NOTE | 2019-10-17 21:02 | HMH.EDSOB ---
ED Disposition Clinical Impression: SIRS (systemic inflammatory response syndrome), IDDM (insulin dependent diabetes mellitus) CHF (congestive heart failure) Qualifiers: Heart failure type: systolic Heart failure chronicity: acute on chronic Qualified Code(s): I50.23 - Acute on chronic systolic (congestive) heart failure Disposition: Admitted as Observation Condition on Discharge: Fair Referrals: David Simpson MD [Primary Care Provider] - - Critical Care Critical Care Time: No Attestation: On 10/17/19, the high probability of a clinically significant, sudden or life threatening deterioration of the following system(s) required my full and direct attention, intervention and personal management. The time I documented below is in addition to time spent performing reported procedures but includes the following listed in this critical care notation. Medical Decision Making - Medical Records Medical records reviewed: Yes: I reviewed the patient's medical records. - Vikram Inquiry Pt receiving controlled substance: No Vital Signs: 10/17/19 20:17 Temperature 97.7 F Temperature Source Oral Pulse Rate [Right] 98 H Respiratory Rate 24 Blood Pressure [Right Arm] 135/100 H Blood Pressure Mean [Right Arm] 111 Blood Pressure Source [Right Arm] Automatic Cuff Blood Pressure Position [Right Arm] Sitting 02 Sat by Pulse Oximetry 98 Oxygen Delivery Method Room Air - Lab Data Lab results reviewed: Yes: I reviewed the patient's lab results. Lab Results 10/17/19 20:25: Specimen Source Right radial, O2 % Room air, ABG pH 7.48 H, ABG pCO2 41.6, ABG pO2 71.0 L, ABG HCO3 30.5 H, ABG Total CO2 31.8 H, ABG O2 Saturation 94, ABG Base Excess 7.0 H, Navjot Test Acceptable 10/17/19 20:30: WBC 5.4, RBC 4.44, Hgb 12.0 L, Hct 38.0, MCV 85.6, MCH 27.0, MCHC 31.5 L, RDW 14.7, Plt Count 300, MPV 7.9, Neut % (Auto) 68.9, Lymph % (Auto) 19.0, [place] % (Auto) 7.5, Eos % (Auto) 4.1, Baso % (Auto) 0.4, Neut # (Auto) 3.7, Lymph # (Auto) 1.0, [place] # (Auto) 0.4, Eos # (Auto) 0.2, Baso # (Auto) 0.0, ESR 40 H 10/17/19 20:30: Sodium 139, Potassium 2.8 L*, Chloride 93 L, Carbon Dioxide 37 H, Anion Gap 11.8, BUN 20 H, Creatinine 0.70, Estimated Creat Clear 93, Estimated GFR 86, Est GFR ( Amer) 104, Glucose 206 H, Calcium 8.5, Total Bilirubin 0.6, AST 25, ALT 17, Alkaline Phosphatase 175 H, Troponin I 0.02, C-Reactive Protein 33.3 H, Total Protein 7.4, Albumin 3.4 L, Globulin 4.0 H, Albumin/Globulin Ratio 0.9 L 10/17/19 20:30: Lactate 2.3 H 10/17/19 20:30: SARS-CoV-2 IgG Ab (Rapid) Negative, SARS-CoV-2 IgM Ab (Rapid) Negative 10/17/19 20:30: NT-Pro-B Natriuret Pep 8510 H 10/17/19 20:50: Stl Aeromonas (PCR) Not detected, Stl C. cayetanensis PCR Not detected, Stool Rotavirus (PCR) Not detected, Stl Adenov F 40/41 PCR Not detected, Stool Astrovirus (PCR) Not detected, Stool Campylobacter PCR Not detected, Stl C.difficile Tox PCR Not detected, Stool Cryptosporidium PCR Not detected, Stl E.coli Shiga Tox PCR Not detected, Stool E coli O157 PCR Not detected, Stl Enterotoxigenic E PCR Not detected, Stool EPEC (PCR) Not detected, Stool EAEC (PCR) Not detected, Stl E. histolytica PCR Not detected, Stool Giardia Lamblia PCR Not detected, Stool Salmonella PCR Not detected, Stool Sapovirus (PCR) Not detected, Stl P. shigelloides PCR Not detected, Stl Shigella/EIEC PCR Not detected, St Y.enterocolitica PCR Not detected, Stool Vibrio (PCR) Not detected, Stl Vibrio cholerae PCR Not detected, Stl Norovirus GI/GII PCR Not detected 10/17/19 21:05: Urine Color Yellow, Urine Appearance Clear, Urine pH 7.0, Ur Specific [place] 1.025, Urine Protein 2+, Urine Glucose (UA) Negative, Urine Ketones Negative, Urine Blood Negative, Urine Nitrate Negative, Urine Bilirubin Negative, Urine Urobilinogen 0.2, Ur Leukocyte Esterase Negative, Urine WBC 3-5, Amorphous Sediment Trace Result diagrams: 10/17/19 20:30 10/17/19 20:30 Orders (Tests/Meds): ED MEDICATIONS Discontinued Medications
[2019-10-17 21:05] LABS: NT Pro Brain Natriuretic Pep. 8510 pg/mL (0-125)
[2019-10-17 21:08] LABS: Microscopic, Urine URINE MICROSCOPIC (MICROSCOPIC)
[2019-10-17 21:09] LABS: Appearance,Urine CLEAR (Clear); Bilirubin,Urine Negative (Negative); Blood, Urine Negative (Negative); Color,Urine YELLOW (Yellow); Glucose,Urine (UA) Negative (Negative); Ketones,Urine Negative (Negative); Leukocyte Esterase,Urine Negative (Negative); Nitrate,Urine Negative (Negative); Protein,Urine 2+ (Negative); Specific Gravity, Urine 1.025 (1.005-1.030); Urobilinogen,Urine 0.2 EU/dl (0.2)
[2019-10-17 21:10] LABS: Coronavirus 19 IgG Antibody Negative (Negative); Coronavirus 19 IgM Antibody Negative (Negative)
[2019-10-17 21:13] LABS: Amorphous Sediment,Urine Trace /lpf
--- NOTE | 2019-10-17 22:46 | PC.NURSE ---
Dr Finn speaking with Dr Garduno for admission
[2019-10-17 23:31] LABS: Reflex Lactic Add Lactic Reflex
--- NOTE | 2019-10-17 23:38 | PC.NURSE ---
PT ARRIVED TO THE FLOOR VIA STRETCHER FROM ED @[id number]
[2019-10-17 23:49] LABS: Lactic Acid Follow Up (RFLX 1) 1.9 mmol/L (0.7-2.1)
[2019-10-18 00:18] LABS: Troponin I 0.02 ng/ml (0.00-0.034)
[2019-10-18 03:00] LABS: Troponin I 0.02 ng/ml (0.00-0.034)
[2019-10-18 04:00] VITALS: BP 139/86; PULSE 80; PULSE 92; RESP 20; TEMP 36.5; O2SAT 95
[2019-10-18 04:04] VITALS: O2SAT 91
[2019-10-18 04:58] VITALS: BMI 37.2
[2019-10-18 06:03] LABS: POC Glucose,Bedside 153 (70-110)
[2019-10-18 07:37] VITALS: BP 122/84; PULSE 92; RESP 18; TEMP 37.1; O2SAT 98
--- NOTE | 2019-10-18 08:30 | HMH.HPDC ---
General - General Admission date:: 10/17/19 Discharge date: 10/18/19 *Admission Date: 10/18/19 *Chief complaint: Dyspnea/CHF exacerbation *History of present illness: 59-year-old white female with long history of CHF with severe medicine noncompliance, and chronic exacerbations of CHF. She presented to the emergency department late yesterday evening with shortness of air, fluid overload, and responded to Lasix intravenously but it was felt that she could benefit from a couple of hours of observation in the hospital. [facility] History I have reviewed the patient's past medical history: Yes Medical History: Reports:: Anxiety, Asthma, Cancer (Thyroid CA.), Congestive Heart Failure, Chronic Obstructive Pulmonary Disease (COPD), Congenital Heart Disease, Coronary Artery Disease, Deep Vein Thrombosis, Diabetes Mellitus Type 2, Gastroesophageal Reflux Disease(GERD), Home Oxygen, Hyperlipidemia, Hypertension, Migraine, Myocardial Infarction, Palpitations, Transient Ischemic Attacks (TIA), Ulcer, Urinary Tract Infection Denies:: Diabetes Mellitus Type 1, MRSA, Seizures *Have you ever received a pneumonia vaccine?: No (Allergy.) *Have you received a flu vaccine this season?: No (Allergy.) Other Medical History: Reports: Arthritis, Cataracts, Hypothyroidism, Thyroid Disease, Other Laterality Cases: Bilateral: Tonsillectomy Other Surgeries: Yes: Cardiac Catheterization, Cholecystectomy, Colonoscopy, Coronary Stent, Hysterectomy-Total, Hysterectomy-Partial, Thyroidectomy, Other Amputation: No Fractures: No - *Social History Educational Level: Completed High School Smoking Status: Never smoker Tobacco Type: cigarettes # Packs/Day (cigarettes): 0 #Yrs smoked (if former smoker): 0 Alcohol Intake: never Alcohol Intake Frequency:: other Substance Use Type: denies use *Occupational Status:: disabled Housing: house Household Members: spouse, children *Travel in the last 8 weeks: None - Psychiatric History Pschychiatric History:: Reports:: Anxiety Family Hx:: Bleeding Disorder, Diabetes, Heart Attack, Hyperlipidemia, Hypertension, Stroke Review of Systems - Review of Systems Review of systems:: pertinent systems reviewed and negative unless documented below - *Neurologic Denies seizure-like activity Exam Vital signs and Labs for Last 24 Hours: Temp Pulse Resp BP Pulse Ox 98.7 F 92 H 18 122/84 98 10/18/19 07:37 10/18/19 07:37 10/18/19 07:37 10/18/19 07:37 10/18/19 07:37 Laboratory Results - last 24 hr 10/17/19 20:25: Specimen Source Right radial, O2 % Room air, ABG pH 7.48 H, ABG pCO2 41.6, ABG pO2 71.0 L, ABG HCO3 30.5 H, ABG Total CO2 31.8 H, ABG O2 Saturation 94, ABG Base Excess 7.0 H, Navjot Test Acceptable 10/17/19 20:30: WBC 5.4, RBC 4.44, Hgb 12.0 L, Hct 38.0, MCV 85.6, MCH 27.0, MCHC 31.5 L, RDW 14.7, Plt Count 300, MPV 7.9, Neut % (Auto) 68.9, Lymph % (Auto) 19.0, [place] % (Auto) 7.5, Eos % (Auto) 4.1, Baso % (Auto) 0.4, Neut # (Auto) 3.7, Lymph # (Auto) 1.0, [place] # (Auto) 0.4, Eos # (Auto) 0.2, Baso # (Auto) 0.0, ESR 40 H 10/17/19 20:30: Sodium 139, Potassium 2.8 L*, Chloride 93 L, Carbon Dioxide 37 H, Anion Gap 11.8, BUN 20 H, Creatinine 0.70, Estimated Creat Clear 93, Estimated GFR 86, Est GFR ( Amer) 104, Glucose 206 H, Calcium 8.5, Total Bilirubin 0.6, AST 25, ALT 17, Alkaline Phosphatase 175 H, Troponin I 0.02, C-Reactive Protein 33.3 H, Total Protein 7.4, Albumin 3.4 L, Globulin 4.0 H, Albumin/Globulin Ratio 0.9 L 10/17/19 20:30: Lactate 2.3 H 10/17/19 20:30: SARS-CoV-2 IgG Ab (Rapid) Negative, SARS-CoV-2 IgM Ab (Rapid) Negative 10/17/19 20:30: NT-Pro-B Natriuret Pep 8510 H 10/17/19 20:50: Stl Aeromonas (PCR) Not detected, Stl C. cayetanensis PCR Not detected, Stool Rotavirus (PCR) Not detected, Stl Adenov F 40/41 PCR Not detected, Stool Astrovirus (PCR) Not detected, Stool Campylobacter PCR Not detected, Stl C.difficile Tox PCR Not detected, Stool Cryptosporidium PCR Not detected, Stl E.coli Shiga Tox PCR Not detected, S
--- NOTE | 2019-10-18 09:31 | P.CONPHA_ITS ---
[facility] Pharmacy VTE Monitoring - Patient Demographics Admission date: 10/17/19 Report Date: 10/18/19 Time: 09:31 Allergies/Adverse Reactions: Patient Allergies cefaclor [From Ceclor] Allergy (Severe, Verified 10/17/19 23:43) Hives erythromycin base Allergy (Severe, Verified 10/17/19 23:43) Hives meperidine [From Demerol] Allergy (Severe, Verified 10/17/19 23:43) Hives tetracycline Allergy (Severe, Verified 10/17/19 23:43) Hives Penicillins Allergy (Intermediate, Verified 10/17/19 23:43) Difficulty Breathing pioglitazone [From Actos] Allergy (Intermediate, Verified 10/17/19 23:43) Hives pneumococcal vaccine Allergy (Intermediate, Verified 10/17/19 23:43) Difficulty Breathing amoxicillin Allergy (Mild, Verified 10/17/19 23:43) Rash clindamycin Allergy (Mild, Verified 10/17/19 23:43) Hives codeine Allergy (Mild, Verified 10/17/19 23:43) Rash diphtheria,pertussis (acell),tetanu [From Pentacel DTaP-IPV Compnt (PF)] Allergy (Mild, Verified 10/17/19 23:43) Rash Iodinated Contrast Media [Iodinated Contrast Media - Oral and] Allergy (Mild, Verified 10/17/19 23:43) Hives regadenoson Allergy (Mild, Verified 10/17/19 23:43) Hives onion Adverse Reaction (Intermediate, Verified 10/17/19 23:43) Heartburn Influenza Virus Vaccines Adverse Reaction (Mild, Verified 10/17/19 23:43) Hallucinating oseltamivir [From Tamiflu] Adverse Reaction (Mild, Verified 10/17/19 23:43) Hallucinating Sulfa (Sulfonamide Antibiotics) Adverse Reaction (Verified 10/17/19 23:44) Height: 1.55 m Weight: 89.443 kg Patient Problems: Current Active Problems (Last Updated 07/24/19 @ 15:38 by Anuel Sierra MD) Congestive heart failure (Acute) SIRS (systemic inflammatory response syndrome) (Acute) IDDM (insulin dependent diabetes mellitus) (Chronic) - VTE Risk Labs: VTE Related Lab Results Hgb 12.0 g/dL (12.2-16.2) L 10/17/19 20:30 Hct 38.0 % (37.0-47.0) 10/17/19 20:30 Plt Count 300 K/mm3 (142-424) 10/17/19 20:30 BUN 20 mg/dl (7-17) H 10/17/19 20:30 Creatinine 0.70 mg/dl (0.52-1.04) 10/17/19 20:30 Estimated Creat Clear 93 mL/min (50-200) 10/17/19 20:30 Was VTE Risk Assessment Performed: Yes VTE Score: 8 VTE Risk Level: Moderate Risk - Prophylaxis VTE Prophylaxis Ordered?: Yes Types of VTE Prophylaxis: TEDS Knee High Location of Applied Device: Bilateral Lower Extremeties
--- NOTE | 2019-10-18 21:17 | ECG_ITS ---
APPROVED REPORT Exam: Resting ECG HR:97 bpm ECG Measurements Heart Rate 97 AXES WV 182 P 60 QRSd 132 QRS 52 QT 406 T 185 QTc 515 <Conclusion> Normal sinus rhythm LBBB Abnormal ECG Electronically signed by : Yogi Wilkins, 10/20/2019 09:00:29
== END 2019-10-18 09:55 | disposition home or self-care (01) ==
LOC: ER 23:07 → 2ND 10-18 00:15
PROVIDERS: Admitting Provider Family Medicine; Emergency Provider Emergency Medicine; PCP Internal Medicine Adolescent Medicine; Visit Provider Internal Medicine Adolescent Medicine
DX: I11.0 Hypertensive heart disease with heart failure (principal); I50.9 Heart failure, unspecified; J44.9 Chronic obstructive pulmonary disease, unspecified; E11.9 Type 2 diabetes mellitus without complications; Z99.81 Dependence on supplemental oxygen; I25.2 Old myocardial infarction; Z91.14 Patient's other noncompliance with medication regimen; Z79.84 Long term (current) use of oral hypoglycemic drugs; Z95.5 Presence of coronary angioplasty implant and graft; E89.0 Postprocedural hypothyroidism; Z85.850 Personal history of malignant neoplasm of thyroid; Z88.0 Allergy status to penicillin; Z88.1 Allergy status to other antibiotic agents; Z88.2 Allergy status to sulfonamides; Z88.7 Allergy status to serum and vaccine; Z88.8 Allergy status to other drugs, medicaments and biological substances; Z91.041 Radiographic dye allergy status
CPT/HCPCS: 36415; 71045; 80053; 81001; 82803; 82962; 83605; 83880; 84484; 85025; 85651; 86140; 86328; 87040; 87507; 93005; 96374; 96375; 99285; G0378; J2405

== ENCOUNTER 2019-10-25 01:36 | Inpatient (IN) | payer OTHER, SELFPAY ==
[2019-10-25] VITALS (11 sets, daily range): BP systolic 99–144; BP diastolic 69–105; PULSE 70–100; RESP 14–20; TEMP 35.1–37.2; O2SAT 93–100; BMI 55.5; BMI 38.4
--- NOTE | 2019-10-25 01:30 | ECG_ITS ---
APPROVED REPORT Exam: Resting ECG HR:97 bpm ECG Measurements Heart Rate 97 AXES QRSd 90 QRS 38 QT 414 T 204 QTc 525 <Conclusion> Accelerated Junctional rhythm Low voltage QRS Late R-wave progression Prolonged QT Abnormal ECG Electronically signed by : David Simpson, 10/29/2019 17:12:45
--- NOTE | 2019-10-25 02:25 | XR_ITS ---
PROCEDURE: XR CHEST PORTABLE CLINICAL HISTORY: SOB COMPARISON: CT CHEST WO CON from 07/16/2019 XR CHEST PORTABLE from 09/27/2019 XR CHEST 2V from 09/28/2019 XR CHEST PORTABLE from 10/17/2019 FINDINGS: There is poor inspiration. There is diffuse hyperdense infiltrates as previously described with bilateral pleural effusions right larger than left. The right effusion may be slightly larger. IMPRESSION: Bilateral chronic pneumonia hyperdense in nature with bilateral effusions slightly larger on the right Dictated by: Navjot Ha MD 10/25/2019 06:20 Electronically signed by Navjot Ha MD in [place] 10/25/2019 06:20
--- NOTE | 2019-10-25 02:36 | PC.NURSE ---
pt placed on 2L NC for comfort at this time.
--- NOTE | 2019-10-25 02:36 | HMH.EDGENADL ---
ED Disposition Clinical Impression: Congestive heart failure Qualifiers: Heart failure type: unspecified Heart failure chronicity: acute on chronic Qualified Code(s): I50.9 - Heart failure, unspecified Skin ulcer of abdominal wall Qualifiers: Non-pressure ulcer stage: limited to breakdown of skin Qualified Code(s): L98.491 - Non-pressure chronic ulcer of skin of other sites limited to breakdown of skin Skin ulcer of thigh Qualifiers: Laterality: left Non-pressure ulcer stage: limited to breakdown of skin Qualified Code(s): L97.121 - Non-pressure chronic ulcer of left thigh limited to breakdown of skin Disposition: Admitted as Observation Condition on Discharge: Fair - Critical Care Critical Care Time: No Attestation: On 10/25/19, the high probability of a clinically significant, sudden or life threatening deterioration of the following system(s) required my full and direct attention, intervention and personal management. The time I documented below is in addition to time spent performing reported procedures but includes the following listed in this critical care notation. Medical Decision Making - Medical Records Medical records reviewed: Yes: I reviewed the patient's medical records. - Vikram Inquiry Pt receiving controlled substance: No Vital Signs: 10/25/19 01:38 10/25/19 03:41 10/25/19 04:00 Temperature 98.9 F Temperature Source Oral Pulse Rate Pulse Rate [Left Radial] 98 H 94 H Respiratory Rate 16 18 Blood Pressure Blood Pressure [Right Arm] 136/91 H 143/104 H Blood Pressure Mean [Right Arm] 106 117 Blood Pressure Source [Right Arm] Automatic Cuff Blood Pressure Position [Right Arm] Sitting 02 Sat by Pulse Oximetry 97 100 Oxygen Delivery Method Room Air Room Air Nasal Cannula Oxygen Flow Rate (LPM) 2 10/25/19 04:16 10/25/19 04:30 Temperature 98.9 F Temperature Source Oral Pulse Rate 95 H Pulse Rate [Left Radial] 94 H Respiratory Rate 18 18 Blood Pressure 144/105 H Blood Pressure [Right Arm] 139/93 H Blood Pressure Mean [Right Arm] 108 Blood Pressure Source [Right Arm] Blood Pressure Position [Right Arm] 02 Sat by Pulse Oximetry 100 Oxygen Delivery Method Nasal Cannula Nasal Cannula Oxygen Flow Rate (LPM) 2 2 - Lab Data Lab results reviewed: Yes: I reviewed the patient's lab results. Lab Results 10/25/19 02:15: WBC 6.0, RBC 4.49, Hgb 12.0 L, Hct 37.6, MCV 83.7, MCH 26.7 L, MCHC 31.9, RDW 14.6, Plt Count 352, MPV 7.7, Neut % (Auto) 64.6, Lymph % (Auto) 21.6, [place] % (Auto) 8.7, Eos % (Auto) 4.2, Baso % (Auto) 0.9, Neut # (Auto) 3.9, Lymph # (Auto) 1.3, [place] # (Auto) 0.5, Eos # (Auto) 0.3, Baso # (Auto) 0.1 10/25/19 02:15: Sodium 135 L, Potassium 3.5, Chloride 89 L, Carbon Dioxide 38 H, Anion Gap 11.5, BUN 22 H, Creatinine 0.90, Estimated Creat Clear 52, Estimated GFR 65, Est GFR ( Amer) 78, Glucose 186 H, Calcium 9.6, Troponin I 0.02 10/25/19 02:15: Lactate 1.4 10/25/19 02:15: NT-Pro-B Natriuret Pep 9450 H 10/25/19 02:15: TSH 65.00 H 10/25/19 03:50: Urine Color Yellow, Urine Appearance Clear, Urine pH 8.0, Ur Specific [place] 1.020, Urine Protein Negative, Urine Glucose (UA) Negative, Urine Ketones Negative, Urine Blood Negative, Urine Nitrate Negative, Urine Bilirubin Negative, Urine Urobilinogen 0.2, Ur Leukocyte Esterase Negative, Amorphous Sediment Trace Result diagrams: 10/25/19 02:15 10/25/19 02:15 Orders (Tests/Meds): ED MEDICATIONS Generic Name Dose Route Start Last Admin Trade Name Freq PRN Reason Stop Dose Admin Acetaminophen 650 mg 10/25/19 04:03 Acetaminophen 325mg Tab PO 11/24/19 04:02 Q4HP PRN As Needed for Fever or Pain Albuterol Sulfate 2.5 mg 10/25/19 04:52 Albuterol 0.083% 2.5mg/3ml Neb IH 11/24/19 04:51 Q6HP PRN Shortness Of Breath Aspirin 81 mg 10/25/19 09:00 Aspirin 81mg Enteric Coated Tablet PO 11/24/19 08:59 DAILY KENDRICK Carvedilol 6.25 mg 10/25/19 09:00 Coreg 6.25mg Tab
[2019-10-25 02:40] LABS: Basophils # 0.1 K/mm3 (0-0.2); Basophils % 0.9 % (0.1-2.0); Eosinophils # 0.3 K/mm3 (0.0-0.4); Eosinophils % 4.2 % (0.1-12.0); Hematocrit 37.6 % (37.0-47.0); Lymphocytes # 1.3 K/mm3 (0.7-4.5); Lymphocytes % 21.6 % (10-50); Mean Corpuscular HGB Conc 31.9 g/dL (31.8-35.4); Mean Corpuscular Hemoglobin 26.7 pg (27.0-31.2); Mean Corpuscular Volume 83.7 fl (81-99); Mean Platelet Volume 7.7 fl (7.4-10.4); Monocytes # 0.5 K/mm3 (0.1-1.0); Monocytes % 8.7 % (1.7-9.3); Neutrophils # 3.9 K/mm3 (1.8-7.8); Neutrophils % 64.6 % (37.0-80.0); Platelet Count 352 K/mm3 (142-424); Red Blood Count 4.49 M/mm3 (4.20-5.40); Red Cell Distribution Width 14.6 % (11.5-17.5)
[2019-10-25 02:48] LABS: Lactic Acid 1.4 mmol/L (0.7-2.1)
[2019-10-25 02:49] LABS: Blood Urea Nitrogen 22 mg/dl (7-17); Calcium 9.6 mg/dl (8.4-10.2); Chloride 89 mmol/L (98-107); Creatinine Clearance Estimated 52 mL/min (50-200); Estimated Glomerular Filt Rate 65 ml/min (>60); GFR (African American) 78 ML/MIN (>60); Glucose 186 mg/dl (74-100); Potassium 3.5 mmoL/L (3.5-5.1); Sodium 135 mmol/L (136-145)
[2019-10-25 02:55] LABS: Anion Gap 11.5 mEq/L (5-15); Carbon Dioxide 38 mmol/L (22.0-30.0)
[2019-10-25 03:01] LABS: Troponin I 0.02 ng/ml (0.00-0.034)
[2019-10-25 03:13] LABS: NT Pro Brain Natriuretic Pep. 9450 pg/mL (0-125)
[2019-10-25 04:04] LABS: Microscopic, Urine URINE MICROSCOPIC (MICROSCOPIC)
[2019-10-25 04:05] LABS: Appearance,Urine CLEAR (Clear); Bilirubin,Urine Negative (Negative); Blood, Urine Negative (Negative); Color,Urine YELLOW (Yellow); Glucose,Urine (UA) Negative (Negative); Ketones,Urine Negative (Negative); Leukocyte Esterase,Urine Negative (Negative); Nitrate,Urine Negative (Negative); Protein,Urine Negative (Negative); Urobilinogen,Urine 0.2 EU/dl (0.2)
[2019-10-25 04:09] LABS: Amorphous Sediment,Urine Trace /lpf
--- NOTE | 2019-10-25 04:37 | PC.NURSE ---
patient up to floor via stretcher.
--- NOTE | 2019-10-25 05:53 | PC.NURSE ---
Pt admitted to floor for acute chf exacerbation. Pt is SOB with any exertion. 2L oxygen via nc continues for comfort. Multiple wounds and lesions are noted with pictures in physical chart. Pt remains with HOB just short of 90 degrees for comfort.
[2019-10-25 06:11] LABS: POC Glucose,Bedside 176 (70-110)
--- NOTE | 2019-10-25 07:21 | HMH.HP ---
*Admission Date: 10/25/19 *Chief complaint: Shortness of air/swelling *History of present illness: 59-year-old white female with long history of diabetes, hypothyroidism, systolic and diastolic CHF and severe medical noncompliance who presented to the emergency department with a chief complaint of edema, dyspnea and was found to be in a florid CHF exacerbation. Of note, she had seen her new primary care group earlier this week, , had medicines adjusted, and had been noted to have some had ulcers on her abdomen consistent with stasis ulcers from skin breakdown, and was discharged home. She came back to the emergency department early this morning with these complaints. Found to have volume overload, pleural effusions and chest x-ray findings of significant pulmonary edema and BNP level greater than 9000. Patient is a long history of medicine noncompliance. Multiple pharmacy delivery services have told us that she does not take her medications and they have found months and months of medications in her home unopened. Patient is on fairly high doses of Synthroid and her TSH remains supratherapeutic. She continues to have multiple CHF exacerbations. She maintains that she does take her medication, but every other objective evidence would suggest otherwise including eyewitness reports from home health agencies and pharmacy delivery services. And also has a history of doctor shopping with multiple cardiology groups including here at [facility] and [facility] with multiple switching specialty providers. [facility] History I have reviewed the patient's past medical history: Yes Medical History: Reports:: Anxiety, Asthma, Cancer, Cardiomyopathy, Congestive Heart Failure, Chronic Obstructive Pulmonary Disease (COPD), Congenital Heart Disease, Coronary Artery Disease, Deep Vein Thrombosis, Diabetes Mellitus Type 2, Gastroesophageal Reflux Disease(GERD), Home Oxygen, Hyperlipidemia, Hypertension, Migraine, Myocardial Infarction, Palpitations, Transient Ischemic Attacks (TIA), Ulcer, Urinary Tract Infection Denies:: Diabetes Mellitus Type 1, MRSA, Seizures *Have you ever received a pneumonia vaccine?: No *Have you received a flu vaccine this season?: No Other Medical History: Reports: Arthritis, Cataracts, Hypothyroidism, Thyroid Disease (cancer), Other Laterality Cases: Bilateral: Tonsillectomy Other Surgeries: Yes: Cardiac Catheterization, Cholecystectomy, Colonoscopy, Coronary Stent, Hysterectomy-Total, Hysterectomy-Partial, Thyroidectomy, Other Amputation: No Fractures: No - *Social History Smoking Status: Never smoker Tobacco Type: cigarettes # Packs/Day (cigarettes): 0 #Yrs smoked (if former smoker): 0 Alcohol Intake: never Alcohol Intake Frequency:: other Substance Use Type: denies use *Occupational Status:: disabled Housing: house Household Members: spouse, children *Travel in the last 8 weeks: None - Psychiatric History Pschychiatric History:: Reports:: Anxiety Family Hx:: Bleeding Disorder, Diabetes, Heart Attack, Hyperlipidemia, Hypertension, Stroke Review of Systems - Review of Systems Review of systems:: pertinent systems reviewed and negative unless documented below Meds Home Medications Medication Instructions Recorded Confirmed Type Aspirin [Low Dose Aspirin EC] 81 mg PO DAILY #90 tab 07/25/19 10/25/19 Rx Gabapentin [Gabapentin 300mg Cap] 300 mg PO TID 30 Days #90 cap 07/25/19 10/25/19 Rx Sitagliptin Phosphate [Januvia 100 mg PO DAILY #90 tab 07/25/19 10/25/19 Rx 100mg tablet] levothyroxine 100 mcg tablet 200 mcg PO DAILY tab 09/09/19 10/25/19 History potassium chloride 20 mEq 10 meq PO DAILY tab 09/09/19 10/25/19 History tablet,extended release(part/cryst) Glycerin [Glycerin 3gm adult 0 each RC DAILYP PRN #12 supp.rect 09/25/19 10/25/19 Rx suppository] Furosemide [Furosemide 40MG tAB] 40 mg PO BID 09/28/19 10/25/19 History Nitroglycerin [Nitrostat 0.4mg SL 0.4 mg SL Q5MINP PRN 09/28/19 10/25/19
[2019-10-25 11:18] LABS: POC Glucose,Bedside 117 (70-110)
--- NOTE | 2019-10-25 11:21 | P.CONPHA_ITS ---
[facility] Pharmacy VTE Monitoring - Patient Demographics Admission date: 10/25/19 Report Date: 10/25/19 Time: 11:21 Allergies/Adverse Reactions: Patient Allergies cefaclor [From Ceclor] Allergy (Severe, Verified 10/22/19 09:44) Hives erythromycin base Allergy (Severe, Verified 10/22/19 09:44) Hives meperidine [From Demerol] Allergy (Severe, Verified 10/22/19 09:44) Hives tetracycline Allergy (Severe, Verified 10/22/19 09:44) Hives Penicillins Allergy (Intermediate, Verified 10/22/19 09:44) Difficulty Breathing pioglitazone [From Actos] Allergy (Intermediate, Verified 10/22/19 09:44) Hives pneumococcal vaccine Allergy (Intermediate, Verified 10/22/19 09:44) Difficulty Breathing amoxicillin Allergy (Mild, Verified 10/22/19 09:44) Rash clindamycin Allergy (Mild, Verified 10/22/19 09:44) Hives codeine Allergy (Mild, Verified 10/22/19 09:44) Rash diphtheria,pertussis (acell),tetanu [From Pentacel DTaP-IPV Compnt (PF)] Allergy (Mild, Verified 10/22/19 09:44) Rash Iodinated Contrast Media [Iodinated Contrast Media - Oral and] Allergy (Mild, Verified 10/22/19 09:44) Hives regadenoson Allergy (Mild, Verified 10/22/19 09:44) Hives onion Adverse Reaction (Intermediate, Verified 10/22/19 09:44) Heartburn Influenza Virus Vaccines Adverse Reaction (Mild, Verified 10/22/19 09:44) Hallucinating oseltamivir [From Tamiflu] Adverse Reaction (Mild, Verified 10/22/19 09:44) Hallucinating Sulfa (Sulfonamide Antibiotics) Adverse Reaction (Verified 10/22/19 09:44) Height: 1.55 m Weight: 92.221 kg Patient Problems: Current Active Problems (Last Updated 07/24/19 @ 15:38 by Anuel Sierra MD) Congestive heart failure (Acute) Skin ulcer of abdominal wall (Acute) Skin ulcer of thigh (Acute) - VTE Risk Labs: VTE Related Lab Results Hgb 12.0 g/dL (12.2-16.2) L 10/25/19 02:15 Hct 37.6 % (37.0-47.0) 10/25/19 02:15 Plt Count 352 K/mm3 (142-424) 10/25/19 02:15 BUN 22 mg/dl (7-17) H 10/25/19 02:15 Creatinine 0.90 mg/dl (0.52-1.04) 10/25/19 02:15 Estimated Creat Clear 52 mL/min (50-200) 10/25/19 02:15 VTE Score: 10 VTE Risk Level: Moderate Risk - Prophylaxis Types of VTE Prophylaxis: TEDS Knee High (PEDRO PABLO SERRATO ORDERED BY )
[2019-10-25 16:55] LABS: POC Glucose,Bedside 144 (70-110)
[2019-10-25 20:58] LABS: POC Glucose,Bedside 130 (70-110)
[2019-10-26] VITALS (15 sets, daily range): BP systolic 88–100; BP diastolic 49–65; PULSE 60–82; RESP 15–22; TEMP 35–36.8; O2SAT 92–99; BMI 35.1
--- NOTE | 2019-10-26 01:40 | PC.NURSE ---
PT appears fatigued and after getting settled in the chair, pt slept, awakening easily to voice and touch. 022LNC in place, rhythmic respirations noted. Pt reported being SOA earlier but once settled there were no further complaints. Cream applied to ulceration of abdomen and left upper thigh. Pt reported spots are painful. Huerta cath patent and draiing by gravity to chair, urine is clear with no sediment noted. Discussed CHF and the repercussions, explained having all that extra fluid on her body makes everything work harder, especially the heart, pt replied, ' I know. Even went on to discuss eventually can occur if not taken care of, pt had no reply. Requested diet Hina Mist, glass of water, and a cup of hot tea. Explained how the extra fluid and intake can inhibit fluid loss and increase fluid as well, Pt had no reply. Bilateral lower extremities are weeping. Pt is up to the chair since 2100 and requested to sleep in the chair. Head and back elevated with pillows, feet up with a chux underneath. Pt's first rectal temp 95, applied warm blankets per protocol, rechecked at midnight was still 95, applied warm blankets again. Call light w/i reach, bst clean and w/i reach, pt agrees to ring for assistance, monitoring continues.
[2019-10-26 05:32] LABS: POC Glucose,Bedside 110 (70-110)
[2019-10-26 07:02] LABS: Chloride 92 mmol/L (98-107); Potassium 3.3 mmoL/L (3.5-5.1); Sodium 134 mmol/L (136-145)
--- NOTE | 2019-10-26 07:02 | PC.NURSE ---
Temperature gradually came up throughout the night. 0100 - 95.6 0130 - 98.2 0200 - 97.1 0300 - 97.9 Sat up in the chair all night, got back in bed this am to be weighed and decided to remain in bed. No other changes from previous note, pt remained safe this shift, monitoring continues.
[2019-10-26 07:05] LABS: Anion Gap 6.3 mEq/L (5-15); Blood Urea Nitrogen 23 mg/dl (7-17); Carbon Dioxide 39 mmol/L (22.0-30.0); Creatinine Clearance Estimated 83 mL/min (50-200); Estimated Glomerular Filt Rate 57 ml/min (>60); GFR (African American) 69 ML/MIN (>60)
[2019-10-26 07:06] LABS: Glucose 106 mg/dl (74-100)
[2019-10-26 07:32] LABS: Calcium 8.2 mg/dl (8.4-10.2)
--- NOTE | 2019-10-26 08:17 | HMH.ACPN2 ---
Internal Medicine - PN: Subj *Date: 10/26/19 *Time: 08:17 Interval history: Overall patient feels better, nurses weight records that she is lost 17 pounds but this seems to be inaccurate, she is -7 L on her fluid output with Lasix. Exam Vital signs and Labs for Last 24 Hours: Temp Pulse Resp BP Pulse Ox 97.1 F L 82 18 88/63 L 96 10/26/19 04:05 10/26/19 04:00 10/26/19 04:00 10/26/19 04:00 10/26/19 04:00 Laboratory Results - last 24 hr 10/25/19 11:10: POC Glucose 117 H 10/25/19 16:28: POC Glucose 144 H 10/25/19 20:26: POC Glucose 130 H 10/26/19 05:18: POC Glucose 110 10/26/19 06:20: Sodium 134 L, Potassium 3.3 L, Chloride 92 L, Carbon Dioxide 39 H, Anion Gap 6.3, BUN 23 H, Creatinine 1.00, Estimated Creat Clear 83, Estimated GFR 57 L, Est GFR ( Amer) 69, Glucose 106 H, Calcium 8.2 L D I & O for Last 24 hours: Intake & Output 10/23/19 10/24/19 10/25/19 10/26/19 11:59 11:59 11:59 11:59 Intake Total 240 / 240 Output Total 1400 / 1400 3750 / 3750 Balance -1400 / -1400 -3510 / -3510 Weight 203 lb 5 oz 186 lb 1 oz Microbiology Reports for the Last 24 Hours: Microbiology 10/25/19 02:43 Abdomen Gram Stain - Final 10/25/19 02:43 Abdomen Wound Culture - Preliminary Gram Positive Cocci Narrative: Patient is alert, oriented, no dyspnea. Eating breakfast vigorously. Lungs have better air movement. Still with bibasilar crackles. Heart rate regular. Abdomen soft, wounds have ointment on them, about the same as yesterday. Less ankle edema. Neurologically intact. ENT exam clear. Assessment and Plan (1) Congestive heart failure Current visit: Yes Status: Acute Qualifiers: Heart failure type: unspecified Heart failure chronicity: acute on chronic Qualified Code(s): I50.9 - Heart failure, unspecified Category: Medical Code(s): I50.9 - Heart failure, unspecified (2) Skin ulcer of abdominal wall Current visit: Yes Status: Acute Qualifiers: Non-pressure ulcer stage: limited to breakdown of skin Qualified Code(s): L98.491 - Non-pressure chronic ulcer of skin of other sites limited to breakdown of skin Category: Medical Code(s): L98.499 - Non-pressure chronic ulcer of skin of other sites with unspecified severity (3) Acute on chronic systolic CHF (congestive heart failure) Current visit: No Status: Acute Category: Medical Code(s): I50.23 - Acute on chronic systolic (congestive) heart failure (4) NYHA class 3 heart failure with reduced ejection fraction Current visit: No Status: Acute Category: Medical Code(s): I50.20 - Unspecified systolic (congestive) heart failure (5) Diabetes mellitus Current visit: No Status: Chronic Qualifiers: Diabetes mellitus type: type 2 Diabetes mellitus prison insulin use: without long distance operator use Diabetes mellitus complication status: with hyperglycemia Qualified Code(s): E11.65 - Type 2 diabetes mellitus with hyperglycemia Category: Medical Code(s): E11.9 - Type 2 diabetes mellitus without complications (6) Noncompliance with medication regimen Current visit: No Status: Chronic Category: Medical Code(s): Z91.14 - Patient's other noncompliance with medication regimen - Assessment and plan all Dx Assessment and Plan for all problems:: Good response to IV Lasix. Continue this. Monitor potassium tomorrow, slight increased dose. Possible discharge tomorrow.
[2019-10-26 11:09] LABS: POC Glucose,Bedside 223 (70-110)
[2019-10-26 17:09] LABS: POC Glucose,Bedside 77 (70-110)
[2019-10-26 20:35] LABS: POC Glucose,Bedside 84 (70-110)
--- NOTE | 2019-10-26 21:36 | PC.NURSE ---
pt refused bath at this time, linens and gown changed
--- NOTE | 2019-10-27 00:16 | PC.NURSE ---
Pt appears especially fatigued this shift, sleeping following initial med pass and assessment. Appears without distress, rhythmic respirations, actually resting lying on her right side, 30 degrees. Huerta cath patent and draining by gravity with clear, yellow urine noted. FSBS at 1999, pt reported she would eat some of her sugar-free cookies for snack. Assessment basically unchanged from last night's assessment with the exception of generalized edema is slightly less and legs are beginning to wrinkle. Monitoring continues.
[2019-10-27 04:00] VITALS: BP 94/54; PULSE 71; RESP 17; TEMP 36.6; O2SAT 98
[2019-10-27 05:47] LABS: POC Glucose,Bedside 88 (70-110)
--- NOTE | 2019-10-27 06:00 | PC.NURSE ---
Report received from Luis Rivera RN
[2019-10-27 07:05] LABS: Chloride 90 mmol/L (98-107); Sodium 133 mmol/L (136-145)
[2019-10-27 07:08] LABS: Blood Urea Nitrogen 32 mg/dl (7-17); Creatinine Clearance Estimated 64 mL/min (50-200); Estimated Glomerular Filt Rate 42 ml/min (>60); GFR (African American) 51 ML/MIN (>60)
[2019-10-27 07:09] LABS: Calcium 8.2 mg/dl (8.4-10.2); Carbon Dioxide 39 mmol/L (22.0-30.0); Glucose 88 mg/dl (74-100)
[2019-10-27 07:32] VITALS: BP 102/53; PULSE 76; RESP 20; TEMP 37; O2SAT 96
--- NOTE | 2019-10-27 08:58 | HMH.PHACONS ---
- Pharmacy Consult Date: 10/27/19 Time: 08:58 Referring provider: DR. WATTS Reason for Consult:: VANCOMYCIN DOSING Allergies and ADEs:: Allergies Allergy/AdvReac Type Severity Reaction Status Date / Time cefaclor [From Ceclor] Allergy Severe Hives Verified 10/22/19 09:44 erythromycin base Allergy Severe Hives Verified 10/22/19 09:44 meperidine [From Demerol] Allergy Severe Hives Verified 10/22/19 09:44 tetracycline Allergy Severe Hives Verified 10/22/19 09:44 Penicillins Allergy Intermediate Difficulty Verified 10/22/19 09:44 Breathing pioglitazone [From Actos] Allergy Intermediate Hives Verified 10/22/19 09:44 pneumococcal vaccine Allergy Intermediate Difficulty Verified 10/22/19 09:44 Breathing amoxicillin Allergy Mild Rash Verified 10/22/19 09:44 clindamycin Allergy Mild Hives Verified 10/22/19 09:44 codeine Allergy Mild Rash Verified 10/22/19 09:44 diphtheria,pertussis Allergy Mild Rash Verified 10/22/19 09:44 (acell),tetanu [From Pentacel DTaP-IPV Compnt (PF)] Iodinated Contrast Media Allergy Mild Hives Verified 10/22/19 09:44 [Iodinated Contrast Media - Oral and] regadenoson Allergy Mild Hives Verified 10/22/19 09:44 onion AdvReac Intermediate Heartburn Verified 10/22/19 09:44 Influenza Virus Vaccines AdvReac Mild Hallucinati Verified 10/22/19 09:44 ng oseltamivir [From Tamiflu] AdvReac Mild Hallucinati Verified 10/22/19 09:44 ng Sulfa (Sulfonamide AdvReac Verified 10/22/19 09:44 Antibiotics) Home Medications:: Home Medications Medication Instructions Recorded Confirmed Type Aspirin [Low Dose Aspirin EC] 81 mg PO DAILY #90 tab 07/25/19 10/25/19 Rx Gabapentin [Gabapentin 300mg Cap] 300 mg PO TID 30 Days #90 cap 07/25/19 10/25/19 Rx Sitagliptin Phosphate [Januvia 100 mg PO DAILY #90 tab 07/25/19 10/25/19 Rx 100mg tablet] levothyroxine 100 mcg tablet 200 mcg PO DAILY tab 09/09/19 10/25/19 History potassium chloride 20 mEq 10 meq PO DAILY tab 09/09/19 10/25/19 History tablet,extended release(part/cryst) Glycerin [Glycerin 3gm adult 0 each RC DAILYP PRN #12 supp.rect 09/25/19 10/25/19 Rx suppository] Furosemide [Furosemide 40MG tAB] 40 mg PO BID 09/28/19 10/25/19 History Nitroglycerin [Nitrostat 0.4mg SL 0.4 mg SL Q5MINP PRN 09/28/19 10/25/19 History Tablet] glipiZIDE [Glucotrol] 10 mg PO BID 09/28/19 10/25/19 History lisinopriL [Lisinopril 10mg Tab] 10 mg PO DAILY 09/28/19 10/25/19 History carvedilol 6.25 mg tablet 6.25 mg PO BID 10/22/19 10/25/19 History ondansetron HCl 4 mg tablet 4 mg PO Q6H PRN tab 10/22/19 10/25/19 History sertraline 100 mg tablet 100 mg PO DAILY #90 tab 10/22/19 10/25/19 Rx Albuterol Sulfate [Albuterol 2.5 mg IH Q6HP PRN 10/25/19 10/25/19 History 0.083% 2.5mg/3mL neb] metOLazone [Metolazone 5mg Tab] 5 mg PO DAILY 10/25/19 10/25/19 History Height: 1.55 m Weight: 84.397 kg Laboratory Results:: Laboratory Results - last 24 hr 10/26/19 11:01: POC Glucose 223 H 10/26/19 16:25: POC Glucose 77 10/26/19 19:44: POC Glucose 84 10/27/19 04:59: POC Glucose 88 10/27/19 06:48: Sodium 133 L, Potassium 4.0 D, Chloride 90 L, Carbon Dioxide 39 H, Anion Gap 8.0, BUN 32 H D, Creatinine 1.30 H D, Estimated Creat Clear 64, Estimated GFR 42 L, Est GFR ( Amer) 51 L D, Glucose 88, Calcium 8.2 L Medical History: Reports:: Anxiety, Asthma, Cancer, Cardiomyopathy, Congestive Heart Failure, Chronic Obstructive Pulmonary Disease (COPD), Congenital Heart Disease, Coronary Artery Disease, Deep Vein Thrombosis, Diabetes Mellitus Type 2, Gastroesophageal Reflux Disease(GERD), Home Oxygen, Hyperlipidemia, Hypertension, Migraine, Myocardial Infarction, Palpitations, Transient Ischemic Attacks (TIA), Ulcer, Urinary Tract Infection Denies:: Diabetes Mellitus Type 1, MRSA, Seizures Assessment and Plan (1) Congestive heart failure Current visit: Yes Status: Acute Qualifiers: Heart failure type: unspecified Heart failure chronicity: ac
--- NOTE | 2019-10-27 09:22 | HMH.ACPN2 ---
Internal Medicine - PN: Subj *Date: 10/27/19 *Time: 08:00 Interval history: Patient states she feels better today just tired. Exam Vital signs and Labs for Last 24 Hours: Temp Pulse Resp BP Pulse Ox 98.6 F 76 20 102/53 L 96 10/27/19 07:32 10/27/19 07:32 10/27/19 07:32 10/27/19 07:32 10/27/19 07:32 Laboratory Results - last 24 hr 10/26/19 11:01: POC Glucose 223 H 10/26/19 16:25: POC Glucose 77 10/26/19 19:44: POC Glucose 84 10/27/19 04:59: POC Glucose 88 10/27/19 06:48: Sodium 133 L, Potassium 4.0 D, Chloride 90 L, Carbon Dioxide 39 H, Anion Gap 8.0, BUN 32 H D, Creatinine 1.30 H D, Estimated Creat Clear 64, Estimated GFR 42 L, Est GFR ( Amer) 51 L D, Glucose 88, Calcium 8.2 L I & O for Last 24 hours: Intake & Output 10/24/19 10/25/19 10/26/19 10/27/19 11:59 11:59 11:59 11:59 Intake Total 240 / 240 360 / 360 Output Total 1400 / 1400 3750 / 3750 950 / 950 Balance -1400 / -1400 -3510 / -3510 -590 / -590 Weight 203 lb 5 oz 186 lb 1 oz Microbiology Reports for the Last 24 Hours: Microbiology 10/25/19 02:43 Abdomen Gram Stain - Final 10/25/19 02:43 Abdomen Wound Culture - Preliminary Staphylococcus aureus 10/25/19 02:15 Blood Blood Culture - Preliminary NO GROWTH AFTER 48 HOURS 10/25/19 02:15 Blood Blood Culture - Preliminary NO GROWTH AFTER 48 HOURS - Constitutional no acute distress, obese, chronically ill appearing - *Routine HEENT Exam Head: Present: normocephalic Eye: Present: PERRL ENT: Present: mucous membranes moist - *Routine Neck Exam Present: supple. Absent: lymphadenopathy - *Routine Respiratory Exam Present: CTA bilaterally - *Routine Cardiovascular Exam Present: RRR - *Routine Abdominal Exam Present: soft, normoactive bowel sounds, obese, wound. Absent: tenderness - *Routine Exam Comments: rebolledo draining clear yellow urine - *Routine Extremities Exam Present: edema. Absent: cyanosis, clubbing - *Routine Skin Exam Present: warm, wounds. Absent: rash Comments: scattered blisters to abd with redness blister to left upper thigh with redness - *Routine Neurological Exam Present: alert, oriented X3 - Routine Psychiatric Exam Present: normal affect Assessment and Plan (1) Congestive heart failure Current visit: Yes Status: Acute Qualifiers: Heart failure type: unspecified Heart failure chronicity: acute on chronic Qualified Code(s): I50.9 - Heart failure, unspecified Category: Medical Code(s): I50.9 - Heart failure, unspecified (2) Skin ulcer of abdominal wall Current visit: Yes Status: Acute Qualifiers: Non-pressure ulcer stage: limited to breakdown of skin Qualified Code(s): L98.491 - Non-pressure chronic ulcer of skin of other sites limited to breakdown of skin Category: Medical Code(s): L98.499 - Non-pressure chronic ulcer of skin of other sites with unspecified severity (3) Acute on chronic systolic CHF (congestive heart failure) Current visit: No Status: Acute Category: Medical Code(s): I50.23 - Acute on chronic systolic (congestive) heart failure (4) NYHA class 3 heart failure with reduced ejection fraction Current visit: No Status: Acute Category: Medical Code(s): I50.20 - Unspecified systolic (congestive) heart failure (5) Diabetes mellitus Current visit: No Status: Chronic Qualifiers: Diabetes mellitus type: type 2 Diabetes mellitus long term care pharmacist insulin use: without [place] [facility] use Diabetes mellitus complication status: with hyperglycemia Qualified Code(s): E11.65 - Type 2 diabetes mellitus with hyperglycemia Category: Medical Code(s): E11.9 - Type 2 diabetes mellitus without complications (6) Noncompliance with medication regimen Current visit: No Status: Chronic Category: Medical Code(s): Z91.14 - Patient's other noncompliance with medic
[2019-10-27 09:41] LABS: NT Pro Brain Natriuretic Pep. 4570 pg/mL (0-125)
--- NOTE | 2019-10-27 10:26 | HMH.OTEV ---
OT Inpatient Evaluation Rehab OT IP Evaluation Start: 10/27/19 08:51 Freq: ONCE Status: Complete Protocol: Document 10/27/19 10:14 [facility] (Rec: 10/27/19 10:26 [facility] [id number]) Rehab OT IP Assessment Subjective History Pt oriented x 4 on arrival. Pt agreeable to engage in therapy evaluation. Pt admitted via ED on 10/25/19 for skin ulcers and CHF exacerbation. Pt has a past medical history of Anxiety, Asthma, CHF, COPD, CAD, DM type 2, GERD, HTN, Hyperlipidemia, OR, and TIA. Pt reports she lives at home with her and son. Pt explains she requires assistance from her family to complete all ADLs except for feeding herself. Pt is dependent upon family to complete all IADL's. Pt does use a cane to walk with and is on home oxygen. Subjective I am just weak. Objective Patient Orientation Person,Place,Birthday,Year Upper Extremity Gross ROM WFL Transfer Training Sit/Stand Transfer Assist Level Minimal x 2 (25% assist) Chair Transfer Ability Minimal x 2 (25% assist) Chair Transfer Technique Sit to/from Ambulatory Chair Transfer Assistive Devices Rolling Walker Performing Toilet Hygiene Ability Unable/Dependant Overall Commode/Toilet Transfer Ability Assistance x1 Commode/Toilet Transfer Technique Sit to/from Ambulatory Rehab OT IP prob,goals,plan Problems Date of Evaluation: 10/27/19 OT IP Problems Bed Mobility,Transfers,Gait, Balance,Self care,Safety Rehab Potential Rehab Potential Good Equipment Needs Assistive Devices Rolling / Wheeled Walker Plan OT intervention Plan Bed Mobility,Transfers,Gait, Balance,Self care,Safety, Therapeutic Exercise OT Plan Frequency Daily Duration LOS Discharge Goals Bed Mobility Ability Standby Assistance Sit to Stand Chair Transfer Ability Contact Guard/Hand Hold Chair Transfer Ability Contact Guard/Hand Hold Chair Transfer Technique Sit to/from Ambulatory Chair Transfer Assistive Devices Rolling Walker Lower Body Dressing Ability Assistance X1 Upper Body Dressing Ability Standby Assistance
[2019-10-27 11:23] LABS: POC Glucose,Bedside 94 (70-110)
--- NOTE | 2019-10-27 11:27 | HMH.PTEV ---
Physical Therapy Evaluation Rehab PT IP Evaluation Start: 10/27/19 08:51 Freq: .once Status: Active Protocol: Document 10/27/19 11:22 [facility] (Rec: 10/27/19 11:27 [facility] [id number]) Subjective/History History History 59 yowf adm to [facility] with CHF exac. She lives at home with at baseline and reports no steps to enter the home. She reports she ambulates with a cane at home. She also has abdominal wounds related to fluid overload that have tested positive for MRSA. Subjective Subjective She c/o pain in her legs and general weakness. Rehab PT IP Eval Objective Appearance Patient Behavior Appropriate Patient Orientation Person,Place,Time Difficulty following instructions none Speech Pattern Clear Ambulation Patient Able to Ambulate Yes Ambulation Observation IP General Gait Pattern Observation Wide Based Gait,Shuffling Step ,Trunk Posterior to XOCHILT Ambulation Distance (feet) 5 Ambulation Assistive Device None Ambulation Ability Minimal x 1 (25% assist) Balance Ability to Arise Able, uses arms to help Sitting Balance Steady, safe Standing Balance Unsteady Dynamic Sitting Balance Ability Good Dynamic Standing Balance Ability Poor Transfers Bed Transfer Ability Minimal x 1 (25% assist) Chair Transfer Ability Minimal x 1 (25% assist) Sit to Stand Bed Transfer Ability Minimal x 1 (25% assist) Sit to Stand Chair Transfer Ability Minimal x 1 (25% assist) ROM All Extremities PT ROM Status WFL MMT All Extremities PT MMT WFL Rehab PT IP prob,goals,plan Problems Date of Evaluation: 10/27/19 PT IP Problems Bed Mobility,Transfers,Gait Rehab Potential Rehab Potential Fair Plan PT Intervention Plan Bed Mobility,Transfers,Gait, Therapeutic Exercise PT Plan Frequency BID Duration LOS Discharge Goals Bed Transfer Ability Contact Guard/Hand Hold Sit to Stand Chair Transfer Ability Contact Guard/Hand Hold Ambulation Assistive Device Rolling Walker Ambulation Distance (feet) 15 Discharge Plan PT Discharge Plan Pt is most appropriate for rehab placement at this time. If she refuses rehab placement and return home, she wou
--- NOTE | 2019-10-27 11:30 | HMH.PTWOUND ---
Rehab Inpt Wound Evaluation Rehab IP Wound Evaluation Start: 10/27/19 09:17 Freq: ONCE Status: Active Protocol: Document 10/27/19 11:27 [facility] (Rec: 10/27/19 11:30 [facility] [id number]) Rehab PT Wound Assessment Subjective Subjective 59 yowf adm to [facility] with CHF exac and abdominal wounds due to fluid overload, MRSA +. Wound Anterior Abdomen Wound Type Stasis Ulcer Wound Length (cm) 5.0 Wound Width (cm) 5.0 Wound Bed Appearance [place],Yellow Wound Margins Description Well Defined Surrounding Tissue Appearance [place] Wound Drainage Description Serous Plan/Recommendation Comment NSG currently dressing wounds with mupirocin and secondary dressing which is appropriate. NSG to continue dressing changes as previous. No current debridement needed. Eval Complexity Eval Charge Codes 91338 - Moderate Complexity PHYSICIAN CERTIFICATION: I certify the specified therapy services for Vania Cook are required, authorized, and reviewed every 30 days.
--- NOTE | 2019-10-27 14:15 | HMH.CNCARD ---
History of Present Illness Consult date: 10/27/19 Requesting physician: Mik Finn Consult reason: congestive heart failure Chief complaint: SOA, edema Additional Medical History:: 1. DM, type 2 2. HTN 3. Hyperlipidemia 4. Hypothyroidism, on replacement A. History of thyroid cancer 5. Cardiomyopathy with EF 40-45% A. Echo, 06/2017, LVEF 45% with no regional wall motion abnormality. Borderline LVH with mild LAE. Mild MR and TR. B. Echo, 12/2018, 1. Mildly enlarged left atrium, mildly dilated left ventricle, severely reduced left ventricular systolic function, visually estimated ejection fraction 30%, left ventricle is globally hypokinetic, there is abnormal septal motion. Doppler evidence of raise left ventricular end-diastolic pressure. 2. Mild mitral and tricuspid regurgitation. 3. No significant pericardial effusion noted C. Recommendation for biventricular AICD made but patient has failed to keep appointment for implantation. D. Echo, 07/17/2019, EF 25-35% with global hypokinesis. 6. CAD A. cardiac cath, 09/2017, LILI to proximal LAD and LILI to proximal dominant Circ. LVEF 40% with mild anterior wall hypokinesis. LVEDP 10 mm Hg. B. cardiac cath, 12/2017, 1. The left main artery normal 2. The left anterior descending artery has ostial smooth 10-20% stenoses followed by stents in the proximal segment but are widely patent with excellent distal and proximal transitioning 3. The circumflex artery circumflex artery is a dominant vessel with a long ostial 20-30% stenosis. The first obtuse marginal artery is subtotally occluded with initial JESSICA I flow. JESSICA-3 flow was present after the stent. Distal to the first obtuse marginal artery a 70% long stenosis is present. 4. The right coronary artery is a small vestigial vessel subtotally occluded proximally 5. The LAU ventriculogram reveals normal 65% 6. The left ventricular end-diastolic pressure 10 mmHg 7. Anxiety/depression 8. History of DVT but LE venous doppler negative, 06/2019 9. History of GERD 10. Possible family history of amyloidosis A. Patient's serum MARIAH level is normal, 12/2017 11. Carotid artery disease is present, MEJIA < 20%, LICA 20-49%, 07/2018. 12. Recurrent admissions for congestive heart failure due to medication noncompliance History of present illness: 59-year-old white female with long history of diabetes, hypothyroidism, systolic and diastolic CHF and severe medical noncompliance who presented to the emergency department with a chief complaint of edema, dyspnea and was found to be in a florid CHF exacerbation. Of note, she had seen her new primary care group earlier this week, , had medicines adjusted, and had been noted to have some had ulcers on her abdomen consistent with stasis ulcers from skin breakdown, and was discharged home. She came back to the emergency department early this morning with these complaints. Found to have volume overload, pleural effusions and chest x-ray findings of significant pulmonary edema and BNP level greater than 9000. Patient is a long history of medicine noncompliance. Multiple pharmacy delivery services have told us that she does not take her medications and they have found months and months of medications in her home unopened. Patient is on fairly high doses of Synthroid and her TSH remains supratherapeutic. She continues to have multiple CHF exacerbations. She maintains that she does take her medication, but every other objective evidence would suggest otherwise including eyewitness reports from home health agencies and pharmacy delivery services. And also has a history of doctor shopping with multiple cardiology groups including here at [facility], [place] and [facility] with multiple switching specialty providers. The above per Dr. Simpson on admission Patient has diuresed during this admission and states her breathing is improved and her leg edema has impr
--- NOTE | 2019-10-27 14:36 | SW/DCPLANNER ---
Addendum entered by [facility] 10/28/19 17:24: Helena with Hospice has evaluated this patient and stated that she is a candidate for their services. Patient has stated that she is unsure regarding: home health or Hospice services at this time (I have explained the difference to both patient and her ) and would like to wait and hear back from: [facility], [facility], [facility] once referral is reviewing. I have informed Helena with Hospice that CM will follow back up with her in the AM. Addendum entered by [facility] 10/28/19 14:27: I have spoke with patients as well. understands that several facilities have denied patient admission. I have also explained to that: [facility], [facility], [facility] and [facility] is reviewing referral. has requested that patient information also be faxed to Hospice to discuss their services. stated if no facilities can accept this patient he is interested in patient discharging home with Hospice services. Patient information has been faxed to [facility] at this time. I will continue to follow up with facilities, Hospice, MD and patient/family. Addendum entered by [facility] 10/28/19 14:00: At this time facilities that can NOT accept this patient: [facility], [facility] [place], [facility], [facility], [facility], [facility], [facility], [facility], [facility] and [facility], [place]. I have left a message with: [facility] ([phone]), [facility] (Arlyn [phone]), [facility] [place]. Patient information has been faxed to: [facility] (Ludin), [facility], [facility] and [facility] ([place] phone [phone] fax [phone]). I will continue to follow up with these facilities, patient and MD. Addendum entered by [facility] 10/28/19 13:18: Patient information has also been faxed to [facility] to review. I have left a voicemail with Arlyn ([phone]) at [facility]. I have also spoke with [facility] and they have NO beds available at this time. Addendum entered by [facility] [place] 10/28/19 13:05: [facility] has denied this patient due to bed availability. [facility] is currently reviewing this patients information. Addendum entered by [facility] 10/28/19 10:55: Vincent from [facility] will be here today to evaluate this patient. Addendum entered by [facility] 10/28/19 10:02: Patient is now agreeable to placement at this time. Patient stated that she does not have a preference as to which facility. Patient has only requested that her transport her at time of discharge. At this time patient information has been faxed to: [facility] and [facility]. I have left a voicemail with Claudia at [facility] regarding bed availability. At this time these facilities do NOT have beds available: [facility], [facility], [facility], [place] and [facility]. I will continue to follow up with [facility], [facility] and [facility]. Original Note: I have spoke with this patient regarding discharge plans. Patient stated that she resides at home with her family and prefers to discharge back home once medically stable for discharge. I did explain the option of placement to this patient and she quickly refused. Patient is currently established with [facility] and states she would like to resume services at discharge. I will follow up with [facility] and patient once patient is ready for discharge.
[2019-10-27 14:54] VITALS: BMI 34.9
[2019-10-27 16:00] VITALS: BP 100/58; PULSE 71; RESP 20; TEMP 36.6; O2SAT 96
[2019-10-27 16:29] LABS: POC Glucose,Bedside 131 (70-110)
--- NOTE | 2019-10-27 19:06 | PC.NURSE ---
PATIENT ABLE TO STAND WITH 2X ASSISTANCE TO USE BEDSIDE COMMODE. THIS RN PROVIDED A WALKER TO HELP PATIENT STAND. PATIENT STOOD USING WALKER THAN PROCEEDED TO FALL BACK. PATIENT DID NOT FALL. THIS RN INSTRUCTED PATIENT TO STAND TALL AND LOOK STRAIGHT AHEAD. NO OTHER CONCERNS AT THIS TIME.
--- NOTE | 2019-10-27 19:08 | PC.NURSE ---
report given to vonda
[2019-10-27 19:43] VITALS: BP 94/59; PULSE 75; RESP 16; TEMP 36.3; O2SAT 98
[2019-10-27 20:15] VITALS: O2SAT 98
--- NOTE | 2019-10-27 21:57 | PC.NURSE ---
Pt just received a bath. Her O2 sat at this time = 88% on 2 lpm O2 via NC.
[2019-10-27 21:59] VITALS: O2SAT 88
[2019-10-28] VITALS (8 sets, daily range): BP systolic 92–120; BP diastolic 54–65; PULSE 60–75; RESP 16–20; TEMP 36.5–36.8; O2SAT 82–98; BMI 34.9
[2019-10-28 00:50] LABS: POC Glucose,Bedside 163 (70-110)
--- NOTE | 2019-10-28 03:57 | PC.NURSE ---
A&OX4. PT HAS TOLERATED 2L OF NASAL CANNULA WELL THROUGHOUT SHIFT. RESPIRATIONS REGULAR AND UNLABORED. LUNG SOUNDS DIMINISHED THROUGHOUT. NO COUGH NOTED. +1 PITTING EDEMA NOTED IN BLE. +2 PULSES THROUGHOUT EXCEPT IN BLE. +1 PULSES NOTED IN BLE. HEART RATE REGULAR. ACTIVE BOWEL SOUNDS NOTED THROUGHOUT. DISTENDED NONTENDER ABDOMEN NOTED. SEVERAL WOUNDS NOTED TO ABDOMEN WELL ONE ON L THIGH AND L ELBOW. L ELBOW COVERED WITH POLYNEM AND TEGADERM. L THIGH COVERED WITH TEGADERM AND TELFA. ABD COVERED WITH TELFA AND ABD PAD. ALL DRESSINGS CDI. OINTMENT APPLIED TO WOUNDS PER JUL. HAND DIRECTOR SOCIAL SERVICE EQUAL. PT HAS REMAINED IN CONTACT PRECAUTIONS THROUGHOUT SHIFT. PT TRANSFERRED FROM THE CHAIR TO THE BED WITH 3 PERSON ASSIST. PT TOLERATED OK. PT HAS HAD A LOW BLOOD PRESSURE THROUGHOUT SHIFT AND BLOOD PRESSURE MEDICATIONS HAVE BEEN HELD. NO COMPLAINTS OF PAIN THROUGHOUT SHIFT. PT HAS BEEN TURNED Q 2 HOURS TO HELP PREVENT SORES. PT IS CURENTLY RESTING IN BED WITH CALL LIGHT WITHIN REACH. BED IN LOWEST POSITION. NO CONCERNS AT THIS TIME. VSS. WILL CONTINUE TO MONITOR.
[2019-10-28 05:28] LABS: POC Glucose,Bedside 109 (70-110)
[2019-10-28 06:52] LABS: Basophils % 0.8 % (0.1-2.0); Eosinophils # 0.1 K/mm3 (0.0-0.4); Eosinophils % 2.3 % (0.1-12.0); Hematocrit 35.3 % (37.0-47.0); Hemoglobin 11.3 g/dL (12.2-16.2); Lymphocytes # 1.2 K/mm3 (0.7-4.5); Lymphocytes % 22.7 % (10-50); Mean Corpuscular HGB Conc 32.1 g/dL (31.8-35.4); Mean Corpuscular Hemoglobin 27.2 pg (27.0-31.2); Mean Corpuscular Volume 84.7 fl (81-99); Mean Platelet Volume 7.5 fl (7.4-10.4); Monocytes # 0.6 K/mm3 (0.1-1.0); Monocytes % 10.2 % (1.7-9.3); Neutrophils # 3.4 K/mm3 (1.8-7.8); Neutrophils % 63.9 % (37.0-80.0); Platelet Count 390 K/mm3 (142-424); Red Blood Count 4.16 M/mm3 (4.20-5.40); Red Cell Distribution Width 14.8 % (11.5-17.5); White Blood Count 5.4 K/mm3 (4.8-10.8)
[2019-10-28 06:57] LABS: Chloride 91 mmol/L (98-107); Sodium 132 mmol/L (136-145)
[2019-10-28 06:58] LABS: Potassium 4.1 mmoL/L (3.5-5.1)
[2019-10-28 07:00] LABS: Anion Gap 9.1 mEq/L (5-15); Blood Urea Nitrogen 41 mg/dl (7-17); Carbon Dioxide 36 mmol/L (22.0-30.0); Creatinine Clearance Estimated 55 mL/min (50-200); Estimated Glomerular Filt Rate 36 ml/min (>60); GFR (African American) 43 ML/MIN (>60)
[2019-10-28 07:01] LABS: Glucose 87 mg/dl (74-100)
--- NOTE | 2019-10-28 08:17 | P.PN_ITS ---
Subjective Date: 10/28/19 Time: 08:17 Principal diagnosis: CHF, Cardiomyopathy Interval history: 59 yo WF in bed in NAD. Relates some right sided chest pain, worse with deep breathing or cough and reproducible with palpation. Feels her breathing is better but asking for breathing treatment. Discussed issue of severe cardiomyopathy and recurrent CHF that is becoming resistant to medical treatment alone. She does not want to consider BiV AICD implantation. Exam Vital signs and Labs for Last 24 Hours: Temp Pulse Resp BP Pulse Ox 97.7 F 70 19 93/54 L 98 10/28/19 07:30 10/28/19 07:30 10/28/19 07:30 10/28/19 07:30 10/28/19 07:30 Laboratory Results - last 24 hr 10/27/19 06:48: NT-Pro-B Natriuret Pep 4570 H 10/27/19 11:15: POC Glucose 94 10/27/19 16:02: POC Glucose 131 H 10/27/19 20:08: POC Glucose 163 H 10/28/19 05:21: POC Glucose 109 10/28/19 06:20: Sodium 132 L, Potassium 4.1, Chloride 91 L, Carbon Dioxide 36 H, Anion Gap 9.1, BUN 41 H D, Creatinine 1.50 H, Estimated Creat Clear 55, Estimated GFR 36 L, Est GFR ( Amer) 43 L, Glucose 87, Calcium 8.0 L 10/28/19 06:20: WBC 5.4, RBC 4.16 L, Hgb 11.3 L, Hct 35.3 L, MCV 84.7, MCH 27.2, MCHC 32.1, RDW 14.8, Plt Count 390, MPV 7.5, Neut % (Auto) 63.9, Lymph % (Auto) 22.7, [place] % (Auto) 10.2 H, Eos % (Auto) 2.3, Baso % (Auto) 0.8, Neut # (Auto) 3.4, Lymph # (Auto) 1.2, [place] # (Auto) 0.6, Eos # (Auto) 0.1, Baso # (Auto) 0.0 I & O for Last 24 hours: Intake & Output 10/25/19 10/26/19 10/27/19 10/28/19 11:59 11:59 11:59 11:59 Intake Total 240 / 240 360 / 360 1080 / 1080 Output Total 1400 / 1400 3750 / 3750 950 / 950 Balance -1400 / -1400 -3510 / -3510 -590 / -590 1080 / 1080 Weight 203 lb 5 oz 186 lb 1 oz 185 lb Microbiology Reports for the Last 24 Hours: Microbiology 10/25/19 02:43 Abdomen Gram Stain - Final 10/25/19 02:43 Abdomen Wound Culture - Final Staphylococcus aureus - *Routine Respiratory Exam Present: CTA bilaterally. Absent: accessory muscle use, rales, rhonchi, wheezes - *Routine Cardiovascular Exam Present: RRR. Absent: murmur, gallop, rubs - *Routine Extremities Exam Present: edema. Absent: calf tenderness - *Routine Neurological Exam Present: alert, oriented X3, moving all extremities Progress Note: A&P (1) Congestive heart failure Status: Acute Current Visit: Yes (2) Skin ulcer of abdominal wall Status: Acute Current Visit: Yes (3) Acute on chronic systolic CHF (congestive heart failure) Status: Acute Current Visit: No (4) NYHA class 3 heart failure with reduced ejection fraction Status: Acute Current Visit: No (5) Diabetes mellitus Status: Chronic Current Visit: No (6) Noncompliance with medication regimen Status: Chronic Current Visit: No Assessment and Plan for All Diagnoses:: 1. Severe ischemic CM with recurrent CHF. Continue low dose coreg and lisinopril along with bumex and spironolactone as BP tolerate. Pt refuses BiV AICD implantation. Consider Hospice. 2. Medication non-compliance 3. DM, per PCP 4. skin ulcers of abdominal wall, per PCP 5. CAD with prior coronary stenting. Clinically stable on ASA.
--- NOTE | 2019-10-28 09:37 | HMH.ACPN2 ---
Internal Medicine - PN: Subj *Date: 10/28/19 *Time: 09:15 Interval history: 59-year-old female patient resting in bed quietly, awakens to verbal stimuli. She reports she is feeling better, denies shortness of breath or chest pain this morning. Discussed with patient importance of transferring to rehab facility with 30-day admission to help patient with correct medication administration and physical therapies. Also discussed possible discharge home with hospice with patient, patient says she would like to be discharged to rehab facility. IV antibiotics have been started Exam Vital signs and Labs for Last 24 Hours: Temp Pulse Resp BP Pulse Ox 97.8 F 60 20 98/65 L 98 10/28/19 15:10 10/28/19 15:10 10/28/19 15:10 10/28/19 15:10 10/28/19 15:10 Laboratory Results - last 24 hr 10/27/19 20:08: POC Glucose 163 H 10/28/19 05:21: POC Glucose 109 10/28/19 06:20: Sodium 132 L, Potassium 4.1, Chloride 91 L, Carbon Dioxide 36 H, Anion Gap 9.1, BUN 41 H D, Creatinine 1.50 H, Estimated Creat Clear 55, Estimated GFR 36 L, Est GFR ( Amer) 43 L, Glucose 87, Calcium 8.0 L 10/28/19 06:20: WBC 5.4, RBC 4.16 L, Hgb 11.3 L, Hct 35.3 L, MCV 84.7, MCH 27.2, MCHC 32.1, RDW 14.8, Plt Count 390, MPV 7.5, Neut % (Auto) 63.9, Lymph % (Auto) 22.7, [place] % (Auto) 10.2 H, Eos % (Auto) 2.3, Baso % (Auto) 0.8, Neut # (Auto) 3.4, Lymph # (Auto) 1.2, [place] # (Auto) 0.6, Eos # (Auto) 0.1, Baso # (Auto) 0.0 10/28/19 11:33: POC Glucose 123 H 10/28/19 16:23: POC Glucose 117 H I & O for Last 24 hours: Intake & Output 06/13/20 06/14/20 06/15/20 06/16/20 23:59 23:59 23:59 23:59 Intake Total 240 / 240 1080 / 1080 970 / 970 Output Total 4350 / 4350 1450 / 1450 300 / 300 Balance -4350 / -4110 -1210 / -1210 780 / 780 970 / 970 Weight 203 lb 5 oz 186 lb 1 oz 185 lb 3.013 oz 185 lb - Constitutional no acute distress, chronically ill appearing - *Routine HEENT Exam ENT: Present: mucous membranes dry - *Routine Neck Exam Present: trachea midline. Absent: tracheal deviation - *Routine Respiratory Exam Present: CTA bilaterally. Absent: accessory muscle use - *Routine Cardiovascular Exam Present: RRR, murmur - *Routine Abdominal Exam Present: soft, normoactive bowel sounds. Absent: tenderness - *Routine Extremities Exam Present: edema, pulses intact. Absent: calf tenderness - *Routine Skin Exam Present: wounds Comments: Multiple blisters with purulent drainage to abdomen and upper left thigh, dressing C/D/I - *Routine Neurological Exam Present: alert Assessment and Plan (1) Congestive heart failure Current visit: Yes Status: Acute Qualifiers: Heart failure type: unspecified Heart failure chronicity: acute on chronic Qualified Code(s): I50.9 - Heart failure, unspecified Category: Medical Code(s): I50.9 - Heart failure, unspecified (2) Skin ulcer of abdominal wall Current visit: Yes Status: Acute Qualifiers: Non-pressure ulcer stage: limited to breakdown of skin Qualified Code(s): L98.491 - Non-pressure chronic ulcer of skin of other sites limited to breakdown of skin Category: Medical Code(s): L98.499 - Non-pressure chronic ulcer of skin of other sites with unspecified severity (3) Acute on chronic systolic CHF (congestive heart failure) Current visit: No Status: Acute Category: Medical Code(s): I50.23 - Acute on chronic systolic (congestive) heart failure (4) NYHA class 3 heart failure with reduced ejection fraction Current visit: No Status: Acute Category: Medical Code(s): I50.20 - Unspecified systolic (congestive) heart failure (5) Diabetes mellitus Current visit: No Status: Chronic Qualifiers: Diabetes mellitus type: type 2 Diabetes mellitus coin box inspector insulin use: without coin box inspector use Diabetes mellitus complication status: with hyperglycemia Qualified Code(s): E11.65 - Type 2 diabetes mellitus with hyperglycemia Category: Medical Code(s): E
[2019-10-28 11:43] LABS: POC Glucose,Bedside 123 (70-110)
[2019-10-28 17:10] LABS: POC Glucose,Bedside 117 (70-110)
--- NOTE | 2019-10-28 17:54 | PC.NURSE ---
Addendum entered by Cony Carroll RN 10/28/19 18:54: 200 mls of urine out, NOT 500mls Original Note: Pt was up to the chair for breakfast and requested to go back to bed shortly after. She is very weak and a 2-3 assist. Speech is weak and garbled. Appetite is very poor, even with staff trying to assist patient with eating. She hadn't had any urine output for almost 20 hours. Pam Garduno APRN notified and order for rebolledo placed. Rebolledo was anchored w/return of approx 500 mls of straw colored urine. Mupirocin applied to ulcerated areas on abdomen and legs. Dressings were changed as well. BP has been running a little low with systolic in 90's, diastolic 50's-60's, cardiology aware. No further complaints or concerns at this time.
[2019-10-28 22:19] LABS: POC Glucose,Bedside 139 (70-110)
[2019-10-29 04:00] VITALS: BP 96/61; PULSE 73; RESP 20; TEMP 36.6; O2SAT 99
--- NOTE | 2019-10-29 04:31 | PC.NURSE ---
A&O TO NAME, BIRTHDAY, AND YEAR. PT HAS TOLERATED 2L NC WELL THROUGHOUT SHIFT. RESPIRATIONS REGULAR AND UNLABORED. LUNG SOUNDS BILATERALLY CLEAR. NO COUGH NOTED. HEART RATE REGULAR. +2 PITTING EDEMA NOTED TO BILATERAL LOWER EXTREMITIES. HAND UKE OPERATOR EQUAL. WOUND NOTED TO L THIGH. NONADHESIVE PAD AND TEGADERM IN PLACE. DRESSING CDI. 3 WOUNDS NOTED ON ABDOMEN. ALL COVERED WITH NONADHESIVE PAD AND ABD PAD. DRESSING CDI. OINTMENT APPLIED PER JUL. AT BEGINNING OF SHIFT, SCANT PURULENT DRAINAGE NOTED TO LARGE WOUND ON ABDOMEN. REDNESS NOTED TO WOUNDS ON THIGH AND ABDOMEN. REDNESS WAS OUTLINED WITH MARKER AND WILL BE CAREFULLY MONITOR THROUGHOUT SHIFT TO ENSURE IT DOESN'T EXTEND PAST MARKED AREA. ON REASSESSMENT REDNESS HAD RECEDED SOME. WILL CONTINUE TO MONITOR. WOUND NOTED TO L ELBOW W TEGADERM AND TELFA IN PLACE. PT HAS REMAINED IN CONTACT ISOLATION THROUGHOUT SHIFT. ACTIVE BOWEL SOUNDS HEARD IN ALL 4 QUADRANTS. SOFT NONTENDER ABDOMEN. NO REPORTS OF PAIN THROUGHOUT SHIFT. COOPER CATH IN PLACE WITH CLEAR YELLOW URINE FLOWING FREELY INTO DRAINAGE BAG. SEDIMENT NOTED. 200ML OUT THIS SHIFT. NO KINKS NOTED. PT HAS BEEN TURNED Q 2 HOURS TO HELP PREVENT PRESSURE ULCERS. PT RESTING COMFORTABLY IN BED. BED IN LOWEST POSITON. CALL LIGHT WITHIN REACH. VSS. NO CONCERNS AT THIS TIME. WILL CONTINUE TO MONITOR.
[2019-10-29 05:00] VITALS: BMI 36.6
--- NOTE | 2019-10-29 05:55 | PC.NURSE ---
Primary RN notified of weight discrepancy in pt weight from previous day. RN weighed pt to verify weight and the weight was the same.
[2019-10-29 06:06] LABS: POC Glucose,Bedside 95 (70-110)
[2019-10-29 06:49] LABS: Basophils % 0.5 % (0.1-2.0); Eosinophils # 0.1 K/mm3 (0.0-0.4); Eosinophils % 1.5 % (0.1-12.0); Hematocrit 34.8 % (37.0-47.0); Hemoglobin 11.3 g/dL (12.2-16.2); Lymphocytes # 1.1 K/mm3 (0.7-4.5); Lymphocytes % 17.9 % (10-50); Mean Corpuscular HGB Conc 32.4 g/dL (31.8-35.4); Mean Corpuscular Hemoglobin 27.1 pg (27.0-31.2); Mean Corpuscular Volume 83.5 fl (81-99); Mean Platelet Volume 8.1 fl (7.4-10.4); Monocytes # 0.7 K/mm3 (0.1-1.0); Neutrophils # 4.1 K/mm3 (1.8-7.8); Neutrophils % 69.1 % (37.0-80.0); Platelet Count 413 K/mm3 (142-424); Red Blood Count 4.17 M/mm3 (4.20-5.40); Red Cell Distribution Width 15.2 % (11.5-17.5); White Blood Count 5.9 K/mm3 (4.8-10.8)
[2019-10-29 06:51] LABS: Chloride 92 mmol/L (98-107)
[2019-10-29 06:52] LABS: Potassium 4.6 mmoL/L (3.5-5.1); Sodium 132 mmol/L (136-145)
[2019-10-29 06:54] LABS: Blood Urea Nitrogen 47 mg/dl (7-17); Creatinine Clearance Estimated 62 mL/min (50-200); Estimated Glomerular Filt Rate 39 ml/min (>60); GFR (African American) 47 ML/MIN (>60)
[2019-10-29 06:55] LABS: Anion Gap 11.6 mEq/L (5-15); Calcium 7.9 mg/dl (8.4-10.2); Carbon Dioxide 33 mmol/L (22.0-30.0); Glucose 102 mg/dl (74-100)
[2019-10-29 07:50] VITALS: BP 127/64; PULSE 71; RESP 15; TEMP 36.4; O2SAT 95
--- NOTE | 2019-10-29 08:53 | HMH.ACPN2 ---
Internal Medicine - PN: Subj *Date: 10/29/19 *Time: 08:53 Interval history: 59-year-old female patient sitting up in bed reports she is feeling better, instructed we are still looking for placement. Purpose of pacemaker explained to patient she reports she will discuss with . Blood cultures negative x2, wound culture grew Staphylococcus aureus she is on vancomycin IV Exam Vital signs and Labs for Last 24 Hours: Temp Pulse Resp BP Pulse Ox 97.5 F L 71 15 127/64 95 10/29/19 07:50 10/29/19 07:50 10/29/19 07:50 10/29/19 07:50 10/29/19 07:50 Laboratory Results - last 24 hr 10/28/19 11:33: POC Glucose 123 H 10/28/19 16:23: POC Glucose 117 H 10/28/19 20:22: POC Glucose 139 H 10/29/19 05:41: POC Glucose 95 10/29/19 06:38: WBC 5.9, RBC 4.17 L, Hgb 11.3 L, Hct 34.8 L, MCV 83.5, MCH 27.1, MCHC 32.4, RDW 15.2, Plt Count 413, MPV 8.1, Neut % (Auto) 69.1, Lymph % (Auto) 17.9, [place] % (Auto) 11.0 H, Eos % (Auto) 1.5, Baso % (Auto) 0.5, Neut # (Auto) 4.1, Lymph # (Auto) 1.1, [place] # (Auto) 0.7, Eos # (Auto) 0.1, Baso # (Auto) 0.0 10/29/19 06:38: Sodium 132 L, Potassium 4.6, Chloride 92 L, Carbon Dioxide 33 H, Anion Gap 11.6, BUN 47 H, Creatinine 1.40 H, Estimated Creat Clear 62, Estimated GFR 39 L, Est GFR ( Amer) 47 L, Glucose 102 H, Calcium 7.9 L I & O for Last 24 hours: Intake & Output 10/26/19 10/27/19 10/28/19 10/29/19 23:59 23:59 23:59 23:59 Intake Total 240 / 240 1080 / 1080 970 / 970 120 / 120 Output Total 1450 / 1450 300 / 300 200 / 300 200 / 200 Balance -1210 / -1210 780 / 780 770 / 670 -80 / -80 Weight 186 lb 1 oz 185 lb 3.013 oz 185 lb 194 lb 1 oz - Constitutional no acute distress, chronically ill appearing - *Routine HEENT Exam ENT: Present: mucous membranes dry - *Routine Neck Exam Present: trachea midline. Absent: tracheal deviation - *Routine Respiratory Exam Present: decreased breath sounds. Absent: accessory muscle use - *Routine Cardiovascular Exam Present: RRR - *Routine Abdominal Exam Present: soft, normoactive bowel sounds, obese. Absent: tenderness - *Routine Extremities Exam Present: edema, pulses intact - *Routine Skin Exam Present: warm, wounds. Absent: jaundice Comments: Multiple blister areas to abdomen and left upper thigh - *Routine Neurological Exam Present: alert, oriented X3 - Routine Psychiatric Exam Present: normal affect Assessment and Plan (1) Congestive heart failure Current visit: Yes Status: Acute Qualifiers: Heart failure type: unspecified Heart failure chronicity: acute on chronic Qualified Code(s): I50.9 - Heart failure, unspecified Category: Medical Code(s): I50.9 - Heart failure, unspecified (2) Skin ulcer of abdominal wall Current visit: Yes Status: Acute Qualifiers: Non-pressure ulcer stage: limited to breakdown of skin Qualified Code(s): L98.491 - Non-pressure chronic ulcer of skin of other sites limited to breakdown of skin Category: Medical Code(s): L98.499 - Non-pressure chronic ulcer of skin of other sites with unspecified severity (3) Acute on chronic systolic CHF (congestive heart failure) Current visit: No Status: Acute Category: Medical Code(s): I50.23 - Acute on chronic systolic (congestive) heart failure (4) NYHA class 3 heart failure with reduced ejection fraction Current visit: No Status: Acute Category: Medical Code(s): I50.20 - Unspecified systolic (congestive) heart failure (5) Diabetes mellitus Current visit: No Status: Chronic Qualifiers: Diabetes mellitus type: type 2 Diabetes mellitus retirement insulin use: without long lines operator use Diabetes mellitus complication status: with hyperglycemia Qualified Code(s): E11.65 - Type 2 diabetes mellitus with hyperglycemia Category: Medical Code(s): E11.9 - Type 2 diabetes mellitus without complications (6) Noncompliance with medication regimen Current visit: No Status: Chronic Category:
[2019-10-29 10:35] VITALS: O2SAT 83
--- NOTE | 2019-10-29 10:46 | HMH.DCSUM ---
General - General Admission date:: 10/25/19 Discharge date: 10/29/19 HPI HPI: 59-year-old white female with long history of diabetes, hypothyroidism, systolic and diastolic CHF and severe medical noncompliance who presented to the emergency department with a chief complaint of edema, dyspnea and was found to be in a florid CHF exacerbation. Of note, she had seen her new primary care group earlier this week, , had medicines adjusted, and had been noted to have some had ulcers on her abdomen consistent with stasis ulcers from skin breakdown, and was discharged home. She came back to the emergency department early this morning with these complaints. Found to have volume overload, pleural effusions and chest x-ray findings of significant pulmonary edema and BNP level greater than 9000. Patient is a long history of medicine noncompliance. Multiple pharmacy delivery services have told us that she does not take her medications and they have found months and months of medications in her home unopened. Patient is on fairly high doses of Synthroid and her TSH remains supratherapeutic. She continues to have multiple CHF exacerbations. She maintains that she does take her medication, but every other objective evidence would suggest otherwise including eyewitness reports from home health agencies and pharmacy delivery services. And also has a history of doctor shopping with multiple cardiology groups including here at [facility], [place] and [facility] with multiple switching specialty providers. Hospital Course Hospital Course: 59-year-old white female with long history of diabetes, hypothyroidism, systolic and diastolic CHF and severe medical noncompliance who presented to the emergency department with a chief complaint of edema, dyspnea and was found to be in a florid CHF exacerbation. Of note, she had seen her new primary care group earlier this week, , had medicines adjusted, and had been noted to have some had ulcers on her abdomen consistent with stasis ulcers from skin breakdown, and was discharged home. She came back to the emergency department early this morning with these complaints. Found to have volume overload, pleural effusions and chest x-ray findings of significant pulmonary edema and BNP level greater than 9000. Patient is a long history of medicine noncompliance. Multiple pharmacy delivery services have told us that she does not take her medications and they have found months and months of medications in her home unopened. Patient is on fairly high doses of Synthroid and her TSH remains supratherapeutic. She continues to have multiple CHF exacerbations. She maintains that she does take her medication, but every other objective evidence would suggest otherwise including eyewitness reports from home health agencies and pharmacy delivery services. And also has a history of doctor shopping with multiple cardiology groups including here at [facility] and [facility] with multiple switching specialty providers. 10/26/19 CXR: IMPRESSION: Bilateral chronic pneumonia hyperdense in nature with bilateral effusions slightly larger on the right Dictated by: Ha, Blood cultures have been negative x2, urine culture grew Staphylococcus aureus vancomycin IV was started, cardiology has seen and adjusted medications, she has been receiving Bumex IV and spironolactone. Huerta was DC'd she went as it she was unable to urinate and Huerta was reinserted will discharge with Huerta in place and she has been draining clear yellow urine Cardiology is seen and recommends: 1. Severe ischemic CM with recurrent CHF. Continue low dose coreg and lisinopril along with bumex and spironolactone as BP tolerate. Pt refuses BiV AICD implantation. Consider Hospice. 2. Medication non-compliance 3. DM, per PCP 4. skin ulcers of abdominal wall, per PCP 5. CAD with prior coronary stenting. Clinically stable on
[2019-10-29 11:01] LABS: POC Glucose,Bedside 115 (70-110)
[2019-10-29 11:02] LABS: Vancomycin,Trough 15.7 ug/mL (5.0-10.0)
--- NOTE | 2019-10-29 11:10 | HMH.PHACONS ---
- Pharmacy Consult Date: 10/29/19 Time: 11:11 Referring provider: DR. WATTS Reason for Consult:: VANCOMYCIN TROUGH LEVEL Allergies and ADEs:: Allergies Allergy/AdvReac Type Severity Reaction Status Date / Time cefaclor [From Ceclor] Allergy Severe Hives Verified 10/22/19 09:44 erythromycin base Allergy Severe Hives Verified 10/22/19 09:44 meperidine [From Demerol] Allergy Severe Hives Verified 10/22/19 09:44 tetracycline Allergy Severe Hives Verified 10/22/19 09:44 Penicillins Allergy Intermediate Difficulty Verified 10/22/19 09:44 Breathing pioglitazone [From Actos] Allergy Intermediate Hives Verified 10/22/19 09:44 pneumococcal vaccine Allergy Intermediate Difficulty Verified 10/22/19 09:44 Breathing amoxicillin Allergy Mild Rash Verified 10/22/19 09:44 clindamycin Allergy Mild Hives Verified 10/22/19 09:44 codeine Allergy Mild Rash Verified 10/22/19 09:44 diphtheria,pertussis Allergy Mild Rash Verified 10/22/19 09:44 (acell),tetanu [From Pentacel DTaP-IPV Compnt (PF)] Iodinated Contrast Media Allergy Mild Hives Verified 10/22/19 09:44 [Iodinated Contrast Media - Oral and] regadenoson Allergy Mild Hives Verified 10/22/19 09:44 onion AdvReac Intermediate Heartburn Verified 10/22/19 09:44 Influenza Virus Vaccines AdvReac Mild Hallucinati Verified 10/22/19 09:44 ng oseltamivir [From Tamiflu] AdvReac Mild Hallucinati Verified 10/22/19 09:44 ng Sulfa (Sulfonamide AdvReac Verified 10/22/19 09:44 Antibiotics) Home Medications:: Home Medications Medication Instructions Recorded Confirmed Type Aspirin [Low Dose Aspirin EC] 81 mg PO DAILY #90 tab 07/25/19 10/25/19 Rx Gabapentin [Gabapentin 300mg Cap] 300 mg PO TID 30 Days #90 cap 07/25/19 10/25/19 Rx Sitagliptin Phosphate [Januvia 100 mg PO DAILY #90 tab 07/25/19 10/25/19 Rx 100mg tablet] levothyroxine 100 mcg tablet 200 mcg PO DAILY tab 09/09/19 10/25/19 History potassium chloride 20 mEq 10 meq PO DAILY tab 09/09/19 10/25/19 History tablet,extended release(part/cryst) Glycerin [Glycerin 3gm adult 0 each RC DAILYP PRN #12 supp.rect 09/25/19 10/25/19 Rx suppository] Furosemide [Furosemide 40MG tAB] 40 mg PO BID 09/28/19 10/25/19 History Nitroglycerin [Nitrostat 0.4mg SL 0.4 mg SL Q5MINP PRN 09/28/19 10/25/19 History Tablet] glipiZIDE [Glucotrol] 10 mg PO BID 09/28/19 10/25/19 History lisinopriL [Lisinopril 10mg Tab] 10 mg PO DAILY 09/28/19 10/25/19 History carvedilol 6.25 mg tablet 6.25 mg PO BID 10/22/19 10/25/19 History ondansetron HCl 4 mg tablet 4 mg PO Q6H PRN tab 10/22/19 10/25/19 History sertraline 100 mg tablet 100 mg PO DAILY #90 tab 10/22/19 10/25/19 Rx Albuterol Sulfate [Albuterol 2.5 mg IH Q6HP PRN 10/25/19 10/25/19 History 0.083% 2.5mg/3mL neb] metOLazone [Metolazone 5mg Tab] 5 mg PO DAILY 10/25/19 10/25/19 History Height: 1.55 m Weight: 88.025 kg Laboratory Results:: Laboratory Results - last 24 hr 10/28/19 11:33: POC Glucose 123 H 10/28/19 16:23: POC Glucose 117 H 10/28/19 20:22: POC Glucose 139 H 10/29/19 05:41: POC Glucose 95 10/29/19 06:38: WBC 5.9, RBC 4.17 L, Hgb 11.3 L, Hct 34.8 L, MCV 83.5, MCH 27.1, MCHC 32.4, RDW 15.2, Plt Count 413, MPV 8.1, Neut % (Auto) 69.1, Lymph % (Auto) 17.9, [facility] % (Auto) 11.0 H, Eos % (Auto) 1.5, Baso % (Auto) 0.5, Neut # (Auto) 4.1, Lymph # (Auto) 1.1, [facility] # (Auto) 0.7, Eos # (Auto) 0.1, Baso # (Auto) 0.0 10/29/19 06:38: Sodium 132 L, Potassium 4.6, Chloride 92 L, Carbon Dioxide 33 H, Anion Gap 11.6, BUN 47 H, Creatinine 1.40 H, Estimated Creat Clear 62, Estimated GFR 39 L, Est GFR ( Amer) 47 L, Glucose 102 H, Calcium 7.9 L 10/29/19 08:30: Vancomycin Trough 15.7 H 10/29/19 10:52: POC Glucose 115 H Medical History: Reports:: Anxiety, Asthma, Cancer, Cardiomyopathy, Congestive Heart Failure, Chronic Obstructive Pulmonary Disease (COPD), Congenital Heart Disease, Coronary Artery Disease, Deep Vein Thrombosis, Diabetes Mellitus Type 2, Gastroesoph
--- NOTE | 2019-10-29 13:13 | SW/DCPLANNER ---
I HAD A COUPLE OF CONVERSATIONS WITH PATIENT THIS MORNING ALONG WITH HER NURSE REGARDING WHAT SHE WANTS TO DO POST DISCHARGE... SHE STATED SHE DOES NOT WANT TO HAVE PACEMAKER PLACEMENT AND WISHES TO GO HOME WITH HOSPICE TO FOLLOW.. SHE HAD JUGGLED BACK AND FORTH ABOUT HAVING A PACEMAKER... SHE DID NOT WANT TO OUR CARDIOLOGY GROUP TO SEE HER AND ORIGINALLY WISHED TO GO TO [place] TO SEE A CARDIOLOGY GROUP BUT HAS SINCE CHANGED HER MIND AND WISHES FOR HOSPICE.. I HAVE SPOKEN WITH HER AND HE IS IN AGREEMENT OF HOSPICE AND I HAVE HAD HER EQUIPMENT DELIVERED, AND IT APPEARS SHE WILL DISCHARGE AFTER SHE FINISHES HER IV ANTIBIOTIC...[facility] WERE CONTACTED YESTERDAY TO SEE IF WE COULD GET HER IN AND NO ONE WOULD ACCEPT HER OR DID NOT RETURN A CALL.. STATED SHE WILL JUST GO HOME...
--- NOTE | 2019-10-29 14:45 | PC.NURSE ---
PT'S CALLED THIS MORNING AND STATED PT CALLED HIM STATING THAT SHE WANTED TO GO TO [facility] TO HAVE A PACEMAKER PLACED. PACEMAKER PLACEMENT HAS BEEN BROUGHT UP TO PT IN THE PAST AND SHE HAS ALWAYS REFUSED. DURING PT'S ASSESSMENT PT WAS STILL AGREEABLE TO HAVING THE PACEMAKER AND SHE WANTED TO DO IT AT [facility]. CARE MANAGEMENT WAS NOTIFIED AND CAME TO PT'S ROOM TO ASK PT WHAT SHE WANTED TO DO AND HOW SHE WANTED US TO HELP. PT STATED SHE WANTED TO GO HOME AND DID NOT WANT THE PACEMAKER NOW. PT WAS ALSO ASKED IF SHE WANTED HOSPICE AND SHE STATED YES AND SHE NEEDED A NEW MATTRESS FOR HER BED. PT'S WAS NOTIFIED ABOUT PT NOW NOT WANTING THE PACEMAKER AND WANTING TO GO HOME WITH HOSPICE.
--- NOTE | 2019-10-29 15:06 | PC.NURSE ---
PT WILL BE DISCHARGED HOME WITH HOSPICE. PT WILL BE AMBULANCE TRANSPORT. THIS MORNING PT WAS A 2 MAX ASSIST FOR PHYSICAL THERAPY TO GET OOB. PT HAS SLEPT OFF AND ON T/O THE SHIFT. HAS BEEN VERY LETHARGIC BUT WILL AWAKEN AND ANSWER QUESTIONS APPROPRIATELY. PT WILL BE DC'D WITH HER COOPER PER HOSPICE. PT STATED [facility] DELIVERS ALL OF HER MEDICATIONS TO HER HOUSE. DURING ASSESSMENT THIS MORNING LUNG SOUNDS WERE DIMINISHED. BOWEL SOUNDS NORMAL. PT WAS SITTING UP IN THE CHAIR THIS MORNING. BREAKDOWN NOTED TO THE ABDOMEN AND LT UPPER THIGH. 2+ PITTING EDEMA NOTED TO BLE. HOSPICE WILL PROVIDE A NEW MATTRESS FOR PT'S BED, OXYGEN AND BSC.
== END 2019-10-29 15:20 | disposition hospice, home (50) | DRG 293 ==
LOC: ER 03:45 → 2ND 04:54
PROVIDERS: Nurse Practitioner Family; Admitting Provider Internal Medicine Adolescent Medicine; Emergency Provider Emergency Medicine; PCP Emergency Medicine; Visit Provider Emergency Medicine
DX: I11.0 Hypertensive heart disease with heart failure (principal); I50.23 Acute on chronic systolic (congestive) heart failure; J44.9 Chronic obstructive pulmonary disease, unspecified; Z99.81 Dependence on supplemental oxygen; E89.0 Postprocedural hypothyroidism; L98.491 Non-pressure chronic ulcer of skin of other sites limited to breakdown of skin; E11.9 Type 2 diabetes mellitus without complications; Z91.14 Patient's other noncompliance with medication regimen; Z79.84 Long term (current) use of oral hypoglycemic drugs; Z85.850 Personal history of malignant neoplasm of thyroid; Z88.7 Allergy status to serum and vaccine; Z88.5 Allergy status to narcotic agent; Z88.0 Allergy status to penicillin; Z88.1 Allergy status to other antibiotic agents; Z88.2 Allergy status to sulfonamides; Z88.8 Allergy status to other drugs, medicaments and biological substances; Z79.51 Long term (current) use of inhaled steroids; Z79.82 Long term (current) use of aspirin; Z79.899 Other long term (current) drug therapy; I69.392 Facial weakness following cerebral infarction; A49.02 Methicillin resistant Staphylococcus aureus infection, unspecified site
CPT/HCPCS: 36415; 71045; 80048; 80202; 81001; 82962; 83605; 83880; 84443; 84484; 85025; 87040; 87070; 87077; 87186; 87205; 93005; 94761; 96374; 96375; 97162; 97166; 97530; 97535; 99285; J3370